=== PATIENT | male | born 1965 | race Caucasian/White ===

== ENCOUNTER 2019-02-01 18:24 | Inpatient (IN) | payer OTHER, SELFPAY ==
[2019-02-01] VITALS (9 sets, daily range): BP systolic 155–206; BP diastolic 79–101; PULSE 78–88; RESP 15–24; TEMP 35.9–36.7; O2SAT 91–95; BMI 50.2; BMI 50.3
--- NOTE | 2019-02-01 18:54 | EKG12_ITS ---
Test Reason : SOB Blood Pressure : / mmHG Vent. Rate : 084 BPM Atrial Rate : 084 BPM P-R Int : 206 ms QRS Dur : 100 ms QT Int : 382 ms P-R-T Axes : 041 123 108 degrees QTc Int : 451 ms Normal sinus rhythm Possible Left atrial enlargement Abnormal ECG Confirmed by MARYELLEN JACQUES, LU ([id number]), editor in chief NATHAN SZYMANSKI ([id number]) on 02/02/2019 9:11:30 AM Referred By: Fox Cleveland Confirmed By:LU BOJORQUEZ MD
--- NOTE | 2019-02-01 18:54 | RAD_ITS ---
STUDY: X-RAY CHEST REASON FOR EXAM: Male, 53 years old. Shortness of breath TECHNIQUE: Frontal view of the chest COMPARISON: None. FINDINGS: There are mild congestive changes noted. The lungs are otherwise clear. There are no pleural effusions. There is no pneumothorax. The heart is enlarged. The visualized osseous structures are within normal limits. RAD/Chest 1 View (Portable) IMPRESSION: Cardiomegaly. Mild pulmonary vascular congestion. Electronically Signed: Sandeep Glsaer, at 19:39 EDT Tel , Service support ,
--- NOTE | 2019-02-01 18:57 | NURSING ---
NO OLD EKGS IN MUSE
[2019-02-01 19:16] LABS: Absolute Lymphocyte Count 2.23 X10^3/uL (0.83-4.51); Absolute Neutrophil Count 6.8 X10^3/uL (2.0-7.7); Basophil# 0.07 X10^3/uL; Basophil% 0.7 % (0-1); Eosinophil# 0.22 X10^3/uL; Eosinophils% 2.1 % (0-5); Hematocrit 49.7 % (40-54); Hemoglobin 15.9 g/dL (13.0-16.5); Lymphocyte # 2.23 X10^3/ul (4.0); Lymphocyte % 21.7 % (19-41); Mean Corpuscular Hgb 29.7 pg (27.0-32.0); Mean Corpuscular Volume 92.9 fL (80-94); Monocyte# 0.88 X10^3/uL; Monocyte% 8.6 % (0-10); NRBC Flagged by Analyzer 0 % (0-5); Neutrophil # 6.83 X10^3/uL (2.7-7.7); Neutrophil % 66.5 % (47-70); Platelet Count 240 K/mm3 (150-450); RBC Distribution Width CV 12.7 % (11.6-14.6); RBC Distribution Width SD 43.6 fl (35.1-43.9); Red Blood Count 5.35 M/mm3 (4.6-6.2); White Blood Count 10.3 K/mm3 (4.4-11.0)
[2019-02-01] MEDS: 0.9% Normal Saline 1,000 ML 15 ML IV (19:18)
[2019-02-01 19:20] LABS: Anion Gap 9 (5-15); BUN 13 mg/dL (7-18); BUN/Creat Ratio 12.5 RATIO (10-20); Calcium,Total 8.4 mg/dL (8.5-10.1); Chloride 104 mmol/L (98-107); Creatinine, Serum 1.04 mg/dL (0.70-1.30); EST Glomerular Filtration Rate 79 mL/min (>60); Est Glom Filt Rate - Afr Amer 95 mL/min (>60); Estimated Creatinine Clearance 77.64 ml/min; Glucose 339 mg/dL (74-106); Potassium 4.3 mmol/L (3.5-5.1); Sodium Level 141 mmol/L (136-145)
[2019-02-01 19:56] LABS: BNP,B-Type NATRIURETIC PEPTIDE 137.3 pg/mL (0-100)
[2019-02-01 21:05] LABS: D-Dimer Quantitative (DVT/PE) 0.39 FEU/ug/m (0.27-0.49)
[2019-02-01] MEDS: Aspirin 81 MG TAB.CHEW 324 MG PO (21:10)
--- NOTE | 2019-02-01 21:20 | PCM.HP.STD ---
Problem List (1) Heart failure Status: Suspected (2) Hypertensive emergency Status: Acute History of Present Illness Date of Admission: 02/01/19 Chief Complaint: shortness of breath The patient is a 53 year old M with a significant history of obstructive sleep apnea; hypertension; diabetes; super morbid obesity who presented to the emergency department with shortness of breath. His shortness of breath started 2 to 3 months ago. He saw her PCP and he was prescribed antibiotics and breathing treatment. He completed a course of antibiotics about a week ago. 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 However today while mowing with his son he became extremely short of breath and he had to stop mowing. He still has short of breath at rest and this increases markedly with mild exertion. Associated with symptoms is productive cough of little clear sputum and wheezing. He reports gaining about 40 pounds within 1 year. He has noticed increased swelling of his feet. Presently, he denies paroxysmal nocturnal dyspnea. However he reported about a year ago he had proximal nocturnal dyspnea. He sleeps with only one pillow but most of the time he ends up sleeping by his side. He reports that he is uncomfortable when he sleep on his back. Patient is noncompliant with his home BiPAP. Past Medical History Medical History: Medical History (Last Reviewed 02/02/19 @ 05:51 by Fox Cleveland MD) Diabetes E11.9 HTN (hypertension) I10 Allergies No Known Allergies Allergy (Verified 02/01/19 18:27) Home Medications: Ambulatory Orders Medication Instructions Recorded Dulaglutide [Trulicity] 1.5 mg SQ QWEEK 02/01/19 Insulin Aspart [Novolog Flexpen 18 units SUBCUT TIDCM 02/01/19 ([facility])] Insulin Detemir [Levemir] 68 unit SQ BID 02/01/19 Metformin HCl [Metformin ER 1,000 mg PO BID 02/01/19 Osmotic] Multivitamin with Minerals 1 ea PO DAILY 02/01/19 [Multiple Vitamin] Rosuvastatin Calcium 20 mg PO QHS 02/01/19 Telmisartan/Hydrochlorothiazid 1 tab PO QHS 02/01/19 [Telmisartan-Hctz 80-12.5 mg Tb] Surgical History: - - TEETH EXTRACTION Lives: Spouse/ Significant Other Smoking Status: Never smoker Alcohol: None - *Family History Maternal History Items: - - Thyroid disease Paternal History Items: Diabetes, Heart Disease - Heart disease in his father started probably when his father was in his late 50s. Also, his father had heart attack. Review of Systems Constitutional: Denies: Chills, Fever, Weight Change HEENT: Denies: Head Aches, Sinus Congestion, Sinus Drainage Cardiovascular: Denies: Chest Pain, Palpitations Respiratory: Reports: Cough, Shortness of breath at rest, Sputum production Gastrointestinal: Denies: Abdominal Pain, Nausea, Vomiting Genitourinary: Denies: Dysuria Musculoskeletal: Reports: Leg Pain. Denies: Joint Pain, Joint Tenderness Skin: Reports: Rash. Denies: Wounds Neurological: Denies: Numbness, Tingling, Focal weakness Psychiatric: Denies: Anxiety, Depression, Homicidal Ideations, Suicidal Ideations Hematologic/ Lymphatic: Denies: Easy Bruising, Easy Bleeding VTE Information - Inpt Only VTE Present on Admission: No VTE Mechan Device Prophylaxis: None VTE Pharm Prophylaxis ordered?: Yes Patient Problems: Active and Suspected Problems (Last Updated 02/01/19 @ 22:50 by Fox Cleveland MD) Heart failure (Suspected) Hypertensive emergency (Acute) - Physical Exam General: Alert, Oriented x3, Cooperative, - - Obese HEENT: Atraumatic, PERRLA, EOMI, Normocephalic Neck: Supple, No JVD, Negative Carotid Bruits Lungs: No rhonchi, No rales, Tachypneic, Wheezes - mild Cardiovascular: Regular rate, No murmurs Abdomen: Bowel Sounds Present, Soft, Non Tender Extremities: Capillary Refill Less than 3 Seconds, Tenderness, - - Patient is obese and no pitting edema can be appreciated. However he reports that his leg is swollen Skin: No breakdown, - - erythema of bilateral lower legs and feet. Purpurish rash on legs. Musculoskeletal: No Tenderness to Palpation of Joints or Extremities Neurological: Cranial nerves II-XII grossly intact Psych/Mental Status: Normal Affect, Appropriate Vital Signs Temp Pulse Resp BP Pulse Ox 96.7 F L 88 24 H 206/101 H 91 02/01/19 18:25 02/01/19 18:25 02/01/19 18:25 02/01/19 18:25 02/01/19 18:25 Oxygen Delivery Method Room Air Weight: 149.8 kg Body Mass Index (BMI) 50.2 Laboratory Tests Past 24 Hrs 02/01/19 02/01/19 02/01/19 18:50 18:50 18:50 WBC 10.3 RBC 5.35 Hgb 15.9 Hct 49.7 MCV 92.9 MCH 29.7 MCHC 32.0 RDW Std Deviation 43.6 RDW Coeff of Shelly 12.7 Plt Count 240 MPV 10.0 Immature Gran % (Auto) 0.400 Neut % (Auto) 66.5 Lymph % (Auto) 21.7 Edgar % (Auto) 8.6 Eos % (Auto) 2.1 Baso % (Auto) 0.7 Absolute Neuts (auto) 6.8 Absolute Lymphs (auto) 2.23 Nucleated RBC % 0 D-Dimer Quant (PE/DVT) Sodium 141 Potassium 4.3 Chloride 104 Carbon Dioxide 28.0 Anion Gap 9 BUN 13 Creatinine 1.04 Estim Creat Clear Calc 77.64 Est GFR (MDRD) Af Amer 95 Est GFR (MDRD) Non-Af 79 BUN/Creatinine Ratio 12.5 Glucose 339 H Calcium 8.4 L Troponin I 0.034 B-Natriuretic Peptide 137.3 H 02/01/19 18:50 WBC RBC Hgb Hct MCV MCH MCHC RDW Std Deviation RDW Coeff of Shelly Plt Count MPV Immature Gran % (Auto) Neut % (Auto) Lymph % (Auto) Edgar % (Auto) Eos % (Auto) Baso % (Auto) Absolute Neuts (auto) Absolute Lymphs (auto) Nucleated RBC % D-Dimer Quant (PE/DVT) 0.39 Sodium Potassium Chloride Carbon Dioxide Anion Gap BUN Creatinine Estim Creat Clear Calc Est GFR (MDRD) Af Amer Est GFR (MDRD) Non-Af BUN/Creatinine Ratio Glucose Calcium Troponin I B-Natriuretic Peptide Assessment/Plan All Active Problems (Last Updated 02/01/19 @ 22:50 by Fox Cleveland MD) Hypertensive emergency (Acute) The patient is a 53 year old M with a significant history of obstructive sleep apnea; hypertension; diabetes; super morbid obesity who presented to the emergency department with dyspnea; wheezing; productive cough; increased swelling of his bilateral lower legs consistent; and found to have severely elevated blood pressure consistent with probable new onset heart failure and hypertensive emergency. Suspect acute heart failure Place on monitored bed on PCU Weight on admission to the floor; and then daily Strict I&O's Impression of chest x-ray: Cardiomegaly. Mild pulmonary vascular congestion. Chest x-ray was independently reviewed. I agree with radiology interpretation. EKG independently reviewed confirms Q waves in lead I; in V1 to V6. Emergency department labs reviewed showed BNP of 137.3. But of note patient is morbidly obese. Will give lasix 40eq x1; then 40 mEq IV twice daily. Potassium chloride 20 mEq daily Echo ordered to evaluate LVEF and wall motion Monitor electrolytes and renal function Trend blood pressure Titrate diuretics and heart failure/blood pressure medications with blood pressure. Fluid restriction of 1,500ml. Chemical nuclear stress test in a.m Received aspirin 324 mg in emergency department. Continue aspirin 81 mg daily. Check lipid panel. TSH ordered at the ED returned unremarkable. Hypertensive emergency On presentation his systolic blood pressure was in the lower 200s Reportedly he has been forgetting to take his meds Continue home ARB. Nitroglycerin ointment ordered Hydralazine prn Diabetes with acute hyperglycemia On presentation his blood glucose was not within goal Home Trulicity held On home prandial insulin. We will keep patient n.p.o. so we will hold prandial insulin will check Accu-Chek every 6 hours and give correction scale insulin. On home Levemir. Will de-escalate in the setting of patient being kept n.p.o. Resume home dose after npo is over. MARIA A Patient is supposed to be on home BiPAP which he does not use. Patient declined BiPAP in the hospital settings. DVT Prophylaxis Lovenox 40mg bid; accounted for weight Code Visit Inpatient E&M: 32013 Init Hosp L3
--- NOTE | 2019-02-01 21:21 | ED.VISSUMM ---
- ER Visit Summary Date of Service: 02/01/19 Chief Complaint: [Shortness of breath] History of Present Illness: The patient is a 53 M [presents to the emergency department complaint of shortness of breath has been ongoing for last 3 to 4 months. Patient initially started with a cough and what was thought to be bronchitis. Patient was treated with antibiotics eventually and felt a little bit better. Today he was mowing the lawn on a riding mower and began feeling increasingly short of breath. Patient also admits to exertional dyspnea. He denies any chest pain. Patient denies recent travel or surgery. Patient has not had any heart history himself. Patient states that his father had an NH in his 70s.] Physical Examination: [HEENT-PERRLA, EOMI. Cranial nerves II through XII grossly intact. TMs clear. Mucous membranes moist. No adenopathy. Cardiovascular-regular rate and rhythm without murmur or ectopy Lungs-clear to auscultation, chest wall stable without crepitus or subcu emphysema Abdomen-normoactive bowel sounds, soft, nontender, no rebound or rigidity, no peritoneal signs. Extremities-intact ?4, normal range of motion, normal pulses, atraumatic. Patient has edema of the lower and upper extremities as well as the abdominal wall.] Test Results: [EKG obtained on arrival showed a sinus rhythm with a ventricular rate of 84 bpm with old anterior septal infarct. CBC with additional count of 10.3, hemoglobin 15.9, hematocrit 49.7, platelets 240. Chemistries unremarkable. Troponin is 0.034. D-dimer was 0.39. Chest x-ray showed cardiomegaly and mild pulmonary congestion.] Emergency Department Course and Treatment: [He was given aspirin. Patient was given a DuoNeb aerosol. Patient will be given Lasix 40 mg IV.] Treatment Plan: [Admit for further work-up and evaluation of his exertional dyspnea which I think may be an anginal equivalent. Concerned about possible cardiomyopathy as well.] Disposition: [Admit] Impression: [Exertional dyspnea Anasarca] This note was generated with DocOnYou dictation software. It may contain incorrect words, spelling, and punctuation that were not noted in review of the chart prior to signing ED Disposition - Plan for ED Patient: Referrals: Jus Shields MD [Primary Care Provider] -
[2019-02-01] MEDS: Ipratropium/Albuterol Sulfate 3 ML AMPUL.NEB INHALATION (21:25)
[2019-02-01 21:43] LABS: Thyroid Stim Hormone (TSH) 2.18 uIU/mL (0.358-3.74)
--- NOTE | 2019-02-01 22:21 | ECHOCS_ITS ---
Reason For Study: dyspnea/SOB Procedure This was a 2D Doppler, Color Flow transthoracic echocardiogram. The study was technically difficult. Contrast injection was performed. Exam performed portable in patient room. Left Ventricle Normal LV size. Left ventricular systolic function is normal. The estimated ejection fraction is 60 %. No regional wall motion abnormalities noted. Right Ventricle Normal RV size. Normal systolic function. Atria The left atrium is moderately enlarged. The right atrium is moderately enlarged. Mitral Valve Normal mitral valve. Tricuspid Valve Normal tricuspid valve. Unable to estimate RV systolic pressure/pulmonary artery pressure due to technically difficult study. Aortic Valve The aortic valve is not well visualized. Great Vessels Normal aortic root. The pulmonary artery is normal size. Normal inferior vena cava. Pericardium/Pleural No pericardial effusion. Medication Diluted definity 3.0ml given slow IV push to enhance endocardial definition. MMode/2D Measurements & Calculations LVIDd: 5.9 cm IVSd: 1.3 cm Ao root diam: 3.5 cm LVIDs: 4.4 cm LVPWd: 1.3 cm RVDd: 3.8 cm FS: 26.1 % LAV(MOD-bp): 88.1 ml LA A4 area: 28.7 cm2 LA dimension(2D): 3.7 cm LAV(MOD-bp) Indexed: 34.9 ml/m2 LAV(MOD-sp2): 78.2 ml LAV(MOD-sp4): 95.7 ml RA A4 area: 25.4 cm2 Time Measurements MV dec time: 0.17 sec Doppler Measurements & Calculations MV E max juan: 95.7 cm/sec Lat Peak E' Juan: 10.6 cm/sec Med Peak E' Juan: 6.0 cm/sec MV A max juan: 66.5 cm/sec E/E' lat: 9.0 E/E' med: 15.9 MV E/A: 1.4 Ao V2 max: 168.3 cm/sec LV V1 max: 103.4 cm/sec PA V2 max: 129.8 cm/sec Ao max P.3 mmHg LV V1 max P.3 mmHg Interpretation Summary Normal LV size. Left ventricular systolic function is normal. The estimated ejection fraction is 60 %. Contrast injection was performed. Ordering Physician: Fox Cleveland Referring Physician: Jus Shields Performed By: Nury Banuelos, BECKI, RVT
[2019-02-01] MEDS: Atorvastatin Calcium 40 MG Tablet PO (23:08)
[2019-02-01] MEDS: Insulin Lispro 100 UNIT/ML INSULN.PEN SC (23:09)
[2019-02-01] MEDS: Enoxaparin 40 MG/0.4 ML Syringe SC (23:09)
[2019-02-01] MEDS: 0.9% NaCl Peripheral Flush Adult/Peds IV (23:10)
[2019-02-01] MEDS: Furosemide 40 MG/4 ML Vial IV (23:10)
[2019-02-01 23:16] LABS: Bedside Glucose 245 mg/dL (70-110)
[2019-02-02] VITALS (13 sets, daily range): BP systolic 137–181; BP diastolic 72–90; PULSE 70–95; RESP 18–22; TEMP 36.7–36.8; O2SAT 89–95
[2019-02-02] MEDS: hydrALAZINE 20 MG/ML Vial 10 MG IV (03:54)
[2019-02-02] MEDS: 0.9% NaCl Peripheral Flush Adult/Peds IV ×4 (03:56→21:52)
--- NOTE | 2019-02-02 05:55 | EKG12_ITS ---
Test Reason : MORNING EKG Blood Pressure : / mmHG Vent. Rate : 075 BPM Atrial Rate : 075 BPM P-R Int : 198 ms QRS Dur : 106 ms QT Int : 430 ms P-R-T Axes : 036 116 094 degrees QTc Int : 480 ms Sinus rhythm with occasional Premature ventricular complexes Possible Left atrial enlargement Inferior infarct , age undetermined , cannot be excluded Anterolateral infarct , age undetermined Abnormal ECG No previous ECGs available Confirmed by REGINALDO JACQUES, BALDO ([id number]), acquisitions editor NATHAN SZYMANSKI ([id number]) on 02/04/2019 10:59:38 AM Referred By: Fox Cleveland Confirmed By:BALDO HAIR MD
[2019-02-02 06:19] LABS: Anion Gap 8 (5-15); BUN 12 mg/dL (7-18); BUN/Creat Ratio 13.2 RATIO (10-20); Calcium,Total 8.6 mg/dL (8.5-10.1); Chloride 105 mmol/L (98-107); Cholesterol 189 mg/dL (200); Creatinine, Serum 0.91 mg/dL (0.70-1.30); EST Glomerular Filtration Rate 92 mL/min (>60); Est Glom Filt Rate - Afr Amer 111 mL/min (>60); Estimated Creatinine Clearance 88.74 ml/min; Glucose 259 mg/dL (74-106); High Density Lipoprotein 37 mg/dL; Potassium 3.9 mmol/L (3.5-5.1); Sodium Level 142 mmol/L (136-145); Triglycerides 293 mg/dL; Very Low Density Lipoprotein 59 mg/dL (5-40)
[2019-02-02] MEDS: Aspirin E.C. 81 MG Tablet PO (06:44)
[2019-02-02 07:26] LABS: Bedside Glucose 233 mg/dL (70-110)
[2019-02-02] MEDS: Furosemide 100 MG/10 ML Vial 60 MG IV ×3 (10:16→21:51)
[2019-02-02] MEDS: Enoxaparin 40 MG/0.4 ML Syringe SC ×2 (10:19→21:51)
[2019-02-02] MEDS: Insulin Lispro 100 UNIT/ML INSULN.PEN SC ×3 (11:14→23:51)
[2019-02-02 11:21] LABS: Bedside Glucose 248 mg/dL (70-110)
--- NOTE | 2019-02-02 12:17 | PN_ITS ---
Patient Problems: Active and Suspected Problems (Last Reviewed 02/02/19 @ 05:51 by Fox Cleveland MD) Heart failure (Suspected) Hypertensive emergency (Acute) Subjective: CC congestive heart failure Patient is a 53-year-old gentleman with multiple comorbidities including obstructive sleep apnea, diabetes mellitus type 2 essential hypertension obesity with BMI of 49 presented with progressive shortness of breath with generalized edema. Patient was also found to have markedly elevated blood pressure on admission. Patient seen remains significantly dyspneic at rest with significant edema involving trunk and extremities. Patient dose of Lasix adjusted. Objective: GENERAL: cooperative HEENT: Atraumatic; moist oral mucosa EYES; Anicteric, Normal Conjunctiva NECK; supple, normal thyroid, JVD. RESPIRATORY: Diminished to auscultation bilaterally, CARDIOVASCULAR: Regular S1 S2, no audible GI: soft, non-tender, normoactive bowel sounds, : No Renal angle tenderness; EXTREMITIES: 2+ edema involving both upper and lower extremities MUSCULOSKELETAL: No Joint Tenderness; no muscle waisting NEURO: Awake; no lateralizing signs. SKIN: No Rash PSYCH; Normal affect Vitals/I&O's: Vital Signs Temp Pulse Resp BP Pulse Ox 98.1 F 76 18 155/79 H 94 02/02/19 07:50 02/02/19 09:00 02/02/19 09:00 02/02/19 07:50 02/02/19 07:50 Oxygen Flow Rate (L/min) 2 Oxygen Delivery Method Nasal Cannula Weight: 147 kg Body Mass Index (BMI) 50.3 Intake and Output for Last 24 Hours 01/31/19 02/01/19 02/02/19 23:59 23:59 23:59 Intake Total 720 / 720 Output Total 1350 / 1350 Balance -630 / -630 Laboratory Results 02/01/19 18:50: WBC 10.3, RBC 5.35, Hgb 15.9, Hct 49.7, MCV 92.9, MCH 29.7, MCHC 32.0, RDW Std Deviation 43.6, RDW Coeff of Shelly 12.7, Plt Count 240, MPV 10.0, Immature Gran % (Auto) 0.400, Neut % (Auto) 66.5, Lymph % (Auto) 21.7, [place] % (Auto) 8.6, Eos % (Auto) 2.1, Baso % (Auto) 0.7, Absolute Neuts (auto) 6.8, Absolute Lymphs (auto) 2.23, Nucleated RBC % 0 02/01/19 18:50: Sodium 141, Potassium 4.3, Chloride 104, Carbon Dioxide 28.0, Anion Gap 9, BUN 13, Creatinine 1.04, Estim Creat Clear Calc 77.64, Est GFR (MDRD) Af Amer 95, Est GFR (MDRD) Non-Af 79, BUN/Creatinine Ratio 12.5, Glucose 339 H, Calcium 8.4 L, Troponin I 0.034 02/01/19 18:50: B-Natriuretic Peptide 137.3 H 02/01/19 18:50: D-Dimer Quant (PE/DVT) 0.39 02/01/19 18:50: TSH 2.18 02/01/19 23:00: Troponin I 0.037 02/01/19 23:08: POC Glucose 245 H 02/02/19 00:58: Troponin I 0.041 02/02/19 05:35: Sodium 142, Potassium 3.9, Chloride 105, Carbon Dioxide 29.0, Anion Gap 8, BUN 12, Creatinine 0.91, Estim Creat Clear Calc 88.74, Est GFR (MDRD) Af Amer 111, Est GFR (MDRD) Non-Af 92, BUN/Creatinine Ratio 13.2, Glucose 259 H, Calcium 8.6, Triglycerides 293 H, Cholesterol 189, LDL Cholesterol 93, VLDL Cholesterol 59 H, HDL Cholesterol 37 L 02/02/19 06:45: POC Glucose 233 H 02/02/19 11:10: POC Glucose 248 H Current Medications Acetaminophen (Tylenol) 650 mg PO Q6H PRN PRN PRN Reason: Mild pain 1-3/Temp > 100.7 F Aspirin (Ecotrin) 81 mg PO DAILY@0800 [facility] Last Admin: 02/02/19 06:44 Dose: 81 mg Documented by: Atorvastatin Calcium (Lipitor) 40 mg PO QHS [facility] Last Admin: 02/01/19 23:08 Dose: 40 mg Documented by: Dextrose (D50w Syringe) 0 gm IV X1 PRN; Protocol PRN Reason: Hypoglycemia Enoxaparin Sodium (Lovenox) 40 mg SC BID [facility] Last Admin: 02/02/19 10:19 Dose: 40 mg Documented by: Furosemide (Lasix) 60 mg IV Q8 [facility] Last Admin: 02/02/19 10:16 Dose: 60 mg Documented by: Glucagon () 1 mg IM .X1 PRN PRN Reason: Hypoglycemia Hydralazine HCl (Apresoline Iv) 10 mg IV Q4H PRN PRN PRN Reason: SBP > 160 Last Admin: 02/02/19 03:54 Dose: 10 mg Documented by: Hydrochlorothiazide () 12.5 mg PO QHS [facility] Sodium Chloride () 250 mls @ 15 mls/hr IV .[id number] PRN PRN Reason: SALINE FLUSH Insulin Glargine (Lantus (Bk)) 68 units SC BID [facility] Insulin Human Lispro (Humalog Kwikpen ([facility])) 0 unit SC Q6 [facility]; Protocol Last Admin: 02/02/19 11:14 Dose: 4 units Documented by: Losartan Potassium (Cozaar) 100 mg PO QHS [facility] Ondansetron HCl (Zofran) 4 mg IV Q8H PRN PRN PRN Reason: NAUSEA/VOMITING Potassium Chloride (K-Dur) 20 meq PO DAILYCM [facility] Last Admin: 02/02/19 10:19 Dose: 20 meq Documented by: Sodium Chloride () 10 - 40 ml IV UD PRN PRN Reason: SALINE FLUSH Last Admin: 02/02/19 10:17 Dose: 10 ml Documented by: Medical Necessity - Tobacco Use Smoking Status: Never smoker Assessment/Plan All Active Problems (Last Reviewed 02/02/19 @ 05:51 by Fox Cleveland MD) Hypertensive emergency (Acute) Patient is a 53-year-old gentleman with multiple comorbidities including obstructive sleep apnea, diabetes mellitus type 2 essential hypertension obesity with BMI of 49 presented with progressive shortness of breath with generalized e simone. Patient was also found to have markedly elevated blood pressure on admission 1. Acute congestive heart failure ~Arrival diastolic heart failure from hypertension. Patient has been admitted t o monitored bed placed on strict input and output, daily weights salt restriction as well as Lasix. Patient was on 40 mg every 12 dose was increased to q. 860 mg. Echo ordered for EF assessment 2. Acute hypertensive emergency with evidence of endorgan damage that is congestive heart failure ~Did continue patient home medications placed on nitroglycerin ointment as well as hydralazine PRN 3. Obstructive sleep apnea ~Patient was previously prescribed BiPAPhe however did not tolerate it; did encourage its use while in the hospital 4. Diabetes mellitus type 2 presented with hyperglycemia ~Held oral medications; continue with patient long-acting insulin in addition to Accu-Cheks before meals and at bedtime with sliding scale coverage 5. Dyslipidemia ~Patient is on atorvastatin did continue 6. Morbid obesity with BMI of 49.3 ~Patient is a candidate for gastric bypass given his associated comorbidities including diabetes mellitus type 2 did discuss with patient to follow-up with PCP for possible referral 7. DVT prophylaxis SC Lovenox dose adjusted for weight Active Medications Acetaminophen (Tylenol) 650 mg PO Q6H PRN PRN PRN Reason: Mild pain 1-3/Temp > 100.7 F Aspirin (Ecotrin) 81 mg PO DAILY@0800 [facility] Last Admin: 02/02/19 06:44 Dose: 81 mg Documented by: Atorvastatin Calcium (Lipitor) 40 mg PO QHS [facility] Last Admin: 02/01/19 23:08 Dose: 40 mg Documented by: Dextrose (D50w Syringe) 0 gm IV X1 PRN; Protocol PRN Reason: Hypoglycemia Enoxaparin Sodium (Lovenox) 40 mg SC BID [facility] Last Admin: 02/02/19 10:19 Dose: 40 mg Documented by: Furosemide (Lasix) 60 mg IV Q8 [facility] Last Admin: 02/02/19 10:16 Dose: 60 mg Documented by: Glucagon () 1 mg IM .X1 PRN PRN Reason: Hypoglycemia Hydralazine HCl (Apresoline Iv) 10 mg IV Q4H PRN PRN PRN Reason: SBP > 160 Last Admin: 02/02/19 03:54 Dose: 10 mg Documented by: Hydrochlorothiazide () 12.5 mg PO QHS [facility] Sodium Chloride () 250 mls @ 15 mls/hr IV .[id number] PRN PRN Reason: SALINE FLUSH Insulin Glargine (Lantus ([facility])) 68 units SC BID [facility] Insulin Human Lispro (Humalog Kwikpen ([facility])) 0 unit SC Q6 [facility]; Protocol Last Admin: 02/02/19 11:14 Dose: 4 units Documented by: Losartan Potassium (Cozaar) 100 mg PO QHS [facility] Ondansetron HCl (Zofran) 4 mg IV Q8H PRN PRN PRN Reason: NAUSEA/VOMITING Potassium Chloride (K-Dur) 20 meq PO DAILYCM [facility] Last Admin: 02/02/19 10:19 Dose: 20 meq Documented by: Sodium Chloride () 10 - 40 ml IV UD PRN PRN Reason: SALINE FLUSH Last Admin: 02/02/19 10:17 Dose: 10 ml Documented by: Clinical Impression(s) from Imaging Studies Chest X-Ray 02/01/19 18:54 IMPRESSION: Cardiomegaly. Mild pulmonary vascular congestion. Electronically Signed: Sandeep Glaser, at 19:39 EDT Tel , Service support , Code Visit Inpatient E&M: 09067 Subs Hosp L3
--- NOTE | 2019-02-02 12:50 | CASEMGMT ---
RN CM Assessment Presentation: New onset CHF Intro role of CM and purpose of RN CM assessment. Pt sitting up in chair, able to participate. Demographics, PCP and Pharmacy verified. Pt lives independently with his at home. States he is independent, works and does not have concerns re: discharge. PCP: Dr. Jus Shields. Pt states he is compliant with f/u. [facility]erred [facility] Insurance: MMO Prescription Benefit: yes LNOK: Living Arrangements: Lives independently in home. No assistance needed per pt. States he is independent in ADL's. Transportation: Drives DME: noncompliant with home Bipap HHC: none Patient DC goals: Home DC PLAN: anticipate home on dc. Pino MEHTA RN ACM
--- NOTE | 2019-02-02 15:36 | PT ---
DISCUSSED AND DEMONSTRATED SEATED THEREX. DISCUSSED AT LENGTH ENERGY CONSERVATION, NOTING THAT Pt WAS MUCH STEADIER AMB W/ O2 BEHIND A WC VS. NO O2 AND NO DEVICE
[2019-02-02 17:21] LABS: Bedside Glucose 217 mg/dL (70-110)
[2019-02-02] MEDS: Atorvastatin Calcium 40 MG Tablet PO (21:51)
[2019-02-02] MEDS: hydroCHLOROthiazide 12.5mg 12.5 MG PO (21:51)
[2019-02-02] MEDS: Losartan Potassium 100 MG Tablet PO (21:51)
[2019-02-02 22:05] LABS: Bedside Glucose 270 mg/dL (70-110)
[2019-02-03] VITALS (11 sets, daily range): BP systolic 104–133; BP diastolic 71–79; PULSE 75–96; RESP 18–22; TEMP 36.4–37; O2SAT 92–97
[2019-02-03] LABS: Bedside Glucose 267 mg/dL (70-110)
[2019-02-03 05:42] LABS: Absolute Neutrophil Count 7.3 X10^3/uL (2.0-7.7); Basophil# 0.08 X10^3/uL; Basophil% 0.7 % (0-1); Eosinophil# 0.22 X10^3/uL; Eosinophils% 1.9 % (0-5); Lymphocyte % 24.1 % (19-41); Mean Corp Hgb Conc 32.4 g/dL (32-36); Mean Corpuscular Hgb 28.8 pg (27.0-32.0); Mean Corpuscular Volume 88.9 fL (80-94); Mean Platelet Vol. 9.8 fl (6.2-12.0); Monocyte% 9.5 % (0-10); NRBC Flagged by Analyzer 0 % (0-5); Neutrophil # 7.34 X10^3/uL (2.7-7.7); Neutrophil % 63.3 % (47-70); Platelet Count 264 K/mm3 (150-450); RBC Distribution Width CV 12.5 % (11.6-14.6); RBC Distribution Width SD 40.7 fl (35.1-43.9); Red Blood Count 6.32 M/mm3 (4.6-6.2); White Blood Count 11.6 K/mm3 (4.4-11.0)
[2019-02-03 05:54] LABS: Differential Indicated SCAN CRITERIA MET; Hematocrit 56.2 % (40-54)
--- NOTE | 2019-02-03 05:55 | EKG12_ITS ---
Test Reason : RHYTHM CHANGE Blood Pressure : / mmHG Vent. Rate : 089 BPM Atrial Rate : 326 BPM P-R Int : 000 ms QRS Dur : 094 ms QT Int : 394 ms P-R-T Axes : 000 126 -32 degrees QTc Int : 479 ms Atrial fibrillation with premature ventricular or aberrantly conducted complexes Possible Inferior infarct , age undetermined Anterolateral infarct , age undetermined Abnormal ECG When compared with ECG of 02-FEB-2019 05:34, MANUAL COMPARISON REQUIRED, DATA IS UNCONFIRMED Confirmed by AMBERLY JACQUES, KING ([id number]), associate entertainment editor NATHAN SZYMANSKI ([id number]) on 02/06/2019 10:34:53 A M Referred By: Fox Cleveland Confirmed By:JAZZMINE GAMING MD
[2019-02-03 05:56] LABS: Hemoglobin 18.2 g/dL (13.0-16.5)
[2019-02-03 05:59] LABS: Prothrombin Time (Protime)PT. 13.2 SECONDS (11.7-14.9)
[2019-02-03] MEDS: Aspirin E.C. 81 MG Tablet PO (06:24)
[2019-02-03 06:27] LABS: Anion Gap 11 (5-15); BUN 18 mg/dL (7-18); Chloride 99 mmol/L (98-107); Creatinine, Serum 0.95 mg/dL (0.70-1.30); EST Glomerular Filtration Rate 88 mL/min (>60); Est Glom Filt Rate - Afr Amer 106 mL/min (>60); Glucose 232 mg/dL (74-106); Potassium 3.8 mmol/L (3.5-5.1); Sodium Level 139 mmol/L (136-145)
[2019-02-03 06:35] LABS: Bedside Glucose 223 mg/dL (70-110)
--- NOTE | 2019-02-03 07:25 | PN_ITS ---
Patient Problems: Active and Suspected Problems (Last Reviewed 02/02/19 @ 05:51 by Fox Cleveland MD) Heart failure (Suspected) Hypertensive emergency (Acute) Subjective: CC follow-up CHF Patient has lost almost 7 kg following his admission. Patient is scheduled to undergo Lexiscan nuclear stress test. Echo obtained the day prior demonstrated EF of 60%. Objective: GENERAL: cooperative HEENT: Atraumatic; moist oral mucosa EYES; Anicteric, Normal Conjunctiva NECK; supple, normal thyroid, JVD. RESPIRATORY: Diminished to auscultation bilaterally, CARDIOVASCULAR: Regular S1 S2, no audible GI: soft, non-tender, normoactive bowel sounds, : No Renal angle tenderness; EXTREMITIES: 2+ edema involving both upper and lower extremities MUSCULOSKELETAL: No Joint Tenderness; no muscle waisting NEURO: Awake; no lateralizing signs. SKIN: No Rash PSYCH; Normal affect Vitals/I&O's: Vital Signs Temp Pulse Resp BP Pulse Ox 97.8 F 90 18 104/75 92 02/03/19 02:45 02/03/19 03:00 02/03/19 02:45 02/03/19 02:45 02/03/19 02:45 Oxygen Flow Rate (L/min) 2 Oxygen Delivery Method Room Air Weight: 143 kg Body Mass Index (BMI) 50.3 Intake and Output for Last 24 Hours 02/01/19 02/02/19 02/03/19 23:59 23:59 23:59 Intake Total 40.5 / 520.5 1140 / 1140 60 / 60 Output Total 5500 / 5500 850 / 850 Balance 40.5 / 520.5 -4360 / -4360 -790 / -790 Laboratory Results 02/02/19 06:45: POC Glucose 233 H 02/02/19 11:10: POC Glucose 248 H 02/02/19 16:35: POC Glucose 217 H 02/02/19 21:48: POC Glucose 270 H 02/02/19 23:50: POC Glucose 267 H 02/03/19 05:20: WBC 11.6 H, RBC 6.32 H, Hgb 18.2 H*, Hct 56.2 H, MCV 88.9, MCH 28.8, MCHC 32.4, RDW Std Deviation 40.7, RDW Coeff of Shelly 12.5, Plt Count 264, MPV 9.8, Immature Gran % (Auto) 0.500, Neut % (Auto) 63.3, Lymph % (Auto) 24.1, Norman % (Auto) 9.5, Eos % (Auto) 1.9, Baso % (Auto) 0.7, Absolute Neuts (auto) 7.3, Absolute Lymphs (auto) 2.80, Nucleated RBC % 0, Diff Path Review September02/03/19 05:20: PT 13.2, INR 1.0, APTT 26.0 02/03/19 05:20: Sodium 139, Potassium 3.8, Chloride 99, Carbon Dioxide 29.0, Anion Gap 11, BUN 18, Creatinine 0.95, Estim Creat Clear Calc 85.00, Est GFR (MDRD) Af Amer 106, Est GFR (MDRD) Non-Af 88, BUN/Creatinine Ratio 19.0, Glucose 232 H, Calcium 9.0 02/03/19 06:24: POC Glucose 223 H Current Medications Acetaminophen (Tylenol) 650 mg PO Q6H PRN PRN PRN Reason: Mild pain 1-3/Temp > 100.7 F Aspirin (Ecotrin) 81 mg PO DAILY@0800 [facility] Last Admin: 02/03/19 06:24 Dose: 81 mg Documented by: Atorvastatin Calcium (Lipitor) 40 mg PO QHS [facility] Last Admin: 02/02/19 21:51 Dose: 40 mg Documented by: Dextrose (D50w Syringe) 0 gm IV X1 PRN; Protocol PRN Reason: Hypoglycemia Enoxaparin Sodium (Lovenox) 40 mg SC BID [facility] Last Admin: 02/02/19 21:51 Dose: 40 mg Documented by: Furosemide (Lasix) 60 mg IV Q8 [facility] Last Admin: 02/03/19 06:29 Dose: Not Given Documented by: Glucagon () 1 mg IM .X1 PRN PRN Reason: Hypoglycemia Hydralazine HCl (Apresoline Iv) 10 mg IV Q4H PRN PRN PRN Reason: SBP > 160 Last Admin: 02/02/19 03:54 Dose: 10 mg Documented by: Hydrochlorothiazide () 12.5 mg PO QHS [facility] Last Admin: 02/02/19 21:51 Dose: 12.5 mg Documented by: Sodium Chloride () 250 mls @ 15 mls/hr IV .[id number] PRN PRN Reason: SALINE FLUSH Insulin Glargine (Lantus (Bk)) 68 units SC BID [facility] Last Admin: 02/02/19 21:48 Dose: 68 units Documented by: Insulin Human Lispro (Humalog Kwikpen (Bk)) 0 unit SC Q6 [facility]; Protocol Last Admin: 02/03/19 06:26 Dose: Not Given Documented by: Losartan Potassium (Cozaar) 100 mg PO QHS [facility] Last Admin: 02/02/19 21:51 Dose: 100 mg Documented by: Ondansetron HCl (Zofran) 4 mg IV Q8H PRN PRN PRN Reason: NAUSEA/VOMITING Potassium Chloride (K-Dur) 20 meq PO DAILYCM [facility] Last Admin: 02/02/19 10:19 Dose: 20 meq Documented by: Sodium Chloride () 10 - 40 ml IV UD PRN PRN Reason: SALINE FLUSH Last Admin: 02/02/19 21:52 Dose: 10 ml Documented by: Medical Necessity - Tobacco Use Smoking Status: Never smoker Assessment/Plan All Active Problems (Last Reviewed 02/02/19 @ 05:51 by Fox Cleveland MD) Hypertensive emergency (Acute) Patient is a 53-year-old gentleman with multiple comorbidities including obstructive sleep apnea, diabetes mellitus type 2 essential hypertension obesity with BMI of 49 presented with progressive shortness of breath with generalized edema. Patient was also found to have markedly elevated blood pressure on admission 1. Acute congestive heart failure with preserved ejection fraction ~Suspected diastolic heart failure from hypertension. Patient has been admitted to monitored bed placed on strict input and output, daily weights salt restriction as well as Lasix. Patient was on 40 mg every 12 dose was increased to q. 860 mg. Echo ordered for EF assessment ~02/03/2019;Patient has lost almost 7 kg following his admission. Patient is scheduled to undergo Lexiscan nuclear stress test. Echo obtained on 02/02/2019 was reported to be technically difficult 8 however demonstrated EF of 60%. The patient underwent a Lexiscan nuclear stress test this a.m. results pending 2. Acute hypertensive emergency with evidence of endorgan damage that is congestive heart failure ~Did continue patient home medications placed on nitroglycerin ointment as well as hydralazine PRN 3. Obstructive sleep apnea ~Patient was previously prescribed BiPAPhe however did not tolerate it; did encourage its use while in the hospital 4. Diabetes mellitus type 2 presented with hyperglycemia ~Held oral medications; continue with patient long-acting insulin in addition to Accu-Cheks before meals and at bedtime with sliding scale coverage 5. Dyslipidemia ~Patient is on atorvastatin did continue 6. Morbid obesity with BMI of 49.3 ~Patient is a candidate for gastric bypass given his associated comorbidities including diabetes mellitus type 2 did discuss with patient to follow-up with PCP for possible referral 7. DVT prophylaxis SC Lovenox dose adjusted for weight 8. Polycythemia suspected to be secondary to chronic hypoxia from patient underlying obesity hypoventilation syndrome. 2D echo result: Procedure This was a 2D Doppler, Color Flow transthoracic echocardiogram. The study was technically difficult. Contrast injection was performed. Exam performed portable in patient room. Left Ventricle Normal LV size. Left ventricular systolic function is normal. The estimated ejection fraction is 60 %. No regional wall motion abnormalities noted. Right Ventricle Normal RV size. Normal systolic function. Atria The left atrium is moderately enlarged. The right atrium is moderately enlarged. Mitral Valve Normal mitral valve. Tricuspid Valve Normal tricuspid valve. Unable to estimate RV systolic pressure/pulmonary artery pressure due to technically difficult study. Aortic Valve The aortic valve is not well visualized. Great Vessels Normal aortic root. The pulmonary artery is normal size. Normal inferior vena cava. Pericardium/Pleural No pericardial effusion. Medication Diluted definity 3.0ml given slow IV push to enhance endocardial definition. MMode/2D Measurements & Calculations LVIDd: 5.9 cm IVSd: 1.3 cm Ao root diam: 3.5 cm LVIDs: 4.4 cm LVPWd: 1.3 cm RVDd: 3.8 cm FS: 26.1 % _ LAV(MOD-bp): 88.1 ml LA A4 area: 28.7 cm2 LA dimension(2D): 3.7 cm LAV(MOD-bp) Indexed: 34.9 ml/m2 LAV(MOD-sp2): 78.2 ml LAV(MOD-sp4): 95.7 ml RA A4 area: 25.4 cm2 Time Measurements MV dec time: 0.17 sec Doppler Measurements & Calculations MV E max brandon: 95.7 cm/sec Lat Peak E' Brandon: 10.6 cm/sec Med Peak E' Brandon: 6.0 cm/sec MV A max brandon: 66.5 cm/sec E/E' lat: 9.0 E/E' med: 15.9 MV E/A: 1.4 _ Ao V2 max: 168.3 cm/sec LV V1 max: 103.4 cm/sec PA V2 max: 129.8 cm/sec Ao max P.3 mmHg LV V1 max P.3 mmHg Interpretation Summary Normal LV size. Left ventricular systolic function is normal. The estimated ejection fraction is 60 %. Contrast injection was performed. Code Visit Inpatient E&M: 67083 Subs Hosp L2
[2019-02-03] MEDS: Insulin Lispro 100 UNIT/ML INSULN.PEN SC ×3 (11:40→23:44)
[2019-02-03 11:50] LABS: Bedside Glucose 299 mg/dL (70-110)
--- NOTE | 2019-02-03 13:58 | STRESSREP_ITS ---
Stress Test Report Date: 02-03-19 Procedure: Pharmacologic stress nuclear imaging study Indications: Chest pain; shortness of breath/dyspnea Consent: Per the patient Procedure: The patient underwent pharmacologic (Regadenoson) evaluation with a peak heart rate of 107 beats per minute (64 %predicted maximal heart rate) and a peak blood pressure of 132/78 mmHg. The baseline ECG demonstrated atrial fibrillation, poor R wave progression, anterolateral MD of indeterminate age cannot be excluded. The peak pharmacologic ECG demonstrated no obvious ECG changes. There were occasional PVCs in recovery. There was no complaint of chest discomfort during pharmacologic infusion or recovery. The examination was discontinued secondary to completion of protocol. Impression: 1. Pharmacologic (Regadenoson) evaluation 2. Peak pharmacologic ECG with 10 unit atrial fibrillation, poor R wave progression, anterolateral MD of indeterminate age cannot be excluded, without obvious ECG changes compared to baseline. 3. There were occasional PVCs in recovery. 4. Nuclear images pending Myocardial perfusion imaging study: Technique: The patient was injected with 13.5 millicuries of technetium 99m Cardiolite and subsequently rest SPECT Cardiolite nuclear imaging was obtained in the horizontal long, vertical long, and short axis views. The patient underwent pharmacologic (Regadenoson) evaluation with a peak heart rate of 107 beats per minute (64 % percent predicted maximal heart rate) and a peak blood pressure of 132/78 mmHg. The patient was injected with 44.6 millicuries of technetium 99m Cardiolite and subsequently stress SPECT Cardiolite nuclear imaging was obtained in the horizontal long, vertical long, and short axis views. A gated Cardiolite study at peak stress was obtained. Interpretation: Rest and stress SPECT Cardiolite nuclear imaging status post realignment, normalization, and attenuation correction demonstrate appearance of diminished to absence of myocardial perfusion/tracer uptake in portions of the inferior apical segments at rest and status post stress. Status post stress there are areas of diminished absence of myocardial perfusion/tracer uptake in portions of the distal inferolateral, inferoapical, and lateral apical segments.. There is diminished end systolic thickening and brightening in the aforementioned areas.. The gated Cardiolite study demonstrates myocardial thickening and inward wall motion. The reported LVEF is 47 %. Impression: 1. Rest and stress SPECT currently nuclear imaging demonstrate myocardial perfusion changes appearing compatible with an area of previous myocardial injury/infarction involving portions of the inferior apical segments, however, an element of physiologic apical thinning cannot necessarily be excluded, as well as post stress myocardial perfusion changes concerning for areas of stress- induced myocardial ischemia in portions of the distal inferolateral, inferior apical, and lateral apical segments. 2. The gated Cardiolite study reports an LVEF of 47 %. This note was generated with [employer] software. It may contain incorrect words, spelling, and punctuation that were not noted in checking the note before signing.
[2019-02-03] MEDS: Furosemide 100 MG/10 ML Vial 60 MG IV ×2 (14:40→21:00)
[2019-02-03] MEDS: Enoxaparin 40 MG/0.4 ML Syringe SC ×2 (14:41→21:01)
[2019-02-03] MEDS: 0.9% NaCl Peripheral Flush Adult/Peds IV ×3 (14:41→23:46)
[2019-02-03 14:42] LABS: Pathologist Review Reviewed
[2019-02-03 19:11] LABS: Bedside Glucose 234 mg/dL (70-110)
--- NOTE | 2019-02-03 20:09 | CON.PCM_ITS ---
Problem List (1) Dyspnea Status: Acute Qualifiers: Dyspnea type: dyspnea on exertion Qualified Code(s): R06.09 - Other forms of dyspnea (2) Abnormal stress test Status: Acute (3) Hypertensive emergency Status: Acute (4) Atrial fibrillation Status: Acute Qualifiers: Atrial fibrillation type: paroxysmal Qualified Code(s): I48.0 - Paroxysmal atrial fibrillation (5) Diabetes mellitus Status: Chronic Reason for Consult Date of Consultation: 02/03/19 History of Present Illness: The patient is a 53 year old male who claims to have no past cardiovascular history who is referred for evaluation of shortness of breath/dyspnea, and abnormal stress nuclear imaging study, superimposed upon hypertensive urgency/emergency. He states that he has been feeling more short of breath and dyspneic especially with any exertional activity. Based upon his ongoing sensations he presented to the hospital for further evaluation. He was found to be markedly hypertensive with systolic pressures in excess of 200 mmHg and diastolic pressures in excess of 100 mmHg. He was admitted to the hospital for further evaluation and care. Based upon additional information obtained there w as concerns that he may have experienced volume overload and a form of congestive heart failure. Thus he was treated medically including diuretic therapy. He underwent further evaluation with cardiac enzymes which were negative. He underwent further evaluation with ECG that demonstrated sinus rhythm. He had a transthoracic echocardiogram performed. The report demonstrated his LV systolic function to be normal with an LVEF of 60%. He was subsequently referred for further evaluation with a pharmacologic stress nuclear imaging study. This was performed and considered to be abnormal. He was then referred for further evaluation with cardiovascular consultation for consideration for diagnostic cardiac catheterization. The patient states that with his shortness of breath and dyspnea he does not recall having any obvious chest discomfort. He has not had any nausea, emesis,. He is unclear as to whether or not he has had any true diaphoretic events. He has had lower extremity edema. He notes that has waxed and waned. He has attributed many of his symptoms to his PCP. Since being in the hospital he has follow-up troponin I levels. They have been negative. His cardiac rhythm has been monitored and he has had episodes of paroxysmal atrial fibrillation. He has undergone echocardiogram and pharmacologic stress nuclear imaging study as noted above. The results are noted below. He states overall since being on medical management with IV diuretics he has felt somewhat better with respect to his breathing. [] Past Medical History Allergies/Adverse Reactions: Allergies No Known Allergies Allergy (Verified 02/01/19 22:27) Home Medications: Ambulatory Orders Medication Instructions Recorded Dulaglutide [Trulicity] 1.5 mg SQ QWEEK 02/01/19 Insulin Aspart [Novolog Flexpen 18 units SUBCUT TIDCM 02/01/19 ([facility])] Insulin Detemir [Levemir] 68 unit SQ BID 02/01/19 Metformin HCl [Metformin ER 1,000 mg PO BID 02/01/19 Osmotic] Multivitamin with Minerals 1 ea PO DAILY 02/01/19 [Multiple Vitamin] Rosuvastatin Calcium 20 mg PO QHS 02/01/19 Telmisartan/Hydrochlorothiazid 1 tab PO QHS 02/01/19 [Telmisartan-Hctz 80-12.5 mg Tb] Past Medical History (Chronic Problems): Chronic Problems (Last Reviewed 02/02/19 @ 05:51 by Fox Cleveland MD) Diabetes mellitus (Chronic) Surgical History: - - TEETH EXTRACTION - *Family History Maternal History Items: - - Thyroid disease Paternal History Items: Diabetes, Heart Disease - Heart disease in his father started probably when his father was in his late 50s. Also, his father had heart attack. Lives: Spouse/ Significant Other Smoking Status: Never smoker Alcohol: None Drugs: None Review of Systems - Review of Systems General: Denies: Fever, Night Sweats, Fatigue Cardiovascular: Reports: Shortness of Breath, Peripheral Edema. Denies: Chest Discomfort, Orthopnea, PND, Palpitations, Lightheadedness, Dizziness, Near Syncope, Syncope Respiratory: Reports: Shortness of Breath. Denies: Cough, Sputum Production, Hemoptysis Gastrointestinal: Denies: Hematemesis, Hematochezia, Melena Genitourinary: Denies: Dysuria, Hematuria Skin: Denies: Rash Subjectve: This is a 53-year-old white male who appears to be resting comfortably at the moment in no acute distress. Objective: Vital Signs Temp Pulse Resp BP Pulse Ox 97.6 F L 87 18 120/71 95 02/03/19 14:51 02/03/19 19:00 02/03/19 14:51 02/03/19 14:51 02/03/19 14:51 Oxygen Flow Rate (L/min) 2 Oxygen Delivery Method Room Air Weight: 315 lb 4.176 oz Body Mass Index (BMI) 50.3 Intake and Output for Last 24 Hours 02/01/19 02/02/19 02/03/19 23:59 23:59 23:59 Intake Total 40.5 / 520.5 1140 / 1140 300 / 300 Output Total 5500 / 5500 1850 / 1850 Balance 40.5 / 520.5 -4360 / -4360 -1550 / -1550 General: Awake, Alert, Oriented x 3, Cooperative, Obese HEENT: Atraumatic, Normocephalic, PERRL, EOMI, Sclera Non Icteric Neck: Supple, Good ROM, No JVD Lungs: Diminished Jassi Bases Cardiovascular: Regular Rhythm, Normal S1, Normal S2 Vascular: No Carotid Bruits Abdomen: Bowel Sounds Present, Soft, Non Tender Extremities: No Cyanosis, No Clubbing, Mild RLE Edema, Mild LLE Edema Neurological: No Focal Motor or Sensory Deficit Psych/Mental Status: Appropriate 02/03/19 05:20: WBC 11.6 H, RBC 6.32 H, Hgb 18.2 H*, Hct 56.2 H, MCV 88.9, MCH 28.8, MCHC 32.4, Plt Count 264, MPV 9.8, Immature Gran % (Auto) 0.500, Neut % (Auto) 63.3, Lymph % (Auto) 24.1, [place] % (Auto) 9.5, Eos % (Auto) 1.9, Baso % (Auto) 0.7, Absolute Neuts (auto) 7.3, Nucleated RBC % 0 02/03/19 05:20: PT 13.2, INR 1.0, APTT 26.0 02/03/19 05:20: Sodium 139, Potassium 3.8, Chloride 99, Carbon Dioxide 29.0, Anion Gap 11, BUN 18, Creatinine 0.95, Est GFR (MDRD) Af Amer 106, Est GFR (MDRD) Non-Af 88, BUN/Creatinine Ratio 19.0, Glucose 232 H, Calcium 9.0 Rhythm: Sinus rhythm; paroxysmal atrial fibrillation EKG: Sinus rhythm; no acute ECG changes ECHO: Contrast injection performed: LV systolic function reported as normal with an LVEF of 60% Stress Test: Date: 02-03-19 Procedure: Pharmacologic stress nuclear imaging study Indications: Chest pain; shortness of breath/dyspnea Consent: Per the patient Procedure: The patient underwent pharmacologic (Regadenoson) evaluation with a peak heart rate of 107 beats per minute (64 %predicted maximal heart rate) and a peak blood pressure of 132/78 mmHg. The baseline ECG demonstrated atrial fibrillation, poor R wave progression, anterolateral TN of indeterminate age cannot be excluded. The peak pharmacologic ECG demonstrated no obvious ECG changes. There were occasional PVCs in recovery. There was no complaint of chest discomfort during pharmacologic infusion or recovery. The examination was discontinued secondary to completion of protocol. Impression: 1. Pharmacologic (Regadenoson) evaluation 2. Peak pharmacologic ECG with 10 unit atrial fibrillation, poor R wave progression, anterolateral TN of indeterminate age cannot be excluded, without obvious ECG changes compared to baseline. 3. There were occasional PVCs in recovery. 4. Nuclear images pending Myocardial perfusion imaging study: Technique: The patient was injected with 13.5 millicuries of technetium 99m Cardiolite and subsequently rest SPECT Cardiolite nuclear imaging was obtained in the horizontal long, vertical long, and short axis views. The patient underwent pharmacologic (Regadenoson) evaluation with a peak heart rate of 107 beats per minute (64 % percent predicted maximal heart rate) and a peak blood pressure of 132/78 mmHg. The patient was injected with 44.6 millicuries of technetium 99m Cardiolite and subsequently stress SPECT Cardiolite nuclear imaging was obtained in the horizontal long, vertical long, and short axis views. A gated Cardiolite study at peak stress was obtained. Interpretation: Rest and stress SPECT Cardiolite nuclear imaging status post realignment, normalization, and attenuation correction demonstrate appearance of diminished t o absence of myocardial perfusion/tracer uptake in portions of the inferior apical segments at rest and status post stress. Status post stress there are areas of diminished absence of myocardial perfusion/tracer uptake in portions of the distal inferolateral, inferoapical, and lateral apical segments.. There is diminished end systolic thickening and brightening in the aforementioned areas.. The gated Cardiolite study demonstrates myocardial thickening and inward wall motion. The reported LVEF is 47 %. Impression: 1. Rest and stress SPECT currently nuclear imaging demonstrate myocardial perfusion changes appearing compatible with an area of previous myocardial injury/infarction involving portions of the inferior apical segments, however, an element of physiologic apical thinning cannot necessarily be excluded, as well as post stress myocardial perfusion changes concerning for areas of stress- induced myocardial ischemia in portions of the distal inferolateral, inferior apical, and lateral apical segments. 2. The gated Cardiolite study reports an LVEF of 47 %. CXR: Preliminary evaluation: Portable chest x-ray: Diminished inspiratory effort: Cannot exclude cardiomegaly: Cannot exclude increased pulmonary vascularity: Please see official report Assessment/Plan 1. Shortness of breath/dyspnea The patient presents with shortness of breath/dyspnea. It is unclear at this time as to whether this represents a relationship to the hypertension and its consequences including the possibility of volume overload and CHF or relat ionship to underlying CAD with myocardial ischemia. Also, the patient has not been previously diagnosed with underlying pulmonary disease. However this may need to be considered depending upon his clinical course. At the present time the patient is being evaluated. Based upon concerns of the possibility of volume overload he has been treated with medical management including IV diuretics. He has had symptomatic improvement. He has had noninvasive evaluation. His overall LV systolic function by echocardiogram appears to be preserved. Thus, if he does have concerns of CHF this may be heart failure with preserved ejection fraction. However, he also has had a pharmacologic stress nuclear imaging study which is raise concerns of underlying CAD and based upon the gated Cardiolite nuclear imaging study concerns of diminished LV systolic function/LVEF. This would raise concerns for potential ischemic mediated cardiomyopathy diminished LV systolic function. At the present time the patient is being monitored. He is continuing medical management. He has been recommended for further evaluation with diagnostic cardiac catheterization to evaluate for underlying CAD that may be contributing to his symptoms and findings. This does not appear to be unreasonable at this time. The procedure and risks were discussed with the patient with his spouse present. He was agreeable to this approach. 2. Abnormal stress test The patient does have an abnormal stress test. It does raise concerns as noted above. The patient is continuing to be followed. He is continuing medical management. He has been recommended for further evaluation with diagnostic cardiac catheterization as described above. 3. Hypertensive urgency/emergency The patient was markedly hypertensive on admission. Again this may be contributing factor to his symptoms and clinical course. His blood pressure is being followed. His medications are being adjusted to bring his blood pressure under better control. 4. Paroxysmal atrial fibrillation The patient has demonstrated findings compatible with paroxysmal atrial fibrillation. This may be related to a combination of etiologies including his hypertension as well as if he has underlying cardiovascular disease, etc. At the present time his rate and rhythm are being followed. He will continue antiplatelet therapy at this time. He will be on rate control therapy as deemed appropriate. As his clinical course progresses he may need to be considered for further anticoagulant therapy as well. 5. Diabetes mellitus The patient does have diabetes mellitus. This does contribute to his cardiovascular risk factor profile. He will continue evaluation care per internal medicine. Comment: The above was discussed and reviewed with the patient and his spouse. This note was generated using a voice recognition system and there may be incorrect words, spelling or punctuation that were not noted when reviewing the office note prior to saving.
[2019-02-03] MEDS: Clopidogrel Bisulfate 300 MG Tablet PO (20:59)
[2019-02-03] MEDS: hydroCHLOROthiazide 12.5mg 12.5 MG PO (21:00)
[2019-02-03] MEDS: Atorvastatin Calcium 40 MG Tablet PO (21:00)
[2019-02-03] MEDS: Losartan Potassium 100 MG Tablet PO (21:00)
[2019-02-03] MEDS: Metoprolol Tartrate 25 MG Tablet PO (21:06)
--- NOTE | 2019-02-03 22:08 | NURSING ---
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
[2019-02-03 22:15] LABS: Bedside Glucose 195 mg/dL (70-110)
[2019-02-03 23:56] LABS: Bedside Glucose 156 mg/dL (70-110)
[2019-02-04] VITALS (21 sets, daily range): BP systolic 100–141; BP diastolic 46–76; PULSE 59–101; RESP 12–20; TEMP 36.5–36.8; O2SAT 92–97
[2019-02-04 04:55] LABS: Absolute Neutrophil Count 5.7 X10^3/uL (2.0-7.7); Basophil# 0.08 X10^3/uL; Basophil% 0.8 % (0-1); Eosinophil# 0.29 X10^3/uL; Eosinophils% 2.9 % (0-5); Hematocrit 53.8 % (40-54); Hemoglobin 17.4 g/dL (13.0-16.5); Lymphocyte % 27.4 % (19-41); Mean Corp Hgb Conc 32.3 g/dL (32-36); Mean Corpuscular Hgb 28.9 pg (27.0-32.0); Mean Corpuscular Volume 89.4 fL (80-94); Mean Platelet Vol. 9.3 fl (6.2-12.0); Monocyte# 1.02 X10^3/uL; Monocyte% 10.4 % (0-10); NRBC Flagged by Analyzer 0 % (0-5); Neutrophil # 5.72 X10^3/uL (2.7-7.7); Neutrophil % 58.2 % (47-70); Platelet Count 261 K/mm3 (150-450); RBC Distribution Width CV 12.6 % (11.6-14.6); RBC Distribution Width SD 41.2 fl (35.1-43.9); Red Blood Count 6.02 M/mm3 (4.6-6.2); White Blood Count 9.8 K/mm3 (4.4-11.0)
[2019-02-04 05:10] LABS: AST(SGOT) 19 U/L (15-37); Alanine Aminotransfer ALT/SGPT 28 U/L (16-61); Albumin, Serum 3.2 g/dL (3.2-5.0); Alkaline Phosphatase 91 U/L (45-117); Anion Gap 9 (5-15); BUN 22 mg/dL (7-18); BUN/Creat Ratio 24.3 RATIO (10-20); Calcium,Total 8.9 mg/dL (8.5-10.1); Chloride 98 mmol/L (98-107); Cholesterol 169 mg/dL (200); EST Glomerular Filtration Rate 92 mL/min (>60); Est Glom Filt Rate - Afr Amer 112 mL/min (>60); Estimated Creatinine Clearance 89.72 ml/min; Globulin 3.6 g/dL (2.2-4.2); Glucose 118 mg/dL (74-106); High Density Lipoprotein 31 mg/dL; Potassium 3.2 mmol/L (3.5-5.1); Protein, Total 6.8 g/dL (6.4-8.2); Sodium Level 140 mmol/L (136-145); Triglycerides 302 mg/dL; Very Low Density Lipoprotein 60 mg/dL (5-40)
--- NOTE | 2019-02-04 05:55 | EKG12_ITS ---
Test Reason : Blood Pressure : / mmHG Vent. Rate : 066 BPM Atrial Rate : 066 BPM P-R Int : 212 ms QRS Dur : 104 ms QT Int : 446 ms P-R-T Axes : 047 083 250 degrees QTc Int : 467 ms Sinus rhythm with 1st degree A-V block Possible Left atrial enlargement Inferior infarct , age undetermined Anterolateral infarct , age undetermined Abnormal ECG When compared with ECG of 03-FEB-2019 03:37, MANUAL COMPARISON REQUIRED, DATA IS UNCONFIRMED Confirmed by AMBERLY JACQUES, KING ([id number]), publishing editor NATHAN SZYMANSKI ([id number]) on 02/06/2019 10:40:02 A M Referred By: Fox Cleveland Confirmed By:JAZZMINE GAMING MD
[2019-02-04] MEDS: Aspirin E.C. 81 MG Tablet PO (06:01)
[2019-02-04] MEDS: Clopidogrel Bisulfate 75 MG Tablet PO (06:01)
[2019-02-04] MEDS: Metoprolol Tartrate 25 MG Tablet PO ×2 (06:01→22:00)
[2019-02-04] MEDS: 0.9% Normal Saline 1,000 ML 15 ML IV (06:01)
[2019-02-04] MEDS: 0.9% NaCl Peripheral Flush Adult/Peds IV (06:10)
[2019-02-04 06:20] LABS: Bedside Glucose 115 mg/dL (70-110)
--- NOTE | 2019-02-04 07:25 | PN_ITS ---
Patient Problems: Active and Suspected Problems (Last Reviewed 02/02/19 @ 05:51 by Fox Cleveland MD) Heart failure (Suspected) Hypertensive emergency (Acute) Dyspnea (Acute) Abnormal stress test (Acute) Atrial fibrillation (Acute) Subjective: CC: Follow-up CHF Patient underwent left heart catheterization this a.m. following his abnormal stress test. His left heart catheterization failed to demonstrate any hemodynamically significant obstructive lesions. It was felt patient congestive heart failure was probably secondary to right sided heart failure from pulmonary hypertension in view of patient untreated obstructive sleep apnea as well as obesity hypoventilation syndrome. Consult subsequently placed to pulmonary me dicine.. Patient has also had runs of A. fib. Case discussed with cardiology plan is for patient to be started on anticoagulation and antiarrhythmics prior to discharge. Objective: GENERAL: cooperative HEENT: Atraumatic; moist oral mucosa EYES; Anicteric, Normal Conjunctiva NECK; supple, normal thyroid, JVD. RESPIRATORY: Diminished to auscultation bilaterally, CARDIOVASCULAR: Regular S1 S2, no audible GI: soft, non-tender, normoactive bowel sounds, : No Renal angle tenderness; EXTREMITIES: 2+ edema involving both upper and lower extremities MUSCULOSKELETAL: No Joint Tenderness; no muscle waisting NEURO: Awake; no lateralizing signs. SKIN: No Rash PSYCH; Normal affect Vitals/I&O's: Vital Signs Temp Pulse Resp BP Pulse Ox 97.9 F 76 18 123/46 H 92 02/04/19 06:00 02/04/19 06:01 02/04/19 06:00 02/04/19 06:01 02/04/19 06:00 Oxygen Flow Rate (L/min) 2 Oxygen Delivery Method Room Air Weight: 140.7 kg Body Mass Index (BMI) 50.3 Intake and Output for Last 24 Hours 02/02/19 02/03/19 02/04/19 23:59 23:59 23:59 Intake Total 1140 / 1140 520 / 520 120 / 120 Output Total 5500 / 5500 2650 / 2650 1200 / 1200 Balance -4360 / -4360 -2130 / -2130 -1080 / -1080 Laboratory Results 02/03/19 05:20: Diff Path Review Reviewed 02/03/19 11:38: POC Glucose 299 H 02/03/19 19:03: POC Glucose 234 H 02/03/19 20:58: POC Glucose 195 H 02/03/19 23:43: POC Glucose 156 H 02/04/19 04:36: WBC 9.8, RBC 6.02, Hgb 17.4 H, Hct 53.8, MCV 89.4, MCH 28.9, MCHC 32.3, RDW Std Deviation 41.2, RDW Coeff of Shelly 12.6, Plt Count 261, MPV 9.3, Immature Gran % (Auto) 0.300, Neut % (Auto) 58.2, Lymph % (Auto) 27.4, [place] % (Auto) 10.4 H, Eos % (Auto) 2.9, Baso % (Auto) 0.8, Absolute Neuts (auto) 5.7, Absolute Lymphs (auto) 2.70, Nucleated RBC % 0 02/04/19 04:36: Sodium 140, Potassium 3.2 L, Chloride 98, Carbon Dioxide 33.0 H, Anion Gap 9, BUN 22 H, Creatinine 0.90, Estim Creat Clear Calc 89.72, Est GFR (MDRD) Af Amer 112, Est GFR (MDRD) Non-Af 92, BUN/Creatinine Ratio 24.3 H, Glucose 118 H, Calcium 8.9, Total Bilirubin 0.90, Direct Bilirubin 0.20, AST 19, ALT 28, Alkaline Phosphatase 91, Total Protein 6.8, Albumin 3.2, Globulin 3.6, Triglycerides 302 H, Cholesterol 169, LDL Cholesterol 78, VLDL Cholesterol 60 H, HDL Cholesterol 31 L 02/04/19 06:00: POC Glucose 115 H Current Medications Acetaminophen (Tylenol) 650 mg PO Q6H PRN PRN PRN Reason: Mild pain 1-3/Temp > 100.7 F Aspirin (Ecotrin) 81 mg PO DAILY@0800 [facility] Last Admin: 02/04/19 06:01 Dose: 81 mg Documented by: Atorvastatin Calcium (Lipitor) 40 mg PO QHS [facility] Last Admin: 02/03/19 21:00 Dose: 40 mg Documented by: Clopidogrel Bisulfate (Plavix) 75 mg PO DAILY [facility] Last Admin: 02/04/19 06:01 Dose: 75 mg Documented by: Dextrose (D50w Syringe) 0 gm IV X1 PRN; Protocol PRN Reason: Hypoglycemia Enoxaparin Sodium (Lovenox) 40 mg SC BID [facility] Last Admin: 02/03/19 21:01 Dose: 40 mg Documented by: Furosemide (Lasix) 60 mg IV Q8 [facility] Last Admin: 02/04/19 06:13 Dose: Not Given Documented by: Glucagon () 1 mg IM .X1 PRN PRN Reason: Hypoglycemia Hydralazine HCl (Apresoline Iv) 10 mg IV Q4H PRN PRN PRN Reason: SBP > 160 Last Admin: 02/02/19 03:54 Dose: 10 mg Documented by: Hydrochlorothiazide () 12.5 mg PO QHS [facility] Last Admin: 02/03/19 21:00 Dose: 12.5 mg Documented by: Sodium Chloride () 250 mls @ 15 mls/hr IV .[id number] PRN PRN Reason: SALINE FLUSH Sodium Chloride () 1,000 mls @ 15 mls/hr IV .Q48H [facility] Last Admin: 02/04/19 06:01 Dose: 15 mls/hr Documented by: Insulin Glargine (Lantus (Bkc)) 68 units SC BID [facility] Last Admin: 02/03/19 21:01 Dose: 68 units Documented by: Insulin Human Lispro (Humalog Kwikpen (Bkc)) 0 unit SC Q6 [facility]; Protocol Last Admin: 02/04/19 06:13 Dose: Not Given Documented by: Losartan Potassium (Cozaar) 100 mg PO QHS [facility] Last Admin: 02/03/19 21:00 Dose: 100 mg Documented by: Metoprolol Tartrate (Lopressor (Beta [place])) 25 mg PO BID [facility] Last Admin: 02/04/19 06:01 Dose: 25 mg Documented by: Ondansetron HCl (Zofran) 4 mg IV Q8H PRN PRN PRN Reason: NAUSEA/VOMITING Potassium Ch[facility] (K[facility]Dur) [facility] Sodium Chloride () 10 - 40 ml IV UD PRN PRN Reason: SALINE FLUSH Last Admin: 02/04/19 06:10 Dose: 10 ml Documented by: Medical Necessity - Tobacco Use Smoking Status: Never smoker Assessment/Plan All Active Problems (Last Reviewed 02/02/19 @ 05:51 by Fox Cleveland MD) Hypertensive emergency (Acute) Dyspnea (Acute) Abnormal stress test (Acute) Atrial fibrillation (Acute) Patient is a 53-year-old gentleman with multiple comorbidities including obstructive sleep apnea, diabetes mellitus type 2 essential hypertension obesity with BMI of 49 presented with progressive shortness of breath with generalized edema. Patient was also found to have markedly elevated blood pressure on admission 1. Acute congestive heart failure with preserved ejection fraction ~Suspected diastolic heart failure from hypertension. Patient has been admitted to monitored bed placed on strict input and output, daily weights salt restriction as well as Lasix. Patient was on 40 mg every 12 dose was increased to q. 860 mg. Echo ordered for EF assessment ~02/03/2019;Patient has lost almost 7 kg following his admission. Patient is scheduled to undergo Lexiscan nuclear stress test. Echo obtained on 02/02/2019 was reported to be technically difficult 8 however demonstrated EF of 60%. The patient underwent a Lexiscan nuclear stress test this a.m. results pending ?02/04/2019 improving clinically regarding his congestive heart failure with significant weight loss following his admission 2. Acute hypertensive emergency with evidence of endorgan damage that is congestive heart failure ~Did continue patient home medications placed on nitroglycerin ointment as well as hydralazine PRN 3. Abnormal stress test on 02/03/2019 ~Came back positive for stress-induced ischemia consult subsequently placed to cardiology patient underwent left heart catheterization on 02/04/2019 which manuel to demonstrate any hemodynamically significant obstructive lesions 4. Paroxysmal atrial fibrillation ~Case discussed with cardiology plan is for patient to be started on antiarrhythmics and systemic anticoagulation prior to discharge 5. Obstructive sleep apnea ~Patient was previously prescribed BiPAPhe however did not tolerate it; did encourage its use while in the hospital 6. Suspected secondary pulmonary hypertension ?From obesity hypoventilation syndrome as well as untreated sleep apnea consult has been placed to pulmonary medicine 7. Diabetes mellitus type 2 presented with hyperglycemia ~Held oral medications; continue with patient long-acting insulin in addition to Accu-Cheks before meals and at bedtime with sliding scale coverage 8. Dyslipidemia ~Patient is on atorvastatin did continue 9. Morbid obesity with BMI of 49.3 ~Patient is a candidate for gastric bypass given his associated comorbidities including diabetes mellitus type 2 did discuss with patient to follow-up with PCP for possible referral 10. DVT prophylaxis SC Lovenox dose adjusted for weight 11. Polycythemia suspected to be secondary to chronic hypoxia from patient underlying obesity hypoventilation syndrome. 2D echo result: Procedure This was a 2D Doppler, Color Flow transthoracic echocardiogram. The study was technically difficult. Contrast injection was performed. Exam performed portable in patient room. Left Ventricle Normal LV size. Left ventricular systolic function is normal. The estimated ejection fraction is 60 %. No regional wall motion abnormalities noted. Right Ventricle Normal RV size. Normal systolic function. Atria The left atrium is moderately enlarged. The right atrium is moderately enlarged. Mitral Valve Normal mitral valve. Tricuspid Valve Normal tricuspid valve. Unable to estimate RV systolic pressure/pulmonary artery pressure due to technically difficult study. Aortic Valve The aortic valve is not well visualized. Great Vessels Normal aortic root. The pulmonary artery is normal size. Normal inferior vena cava. Pericardium/Pleural No pericardial effusion. Medication Diluted definity 3.0ml given slow IV push to enhance endocardial definition. MMode/2D Measurements & Calculations LVIDd: 5.9 cm IVSd: 1.3 cm Ao root diam: 3.5 cm LVIDs: 4.4 cm LVPWd: 1.3 cm RVDd: 3.8 cm FS: 26.1 % _ LAV(MOD-bp): 88.1 ml LA A4 area: 28.7 cm2 LA dimension(2D): 3.7 cm LAV(MOD-bp) Indexed: 34.9 ml/m2 LAV(MOD-sp2): 78.2 ml LAV(MOD-sp4): 95.7 ml _ RA A4 area: 25.4 cm2 Time Measurements MV dec time: 0.17 sec Doppler Measurements & Calculations MV E max juan: 95.7 cm/sec Lat Peak E' Juan: 10.6 cm/sec Med Peak E' Juan: 6.0 cm/sec MV A max juan: 66.5 cm/sec E/E' lat: 9.0 E/E' med: 15.9 MV E/A: 1.4 _ Ao V2 max: 168.3 cm/sec LV V1 max: 103.4 cm/sec PA V2 max: 129.8 cm/sec Ao max P.3 mmHg LV V1 max P.3 mmHg Interpretation Summary Normal LV size. Left ventricular systolic function is normal. The estimated ejection fraction is 60 %. Contrast injection was performed. Code Visit Inpatient E&M: 51126 Subs Hosp L2
--- NOTE | 2019-02-04 08:18 | PCM.PN.CARD ---
Subjectve: The patient is now status post diagnostic cardiac catheterization. He appears to be without acute complaint. Objective: Vital Signs Temp Pulse Resp BP Pulse Ox 97.9 F 68 18 123/46 H 92 02/04/19 06:00 02/04/19 07:03 02/04/19 06:00 02/04/19 06:01 02/04/19 06:00 Oxygen Flow Rate (L/min) 2 Oxygen Delivery Method Room Air Weight: 310 lb 3.046 oz Body Mass Index (BMI) 50.3 Intake and Output for Last 24 Hours 02/02/19 02/03/19 02/04/19 23:59 23:59 23:59 Intake Total 1140 / 1140 520 / 520 120 / 120 Output Total 5500 / 5500 2650 / 2650 1200 / 1200 Balance -4360 / -4360 -2130 / -2130 -1080 / -1080 General: Awake, Alert, Oriented x 3, Cooperative, No Acute Distress, Obese HEENT: Atraumatic, Normocephalic, PERRL, EOMI, Sclera Non Icteric Oral: Moist Mucosa Neck: Supple, Good ROM, No JVD Lungs: Diminished Jassi Bases Cardiovascular: Regular Rhythm, Normal S1, Normal S2 Vascular: Normal Femoral Pulses Abdomen: Bowel Sounds Present, Soft, Non Tender Extremities: Mild RLE Edema, Mild LLE Edema Psych/Mental Status: Appropriate 02/04/19 04:36: WBC 9.8, RBC 6.02, Hgb 17.4 H, Hct 53.8, MCV 89.4, MCH 28.9, MCHC 32.3, Plt Count 261, MPV 9.3, Immature Gran % (Auto) 0.300, Neut % (Auto) 58.2, Lymph % (Auto) 27.4, [place] % (Auto) 10.4 H, Eos % (Auto) 2.9, Baso % (Auto) 0.8, Absolute Neuts (auto) 5.7, Nucleated RBC % 0 02/04/19 04:36: Sodium 140, Potassium 3.2 L, Chloride 98, Carbon Dioxide 33.0 H, Anion Gap 9, BUN 22 H, Creatinine 0.90, Est GFR (MDRD) Af Amer 112, Est GFR (MDRD) Non-Af 92, BUN/Creatinine Ratio 24.3 H, Glucose 118 H, Calcium 8.9, Total Bilirubin 0.90, Direct Bilirubin 0.20, Triglycerides 302 H, Cholesterol 169, LDL Cholesterol 78, VLDL Cholesterol 60 H, HDL Cholesterol 31 L Rhythm: Sinus rhythm Cardiac Cath: Preliminary evaluation: Overall left ventricular systolic function preserved; no angiographically significant appearing CAD; no recommendations for further catheter-based or surgical based revascularization therapy; please see official report Medical Necessity - Tobacco Use Smoking Status: Never smoker Assessment/Plan 1. CAD The patient has now undergone further evaluation with diagnostic cardiac catheterization. His overall LV systolic function appear to be preserved. He does have an element of underlying CAD although thought to be non-angiographically significant and not requiring revascularization therapy. He will need to continue risk factor modification medical management. 2. CHF: Heart failure with preserved ejection fraction The patient appears to have a clinical scenario compatible with heart failure with preserved ejection fraction. This may be secondary to a combination of issues including concerns of decreased diastolic compliance. At the present time he will need continued combined medical management. 3. Hypertensive urgency/emergency The patient was markedly hypertensive on admission. Again this may be contributing factor to his symptoms and clinical course. His blood pressure is being followed. His medications are being adjusted to bring his blood pressure under better control. 4. Paroxysmal atrial fibrillation The patient has demonstrated findings compatible with paroxysmal atrial fibrillation. This may be related to a combination of etiologies including his hypertension as well as his admission of a history of obstructive sleep apnea requiring CPAP therapy which he does not wear. At the present time his rate and rhythm are being followed. He will be considered for not only rate limiting therapy but also consideration for anticoagulant therapy once he recuperates from his invasive procedure. He may also need to be considered for antiarrhythmic therapy to assist in maintaining rhythm control. 5. Diabetes mellitus The patient does have diabetes mellitus. This does contribute to his cardiovascular risk factor profile. He will continue evaluation care per internal medicine. 6. Obstructive sleep apnea The patient states he was diagnosed with obstructive sleep apnea in the past. He states he does have a CPAP device at home. He admits that he does not wear it. It was noted during his cardiac catheterization procedure, but when he became somewhat drowsy and drifted off to sleep, despite wearing 2 L of nasal cannula, he dropped his O2 saturation to approximately 79%. Upon being verbally stimulated he was immediately awake and alert and with request of taking deep inspiration he increased his O2 saturation back to within acceptable ranges. Thus, this may be a contributing factor to his symptoms and his clinical course and objective findings. He should be considered for reestablishment with pulmonology for further evaluation care of this issue. Comment: The above was discussed and reviewed with the patient. This note was generated using a voice recognition system and there may be incorrect words, spelling or punctuation that were not noted when reviewing the office note prior to saving.
[2019-02-04] MEDS: 0.9% Normal Saline 1,000 ML 75 ML IV (09:45)
[2019-02-04 10:50] LABS: Bedside Glucose 127 mg/dL (70-110)
[2019-02-04 11:46] LABS: Allen Test POS; Base Excess 6 mmol/L (-2 to +2); Bicarbonate 31.1 mmol/L (22-26); Blood Gas Specimen Type ART; O2 Delivery Device Nasal Can; PO2 77 mmHG (75-100); SITE L Radial; SO2 95 % (95-99); Time Given 1125; Total Carbon Dioxide 33 mmol/L; pCO2 50.6 mmHg (35-45)
--- NOTE | 2019-02-04 12:08 | PCM.CONS.PUL ---
Reason for Consult Date of Consultation: 02/04/19 Reason for Consultation: Concern for obesity hypoventilation syndrome History of Present Illness: The patient is a 53-year-old male, with a history as outlined below, who initially presented to the emergency department on February 01 with complaints of shortness of breath in the setting of hypertensive urgency. The patient was subsequently admitted to the hospital to be worked up for a cardiac etiology for the patient's dyspnea. A pharmacologic stress test was completed on February 03 and noted to be abnormal. The patient was subsequently taken for cardiac catheterization which did reveal an elevated LVEDP with an ejection fraction of 55% and cheesh-na multivessel coronary disease. The patient does report a known history of obstructive sleep apnea, initially diagnosed 10+ years ago. While he was initially started on nocturnal CPAP therapy, he later became noncompliant with its use and for a prolonged period of time has been without any form of nocturnal support. The patient's readily admits to audible snoring when the patient sleeps and has noted having witnessed apneic events. The patient is currently employed as a fire chief and states that he sleeps on average 6 hours per night. He does report the presence of nonrestorative sleep and significant daytime hypersomnolence. The patient is currently being maintained on 2 L/min of supplemental oxygen and is saturating in the mid 90s. Arterial blood gas obtained on 2 L/min revealed a pH of 7.4 with a corresponding PCO2 of 50 and PO2 of 77. The patient is a lifelong non-smoker. He has never had pulmonary function studies completed previously. He does endorse the presence of exertional dyspnea, but denies the presence of chest tightness or wheezing. Past Medical History Past Medical History (Chronic Problems): Chronic Problems (Last Reviewed 02/02/19 @ 05:51 by Fox Cleveland MD) Diabetes mellitus (Chronic) Medical History: Medical History (Last Reviewed 02/02/19 @ 05:51 by Fox Clveeland MD) Diabetes E11.9 HTN (hypertension) I10 Allergies No Known Allergies Allergy (Verified 02/01/19 22:27) Home Medications: Ambulatory Orders Medication Instructions Recorded Dulaglutide [Trulicity] 1.5 mg SQ QWEEK 02/01/19 Insulin Aspart [Novolog Flexpen 18 units SUBCUT TIDCM 02/01/19 ([facility])] Insulin Detemir [Levemir] 68 unit SQ BID 02/01/19 Metformin HCl [Metformin ER 1,000 mg PO BID 02/01/19 Osmotic] Multivitamin with Minerals 1 ea PO DAILY 02/01/19 [Multiple Vitamin] Rosuvastatin Calcium 20 mg PO QHS 02/01/19 Telmisartan/Hydrochlorothiazid 1 tab PO QHS 02/01/19 [Telmisartan-Hctz 80-12.5 mg Tb] Surgical History: - - TEETH EXTRACTION Lives: Spouse/ Significant Other Smoking Status: Never smoker Alcohol: None Drugs: None - *Family History Maternal History Items: - - Thyroid disease Paternal History Items: Diabetes, Heart Disease - Heart disease in his father started probably when his father was in his late 50s. Also, his father had heart attack. Review of Systems Constitutional: Reports: Weight Change, Fatigue. Denies: Chills, Fever Eyes: Denies: Blurred vision, Double vision HEENT: Denies: Head Aches, Sinus Congestion, Sinus Drainage Cardiovascular: Denies: Chest Pain, Palpitations Respiratory: Reports: Shortness of Breath Gastrointestinal: Denies: Abdominal Pain, Nausea, Vomiting Genitourinary: Denies: Dysuria Musculoskeletal: Denies: Joint Pain, Joint Tenderness Skin: Denies: Rash, Wounds Neurological: Denies: Numbness, Tingling, Focal weakness Psychiatric: Denies: Anxiety, Depression, Homicidal Ideations, Suicidal Ideations Hematologic/ Lymphatic: Denies: Easy Bruising, Easy Bleeding Patient Problems: Active and Suspected Problems (Last Reviewed 02/02/19 @ 05:51 by Fox Cleveland MD) Heart failure (Suspected) Hypertensive emergency (Acute) Dyspnea (Acute) Abnormal stress test (Acute) Atrial fibrillation (Acute) Objective: The patient's most recent lab work, culture data and imaging studies have all been personally reviewed. - Physical Exam General: Alert, Oriented x3, Cooperative, No apparent distress, - - Morbidly obese. is present at the bedside. HEENT: Atraumatic, PERRLA, Normocephalic Oral: No Gingival or Mucosal Lesions/ Ulcerations Neck: Supple, No Nodes, Trachea Midline, - - Large neck circumference with redundant soft tissue. Lungs: No rhonchi, No wheeze, No rales, Diminished Cardiovascular: Regular rate, Regular Rhythm, Normal S1, Normal S2, No murmurs Abdomen: Bowel Sounds Present, Soft, Non Tender, Obese Extremities: No clubbing, No cyanosis, Edema Skin: No breakdown Musculoskeletal: No Tenderness to Palpation of Joints or Extremities, No Muscle Wasting Lymphatic: No Cervical, Supraclavicular, or Inguinal Adenopathy Neurological: Cranial nerves II-XII grossly intact, Neuro grossly intact Psych/Mental Status: Normal Affect, Appropriate Vital Signs Temp Pulse Resp BP Pulse Ox 98 F 65 16 113/53 L 97 02/04/19 10:30 02/04/19 11:13 02/04/19 11:13 02/04/19 11:13 02/04/19 11:13 Oxygen Flow Rate (L/min) 2 Oxygen Delivery Method Nasal Cannula Weight: 310 lb 3.046 oz Body Mass Index (BMI) 50.3 Intake and Output for Last 24 Hours 02/02/19 02/03/19 02/04/19 23:59 23:59 23:59 Intake Total 1140 / 1140 520 / 520 176 / 176 Output Total 5500 / 5500 2650 / 2650 1200 / 1200 Balance -4360 / -4360 -2130 / -2130 -1024 / -1024 Laboratory Tests Past 24 Hrs 02/03/19 02/04/19 02/04/19 05:20 04:36 04:36 WBC 9.8 RBC 6.02 Hgb 17.4 H Hct 53.8 MCV 89.4 MCH 28.9 MCHC 32.3 RDW Std Deviation 41.2 RDW Coeff of Shelly 12.6 Plt Count 261 MPV 9.3 Immature Gran % (Auto) 0.300 Neut % (Auto) 58.2 Lymph % (Auto) 27.4 Tyler % (Auto) 10.4 H Eos % (Auto) 2.9 Baso % (Auto) 0.8 Absolute Neuts (auto) 5.7 Absolute Lymphs (auto) 2.70 Nucleated RBC % 0 Diff Path Review Reviewed Specimen Type Sample Site pH Bicarbonate Actual POC Total CO2 Base Excess O2 Saturation ABG pCO2 ABG pO2 Job Test O2 Delivery Device Liter Flow Blood Gas Notified Whom Blood Gas Notified Time Sodium 140 Potassium 3.2 L Chloride 98 Carbon Dioxide 33.0 H Anion Gap 9 BUN 22 H Creatinine 0.90 Estim Creat Clear Calc 89.72 Est GFR (MDRD) Af Amer 112 Est GFR (MDRD) Non-Af 92 BUN/Creatinine Ratio 24.3 H Glucose 118 H Calcium 8.9 Total Bilirubin 0.90 Direct Bilirubin 0.20 AST 19 ALT 28 Alkaline Phosphatase 91 Total Protein 6.8 Albumin 3.2 Globulin 3.6 Triglycerides 302 H Cholesterol 169 LDL Cholesterol 78 VLDL Cholesterol 60 H HDL Cholesterol 31 L 02/04/19 11:38 WBC RBC Hgb Hct MCV MCH MCHC RDW Std Deviation RDW Coeff of Shelly Plt Count MPV Immature Gran % (Auto) Neut % (Auto) Lymph % (Auto) Tyler % (Auto) Eos % (Auto) Baso % (Auto) Absolute Neuts (auto) Absolute Lymphs (auto) Nucleated RBC % Diff Path Review Specimen Type ART Sample Site L Radial pH 7.40 Bicarbonate Actual 31.1 H POC Total CO2 33 Base Excess 6 H O2 Saturation 95 ABG pCO2 50.6 H ABG pO2 77 Job Test POS O2 Delivery Device Nasal Can Liter Flow 2.0 Blood Gas Notified Whom ICU MD Blood Gas Notified Time 1125 Sodium Potassium Chloride Carbon Dioxide Anion Gap BUN Creatinine Estim Creat Clear Calc Est GFR (MDRD) Af Amer Est GFR (MDRD) Non-Af BUN/Creatinine Ratio Glucose Calcium Total Bilirubin Direct Bilirubin AST ALT Alkaline Phosphatase Total Protein Albumin Globulin Triglycerides Cholesterol LDL Cholesterol VLDL Cholesterol HDL Cholesterol POC Glucose 02/04/19 02/04/19 02/03/19 10:42 06:00 23:43 POC Glucose 127 H 115 H 156 H 02/03/19 02/03/19 20:58 19:03 POC Glucose 195 H 234 H Clinical Impression(s) from Imaging Studies Chest X-Ray 02/01/19 18:54 IMPRESSION: Cardiomegaly. Mild pulmonary vascular congestion. Electronically Signed: Sandeep Glaser, at 19:39 EDT Tel , Service support , Assessment/Plan All Active Problems (Last Reviewed 02/02/19 @ 05:51 by Fox Cleveland MD) Hypertensive emergency (Acute) Dyspnea (Acute) Abnormal stress test (Acute) Atrial fibrillation (Acute) RECOMMENDATIONS: 1. Encourage incentive spirometer use while in bed. 2. Wean supplemental oxygen to maintain saturations at or above 90%. 3. Continue medical management per cardiology recommendations. 4. Start empiric BiPAP therapy with naps and nightly. Orders have been placed. 5. The patient would benefit from outpatient pulmonary follow-up so that a re-titration polysomnogram can be completed and the patient started on BiPAP therapy to provide ventilatory support, given his CO2 retention. 6. The patient is currently scheduled to follow up in the pulmonary medicine clinic on Friday 02/23 at 11:15 am. IMPRESSIONS: 1. Exertional shortness of breath Likely multifactorial in etiology. While the patient does certainly have some contributing cardiac factors, he is morbidly obese, so I strongly suspect that a component of his dyspnea is related to his body habitus and generalized deconditioning. He may also have a component of pulmonary hypertension, given his untreated obstructive sleep apnea. At this time, he is being maintained on 2 L/min. I have recommended that he be provided with an incentive spirometer and encouraged to utilize. Mobilize patient as tolerated. Wean supplemental O2 to maintain saturations at or above 90%. The patient should follow-up in the pulmonary medicine clinic as noted above. PFTs can also be obtained at that time. 2. 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 In light of his recent ABG results, I would recommend that a re-titration polysomnogram be completed on an outpatient basis so that the patient can be started on BiPAP to provide ventilatory support. The patient is in agreement to follow-up. Orders have been placed for empiric BiPAP therapy while he is admitted to the hospital. 3. Diastolic dysfunction/cheesh-na multivessel coronary disease Continue medical management per cardiology recommendations. This note was generated with [employer] dictation software. It may contain incorrect words, spelling, and punctuation that were not noted in checking the note before signing. Code Visit Inpatient E&M: 71091 Init Hosp L3
[2019-02-04] MEDS: Flecainide 100 MG Tablet PO ×2 (12:45→22:00)
--- NOTE | 2019-02-04 12:47 | NURSING ---
pt ambulated to bathroom and back. No signs of bleeding or hematoma noted at right femoral heart cath site.
[2019-02-04] MEDS: Furosemide 100 MG/10 ML Vial 60 MG IV ×2 (15:37→22:04)
[2019-02-04] MEDS: Insulin Lispro 100 UNIT/ML INSULN.PEN SC ×2 (17:38→23:16)
[2019-02-04 17:46] LABS: Bedside Glucose 234 mg/dL (70-110)
[2019-02-04] MEDS: Losartan Potassium 100 MG Tablet PO (21:59)
[2019-02-04] MEDS: hydroCHLOROthiazide 12.5mg 12.5 MG PO (22:00)
[2019-02-04] MEDS: Atorvastatin Calcium 40 MG Tablet PO (22:00)
[2019-02-04] MEDS: Enoxaparin 40 MG/0.4 ML Syringe SC (22:00)
[2019-02-04 23:41] LABS: Bedside Glucose 237 mg/dL (70-110)
[2019-02-05] VITALS (13 sets, daily range): BP systolic 110–139; BP diastolic 49–69; PULSE 60–74; RESP 18–20; TEMP 36.6–37.1; O2SAT 88–97
--- NOTE | 2019-02-05 01:18 | CPS ---
patient refused bipap at time of visit. patient was 95% on room air.
--- NOTE | 2019-02-05 05:55 | EKG12_ITS ---
Test Reason : AM EKG Blood Pressure : / mmHG Vent. Rate : 056 BPM Atrial Rate : 056 BPM P-R Int : 232 ms QRS Dur : 110 ms QT Int : 470 ms P-R-T Axes : 039 127 -39 degrees QTc Int : 453 ms Sinus bradycardia with 1st degree A-V block Possible Left atrial enlargement Inferior infarct , age undetermined Anterolateral infarct , possibly acute Consider ACUTE OK / STEMI Abnormal ECG When compared with ECG of 05-FEB-2019 05:06, MANUAL COMPARISON REQUIRED, DATA IS UNCONFIRMED Confirmed by AMBERLY JACQUES, KING ([id number]), makeup editor TALISHA ROCHE ([id number]) on 02/17/2019 10:40:20 AM Referred By: oFx [place] Confirmed By:JAZZMINE GAMING MD
[2019-02-05 06:14] LABS: Hematocrit 53.1 % (40-54); Hemoglobin 16.8 g/dL (13.0-16.5)
[2019-02-05] MEDS: Furosemide 100 MG/10 ML Vial 60 MG IV ×3 (06:18→22:05)
[2019-02-05 06:27] LABS: Anion Gap 5 (5-15); BUN 19 mg/dL (7-18); Calcium,Total 8.9 mg/dL (8.5-10.1); Chloride 99 mmol/L (98-107); EST Glomerular Filtration Rate 92 mL/min (>60); Est Glom Filt Rate - Afr Amer 112 mL/min (>60); Estimated Creatinine Clearance 89.72 ml/min; Glucose 133 mg/dL (74-106); Sodium Level 138 mmol/L (136-145)
[2019-02-05 06:41] LABS: Bedside Glucose 141 mg/dL (70-110)
--- NOTE | 2019-02-05 07:23 | PN_ITS ---
Patient Problems: Active and Suspected Problems (Last Reviewed 02/02/19 @ 05:51 by Fox [place] MD) Heart failure (Suspected) Hypertensive emergency (Acute) Dyspnea (Acute) Abnormal stress test (Acute) Atrial fibrillation (Acute) Subjective: CC follow-up congestive heart failure Patient seen this a.m. admits to some improvement in his overall clinical condition. Was seen by pulmonary medicine Dr. Lopes the day prior recommended for patient to be placed on BiPAP at at bedtime. Patient was also started on flecainide by Dr. Collins plan is to observe patient in addition a day prior to discharge Objective: GENERAL: cooperative HEENT: Atraumatic; moist oral mucosa EYES; Anicteric, Normal Conjunctiva NECK; supple, normal thyroid, JVD. RESPIRATORY: Diminished to auscultation bilaterally, CARDIOVASCULAR: Regular S1 S2, no audible GI: soft, non-tender, normoactive bowel sounds, : No Renal angle tenderness; EXTREMITIES: 2+ edema involving both upper and lower extremities MUSCULOSKELETAL: No Joint Tenderness; no muscle waisting NEURO: Awake; no lateralizing signs. SKIN: No Rash PSYCH; Normal affect Vitals/I&O's: Vital Signs Temp Pulse Resp BP Pulse Ox 98.1 F 60 18 125/49 H 93 02/05/19 03:20 02/05/19 03:20 02/05/19 03:20 02/05/19 03:20 02/05/19 03:20 Oxygen Flow Rate (L/min) 2 Oxygen Delivery Method Room Air Weight: 140 kg Body Mass Index (BMI) 50.3 Intake and Output for Last 24 Hours 02/03/19 02/04/19 02/05/19 23:59 23:59 23:59 Intake Total 520 / 520 941 / 941 60 / 60 Output Total 2650 / 2650 3450 / 3450 1225 / 1225 Balance -2130 / -2130 -2509 / -2509 -1165 / -1165 Laboratory Results 02/04/19 10:42: POC Glucose 127 H 02/04/19 11:38: Specimen Type ART, Sample Site L Radial, pH 7.40, Bicarbonate Actual 31.1 H, POC Total CO2 33, Base Excess 6 H, O2 Saturation 95, ABG pCO2 50.6 H, ABG pO2 77, Job Test POS, O2 Delivery Device Nasal Can, Liter Flow 2.0, Blood Gas Notified Whom ICU MD, Blood Gas Notified Time 1125 02/04/19 17:36: POC Glucose 234 H 02/04/19 23:11: POC Glucose 237 H 02/05/19 05:45: Hgb 16.8 H, Hct 53.1 02/05/19 05:45: Sodium 138, Potassium 3.0 L, Chloride 99, Carbon Dioxide 34.0 H, Anion Gap 5, BUN 19 H, Creatinine 0.90, Estim Creat Clear Calc 89.72, Est GFR (MDRD) Af Amer 112, Est GFR (MDRD) Non-Af 92, BUN/Creatinine Ratio 21.0 H, Glucose 133 H, Calcium 8.9 02/05/19 06:27: POC Glucose 141 H Current Medications Acetaminophen (Tylenol) 650 mg PO Q6H PRN PRN PRN Reason: Mild pain 1-3/Temp > 100.7 F Aspirin (Ecotrin) 81 mg PO DAILY@0800 [facility] Last Admin: 02/04/19 06:01 Dose: 81 mg Documented by: Atorvastatin Calcium (Lipitor) 40 mg PO QHS [facility] Last Admin: 02/04/19 22:00 Dose: 40 mg Documented by: Dextrose (D50w Syringe) 0 gm IV X1 PRN; Protocol PRN Reason: Hypoglycemia Enoxaparin Sodium (Lovenox) 40 mg SC BID [facility] Last Admin: 02/04/19 22:00 Dose: 40 mg Documented by: Flecainide Acetate (Tambocor) 100 mg PO BID [facility] Last Admin: 02/04/19 22:00 Dose: 100 mg Documented by: Furosemide (Lasix) 60 mg IV Q8 [facility] Last Admin: 02/05/19 06:18 Dose: 60 mg Documented by: Glucagon () 1 mg IM .X1 PRN PRN Reason: Hypoglycemia Heparin Sodium (Beef Lung) (Heparin 500 Unit/5 Ml (100/Ml)) 500 unit IV UD PRN PRN Reason: HEPARIN FLUSH Hydralazine HCl (Apresoline Iv) 10 mg IV Q4H PRN PRN PRN Reason: SBP > 160 Last Admin: 02/02/19 03:54 Dose: 10 mg Documented by: Hydrochlorothiazide () 12.5 mg PO QHS [facility] Last Admin: 02/04/19 22:00 Dose: 12.5 mg Documented by: Sodium Chloride () 250 mls @ 15 mls/hr IV .[id number] PRN PRN Reason: SALINE FLUSH Sodium Chloride () 1,000 mls @ 15 mls/hr IV .Q48H [facility] Last Infusion: 02/04/19 09:45 Dose: Infused Documented by: Insulin Glargine (Lantus ([facility])) 68 units SC BID [facility] Last Admin: 02/04/19 23:14 Dose: 68 units Documented by: Insulin Human Lispro (Humalog Kwikpen ([facility])) 0 unit SC Q6 [facility]; Protocol Last Admin: 02/05/19 06:28 Dose: Not Given Documented by: Labetalol HCl (Trandate) 5 mg IV X1 PRN PRN Reason: SBP > 160 prior to sheath pull Stop: 02/06/19 08:15 Losartan Potassium (Cozaar) 100 mg PO QHS [facility] Last Admin: 02/04/19 21:59 Dose: 100 mg Documented by: Metoprolol Tartrate (Lopressor (Beta Wayne)) 25 mg PO BID [facility] Last Admin: 02/04/19 22:00 Dose: 25 mg Documented by: Ondansetron HCl (Zofran) 4 mg IV Q8H PRN PRN PRN Reason: NAUSEA/VOMITING Potassium Chloride (K-Dur) 20 meq PO BIDCM [facility] Last Admin: 02/04/19 17:38 Dose: 20 meq Documented by: Sodium Chloride () 10 - 40 ml IV UD PRN PRN Reason: SALINE FLUSH Last Admin: 02/04/19 06:10 Dose: 10 ml Documented by: Medical Necessity - Tobacco Use Smoking Status: Never smoker Assessment/Plan All Active Problems (Last Reviewed 02/02/19 @ 05:51 by Fox [place] MD) Hypertensive emergency (Acute) Dyspnea (Acute) Abnormal stress test (Acute) Atrial fibrillation (Acute) Patient is a 53-year-old gentleman with multiple comorbidities including obstructive sleep apnea, diabetes mellitus type 2 essential hypertension obesity with BMI of 49 presented with progressive shortness of breath with generalized edema. Patient was also found to have markedly elevated blood pressure on admission 1. Acute congestive heart failure with preserved ejection fraction ~Suspected diastolic heart failure from hypertension. Patient has been admitted to monitored bed placed on strict input and output, daily weights salt restriction as well as Lasix. Patient was on 40 mg every 12 dose was increased to q. 860 mg. Echo ordered for EF assessment ~02/03/2019;Patient has lost almost 7 kg following his admission. Patient is scheduled to undergo Lexiscan nuclear stress test. Echo obtained on 02/02/2019 was reported to be technically difficult 8 however demonstrated EF of 60%. The patient underwent a Lexiscan nuclear stress test this a.m. results pending ?02/04/2019 improving clinically regarding his congestive heart failure with significant weight loss following his admission -02/05/2019: Patient breathing status continued to improve. Lasix dose subseque ntly adjusted 2. Acute hypertensive emergency with evidence of endorgan damage that is congestive heart failure ~Did continue patient home medications placed on nitroglycerin ointment as well as hydralazine PRN ?02/05/2019 patient blood pressure has since stabilized 3. Abnormal stress test on 02/03/2019 ~Came back positive for stress-induced ischemia consult subsequently placed to cardiology patient underwent left heart catheterization on 02/04/2019 which failed to demonstrate any hemodynamically significant obstructive lesions 4. Paroxysmal atrial fibrillation ~Case discussed with cardiology plan is for patient to be started on antiarrhythmics and systemic anticoagulation prior to discharge ?02/05/2019. Patient was started on flecainide by Dr. Collins with cardiology. Plan is for patient to start anticoagulation as outpatient following a dental procedure 5. Obstructive sleep apnea ~Patient was previously prescribed BiPAPhe however did not tolerate it; did encourage its use while in the hospital 02/05/2019: Consult was placed to pulmonary medicine patient was seen by Dr. Lopes with pulmonary medicine who recommended use of BiPAP to provide ventilator y support. Patient to follow-up with pulmonary medicine following his discharge 6. Suspected secondary pulmonary hypertension ?From obesity hypoventilation syndrome as well as untreated sleep apnea consult has been placed to pulmonary medicine 7. Diabetes mellitus type 2 presented with hyperglycemia ~Held oral medications; continue with patient long-acting insulin in addition to Accu-Cheks before meals and at bedtime with sliding scale coverage 8. Dyslipidemia ~Patient is on atorvastatin did continue 9. Morbid obesity with BMI of 49.3 ~Patient is a candidate for gastric bypass given his associated comorbidities including diabetes mellitus type 2 did discuss with patient to follow-up with PCP for possible referral 10. DVT prophylaxis SC Lovenox dose adjusted for weight 11. Polycythemia suspected to be secondary to chronic hypoxia from patient underlying obesity hypoventilation syndrome. Active Medications Acetaminophen (Tylenol) 650 mg PO Q6H PRN PRN PRN Reason: Mild pain 1-3/Temp > 100.7 F Aspirin (Ecotrin) 81 mg PO DAILY@0800 [facility] Last Admin: 02/05/19 09:24 Dose: 81 mg Documented by: Atorvastatin Calcium (Lipitor) 40 mg PO QHS [facility] Last Admin: 02/04/19 22:00 Dose: 40 mg Documented by: Dextrose (D50w Syringe) 0 gm IV X1 PRN; Protocol PRN Reason: Hypoglycemia Enoxaparin Sodium (Lovenox) 40 mg SC BID [facility] Last Admin: 02/05/19 09:24 Dose: 40 mg Documented by: Flecainide Acetate (Tambocor) 100 mg PO BID [facility] Last Admin: 02/05/19 09:24 Dose: 100 mg Documented by: Furosemide (Lasix) 60 mg IV Q8 [facility] Last Admin: 02/05/19 06:18 Dose: 60 mg Documented by: Glucagon () 1 mg IM .X1 PRN PRN Reason: Hypoglycemia Heparin Sodium (Beef Lung) (Heparin 500 Unit/5 Ml (100/Ml)) 500 unit IV UD PRN PRN Reason: HEPARIN FLUSH Hydralazine HCl (Apresoline Iv) 10 mg IV Q4H PRN PRN PRN Reason: SBP > 160 Last Admin: 02/02/19 03:54 Dose: 10 mg Documented by: Hydrochlorothiazide () 12.5 mg PO QHS [facility] Last Admin: 02/04/19 22:00 Dose: 12.5 mg Documented by: Sodium Chloride () 250 mls @ 15 mls/hr IV .[id number] PRN PRN Reason: SALINE FLUSH Sodium Chloride () 1,000 mls @ 15 mls/hr IV .Q48H [facility] Last Infusion: 02/04/19 09:45 Dose: Infused Documented by: Insulin Glargine (Lantus ([facility])) 68 units SC BID [facility] Last Admin: 02/05/19 09:25 Dose: 68 units Documented by: Insulin Human Lispro (Humalog Kwikpen ([facility])) 0 unit SC Q6 [facility]; Protocol Last Admin: 02/05/19 06:28 Dose: Not Given Documented by: Labetalol HCl (Trandate) 5 mg IV X1 PRN PRN Reason: SBP > 160 prior to sheath pull Stop: 02/06/19 08:15 Losartan Potassium (Cozaar) 100 mg PO QHS [facility] Last Admin: 02/04/19 21:59 Dose: 100 mg Documented by: Metoprolol Tartrate (Lopressor (Beta Wayne)) 25 mg PO BID [facility] Last Admin: 02/05/19 09:23 Dose: 25 mg Documented by: Ondansetron HCl (Zofran) 4 mg IV Q8H PRN PRN PRN Reason: NAUSEA/VOMITING Potassium Chloride (K-Dur) 40 meq PO BIDCM [facility] Last Admin: 02/05/19 09:30 Dose: 40 meq Documented by: Sodium Chloride () 10 - 40 ml IV UD PRN PRN Reason: SALINE FLUSH Last Admin: 02/04/19 06:10 Dose: 10 ml Documented by: Code Visit Inpatient E&M: 69661 Subs Hosp L2
--- NOTE | 2019-02-05 09:15 | PN.CARD_ITS ---
Subjectve: The patient is awake and alert. He states he feels better overall. He denies chest discomfort. His main concern is his shortness of breath and dyspnea. He states this is better but not totally resolved. He notes his lower extremity edema is better. He denies any ongoing palpitations or rapid rates. Objective: Vital Signs Temp Pulse Resp BP Pulse Ox 98.1 F 63 18 125/49 H 93 02/05/19 03:20 02/05/19 07:30 02/05/19 03:20 02/05/19 03:20 02/05/19 03:20 Oxygen Flow Rate (L/min) 2 Oxygen Delivery Method Room Air Weight: 308 lb 10.354 oz Body Mass Index (BMI) 50.3 Intake and Output for Last 24 Hours 02/03/19 02/04/19 02/05/19 23:59 23:59 23:59 Intake Total 520 / 520 941 / 941 60 / 60 Output Total 2650 / 2650 3450 / 3450 1225 / 1225 Balance -2130 / -2130 -2509 / -2509 -1165 / -1165 General: Awake, Alert, Oriented x 3, Cooperative, No Acute Distress, Obese HEENT: Atraumatic, Normocephalic, PERRL, EOMI, Sclera Non Icteric Oral: Moist Mucosa Neck: Supple, Good ROM, No JVD Lungs: Clear to auscultation Cardiovascular: Regular Rhythm, Normal S1, Normal S2 Vascular: Normal Femoral Pulses Abdomen: Bowel Sounds Present, Soft, Non Tender Extremities: - - Mild to moderate bilateral lower extremity edema Psych/Mental Status: Appropriate 02/04/19 11:38: pH 7.40, Bicarbonate Actual 31.1 H, POC Total CO2 33, Base Excess 6 H, O2 Saturation 95, ABG pCO2 50.6 H, ABG pO2 77, Job Test POS 02/05/19 05:45: Hgb 16.8 H, Hct 53.1 02/05/19 05:45: Sodium 138, Potassium 3.0 L, Chloride 99, Carbon Dioxide 34.0 H, Anion Gap 5, BUN 19 H, Creatinine 0.90, Est GFR (MDRD) Af Amer 112, Est GFR (MDR D) Non-Af 92, BUN/Creatinine Ratio 21.0 H, Glucose 133 H, Calcium 8.9 Rhythm: Sinus rhythm EKG: Sinus rhythm; no acute ECG changes Medical Necessity - Tobacco Use Smoking Status: Never smoker Assessment/Plan 1. CAD The patient has now undergone further evaluation with diagnostic cardiac catheterization. His overall LV systolic function appear to be preserved. He does have an element of underlying CAD although thought to be non- angiographically significant and not requiring revascularization therapy. He will need to continue risk factor modification medical management. 2. CHF: Heart failure with preserved ejection fraction The patient appears to have a clinical scenario compatible with heart failure with preserved ejection fraction. This may be secondary to a combination of issues including concerns of decreased diastolic compliance as well as concern of potential obstructive sleep apnea with elevated pulmonary pressures and cor pulmonale and right heart involvement.. At the present time he will need continued combined medical management. 3. Hypertensive urgency/emergency The patient was markedly hypertensive on admission. Again this may be contributing factor to his symptoms and clinical course. His blood pressure is being followed. His medications are being adjusted to bring his blood pressure under better control. 4. Paroxysmal atrial fibrillation The patient has demonstrated findings compatible with paroxysmal atrial fibrillation. This may be related to a combination of etiologies including his hypertension as well as his admission of a history of obstructive sleep apnea requiring CPAP therapy which he does not wear. At the present time his rate and rhythm are being followed. He will be considered for not only rate limiting therapy but also consideration for anticoagulant therapy once he recuperates from his invasive procedure. He has been placed on antiarrhythmic therapy with flecainide/Tambocor secondary to the lack of any angiographically significant CAD and no obvious evidence of previous myocardial injury/infarction based upon his noninvasive studies with respect to his transthoracic echocardiogram and his left ventricular gram. Thus far he has done well with no obvious adverse events noted on his cardiac telemetry or his ECG. Anticoagulation is on temporary hold at this time pending recuperation from his invasive procedure and an upcoming invasive dental procedure next week. Following that he can be considered for anticoagulant therapy based upon his findings of paroxysmal atrial fibrillation superimposed upon his other multiple medical issues. 5. Diabetes mellitus The patient does have diabetes mellitus. This does contribute to his cardiovascular risk factor profile. He will continue evaluation care per internal medicine. 6. Obstructive sleep apnea The patient states he was diagnosed with obstructive sleep apnea in the past. He states he does have a CPAP device at home. He admits that he does not wear it. He has been evaluated by pulmonology. Based upon a discussion with Dr. Lopes there is concern of diagnosed and untreated obstructive sleep apnea and concerns of potential pulmonary hypertension with possible cor pulmonale and right heart failure as a contributing factor to his findings. At the present time he is continuing medical therapy and pulmonary support. Comment: The above was discussed and reviewed with the patient as well as with Dr. Orosco and Dr. Lopes. This note was generated using a voice recognition system and there may be incorrect words, spelling or punctuation that were not noted when reviewing the office note prior to saving.
[2019-02-05] MEDS: Metoprolol Tartrate 25 MG Tablet PO ×2 (09:23→22:02)
[2019-02-05] MEDS: Flecainide 100 MG Tablet PO ×2 (09:24→22:02)
[2019-02-05] MEDS: Aspirin E.C. 81 MG Tablet PO (09:24)
[2019-02-05] MEDS: Enoxaparin 40 MG/0.4 ML Syringe SC ×2 (09:24→22:10)
--- NOTE | 2019-02-05 09:34 | PCM.PN.PUL ---
Patient Problems: Active and Suspected Problems (Last Reviewed 02/02/19 @ 05:51 by Fox Cleveland MD) Heart failure (Suspected) Hypertensive emergency (Acute) Dyspnea (Acute) Abnormal stress test (Acute) Atrial fibrillation (Acute) Subjective: The patient was seen and examined at the bedside this morning. Events from the last 24 hours have been reviewed. The patient is currently afebrile, hemodynamically stable and maintaining appropriate oxygen saturations on 2 L/min via nasal cannula. The patient refused to utilize BiPAP overnight. Objective: The patient's most recent lab work, culture data and imaging studies have all been personally reviewed. - Physical Exam General: Alert, Cooperative, No apparent distress HEENT: Atraumatic, PERRLA, Normocephalic Oral: No Gingival or Mucosal Lesions/ Ulcerations Neck: Supple, No Nodes, Trachea Midline Lungs: No rhonchi, No wheeze, No rales, Diminished Cardiovascular: Regular rate, Regular Rhythm, Normal S1, Normal S2, No murmurs Abdomen: Bowel Sounds Present, Soft, Non Tender, Obese Extremities: No clubbing, No cyanosis, Edema Skin: No breakdown Musculoskeletal: No Tenderness to Palpation of Joints or Extremities, No Muscle Wasting Lymphatic: No Cervical, Supraclavicular, or Inguinal Adenopathy Neurological: Cranial nerves II-XII grossly intact, Neuro grossly intact Psych/Mental Status: Normal Affect, Appropriate Vital Signs Temp Pulse Resp BP Pulse Ox 97.8 F 68 20 H 124/67 H 96 02/05/19 09:17 02/05/19 09:23 02/05/19 09:17 02/05/19 09:23 02/05/19 09:17 Oxygen Flow Rate (L/min) 2 Oxygen Delivery Method Nasal Cannula Weight: 308 lb 10.354 oz Body Mass Index (BMI) 50.3 Intake and Output for Last 24 Hours 02/03/19 02/04/19 02/05/19 23:59 23:59 23:59 Intake Total 520 / 520 941 / 941 60 / 60 Output Total 2650 / 2650 3450 / 3450 1225 / 1225 Balance -2130 / -2130 -2509 / -2509 -1165 / -1165 Laboratory Tests Past 24 Hrs 02/04/19 02/05/19 02/05/19 11:38 05:45 05:45 Hgb 16.8 H Hct 53.1 Specimen Type ART Sample Site L Radial pH 7.40 Bicarbonate Actual 31.1 H POC Total CO2 33 Base Excess 6 H O2 Saturation 95 ABG pCO2 50.6 H ABG pO2 77 Job Test POS O2 Delivery Device Nasal Can Liter Flow 2.0 Blood Gas Notified Whom ICU Blood Gas Notified Time 1125 Sodium 138 Potassium 3.0 L Chloride 99 Carbon Dioxide 34.0 H Anion Gap 5 BUN 19 H Creatinine 0.90 Estim Creat Clear Calc 89.72 Est GFR (MDRD) Af Amer 112 Est GFR (MDRD) Non-Af 92 BUN/Creatinine Ratio 21.0 H Glucose 133 H Calcium 8.9 POC Glucose 02/05/19 02/04/19 02/04/19 06:27 23:11 17:36 POC Glucose 141 H 237 H 234 H 02/04/19 10:42 POC Glucose 127 H Clinical Impression(s) from Imaging Studies Chest X-Ray 02/01/19 18:54 IMPRESSION: Cardiomegaly. Mild pulmonary vascular congestion. Electronically Signed: Sandeep Alfredito, at 19:39 EDT Tel , Service support , Medical Necessity - Tobacco Use Smoking Status: Never smoker Assessment/Plan All Active Problems (Last Reviewed 02/02/19 @ 05:51 by Fox Cleveland MD) Hypertensive emergency (Acute) Dyspnea (Acute) Abnormal stress test (Acute) Atrial fibrillation (Acute) RECOMMENDATIONS: 1. Encourage incentive spirometer use while in bed. 2. Wean supplemental oxygen to maintain saturations at or above 90%. 3. Continue medical management per cardiology recommendations. 4. Continue empiric BiPAP therapy with naps and nightly. 5. The patient would benefit from outpatient pulmonary follow-up so that a re-titration polysomnogram can be completed and the patient started on BiPAP therapy to provide ventilatory support, given his CO2 retention. 6. The patient is currently scheduled to follow up in the pulmonary medicine clinic on Friday 02/23 at 11:15 am. IMPRESSIONS: 1. Exertional shortness of breath Likely multifactorial in etiology. While the patient does certainly have some contributing cardiac factors, he is morbidly obese, so I strongly suspect that a component of his dyspnea is related to his body habitus and generalized deconditioning. He may also have a component of pulmonary hypertension, given his untreated obstructive sleep apnea. Recommend encouraging incentive spirometer use and mobilize patient as tolerated. The patient should follow-up in the pulmonary medicine clinic as noted above. PFTs can also be obtained at that time. 2. 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 In light of his recent ABG results, I would recommend that a re-titration polysomnogram be completed on an outpatient basis so that the patient can be started on BiPAP to provide ventilatory support. The patient is in agreement to follow-up. Orders have been placed for empiric BiPAP therapy while he is admitted to the hospital. 3. Diastolic dysfunction/[place] multivessel coronary disease Continue medical management per cardiology recommendations. This note was generated with [employer] dictation software. It may contain incorrect words, spelling, and punctuation that were not noted in checking the note before signing. DISPOSITION: Will sign off at this time. The patient can follow-up in the pulmonary medicine clinic after discharge as noted above. Please call with any additional questions. Code Visit Inpatient E&M: 57252 Subs Hosp L2
--- NOTE | 2019-02-05 09:59 | CL.D_ITS ---
Patient Name: JAVON ROTH Study Date: 02/04/2019 Performing: Dominik Collins MD Ht: 68 inches 173 cm : 1965 Wt: 311.3 lbs 141 kg Age: 53 Gender: male BSA: 2.47 PROCEDURE(S) PERFORMED [id number] CLINICAL PROFILE AND INDICATIONS Indications: Other (abnormal stress nuclear study) Heart Failure: NYHA Class: 2, Newly Diagnosed: Yes, Heart Failure Type: Diastolic Stress/Imaging Date: 02/03/2019Stress Test with SPECT MPI: Positive Angina Classification Anginal Classification w/in 2 Weeks: CCS III CAD Presentations: Other: Shortness of Breath CONCLUSIONS Elevated Left Ventricular End Diastolic Pressure Normal LV size, wall motion,and systolic function LVEF: by LV gram 55 % [place] Multivessel CAD RECOMMENDATIONS Risk factor modification Medical therapy DESCRIPTION OF PROCEDURE The patient arrived to the procedure lab. The risks and benefits of the procedure as well as a full d escription of our services here and current unavailability of surgical backup were fully explained to the patient and/or their significant other prior to the catheterization. The Timeout was completed, verifying the correct patient and procedure. The patient's procedural site was prepped and draped in the usual fashion. Local anesthetic was given subcutaneously to right groin region with Lidocaine 2%. Using a modified Seldinger technique, arterial access was obtained via the right femoral artery, a 4 Fr sheath was inserted Left Coronary Artery selective angiography was performed in multiple views us ing a 4 Fr. JL5 catheter. Right Coronary Artery selective angiography was then performed in multiple views using a 4 Fr. 3DRC catheter. Left Ventriculography was performed in TIMMONS projection using a 4 Fr . Pigtail catheter. LV to AO pullback pressures were then recorded.The arterial sheath was pulled and manual compression applied until hemostasis is achieved. CORONARY ANGIOGRAPHY DOMINANCE: Right Dominant LEFT HEART ASSESSMENT Left Ventricular Ejection Fraction: by LV Gram 55 % Normal LV wall motion Elevated Left Ventricular End Diastolic Pressure LVEDP: 31 mmHg LEFT MAIN: Angiographically normal LEFT ANTERIOR DESCENDING ARTERY: Mild luminal irregularities DISTAL LAD: 25 % Stenosis CIRCUMFLEX ARTERY: Mild luminal irregularities DISTAL CIRC: 25 % Stenosis RIGHT CORONARY ARTERY: Mild luminal irregularities VALVE FINDINGS: Normal Aortic Valve function Normal Mitral Valve function COMPLICATIONS No Complications PROCEDURE MEDICATIONS Versed 1 mg IV Versed 1 mg IV Oxygen: 2 L/min via nasal cannula Oxygen: 4 L/min via nasal cannula SUMMARY OF HEMODYNAMIC DATA Time AIR REST ECG 07:33:34 AO 132/95 (114) SA 07:49:05 LV 142/3, 29 07:56:49 LV 144/4, 31 07:56:55 LV 140/9, 35 07:57:51 LVp 141/4, 34 07:57:56 AOp 138/77 (100) 07:58:01 Signed By Dominik Collins MD On 02/04/2019 8:49:14 AM Dominik Collins MD
[2019-02-05 12:40] LABS: Anion Gap 7 (5-15); BUN 22 mg/dL (7-18); BUN/Creat Ratio 21.2 RATIO (10-20); Calcium,Total 8.9 mg/dL (8.5-10.1); Chloride 99 mmol/L (98-107); Creatinine, Serum 1.04 mg/dL (0.70-1.30); EST Glomerular Filtration Rate 79 mL/min (>60); Est Glom Filt Rate - Afr Amer 95 mL/min (>60); Estimated Creatinine Clearance 77.64 ml/min; Glucose 196 mg/dL (74-106); Potassium 3.5 mmol/L (3.5-5.1); Sodium Level 136 mmol/L (136-145)
[2019-02-05 13:06] LABS: Bedside Glucose 199 mg/dL (70-110)
[2019-02-05] MEDS: Insulin Lispro 100 UNIT/ML INSULN.PEN SC ×2 (17:01→23:31)
[2019-02-05 17:11] LABS: Bedside Glucose 200 mg/dL (70-110)
[2019-02-05] MEDS: Losartan Potassium 100 MG Tablet PO (22:02)
[2019-02-05] MEDS: Atorvastatin Calcium 40 MG Tablet PO (22:02)
[2019-02-05] MEDS: hydroCHLOROthiazide 12.5mg 12.5 MG PO (22:02)
[2019-02-05] MEDS: 0.9% NaCl Peripheral Flush Adult/Peds IV (22:06)
[2019-02-05 23:41] LABS: Bedside Glucose 183 mg/dL (70-110)
[2019-02-06] VITALS (8 sets, daily range): BP systolic 136–137; BP diastolic 76–95; PULSE 58–67; RESP 17–18; TEMP 36.3–36.7; O2SAT 90–97
[2019-02-06 05:35] LABS: Anion Gap 9 (5-15); BUN 24 mg/dL (7-18); Calcium,Total 9.1 mg/dL (8.5-10.1); Chloride 101 mmol/L (98-107); Creatinine, Serum 0.96 mg/dL (0.70-1.30); EST Glomerular Filtration Rate 86 mL/min (>60); Est Glom Filt Rate - Afr Amer 104 mL/min (>60); Estimated Creatinine Clearance 84.11 ml/min; Glucose 170 mg/dL (74-106); Potassium 3.7 mmol/L (3.5-5.1); Sodium Level 142 mmol/L (136-145)
--- NOTE | 2019-02-06 05:55 | EKG12_ITS ---
Test Reason : AM EKG Blood Pressure : / mmHG Vent. Rate : 060 BPM Atrial Rate : 060 BPM P-R Int : 214 ms QRS Dur : 114 ms QT Int : 490 ms P-R-T Axes : 038 132 -33 degrees QTc Int : 490 ms Sinus rhythm with 1st degree A-V block Possible Left atrial enlargement Inferior infarct , age undetermined Anterolateral infarct , age undetermined Abnormal ECG When compared with ECG of 04-FEB-2019 05:36, MANUAL COMPARISON REQUIRED, DATA IS UNCONFIRMED Confirmed by RADHA BORGES ([id number]), editorial cartoonist SHARON COTO ([id number]) on 02/17/2019 1:12:25 PM Referred By: Fox Cleveland Confirmed By:RADHA BORGES
[2019-02-06] MEDS: Furosemide 100 MG/10 ML Vial 60 MG IV (06:12)
[2019-02-06] MEDS: 0.9% NaCl Peripheral Flush Adult/Peds IV (06:17)
[2019-02-06] MEDS: Insulin Lispro 100 UNIT/ML INSULN.PEN SC (06:41)
[2019-02-06 06:50] LABS: Bedside Glucose 213 mg/dL (70-110)
[2019-02-06] MEDS: Aspirin E.C. 81 MG Tablet PO (08:47)
[2019-02-06] MEDS: Metoprolol Tartrate 25 MG Tablet PO (08:47)
[2019-02-06] MEDS: Enoxaparin 40 MG/0.4 ML Syringe SC (08:48)
[2019-02-06] MEDS: Flecainide 100 MG Tablet PO (08:48)
--- NOTE | 2019-02-06 10:03 | DCINST_ITS ---
- Discharge Diagnoses Current Active Problems: Current Active and Chronic Problems (Last Reviewed 02/02/19 @ 05:51 by Fox Cleveland MD) Hypertensive emergency (Acute) Dyspnea (Acute) Abnormal stress test (Acute) Atrial fibrillation (Acute) Diabetes mellitus (Chronic) You will use the following diet at home:: Cardiac, Fluid restricted (specify 2000 mls, 1500 mls) - 2000 Your food should be the consistency of: Regular Discharge Activity: Return to Normal Activity Allergies/Adverse Reactions: Allergies No Known Allergies Allergy (Verified 02/01/19 22:27) Medications to take at Discharge Dulaglutide [Trulicity] 1.5 mg SQ QWEEK 02/01/19 Insulin Aspart [Novolog Flexpen] 18 units SUBCUT TIDCM 02/01/19 Insulin Detemir [Levemir] 68 unit SQ BID 02/01/19 Metformin HCl [Metformin ER Osmotic] 1,000 mg PO BID 02/01/19 Multivitamin with Minerals [Multiple Vitamin] 1 ea PO DAILY 02/01/19 Rosuvastatin Calcium 20 mg PO QHS 02/01/19 Telmisartan/Hydrochlorothiazid [Telmisartan-Hctz 80-12.5 mg Tb] 1 tab PO QHS 02/01/19 Aspirin E.C. [Ecotrin] 81 mg PO DAILY@0800 #60 tab 02/06/19 Flecainide [Tambocor] 100 mg PO BID #120 tab 02/06/19 Furosemide [Lasix] 40 mg PO BIDLX #120 tab 02/06/19 Metoprolol Tartrate [Lopressor (beta shelby)] 25 mg PO BID #60 tab 02/06/19 Potassium Chloride [K-Dur] 20 meq PO BIDCM #60 tab 02/06/19 The following prescriptions were given: Aspirin E.C. [Ecotrin] 81 mg PO DAILY@0800 #60 tab Transmission Status: Pending to [facility] Potassium Chloride [K-Dur] 20 meq PO BIDCM #60 tab Transmission Status: Pending to [facility] Furosemide [Lasix] 40 mg PO BIDLX #120 tab Transmission Status: Pending to [facility] Metoprolol Tartrate [Lopressor (beta shelby)] 25 mg PO BID #60 tab Transmission Status: Pending to [facility] Flecainide [Tambocor] 100 mg PO BID #120 tab Transmission Status: Pending to [facility] Primary Care Physician: Jus Shields MD [Primary Care Provider] - Please follow up with your Primary Care Physician in: in3-5 days Test Results: Test results from this visit will be discussed in further detail at your follow- up appointment, if applicable. When: Saturday Please Follow Up With: Lenard Lopes DO When: in 1-2weeks Please Follow Up With: Dominik Collins MD When: in 1-2 weeks Proposed Discharge Date: 02/06/19
--- NOTE | 2019-02-06 10:08 | PCM.WORK.EX ---
Work/School Excuse Work/School Excuse for:: Patient Please excuse this person from:: Work From: 02/01/19 through: 02/09/19 Restrictions: Light Duty
--- NOTE | 2019-02-06 10:09 | PCM.DC.SUM ---
Discharge Date and Diagnosis - Problem List Patient Problems: Active and Suspected Problems (Last Reviewed 02/02/19 @ 05:51 by Fox Cleveland MD) Heart failure (Suspected) Hypertensive emergency (Acute) Dyspnea (Acute) Abnormal stress test (Acute) Atrial fibrillation (Acute) Date of Admission: 02/01/19 Date of Discharge: 02/06/19 - Primary Discharge Diagnosis Active and Suspected Problems (Last Reviewed 02/02/19 @ 05:51 by Fox Cleveland MD) Heart failure (Suspected) Hypertensive emergency (Acute) Dyspnea (Acute) Abnormal stress test (Acute) Atrial fibrillation (Acute) - Secondary Discharge Diagnosis Chronic Problems (Last Reviewed 02/02/19 @ 05:51 by Fox Cleveland MD) Diabetes mellitus (Chronic) Hospital Course and Treatment Imaging Results: Clinical Impression(s) from Imaging Studies Chest X-Ray 02/01/19 18:54 IMPRESSION: Cardiomegaly. Mild pulmonary vascular congestion. Electronically Signed: Sandeep Glaser, at 19:39 EDT Tel , Service support , 2D echo result: Procedure This was a 2D Doppler, Color Flow transthoracic echocardiogram. The study was technically difficult. Contrast injection was performed. Exam performed portable in patient room. Left Ventricle Normal LV size. Left ventricular systolic function is normal. The estimated ejection fraction is 60 %. No regional wall motion abnormalities noted. Right Ventricle Normal RV size. Normal systolic function. Atria The left atrium is moderately enlarged. The right atrium is moderately enlarged. Mitral Valve Normal mitral valve. Tricuspid Valve Normal tricuspid valve. Unable to estimate RV systolic pressure/pulmonary artery pressure due to technically difficult study. Aortic Valve The aortic valve is not well visualized. Great Vessels Normal aortic root. The pulmonary artery is normal size. Normal inferior vena cava. Pericardium/Pleural No pericardial effusion. Medication Diluted definity 3.0ml given slow IV push to enhance endocardial definition. MMode/2D Measurements & Calculations LVIDd: 5.9 cm IVSd: 1.3 cm Ao root diam: 3.5 cm LVIDs: 4.4 cm LVPWd: 1.3 cm RVDd: 3.8 cm FS: 26.1 % LAV(MOD-bp): 88.1 ml LA A4 area: 28.7 cm2 LA dimension(2D): 3.7 cm LAV(MOD-bp) Indexed: 34.9 ml/m2 LAV(MOD-sp2): 78.2 ml LAV(MOD-sp4): 95.7 ml RA A4 area: 25.4 cm2 Time Measurements MV dec time: 0.17 sec Doppler Measurements & Calculations MV E max juan: 95.7 cm/sec Lat Peak E' Juan: 10.6 cm/sec Med Peak E' Juan: 6.0 cm/sec MV A max juan: 66.5 cm/sec E/E' lat: 9.0 E/E' med: 15.9 MV E/A: 1.4 Ao V2 max: 168.3 cm/sec LV V1 max: 103.4 cm/sec PA V2 max: 129.8 cm/sec Ao max P.3 mmHg LV V1 max P.3 mmHg Interpretation Summary Normal LV size. Left ventricular systolic function is normal. The estimated ejection fraction is 60 %. Contrast injection was performed. Summary of Care Provided: Patient is a 53-year-old gentleman with multiple comorbidities including obstructive sleep apnea, diabetes mellitus type 2 essential hypertension obesity with BMI of 49 presented with progressive shortness of breath with generalized edema. Patient was also found to have markedly elevated blood pressure on admission 1. Acute congestive heart failure with preserved ejection fraction: ~Suspected diastolic heart failure from hypertension. Patient has been admitted to monitored bed placed on strict input and output, daily weights salt restriction as well as Lasix. Echo obtained on 02/02/2019 was reported to be technically difficult ; however demonstrated EF of 60%. 2. Acute hypertensive emergency with evidence of endorgan damage that is congestive heart failure ~Did continue patient home medications placed on nitroglycerin ointment as well as hydralazine PRN ?02/05/2019 patient blood pressure has since stabilized 3. Abnormal stress test on 02/03/2019 ~Came back positive for stress-induced ischemia consult subsequently placed to cardiology patient underwent left heart catheterization on 02/04/2019 which failed to demonstrate any hemodynamically significant obstructive lesions 4. Paroxysmal atrial fibrillation ~Case discussed with cardiology plan is for patient to be started on antiarrhythmics and systemic anticoagulation prior to discharge ?02/05/2019. Patient was started on flecainide by Dr. Collins with cardiology. Plan is for patient to start anticoagulation as outpatient following a dental procedure 5. Obstructive sleep apnea ~Patient was previously prescribed BiPAPhe however did not tolerate it; did encourage its use while in the hospital 02/05/2019: Consult was placed to pulmonary medicine patient was seen by Dr. Lopes with pulmonary medicine who recommended use of BiPAP to provide ventilatory support. Patient to follow-up with pulmonary medicine following his discharge 6. Suspected secondary pulmonary hypertension ?From obesity hypoventilation syndrome as well as untreated sleep apnea consult has been placed to pulmonary medicine 7. Diabetes mellitus type 2 presented with hyperglycemia ~Held oral medications; continue with patient long-acting insulin in addition to Accu-Cheks before meals and at bedtime with sliding scale coverage 8. Dyslipidemia ~Patient is on atorvastatin did continue 9. Morbid obesity with BMI of 49.3 ~Patient is a candidate for gastric bypass given his associated comorbidities including diabetes mellitus type 2 did discuss with patient to follow-up with PCP for possible referral 10. DVT prophylaxis SC Lovenox dose adjusted for weight 11. Polycythemia suspected to be secondary to chronic hypoxia from patient underlying obesity hypoventilation syndrome. Patient Problems: Active and Suspected Problems (Last Reviewed 02/02/19 @ 05:51 by Fox Cleveland MD) Heart failure (Suspected) Hypertensive emergency (Acute) Dyspnea (Acute) Abnormal stress test (Acute) Atrial fibrillation (Acute) Objective: GENERAL: cooperative HEENT: Atraumatic; EYES; Anicteric, Normal Conjunctiva NECK; supple, normal thyroid, RESPIRATORY: Diminished to auscultation bilaterally, CARDIOVASCULAR: Regular S1 S2, no audible GI: soft, non-tender, normoactive bowel sounds, : No Renal angle tenderness; EXTREMITIES: Trace edema involving both upper and lower extremities MUSCULOSKELETAL: No Joint Tenderness; NEURO: Awake; no lateralizing signs. SKIN: No Rash PSYCH; Normal affect - Physical Exam Vital Signs Temp Pulse Resp BP Pulse Ox 97.4 F L 63 17 137/95 H 95 02/06/19 08:30 02/06/19 08:47 02/06/19 08:30 02/06/19 08:30 02/06/19 08:30 Oxygen Flow Rate (L/min) 2 Oxygen Delivery Method Nasal Cannula Weight: 138.2 kg Body Mass Index (BMI) 50.3 Intake and Output for Last 24 Hours 02/04/19 02/05/19 02/06/19 23:59 23:59 23:59 Intake Total 941 / 941 870 / 870 120 / 120 Output Total 3450 / 3450 4775 / 4775 1025 / 1025 Balance -2509 / -2509 -3905 / -3905 -905 / -905 Laboratory Tests Past 24 Hrs 02/05/19 02/06/19 11:55 04:42 Sodium 136 142 Potassium 3.5 3.7 Chloride 99 101 Carbon Dioxide 30.0 32.0 Anion Gap 7 9 BUN 22 H 24 H Creatinine 1.04 0.96 Estim Creat Clear Calc 77.64 84.11 Est GFR (MDRD) Af Amer 95 104 Est GFR (MDRD) Non-Af 79 86 BUN/Creatinine Ratio 21.2 H 25.0 H Glucose 196 H 170 H Calcium 8.9 9.1 POC Glucose 02/06/19 02/05/19 02/05/19 06:39 23:29 16:59 POC Glucose 213 H 183 H 200 H 02/05/19 13:02 POC Glucose 199 H Discharge Diet: Low fat/ Low Cholesterol, 8 Cup Fluid Restriciton Discharge Activity: Return to Normal Activity Home Medications: Medications to take at Discharge Dulaglutide [Trulicity] 1.5 mg SQ QWEEK 02/01/19 Insulin Aspart [Novolog Flexpen] 18 units SUBCUT TIDCM 02/01/19 Insulin Detemir [Levemir] 68 unit SQ BID 02/01/19 Metformin HCl [Metformin ER Osmotic] 1,000 mg PO BID 02/01/19 Multivitamin with Minerals [Multiple Vitamin] 1 ea PO DAILY 02/01/19 Rosuvastatin Calcium 20 mg PO QHS 02/01/19 Telmisartan/Hydrochlorothiazid [Telmisartan-Hctz 80-12.5 mg Tb] 1 tab PO QHS 02/01/19 Aspirin E.C. [Ecotrin] 81 mg PO DAILY@0800 #60 tab 02/06/19 Flecainide [Tambocor] 100 mg PO BID #120 tab 02/06/19 Furosemide [Lasix] 40 mg PO BIDLX #120 tab 02/06/19 Metoprolol Tartrate [Lopressor (beta shelby)] 25 mg PO BID #60 tab 02/06/19 Potassium Chloride [K-Dur] 20 meq PO BIDCM #60 tab 02/06/19 Following Prescrptions Were Given to Patient: Aspirin E.C. [Ecotrin] 81 mg PO DAILY@0800 #60 tab Transmission Status: Received by [id number] Potassium Chloride [K-Dur] 20 meq PO BIDCM #60 tab Transmission Status: Received by [id number] Furosemide [Lasix] 40 mg PO BIDLX #120 tab Transmission Status: Received by [facility] Metoprolol Tartrate [Lopressor (beta shelby)] 25 mg PO BID #60 tab Transmission Status: Received by [facility] Flecainide [Tambocor] 100 mg PO BID #120 tab Transmission Status: Received by [id number] Primary Care Physician: Jus Shields MD [Primary Care Provider] - Please follow up with your Primary Care Physician in: in3-5 days When: Saturday Please Follow Up With: Lenard Lopes DO When: in 1-2weeks Please Follow Up With: Dominik Collins MD When: in 1-2 weeks Disposition: Home Minutes spent on discharge:: 45 Patient Condition:: Stable Medical Necessity - Tobacco Use Smoking Status: Never smoker Meaningful Use Info Meaningful Use Diagnoses (Choose all that apply): CHF - CHF SHAE/ARB ordered at discharge?: Yes Documented LVEF (%): 60 Code Visit Inpatient E&M: 53958 Disch Hosp
--- NOTE | 2019-02-06 10:51 | PN.CARD_ITS ---
Subjectve: The patient is awake and alert. He states he feels better overall especially with respect to his breathing and his edema. Objective: Vital Signs Temp Pulse Resp BP Pulse Ox 97.4 F L 63 17 137/95 H 95 02/06/19 08:30 02/06/19 08:47 02/06/19 08:30 02/06/19 08:30 02/06/19 08:30 Oxygen Flow Rate (L/min) 2 Oxygen Delivery Method Nasal Cannula Weight: 304 lb 10.861 oz Body Mass Index (BMI) 50.3 Intake and Output for Last 24 Hours 02/04/19 02/05/19 02/06/19 23:59 23:59 23:59 Intake Total 941 / 941 870 / 870 120 / 120 Output Total 3450 / 3450 4775 / 4775 1025 / 1025 Balance -2509 / -2509 -3905 / -3905 -905 / -905 General: Awake, Alert, Oriented x 3, Cooperative, No Acute Distress, Obese HEENT: Atraumatic, Normocephalic, PERRL, EOMI, Sclera Non Icteric Oral: Moist Mucosa Neck: Supple, Good ROM, No JVD Lungs: Clear to auscultation Cardiovascular: Regular Rhythm, Normal S1, Normal S2 Abdomen: Bowel Sounds Present, Soft, Non Tender, Obese Extremities: No Cyanosis, No Clubbing, Mild RLE Edema, Mild LLE Edema Neurological: No Focal Motor or Sensory Deficit Psych/Mental Status: Appropriate 02/05/19 11:55: Sodium 136, Potassium 3.5, Chloride 99, Carbon Dioxide 30.0, Anion Gap 7, BUN 22 H, Creatinine 1.04, Est GFR (MDRD) Af Amer 95, Est GFR (MDRD) Non-Af 79, BUN/Creatinine Ratio 21.2 H, Glucose 196 H, Calcium 8.9 02/06/19 04:42: Sodium 142, Potassium 3.7, Chloride 101, Carbon Dioxide 32.0, Anion Gap 9, BUN 24 H, Creatinine 0.96, Est GFR (MDRD) Af Amer 104, Est GFR (MDRD) Non-Af 86, BUN/Creatinine Ratio 25.0 H, Glucose 170 H, Calcium 9.1 Rhythm: Sinus rhythm EKG: This rhythm/sinus bradycardia; first-degree AV block; possible left atrial enlargement; ECG changes potentially compatible anterolateral MD and inferior MD of indeterminate age; no acute changes Medical Necessity - Tobacco Use Smoking Status: Never smoker Assessment/Plan 1. CAD The patient has now undergone further evaluation with diagnostic cardiac catheterization. His overall LV systolic function appear to be preserved. He does have an element of underlying CAD although thought to be non- angiographically significant and not requiring revascularization therapy. He will need to continue risk factor modification medical management. 2. CHF: Heart failure with preserved ejection fraction The patient appears to have a clinical scenario compatible with heart failure with preserved ejection fraction. This may be secondary to a combination of issues including concerns of decreased diastolic compliance as well as concern of potential obstructive sleep apnea with elevated pulmonary pressures and cor pulmonale and right heart involvement.. At the present time he will need continued combined medical management. This will include continuation of diuretic therapy. 3. Hypertensive urgency/emergency The patient was markedly hypertensive on admission. Again this may be contributing factor to his symptoms and clinical course. His blood pressure is being followed. His medications are being adjusted to bring his blood pressure under better control. 4. Paroxysmal atrial fibrillation The patient has demonstrated findings compatible with paroxysmal atrial fibrillation. This may be related to a combination of etiologies including his hypertension as well as his admission of a history of obstructive sleep apnea requiring CPAP therapy which he does not wear. At the present time his rate and rhythm are being followed. He will be considered for not only rate limiting therapy but also consideration for anticoagulant therapy once he recuperates from his invasive procedure. He has been placed on antiarrhythmic therapy with flecainide/Tambocor secondary to the lack of any angiographically significant CAD and no obvious evidence of previous myocardial injury/infarction based upon his noninvasive studies with respect to his transthoracic echocardiogram and his left ventricular gram. Thus far he has done well with no obvious adverse events noted on his cardiac telemetry or his ECG. Anticoagulation is on temporary hold at this time pending recuperation from his invasive procedure and an upcoming invasive dental procedure next week. Following that he can be considered for anticoagulant therapy based upon his findings of paroxysmal atrial fibrillation superimposed upon his other multiple medical issues. 5. Diabetes mellitus The patient does have diabetes mellitus. This does contribute to his cardiovascular risk factor profile. He will continue evaluation care per internal medicine. 6. Obstructive sleep apnea The patient states he was diagnosed with obstructive sleep apnea in the past. He states he does have a CPAP device at home. He admits that he does not wear i t. He has been evaluated by pulmonology. Based upon a discussion with Dr. Lopes there is concern of diagnosed and untreated obstructive sleep apnea and concerns of potential pulmonary hypertension with possible cor pulmonale and right heart failure as a contributing factor to his findings. At the present time he is continuing medical therapy and pulmonary support. Overall the patient appears to be symptomatically improved and hemodynamically stable. The tentative plan is for the patient to be released home on oral medical therapy with continued outpatient cardiovascular follow-up, pulmonology follow-up, and primary care physician follow-up. Comment: The above was discussed and reviewed with the patient, his spouse, as well as with Dr. Orosco and Dr. Lopes. This note was generated using a voice recognition system and there may be incorrect words, spelling or punctuation that were not noted when reviewing the office note prior to saving.
--- NOTE | 2019-02-06 10:55 | NURSING ---
Discharge teaching complete. Patient and spouse voices understanding of same.
--- NOTE | 2019-02-06 12:02 | PHA.DC.MC ---
Pharmacy Service has performed discharge medication reconciliation and counseling for this patient. 1. ASPIRIN 81MG PO DAILY 2. FLECAINIDE 100MG PO BID 3. METOPROLOL TARTRATE 25MG PO BID 4. FUROSEMIDE 40MG PO BID 5. POTASSIUM CHLORIDE 20MEQ PO BIDCM The patient's discharge medication list was reviewed for discrepancies and discrepancies were resolved. Home Medications Dulaglutide [Trulicity] 1.5 mg SQ QWEEK 02/01/19 Insulin Aspart [Novolog Flexpen] 18 units SUBCUT TIDCM 02/01/19 Insulin Detemir [Levemir] 68 unit SQ BID 02/01/19 Metformin HCl [Metformin ER Osmotic] 1,000 mg PO BID 02/01/19 Multivitamin with Minerals [Multiple Vitamin] 1 ea PO DAILY 02/01/19 Rosuvastatin Calcium 20 mg PO QHS 02/01/19 Telmisartan/Hydrochlorothiazid [Telmisartan-Hctz 80-12.5 mg Tb] 1 tab PO QHS 02/01/19 Aspirin E.C. [Ecotrin] 81 mg PO DAILY@0800 #60 tab 02/06/19 Flecainide [Tambocor] 100 mg PO BID #120 tab 02/06/19 Furosemide [Lasix] 40 mg PO BIDLX #120 tab 02/06/19 Metoprolol Tartrate [Lopressor (beta shelby)] 25 mg PO BID #60 tab 02/06/19 Potassium Chloride [K-Dur] 20 meq PO BIDCM #60 tab 02/06/19 The patient was counseled on the following discharge medications and changes in medications for homegoing were reviewed. The Reason for Use, instructions for use, and potential side effects were reviewed for all new medications. The patient's questions regarding all of their medications were answered. The patient was able to verbally demonstrate an understanding of their discharge medications.
== END 2019-02-06 12:14 | disposition home or self-care (01) | DRG 286 ==
LOC: ED 19:24 → PCU 22:03
PROVIDERS: Family Medicine; Internal Medicine Cardiovascular Disease; Admitting Provider Hospitalist; Emergency Provider Emergency Medicine; Family Provider Family Medicine; PCP Family Medicine; Referring Provider Hospitalist; Visit Provider Internal Medicine
DX: I11.0 Hypertensive heart disease with heart failure (principal); I50.31 Acute diastolic (congestive) heart failure; I16.1 Hypertensive emergency; E66.2 Morbid (severe) obesity with alveolar hypoventilation; Z68.42 Body mass index [BMI] 45.0-49.9, adult; E11.65 Type 2 diabetes mellitus with hyperglycemia; E78.5 Hyperlipidemia, unspecified; I25.10 Atherosclerotic heart disease of native coronary artery without angina pectoris; I48.0 Paroxysmal atrial fibrillation; I27.20 Pulmonary hypertension, unspecified; D75.1 Secondary polycythemia; R94.39 Abnormal result of other cardiovascular function study; Z79.4 Long term (current) use of insulin
CPT/HCPCS: 36415; 36600; 71045; 78452; 80048; 80061; 80076; 82803; 82962; 83880; 84443; 84484; 85014; 85018; 85025; 85379; 85610; 85730; 93005; 93017; 93306; 93458; 94002; 94003; 94640; 97162; 97166; 97530; 97802; 99152; 99153; 99285; A9500; J7030; Q9957; Q9967; A4216; C1769; C1894; C8929; J1940; J2785

== ENCOUNTER → 2019-02-23 15:02 | Outpatient (CLI) | payer OTHER, SELFPAY ==
[2019-02-23 14:18] VITALS: BMI 48.0
[2019-02-23 16:27] LABS: Anion Gap 11 (5-15); BUN 26 mg/dL (7-18); BUN/Creat Ratio 19.7 RATIO (10-20); Chloride 99 mmol/L (98-107); Creatinine, Serum 1.32 mg/dL (0.70-1.30); EST Glomerular Filtration Rate 60 mL/min (>60); Est Glom Filt Rate - Afr Amer 72 mL/min (>60); Glucose 385 mg/dL (74-106); Potassium 4.4 mmol/L (3.5-5.1); Sodium Level 137 mmol/L (136-145)
== END ==
PROVIDERS: Family Provider Family Medicine; PCP Family Medicine; Referring Provider Internal Medicine Cardiovascular Disease; Visit Provider Internal Medicine Cardiovascular Disease
DX: I48.0 Paroxysmal atrial fibrillation (principal); I25.10 Atherosclerotic heart disease of native coronary artery without angina pectoris; I16.1 Hypertensive emergency; E78.2 Mixed hyperlipidemia; I27.20 Pulmonary hypertension, unspecified
CPT/HCPCS: 36415; 80048

== ENCOUNTER → 2019-04-08 20:34 | Outpatient (CLI) | payer OTHER, SELFPAY ==
[2019-02-23 14:18] VITALS: BMI 48.0
== END ==
PROVIDERS: Family Provider Family Medicine; PCP Family Medicine; Referring Provider Nurse Practitioner Acute Care; Visit Provider Nurse Practitioner Acute Care
DX: G47.33 Obstructive sleep apnea (adult) (pediatric) (principal); E66.2 Morbid (severe) obesity with alveolar hypoventilation
CPT/HCPCS: 95811

== ENCOUNTER → 2019-04-23 12:36 | Outpatient (CLI) | payer OTHER, SELFPAY ==
[2019-02-23 11:23] VITALS: BMI 50.3
[2019-02-23 14:18] VITALS: BMI 48.0
--- NOTE | 2019-04-23 14:50 | PFTCOMP_ITS ---
COMPLETE PULMONARY FUNCTION TEST INTERPRETATION Brief HPI: Patient is a 53 year old female, currently under the care of Dr. Lopes, who presents to [facility] [place] for complete pulmonary function tests secondary to diagnosis of dyspnea. Respiratory therapist reports good effort and reproducible results. Interpretation: Forced expiration spirometry shows no large airways obstructive ventilatory defect with an FEV1 of 58% predicted. There is no significant bronchodilator response by strict ATS criteria. Spirograms are of good quality and plateau normally. The respiratory flow volume loop shows a normal pattern. Lung volumes by body plethysmography show a decreased total lung capacity at 4.41 L, 70% predicted. All other lung volumes are reduced symmetrically. Diffusion capacity by carbon monoxide is decreased at 59% predicted. The airway resistance is slightly elevated. No previous pulmonary function tests were available for review. Impression: Mild restrictive ventilatory defect with reduction in diffusing capacity in a pattern consistent with interstitial lung disease
== END ==
PROVIDERS: Family Provider Family Medicine; PCP Family Medicine; Referring Provider Nurse Practitioner Acute Care; Visit Provider Nurse Practitioner Acute Care
DX: R06.00 Dyspnea, unspecified (principal)
CPT/HCPCS: 94060; 94726; 94729

== ENCOUNTER → 2019-06-13 10:54 | Outpatient (CLI) | payer OTHER, SELFPAY ==
[2019-06-02 11:11] VITALS: BMI 49.6
[2019-06-13 12:06] LABS: Anion Gap 8 (5-15); BUN 31 mg/dL (7-18); BUN/Creat Ratio 21.8 RATIO (10-20); Calcium,Total 9.4 mg/dL (8.5-10.1); Chloride 96 mmol/L (98-107); Creatinine, Serum 1.42 mg/dL (0.70-1.30); EST Glomerular Filtration Rate 55 mL/min (>60); Est Glom Filt Rate - Afr Amer 66 mL/min (>60); Glucose 533 mg/dL (74-106); Potassium 4.5 mmol/L (3.5-5.1); Sodium Level 132 mmol/L (136-145)
== END ==
PROVIDERS: PCP Family Medicine; Referring Provider Nurse Practitioner Family; Visit Provider Nurse Practitioner Family
DX: I25.10 Atherosclerotic heart disease of native coronary artery without angina pectoris (principal); I48.0 Paroxysmal atrial fibrillation; I10 Essential (primary) hypertension; E78.2 Mixed hyperlipidemia
CPT/HCPCS: 36415; 80048

== ENCOUNTER 2019-06-13 17:06 | Emergency (ER) | payer OTHER, SELFPAY ==
[2019-06-02 11:11] VITALS: BMI 49.6
[2019-06-13 17:08] VITALS: BP 147/69; PULSE 65; RESP 16; TEMP 35.6; O2SAT 95; BMI 49.7
[2019-06-13 17:46] LABS: Bedside Glucose 309 mg/dL (70-110)
--- NOTE | 2019-06-13 18:50 | ED.RN ---
PER PT, no lab work. Verified with Pending discharge paperwork.
--- NOTE | 2019-06-13 18:56 | ED.DCSUM_ITS ---
History of Present Illness Chief Complaint: Hyperglycemia Informant: Patient Onset: Days Maximum Severity: Mild Narrative: Patient presents complaining of high blood sugar in the 500 range today he has history of insulin diabetes mellitus. When he noted that blood sugar he took 80 units of insulin presents for evaluation. Indicates he leaves his blood sugars been high for the last 2 days as he is been on steroids and antibiotics for head and chest cold his head and chest cold symptoms are markedly improved he has been on the steroid for 3 days. He has had no nausea vomiting no fever his other health conditions are fine he is eating and drinking well he admits to not adhering to a diabetic diet He is under the care of endocrinology and he knows how to adjust his insulin dose based on blood sugar not recall ever having DKA Past Medical History - Allergies and Home Meds Allergies/Adverse Reactions: Allergies No Known Allergies Allergy (Verified 06/02/19 11:06) Primary Care Physician: Jus Shields MD [Primary Care Provider] - Past Medical History: - Surgical History: - - TEETH EXTRACTION Smoking Status: Never smoker - Family History Paternal Family History: Family History (Last Reviewed 06/02/19 @ 10:49 by Lenard Lopes DO) Father CAD (coronary artery disease) Myocardial infarction Hypertension Diabetes CVA (cerebral vascular accident) Mother Diabetes Hypertension Family History: Reports: Diabetes, Heart Disease - Heart disease in his father started probably when his father was in his late 50s. Also, his father had heart attack. Maternal Family History: Family History (Last Reviewed 06/02/19 @ 10:49 by Lenard Lopes DO) Father CAD (coronary artery disease) Myocardial infarction Hypertension Diabetes CVA (cerebral vascular accident) Mother Diabetes Hypertension Family History: Reports: - - Thyroid disease Review of Systems ROS: - Diabetes and as above General: Denies: Chills, Fever, Sweats Eyes: Denies: Visual changes - bilaterally, Diplopia ENT: Denies: Rhinorrhea, Sore throat Cardiovascular: Denies: Chest pain, Palpitations Respiratory: Denies: Dyspnea, Cough, Dyspnea on exertion Gastrointestinal: Denies: Abdominal pain, Nausea, Vomiting, Diarrhea, Melena, Hematochezia Genitourinary: Denies: Dysuria, Hematuria, Frequency Musculoskeletal: Denies: Back pain, Extremity Pain Skin: Denies: Rash, Wounds Neurological: Denies: Headache, Weakness, Numbness Physical Exam Vital Signs/Narrative: Vital Signs Temp Pulse Resp BP Pulse Ox 06/13/19 17:08 96.0 F L 65 16 147/69 H 95 General: Well nourished, Well developed, No Acute Distress Head: Normocephalic, Atraumatic Eyes: Perrl, EOMI ENT: Moist mucous membranes, No rhinorrhea Neck: Supple, Nontender Cardiovascular: Regular rate, Regular rhythm, No murmurs Respiratory: No distress, CTA bilaterally, Chest nontender Abdomen: Soft, Nontender, Nondistended, Normal bowel sounds Back: Nontender, Normal Inspection Extremities: Nontender, No edema Skin: Normal color, No rash Neurological: Alert, Oriented x3, Cranial nerves II-XII grossly intact, Normal Strength, Normal Sensation Psychological: Normal affect, Normal Mood Diagnostic/Tx/Re-eval - Medical Decision Making Patient is resting comfortably in the ED his vital signs are unremarkable, he took his blood sugar it came down from 500-300 he took his blood sugar just about half an hour ago using his own equipment was 250 I discussed ED evaluation with repeat labs IV fluids etc. he declined all that he informed he had labs earlier today we reviewed those labs he did have a high blood sugar but there is no signs of any DKA or other acute gross abnormalities on the chemistry panel He was comfortable discharge home he will stop the steroids continue the antibiotics I have cautioned him to adhere to a diabetic diet monitor his blood sugars adjust his insulin dose based on the blood sugar the follow-up with his marketing content manager in a few days and return for change in symptoms he is very comfortable with that plan again does not wish to have an ED work-up would prefer outpatient management Home stable Impression final hyperglycemia, insulin-dependent diabetes mellitus ED Disposition - Plan for ED Patient: Diagnosis: Hyperglycemia Instructions: ED Diabetic Hyperglycemia Referrals: Jus Shields MD [Primary Care Provider] -
[2019-06-13 19:03] VITALS: BP 145/67; PULSE 79; RESP 18; O2SAT 97
== END 2019-06-13 19:03 | disposition home or self-care (01) ==
PROVIDERS: Emergency Provider Emergency Medicine; PCP Family Medicine
DX: E11.65 Type 2 diabetes mellitus with hyperglycemia (principal); Z79.82 Long term (current) use of aspirin; Z79.4 Long term (current) use of insulin; Z79.899 Other long term (current) drug therapy
CPT/HCPCS: 82962; 99282

== ENCOUNTER 2019-07-05 23:36 | Inpatient (IN) | payer OTHER, SELFPAY ==
[2019-07-05 23:37] VITALS: BP 168/86; PULSE 60; RESP 36; TEMP 36.8; O2SAT 98; BMI 38.9
[2019-07-06] VITALS (21 sets, daily range): BP systolic 112–152; BP diastolic 57–76; PULSE 52–96; RESP 12–27; TEMP 36.5–36.7; O2SAT 91–99; BMI 50.1; BMI 49.1
--- NOTE | 2019-07-06 00:07 | EKG12_ITS ---
Test Reason : SOB Blood Pressure : / mmHG Vent. Rate : 059 BPM Atrial Rate : 059 BPM P-R Int : 262 ms QRS Dur : 104 ms QT Int : 422 ms P-R-T Axes : 051 124 -38 degrees QTc Int : 417 ms Sinus bradycardia with 1st degree A-V block Inferior infarct (cited on or before 02-FEB-2019) Anterolateral infarct (cited on or before 02-FEB-2019) Abnormal ECG Confirmed by RADHA BORGES ([id number]), editor farm journal TALISHA ROCHE ([id number]) on 07/07/2019 1:58:33 PM Referred By: FEI Confirmed By:RADHA BORGES
--- NOTE | 2019-07-06 00:07 | RAD_ITS ---
STUDY: X-RAY CHEST REASON FOR EXAM: Male, 53 years old. INCREASED SOB. RECENT 25 LBS WEIGHT GAIN. HX OF CHF. TECHNIQUE: Single frontal view of the chest. COMPARISON: 02/01/2019 FINDINGS: Chronic interstitial lung changes without superimposed acute alveolar disease. Right basilar alveolar disease. There is no demonstrated pleural abnormality. Stable cardiomediastinal silhouette. Normal mediastinum and loli. Normal visualized pulmonary arteries. Normal visualized aortic arch and descending thoracic aorta. Normal visualized thoracic spine. Normal visualized ribs, clavicles, and shoulders. There is no demonstrated abnormality of the visualized soft tissue structures of the upper abdomen. RAD/Chest 1 View (Portable) IMPRESSION: Chronic interstitial lung changes without superimposed acute alveolar disease. Right basilar alveolar disease. Electronically Signed: Rod Tom MD at 0:36 EST Tel , Service support ,
--- NOTE | 2019-07-06 00:20 | ED.VIS.GEN ---
History of Present Illness Chief Complaint: Shortness of Breath Informant: Patient Onset: Days Context: Gradual Onset Current Severity: Moderate Maximum Severity: Moderate Narrative: Patient presents with increasing dyspnea. Over the past couple days he has had dyspnea on exertion. Today he noted significant dyspnea when trying to lie down. He has noted increased swelling. He is currently on Lasix 40 mg twice daily for history of congestive heart failure. He is had a mild dry cough, no fever or chills. He denies chest pain. 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 (2) MARIA A (obstructive sleep apnea) Status: Chronic (3) Essential hypertension Status: Chronic (4) Mixed hyperlipidemia Status: Chronic (5) Paroxysmal atrial fibrillation Status: Chronic (6) Type 2 diabetes mellitus Status: Chronic (7) Pulmonary hypertension Status: Suspected Past Medical History - Allergies and Home Meds Allergies/Adverse Reactions: Allergies No Known Allergies Allergy (Verified 07/05/19 23:42) Primary Care Physician: Jus Shields MD [Primary Care Provider] - Prior records reviewed: Yes Surgical History: - - TEETH EXTRACTION Lives: Spouse/ Significant Other Smoking Status: Never smoker - Family History Paternal Family History: Family History (Last Reviewed 06/02/19 @ 10:[address] Lenard Lopes DO) Father CAD (coronary artery disease) Myocardial infarction Hypertension Diabetes CVA (cerebral vascular accident) Mother Diabetes Hypertension Family History: Reports: Diabetes, Heart Disease - Heart disease in his father started probably when his father was in his late 50s. Also, his father had heart attack. Maternal Family History: Family History (Last Reviewed 06/02/19 @ 10:[address] Lenard Lopes DO) Father CAD (coronary artery disease) Myocardial infarction Hypertension Diabetes CVA (cerebral vascular accident) Mother Diabetes Hypertension Family History: Reports: - - Thyroid disease Review of Systems General: Denies: Chills, Fever Eyes: Denies: Visual changes - bilaterally ENT: Denies: Bilateral ear pain Cardiovascular: Denies: Chest pain, Palpitations Respiratory: Reports: Dyspnea, Cough Gastrointestinal: Denies: Abdominal pain, Nausea, Vomiting, Diarrhea Musculoskeletal: Reports: Swelling. Denies: Extremity Pain Skin: Denies: Rash Neurological: Denies: Headache Allergy: Denies: Uticaria Physical Exam Vital Signs/Narrative: Vital Signs Temp Pulse Resp BP Pulse Ox 07/05/19 23:37 98.3 F 60 36 H 168/86 H 98 Inital Vital Signs reviewed: Yes General: Well nourished, Well developed Head: Normocephalic ENT: Moist mucous membranes Neck: Supple Cardiovascular: Regular rate, Regular rhythm Respiratory: - - Diminished at bases Abdomen: Soft, Nontender Extremities: - - Pitting edema noted in the lower extremities up to the level of the knees. Edema noted in the patient's hands. Skin: Normal color Neurological: Alert, Oriented x3 Psychological: Normal affect Diagnostic/Tx/Re-eval Impressions Chest X-Ray 07/06/19 00:07 IMPRESSION: Chronic interstitial lung changes without superimposed acute alveolar disease. Right basilar alveolar disease. Electronically Signed: Rod Tom MD at 0:36 EST Tel , Service support , 07/06/19 00:07 Chest 1 View (Portable) [RAD] Stat Laboratory Results 07/06/19 00:55 WBC 13.9 H RBC 4.96 Hgb 14.2 Hct 43.9 MCV 88.5 MCH 28.6 MCHC 32.3 RDW Std Deviation 40.8 RDW Coeff of Shelly 12.6 Plt Count 221 MPV 11.0 Immature Gran % (Auto) 0.300 Neut % (Auto) 70.0 Lymph % (Auto) 17.8 L [place] % (Auto) 8.6 Eos % (Auto) 2.7 Baso % (Auto) 0.6 Absolute Neuts (auto) 9.7 H Absolute Lymphs (auto) 2.48 Nucleated RBC % 0 - EKG Initial EKG Interpretation: Sinus Bradycardia - Sinus bradycardia at 59 bpm with no acute ischemia. - Medical Decision Making Patient has exam findings and chest x-ray consistent with CHF. His EF was 60% in February of last year. Patient is already on Lasix 40 mg twice daily without improvement in his symptoms at home. He will likely require admission for IV diuretics. This will be signed out to oncoming physician for final disposition and review of labs. ED Disposition - Plan for ED Patient: Referrals: Jus Shields MD [Primary Care Provider] -
[2019-07-06 01:06] LABS: Absolute Lymphocyte Count 2.48 X10^3/uL (0.83-4.51); Absolute Neutrophil Count 9.7 X10^3/uL (2.0-7.7); Basophil# 0.09 X10^3/uL; Basophil% 0.6 % (0-1); Eosinophil# 0.38 X10^3/uL; Eosinophils% 2.7 % (0-5); Hematocrit 43.9 % (40-54); Hemoglobin 14.2 g/dL (13.0-16.5); Lymphocyte # 2.48 X10^3/ul (4.0); Lymphocyte % 17.8 % (19-41); Mean Corp Hgb Conc 32.3 g/dL (32-36); Mean Corpuscular Hgb 28.6 pg (27.0-32.0); Mean Corpuscular Volume 88.5 fL (80-94); Monocyte% 8.6 % (0-10); NRBC Flagged by Analyzer 0 % (0-5); Neutrophil # 9.72 X10^3/uL (2.7-7.7); POSITIVE COUNT YES; Platelet Count 221 K/mm3 (150-450); RBC Distribution Width CV 12.6 % (11.6-14.6); RBC Distribution Width SD 40.8 fl (35.1-43.9); Red Blood Count 4.96 M/mm3 (4.6-6.2); White Blood Count 13.9 K/mm3 (4.4-11.0)
[2019-07-06 01:11] LABS: Differential Indicated SCAN CRITERIA MET
[2019-07-06 01:17] LABS: Anion Gap 6 (5-15); BUN 18 mg/dL (7-18); Calcium,Total 9.2 mg/dL (8.5-10.1); Chloride 105 mmol/L (98-107); EST Glomerular Filtration Rate 82 mL/min (>60); Est Glom Filt Rate - Afr Amer 99 mL/min (>60); Estimated Creatinine Clearance 80.75 ml/min; Glucose 277 mg/dL (74-106); Potassium 4.1 mmol/L (3.5-5.1); Sodium Level 138 mmol/L (136-145)
[2019-07-06 01:32] LABS: Differential Comment SCANNED
[2019-07-06 01:42] LABS: BNP,B-Type NATRIURETIC PEPTIDE 249.5 pg/mL (0-100)
[2019-07-06] MEDS: Furosemide 40 MG/4 ML Vial IV ×4 (03:39→22:58)
--- NOTE | 2019-07-06 03:40 | HP.PCM_ITS ---
Problem List (1) History of knee surgery Status: Resolved Comment: Bilateral (2) History of tonsillectomy Status: Chronic (3) Acute combined systolic (congestive) and diastolic (congestive) heart failure Status: Inactive (4) Pulmonary hypertension Status: Suspected (5) Obesity hypoventilation syndrome Status: Chronic (6) MARIA A (obstructive sleep apnea) Status: Chronic (7) Mixed hyperlipidemia Status: Chronic (8) Essential hypertension Status: Chronic (9) Type 2 diabetes mellitus Status: Chronic (10) Paroxysmal atrial fibrillation Status: Chronic (11) Atherosclerotic heart disease of [place] coronary artery without angina pectoris Status: Chronic Qualifiers: [place] vs. transplanted heart: [place] heart Qualified Code(s): I25.10 - Atherosclerotic heart disease of [place] coronary artery without angina pectoris Comment: Mild:DISTAL LAD: 25 % Stenosis;DISTAL CIRC: 25 % Stenosis per cath 02/04/19 (12) Hypertensive emergency Status: Inactive (13) Dyspnea Status: Acute Qualifiers: Dyspnea type: dyspnea on exertion Qualified Code(s): R06.09 - Other forms of dyspnea (14) Abnormal stress test Status: Inactive History of Present Illness Date of Admission: 07/06/19 Chief Complaint: SOB The patient is a 53 year old M with a significant history of morbid obesity; hypertension; hyperlipidemia; type 2 diabetes; paroxysmal A. fib who presents emergency department with one week history of progressively worsening shortness of breath. His shortness of breath is present at rest and it increases markedly with minimal exertion. Associated with symptoms is orthopnea. Further he reports swelling in his bilateral hands and in his bilateral legs and feet. He denies paroxysmal nocturnal dyspnea. He uses BiPAP for sleep apnea. At the emergency department with minimal ambulation his oxygen saturation was about 92% and he was very dyspneic so the decision was made to admit the patient. Past Medical History Past Medical History (Chronic Problems): Chronic Problems (Last Reviewed 07/06/19 @ 04:[address] Fox Cleveland MD) History of tonsillectomy (Chronic) Obesity hypoventilation syndrome (Chronic) MARIA A (obstructive sleep apnea) (Chronic) Mixed hyperlipidemia (Chronic) Essential hypertension (Chronic) Type 2 diabetes mellitus (Chronic) Paroxysmal atrial fibrillation (Chronic) Atherosclerotic heart disease of [place] coronary artery without angina pectoris (Chronic) Mild:DISTAL LAD: 25 % Stenosis;DISTAL CIRC: 25 % Stenosis per cath 02/04/19 Medical History: Medical History (Last Reviewed 07/06/19 @ 07:[address] Fox Cleveland MD) Acute combined systolic (congestive) and diastolic (congestive) heart failure (Chronic) I50.41 Mixed hyperlipidemia (Chronic) E78.2 Essential hypertension (Chronic) I10 Type 2 diabetes mellitus (Chronic) E11.9 Paroxysmal atrial fibrillation (Chronic) I48.0 Atherosclerotic heart disease of [place] coronary artery without angina pectoris (Chronic) I25.10 Mild:DISTAL LAD: 25 % Stenosis;DISTAL CIRC: 25 % Stenosis per cath 02/04/19 Hypertensive emergency (Acute) I16.1 Dyspnea (Acute) R06.00 Abnormal stress test (Acute) R94.39 Allergies No Known Allergies Allergy (Verified 07/05/19 23:42) Home Medications: Ambulatory Orders Medication Instructions Recorded Dulaglutide [Trulicity] 1.5 mg SQ QWEEK 02/01/19 Metformin HCl [Metformin ER 1,000 mg PO BID 02/01/19 Osmotic] Multivitamin with Minerals 1 ea PO DAILY 02/01/19 [Multiple Vitamin] Aspirin E.C. [Ecotrin] 81 mg PO DAILY@0800 #60 tab 02/06/19 ipratropium 0.5 mg-albuterol 3 mg 3 ml INHALATION Q6H ml 02/11/19 (2.5 mg base)/3 mL nebulization soln flecainide 100 mg tablet 100 mg PO BID #180 tab 02/23/19 metoprolol tartrate 25 mg tablet 25 mg PO BID #180 tab 02/23/19 potassium chloride 20 mEq 20 meq PO BID #180 tab 02/25/19 tablet,extended release(part/cryst) furosemide 40 mg tablet 40 mg PO BID #180 tab 02/27/19 rosuvastatin 20 mg tablet 20 mg PO QHS #90 tab 02/27/19 telmisartan 80 1 tab PO BID tab 06/02/19 mg-hydrochlorothiazide 12.5 mg tablet Insulin Regular, Human [Humulin R 80 unit SQ DINNER 07/05/19 U-500 Kwikpen] Insulin Regular, Human [Humulin R 120 unit SQ BREAKFAST 07/05/19 U-500 Kwikpen] Surgical History: Surgical History (Last Reviewed 07/06/19 @ 07:[address] Fox Cleveland MD) History of knee surgery (Resolved) Z98.890 Bilateral History of tonsillectomy (Resolved) Z90.89 Surgical History: - - TEETH EXTRACTION Lives: Spouse/ Significant Other Smoking Status: Never smoker - *Family History Maternal Family History: Family History (Last Reviewed 07/06/19 @ 07:[address] Fox Cleveland MD) Father CAD (coronary artery disease) Myocardial infarction Hypertension Diabetes CVA (cerebral vascular accident) Mother Diabetes Hypertension History Items: - - Thyroid disease Paternal Family History: Family History (Last Reviewed 07/06/19 @ 07:[address] Fox Cleveland MD) Father CAD (coronary artery disease) Myocardial infarction Hypertension Diabetes CVA (cerebral vascular accident) Mother Diabetes Hypertension History Items: Diabetes, Heart Disease - Heart disease in his father started probably when his father was in his late 50s. Also, his father had heart attack. Review of Systems Constitutional: Reports: Fatigue. Denies: Chills, Fever HEENT: Denies: Head Aches, Sinus Congestion, Sinus Drainage Cardiovascular: Reports: Edema, Orthopnea. Denies: Chest Pain, Palpitations Respiratory: Reports: Shortness of breath at rest. Denies: Cough, Sputum production Gastrointestinal: Denies: Abdominal Pain, Nausea, Vomiting Genitourinary: Denies: Dysuria Musculoskeletal: Denies: Joint Pain, Joint Tenderness Skin: Denies: Rash, Wounds Neurological: Denies: Numbness, Tingling, Focal weakness Psychiatric: Denies: Anxiety, Depression, Homicidal Ideations, Suicidal Ideations Hematologic/ Lymphatic: Denies: Easy Bruising, Easy Bleeding VTE Information - Inpt Only VTE Present on Admission: No VTE Mechan Device Prophylaxis: None VTE Pharm Prophylaxis ordered?: Yes - Physical Exam Vitals/I&O's: Vital Signs Temp Pulse Resp BP Pulse Ox 98.3 F 62 26 H 146/63 H 93 07/05/19 23:37 07/06/19 03:39 07/06/19 03:39 07/06/19 03:39 07/06/19 03:39 Oxygen Delivery Method Room Air Weight: 149.5 kg Body Mass Index (BMI) 50.1 Finger Stick Blood Glucose 309 General: Alert, Oriented x3, Cooperative HEENT: Atraumatic, PERRLA, EOMI, Normocephalic Neck: Supple, Trachea Midline Lungs: Rhonchi, Tachypneic, Using Accessory Muscles, Wheezes Cardiovascular: Regular rate, No murmurs Abdomen: Bowel Sounds Present, Soft, Non Tender Extremities: Capillary Refill Less than 3 Seconds, Edema - Bilateral lower extremities, Tenderness - Bilateral lower extremity Skin: No rashes, No breakdown Musculoskeletal: No Tenderness to Palpation of Joints or Extremities Neurological: Cranial nerves II-XII grossly intact Psych/Mental Status: Normal Affect, Appropriate Laboratory Results 07/06/19 00:55: WBC 13.9 H, RBC 4.96, Hgb 14.2, Hct 43.9, MCV 88.5, MCH 28.6, MCHC 32.3, RDW Std Deviation 40.8, RDW Coeff of Shelly 12.6, Plt Count 221, MPV 11.0, Immature Gran % (Auto) 0.300, Neut % (Auto) 70.0, Lymph % (Auto) 17.8 L, [place] % (Auto) 8.6, Eos % (Auto) 2.7, Baso % (Auto) 0.6, Absolute Neuts (auto) 9.7 H, Absolute Lymphs (auto) 2.48, Nucleated RBC % 0, Differential Comment SCANNED 07/06/19 00:55: Sodium 138, Potassium 4.1, Chloride 105, Carbon Dioxide 27.0, Anion Gap 6, BUN 18, Creatinine 1.00, Estim Creat Clear Calc 80.75, Est GFR (MDRD) Af Amer 99, Est GFR (MDRD) Non-Af 82, BUN/Creatinine Ratio 18.0, Glucose 277 H, Calcium 9.2, Troponin I 0.022 07/06/19 00:55: B-Natriuretic Peptide 249.5 H Assessment/Plan All Active Problems (Last Reviewed 07/06/19 @ 04:[address] Fox Cleveland MD) History of knee surgery (Resolved) Dyspnea (Acute) The patient is a 53 year old M with a significant history of morbid obesity; hypertension; hyperlipidemia; type 2 diabetes; paroxysmal A. fib who presents emergency department with 1 week history of progressively worsening shortness of breath; and found to be severely dyspneic with ambulation while at the emergency department consistent with acute on chronic heart failure with preserved ejection fraction. Acute on chronic heart failure with preserved ejection fraction. Echocardiogram on 02/02/2019 showed estimated ejection fraction of 60%. Right ventricular systolic pressure could not be determined because the study was a difficult. The left atrium was moderately enlarged. Cardiac catheterization on 02/05/2019 showed left ventricular ejection fraction of 55%; and elevated left ventricular end-diastolic pressure; and [place] multivessel CAD. Patient saw cardiology on 06/02/2019 Reportedly he is compliant with his Lasix 40 mg p.o. twice daily at home. In the emergency department he received Lasix 40 mg IV push x1. We will continue patient on Lasix 40 mg IV twice daily and will continue home potassium supplem entation. We will trend BMP. Also patient is on hydrochlorothiazide; continued. Fluid restriction 2 g sodium diet with calorie restriction of 1018 kg/day. Daily weights. Strict intake and output. Placed on PCU on telemetry. Diabetes mellitus with hyperglycemia On presentation blood glucose was not within goal. Continue home basal insulin. Hold metformin in the setting of illness. Accu-Chek QA CHS with correction scale insulin added. On Trulicity every week. Paroxysmal A. fib On presentation patient was in sinus rhythm with first-degree AV block. Continue home flecainide. Aspirin continued. Of note patient is not on anticoagulation. Discussed with patient who stated that anticoagulation was held because of dental procedure. Per patient there is another dental procedure to be done. Discussed with patient to follow-up with a dentist and notify his consumer credit counselor when it is okay to start anticoagulation. Metoprolol continued Hypertension Presentation blood pressure was not within goal Lasix as above. Metoprolol continued On ARB?HCTZ; continued. Obstructive sleep apnea BiPAP continued. DVT Prophylaxis Subcutaneous Lovenox. Code Visit Inpatient E&M: 08311 Init Hosp L3
[2019-07-06] MEDS: Insulin Lispro 100 UNIT/ML INSULN.PEN SC ×2 (08:19→17:05)
[2019-07-06] MEDS: Aspirin E.C. 81 MG Tablet PO (08:27)
[2019-07-06] MEDS: Multivitamins,Ther W-Minerals Tablet 1 TABLET PO (08:27)
[2019-07-06] MEDS: Metoprolol Tartrate 25 MG Tablet PO (08:31)
[2019-07-06] MEDS: Losartan Potassium 50 MG Tablet PO ×2 (08:32→22:58)
[2019-07-06] MEDS: Flecainide 100 MG Tablet PO ×2 (08:32→22:58)
[2019-07-06] MEDS: hydroCHLOROthiazide 12.5mg 12.5 MG PO (08:32)
[2019-07-06] MEDS: Enoxaparin 40 MG/0.4 ML Syringe SC (08:39)
[2019-07-06] MEDS: 0.9% Saline Lock 10 ML Syringe IV ×3 (08:40→22:58)
[2019-07-06 08:56] LABS: Bedside Glucose 250 mg/dL (70-110)
[2019-07-06 10:11] LABS: Bedside Glucose 260 mg/dL (70-110)
[2019-07-06 11:26] LABS: Bedside Glucose 247 mg/dL (70-110)
[2019-07-06] MEDS: Acetaminophen 325 MG Tablet 650 MG PO ×2 (15:21→23:00)
--- NOTE | 2019-07-06 15:28 | CASEMGMT ---
RN CM Assessment Introduced role of RN CM to patient and patient Junie at bedside.? Patient is alert, oriented and able?to participate in RN CM Assessment. Information obtained from both patient and .?Care providers, pharmacy, and demographics verified. Presentation: 1 week h/o progressive worsening SOB Admit Dx: Acute Exac HF Re-Admit: No Barriers/Issues: None PCP: Tate Shields Specialists: Cardio- Dr Collins, Endo- Dr Jose Walker [facility]erred [facility]acy: [facility] Insurance: MMO Rx Benefit: Yes? ?LNOK: Junie Coronel LW/HPOA: None, given information with SW rack card, aware if wanting completion to notify staff, aware can return as an Outpatient to complete at a later time. Living Arrangements:? Lives with and 2 sons in a H, 2 steps to enter home ADL?s: Independent with ambulation and ADLs Transportation: Both patient and spouse drive DME: Bipap- [facility], Nebulizer, Glucometer HHC: None SNF: None Goal: Home and does not think will have any needs. In Network DME list provided in case Home O2 is needed. Prefers to stay with [facility] if they supply O2. Aware CM remains available for any emerging needs. DC PLAN: Home with possible home O2. DANIEL Haley
[2019-07-06] MEDS: Albuterol 2.5 MG/3 ML VIAL.NEB. INHALATION ×2 (16:51→23:25)
[2019-07-06 17:01] LABS: Bedside Glucose 265 mg/dL (70-110)
[2019-07-06] MEDS: BENZOCAINE/MENTHOL 1 LOZENGE MUCOUS MEM (17:01)
[2019-07-06] MEDS: Atorvastatin Calcium 40 MG Tablet PO (22:58)
[2019-07-06] MEDS: MELATONIN 3 MG TABLET PO (23:00)
[2019-07-07] VITALS (16 sets, daily range): BP systolic 115–131; BP diastolic 47–67; PULSE 45–73; RESP 13–20; TEMP 36.2–36.9; O2SAT 93–97
[2019-07-07 00:05] LABS: Bedside Glucose 91 mg/dL (70-110)
--- NOTE | 2019-07-07 02:35 | CPS ---
pt brought in own bipap from home. is set up and ready to wear
[2019-07-07] MEDS: 0.9% Saline Lock 10 ML Syringe IV ×2 (05:29→19:26)
[2019-07-07] MEDS: Furosemide 40 MG/4 ML Vial IV ×3 (05:29→19:25)
[2019-07-07] MEDS: Enoxaparin 40 MG/0.4 ML Syringe SC (05:49)
--- NOTE | 2019-07-07 05:55 | ECHOCS_ITS ---
Reason For Study: CHF Procedure This was a 2D Doppler, Color Flow transthoracic echocardiogram. The study was technically difficult. Contrast injection was performed. Exam performed portable in patient room. Left Ventricle Normal LV size. Moderate concentric left ventricular hypertrophy. Left ventricular systolic function is normal. The estimated ejection fraction is 70 %. Diastolic function is indeterminate. No regional wall motion abnormalities noted. Right Ventricle Normal RV size. Normal systolic function. Atria Mild to moderate left atrial enlargement. Mild to moderate right atrial enlargement. No doppler evidence for ASD. Mitral Valve There is no mitral annular calcification. Normal mitral valve. Tricuspid Valve The tricuspid valve is not well visualized. Unable to estimate RV systolic pressure/pulmonary artery pressure due to technically difficult study. Aortic Valve Trisinus/trileaflet aortic valve. Normal aortic valve. Pulmonic Valve The pulmonic valve is not well visualized. Trivial pulmonic valve insufficiency. Great Vessels The aortic root is not well visualized. Pericardium/Pleural No pericardial effusion. Medication Diluted definity 4ml given slow IV push to enhance endocardial definition. MMode/2D Measurements & Calculations LVIDd: 6.0 cm IVSd: 1.5 cm LA dimension: 5.0 cm LVIDs: 3.0 cm LVPWd: 1.4 cm FS: 49.8 % LAV(MOD-sp4): 115.4 ml LA A4 area: 31.2 cm2 RA A4 area: 28.5 cm2 Time Measurements MV dec time: 0.20 sec Doppler Measurements & Calculations MV E max juan: 105.7 cm/sec Lat Peak E' Juan: 10.7 cm/sec Med Peak E' Juan: 13.2 cm/sec MV A max juan: 67.6 cm/sec E/E' lat: 9.9 E/E' med: 8.0 MV E/A: 1.6 MV V2 max: 126.2 cm/sec MV P1/2t max juan: 124.2 cm/sec Ao V2 max: 122.3 cm/sec MV max P.4 mmHg MV P1/2t: 75.8 msec Ao max P.0 mmHg MV V2 mean: 61.0 cm/sec MV dec slope: 479.7 cm/sec2 MV mean P.8 mmHg MV V2 VTI: 36.6 cm MVA(P1/2t): 2.9 cm2 LV V1 max: 109.7 cm/sec PA V2 max: 123.3 cm/sec LV V1 max P.8 mmHg Interpretation Summary The study was technically difficult. Contrast injection was performed. Left ventricular systolic function is normal. The estimated ejection fraction is 70 %. Moderate concentric left ventricular hypertrophy. Mild to moderate left atrial enlargement. Mild to moderate right atrial enlargement. Trivial pulmonic valve insufficiency. Unable to estimate RV systolic pressure/pulmonary artery pressure due to technically difficult study. Diastolic function is indeterminate. Ordering Physician: Paul Cisneros Referring Physician: Jus Shields Performed By: Dewayne Hudson RCS
[2019-07-07] MEDS: Acetaminophen 325 MG Tablet 650 MG PO ×2 (06:56→12:09)
[2019-07-07 07:40] LABS: Bedside Glucose 173 mg/dL (70-110)
[2019-07-07 07:53] LABS: Absolute Lymphocyte Count 2.97 X10^3/uL (0.83-4.51); Absolute Neutrophil Count 6.2 X10^3/uL (2.0-7.7); Basophil# 0.08 X10^3/uL; Basophil% 0.8 % (0-1); Eosinophil# 0.34 X10^3/uL; Eosinophils% 3.2 % (0-5); Hematocrit 44.2 % (40-54); Hemoglobin 14.2 g/dL (13.0-16.5); Lymphocyte # 2.97 X10^3/ul (4.0); Mean Corp Hgb Conc 32.1 g/dL (32-36); Mean Corpuscular Hgb 28.5 pg (27.0-32.0); Mean Corpuscular Volume 88.6 fL (80-94); Mean Platelet Vol. 9.6 fl (6.2-12.0); Monocyte# 1.03 X10^3/uL; Monocyte% 9.7 % (0-10); NRBC Flagged by Analyzer 0 % (0-5); Neutrophil # 6.15 X10^3/uL (2.7-7.7); Platelet Count 261 K/mm3 (150-450); RBC Distribution Width CV 12.8 % (11.6-14.6); RBC Distribution Width SD 41.3 fl (35.1-43.9); Red Blood Count 4.99 M/mm3 (4.6-6.2); White Blood Count 10.6 K/mm3 (4.4-11.0)
[2019-07-07] MEDS: Albuterol 2.5 MG/3 ML VIAL.NEB. INHALATION ×3 (08:04→22:04)
[2019-07-07] MEDS: Insulin Lispro 100 UNIT/ML INSULN.PEN SC ×4 (08:08→20:32)
[2019-07-07 08:11] LABS: Anion Gap 7 (5-15); BUN 24 mg/dL (7-18); BUN/Creat Ratio 23.8 RATIO (10-20); Calcium,Total 8.8 mg/dL (8.5-10.1); Chloride 101 mmol/L (98-107); Creatinine, Serum 1.01 mg/dL (0.70-1.30); EST Glomerular Filtration Rate 81 mL/min (>60); Est Glom Filt Rate - Afr Amer 98 mL/min (>60); Estimated Creatinine Clearance 79.95 ml/min; Glucose 156 mg/dL (74-106); Potassium 3.7 mmol/L (3.5-5.1); Sodium Level 138 mmol/L (136-145)
[2019-07-07] MEDS: Aspirin E.C. 81 MG Tablet PO (10:02)
[2019-07-07] MEDS: Metoprolol Tartrate 25 MG Tablet PO ×2 (10:02→20:22)
[2019-07-07] MEDS: Losartan Potassium 50 MG Tablet PO ×2 (10:02→20:23)
[2019-07-07] MEDS: Multivitamins,Ther W-Minerals Tablet 1 TABLET PO (10:02)
[2019-07-07] MEDS: Flecainide 100 MG Tablet PO ×2 (10:03→20:22)
[2019-07-07 11:46] LABS: Bedside Glucose 179 mg/dL (70-110)
--- NOTE | 2019-07-07 12:15 | CASEMGMT ---
Social Work Pt presenting with diagnosis of acute exacerbation of heart failure. Palliative medicine screen completed with a score of 3. Referral to palliative medicine is not indicated at this time however, if pt condition deteriorates will reconsider. AYDEE Taylor
--- NOTE | 2019-07-07 12:28 | NURSING ---
charting reviewed by this RN for student CM
[2019-07-07 17:01] LABS: Bedside Glucose 204 mg/dL (70-110)
--- NOTE | 2019-07-07 19:32 | PN_ITS ---
Subjective: Patient was seen and examined today, he has no expiratory wheezes today on examination, he still has appreciable edema in his trunk and legs, echocar diogram was performed today which showed a normal EF, pulmonary artery pressure could not be estimated. Patient continues to diurese on IV Lasix at this time, he is not on oxygen at rest. - Physical Exam Vitals/I&O's: Vital Signs Temp Pulse Resp BP Pulse Ox 97.1 F L 64 18 130/63 H 93 07/07/19 15:10 07/07/19 15:37 07/07/19 15:37 07/07/19 15:10 07/07/19 15:10 Oxygen Delivery Method Room Air Weight: 147 kg Body Mass Index (BMI) 49.1 Finger Stick Blood Glucose 309 Intake and Output for Last 24 Hours 07/05/19 07/06/19 07/07/19 23:59 23:59 23:59 Intake Total 1170 / 1170 1160 / 1160 Output Total 2530 / 2530 2575 / 2575 Balance -1360 / -1360 -1415 / -1415 General: Alert, Oriented x3, Cooperative, No apparent distress, Well developed, Well nourished HEENT: Atraumatic, PERRLA, EOMI, Normocephalic Oral: Moist Mucosa Neck: Supple, No JVD, Trachea Midline, Thyroid Normal Size and Texture Lungs: Clear to auscultation, No rhonchi, No wheeze, No rales, Diminished Cardiovascular: Regular rate, No murmurs Abdomen: Bowel Sounds Present, Soft, Non Tender, Non-Distended, - - Edema of the patient's abdominal wall and trunk is noted on examination Extremities: Capillary Refill Less than 3 Seconds, Edema - Generalized edema of the legs and the trunk of the patient was noted, there is also noted to be edema of the abdominal wall noted. Skin: No rashes, No breakdown Musculoskeletal: No Tenderness to Palpation of Joints or Extremities Neurological: Cranial nerves II-XII grossly intact, Neuro grossly intact, Sensory exam intact to light touch and pain Psych/Mental Status: Normal Affect, Appropriate, Alert and oriented to time, place, person, mood and affect Laboratory Results 07/06/19 23:11: POC Glucose 91 07/07/19 07:25: WBC 10.6, RBC 4.99, Hgb 14.2, Hct 44.2, MCV 88.6, MCH 28.5, MCHC 32.1, RDW Std Deviation 41.3, RDW Coeff of Shelly 12.8, Plt Count 261, MPV 9.6, Immature Gran % (Auto) 0.300, Neut % (Auto) 58.0, Lymph % (Auto) 28.0, [place] % (Auto) 9.7, Eos % (Auto) 3.2, Baso % (Auto) 0.8, Absolute Neuts (auto) 6.2, Absolute Lymphs (auto) 2.97, Nucleated RBC % 0 07/07/19 07:25: Sodium 138, Potassium 3.7, Chloride 101, Carbon Dioxide 30.0, Anion Gap 7, BUN 24 H, Creatinine 1.01, Estim Creat Clear Calc 79.95, Est GFR (MDRD) Af Amer 98, Est GFR (MDRD) Non-Af 81, BUN/Creatinine Ratio 23.8 H, Glucose 156 H, Calcium 8.8 07/07/19 07:35: POC Glucose 173 H 07/07/19 11:39: POC Glucose 179 H 07/07/19 16:54: POC Glucose 204 H Current Medications Acetaminophen (Tylenol) 650 mg PO Q6H PRN PRN PRN Reason: Pain Score 1-10/Temp > 100.7 F Last Admin: 07/07/19 12:09 Dose: 650 mg Documented by: Albuterol Sulfate (Ventolin Aerosols) 2.5 mg INHALATION Q2H PRN PRN PRN Reason: DYSPNEA Last Admin: 07/07/19 15:37 Dose: 2.5 mg Documented by: Aspirin (Ecotrin) 81 mg PO DAILY@0800 ON LICENSE OF [facility] Last Admin: 07/07/19 10:02 Dose: 81 mg Documented by: Atorvastatin Calcium (Lipitor) 40 mg PO QHS ON LICENSE OF [facility] Last Admin: 07/06/19 22:58 Dose: 40 mg Documented by: Enoxaparin Sodium (Lovenox) 40 mg SC DAILY@0600 ON LICENSE OF [facility] Last Admin: 07/07/19 05:49 Dose: 40 mg Documented by: Flecainide Acetate (Tambocor) 100 mg PO BID ON LICENSE OF [facility] Last Admin: 07/07/19 10:03 Dose: 100 mg Documented by: Furosemide (Lasix) 40 mg IV Q8 ON LICENSE OF [facility] Last Admin: 07/07/19 19:25 Dose: 40 mg Documented by: Glucagon () 1 mg IM .X1 PRN PRN Reason: Hypoglycemia Dextrose (Dextrose 10%-Water) 250 mls @ 999 mls/hr IV .Q16M PRN; Protocol PRN Reason: HYPOGLYCEMIA Insulin Human Lispro (Humalog Kwikpen ([facility])) 0 unit SC ACHS ON LICENSE OF [facility]; Protocol Last Admin: 07/07/19 16:56 Dose: 4 u Documented by: Insulin Human Regular (Humulin R U-500 ([facility])) 80 units SC DINNER ON LICENSE OF [facility] Last Admin: 07/07/19 16:57 Dose: 80 units Documented by: Insulin Human Regular (Humulin R U-500 ([facility])) 120 units SC BREAKFAST ON LICENSE OF [facility] Last Admin: 07/07/19 08:08 Dose: 120 u Documented by: Losartan Potassium (Cozaar) 50 mg PO BID ON LICENSE OF [facility] Last Admin: 07/07/19 10:02 Dose: 50 mg Documented by: Melatonin (Melatonin) 3 mg PO QHS PRN PRN PRN Reason: INSOMNIA Last Admin: 07/06/19 23:00 Dose: 3 mg Documented by: Metoprolol Tartrate (Lopressor (Beta [place])) 25 mg PO BID ON LICENSE OF [facility] Last Admin: 07/07/19 10:02 Dose: 25 mg Documented by: Multivitamins/Minerals (Multivitamin With Minerals ([facility] Last Admin: 07/07/19 10:02 Dose: 1 tablet Documented by: Potassium Chloride (K-Dur) 20 meq PO BIDCM ON LICENSE OF [facility] Last Admin: 07/07/19 16:57 Dose: 20 meq Documented by: Sodium Chloride () 10 - 40 ml IV UD PRN PRN Reason: SALINE FLUSH Last Admin: 07/07/19 19:26 Dose: 10 ml Documented by: Throat Lozenges (Cepacol Sore Throat Lozenge) 1 lozenge MUCOUS MEM Q2H PRN PRN PRN Reason: SORE THROAT Last Admin: 07/06/19 17:01 Dose: 1 lozenge Documented by: Medical Necessity - Tobacco Use Smoking Status: Never smoker Assessment/Plan All Active Problems (Last Reviewed 07/06/19 @ 07:[address] 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
[2019-07-07] MEDS: metOLazone 5 MG Tablet PO (20:22)
[2019-07-07] MEDS: Atorvastatin Calcium 40 MG Tablet PO (20:23)
[2019-07-07 22:16] LABS: Bedside Glucose 283 mg/dL (70-110)
[2019-07-08] VITALS (8 sets, daily range): BP systolic 101–137; BP diastolic 45–63; PULSE 51–64; RESP 18–19; TEMP 35.8–37; O2SAT 95–98
[2019-07-08] MEDS: Acetaminophen 325 MG Tablet 650 MG PO ×2 (01:50→11:24)
[2019-07-08] MEDS: Enoxaparin 40 MG/0.4 ML Syringe SC (05:12)
[2019-07-08] MEDS: Furosemide 40 MG/4 ML Vial IV ×2 (05:13→14:36)
[2019-07-08] MEDS: 0.9% Saline Lock 10 ML Syringe IV (05:13)
[2019-07-08 05:34] LABS: Anion Gap 4 (5-15); BUN 28 mg/dL (7-18); BUN/Creat Ratio 26.9 RATIO (10-20); Calcium,Total 8.9 mg/dL (8.5-10.1); Chloride 101 mmol/L (98-107); Creatinine, Serum 1.04 mg/dL (0.70-1.30); EST Glomerular Filtration Rate 79 mL/min (>60); Est Glom Filt Rate - Afr Amer 95 mL/min (>60); Estimated Creatinine Clearance 77.64 ml/min; Glucose 124 mg/dL (74-106); Potassium 4.1 mmol/L (3.5-5.1); Sodium Level 139 mmol/L (136-145)
[2019-07-08 07:50] LABS: Bedside Glucose 122 mg/dL (70-110)
[2019-07-08] MEDS: Aspirin E.C. 81 MG Tablet PO (08:10)
[2019-07-08] MEDS: Multivitamins,Ther W-Minerals Tablet 1 TABLET PO (08:15)
[2019-07-08] MEDS: Metoprolol Tartrate 25 MG Tablet PO (09:37)
[2019-07-08] MEDS: Flecainide 100 MG Tablet PO (09:38)
[2019-07-08] MEDS: Losartan Potassium 50 MG Tablet PO (09:38)
[2019-07-08] MEDS: Insulin Lispro 100 UNIT/ML INSULN.PEN SC (11:29)
[2019-07-08 11:46] LABS: Bedside Glucose 198 mg/dL (70-110)
--- NOTE | 2019-07-08 12:12 | CASEMGMT ---
Per Eden RN, pt does not qualify for home oxygen at this time. Pt voices no further questions/concerns/needs at this time. Lazaro BERMUDEZ CM
--- NOTE | 2019-07-08 12:15 | PCM.DC ---
You will use the following diet at home:: Calorie/Carbohydrate Controlled (specify 1200, 1400, etc) - 1800 callie Your food should be the consistency of: Regular Your liquids should be the consistency of: Regular/Thin Discharge Activity: Return to Normal Activity Weight Bearing Status: Full weight bearing Allergies/Adverse Reactions: Allergies No Known Allergies Allergy (Verified 07/05/19 23:42) Medications to take at Discharge Dulaglutide [Trulicity] 1.5 mg SQ QWEEK 02/01/19 Metformin HCl [Metformin ER Osmotic] 1,000 mg PO BID 02/01/19 Multivitamin with Minerals [Multiple Vitamin] 1 ea PO DAILY 02/01/19 Aspirin E.C. [Ecotrin] 81 mg PO DAILY@0800 #60 tab 02/06/19 ipratropium 0.5 mg-albuterol 3 mg (2.5 mg base)/3 mL nebulization soln 3 ml INHALATION Q6H ml 02/11/19 flecainide 100 mg tablet 100 mg PO BID #180 tab 02/23/19 metoprolol tartrate 25 mg tablet 25 mg PO BID #180 tab 02/23/19 potassium chloride 20 mEq tablet,extended release(part/cryst) 20 meq PO BID #180 tab 02/25/19 rosuvastatin 20 mg tablet 20 mg PO QHS #90 tab 02/27/19 Insulin Regular, Human [Humulin R U-500 Kwikpen] 80 unit SQ DINNER 07/05/19 Insulin Regular, Human [Humulin R U-500 Kwikpen] 120 unit SQ BREAKFAST 07/05/19 Furosemide 40 mg PO TID #90 tab 07/08/19 Losartan Potassium [Cozaar] 50 mg PO BID #60 tab 07/08/19 The following prescriptions were given: Losartan Potassium [Cozaar] 50 mg PO BID #60 tab Transmission Status: Pending to [facility] [place], Furosemide 40 mg PO TID #90 tab Transmission Status: Pending to [facility] Primary Care Physician: Jus Shields MD [Primary Care Provider] - Test Results: Test results from this visit will be discussed in further detail at your follow-up appointment, if applicable. Please Follow Up With: Jus Shields MD Please Follow Up With: Stephani Baez PA
--- NOTE | 2019-07-08 12:51 | PHA.DC.MC ---
Pharmacy Service has performed discharge medication reconciliation and counseling for this patient. 1. LOSARTAN 50MG PO BID The patient's discharge medication list was reviewed for discrepancies and discrepancies were resolved. Home Medications Dulaglutide [Trulicity] 1.5 mg SQ QWEEK 02/01/19 Metformin HCl [Metformin ER Osmotic] 1,000 mg PO BID 02/01/19 Multivitamin with Minerals [Multiple Vitamin] 1 ea PO DAILY 02/01/19 Aspirin E.C. [Ecotrin] 81 mg PO DAILY@0800 #60 tab 02/06/19 ipratropium 0.5 mg-albuterol 3 mg (2.5 mg base)/3 mL nebulization soln 3 ml INHALATION Q6H ml 02/11/19 flecainide 100 mg tablet 100 mg PO BID #180 tab 02/23/19 metoprolol tartrate 25 mg tablet 25 mg PO BID #180 tab 02/23/19 potassium chloride 20 mEq tablet,extended release(part/cryst) 20 meq PO BID #180 tab 02/25/19 rosuvastatin 20 mg tablet 20 mg PO QHS #90 tab 02/27/19 Insulin Regular, Human [Humulin R U-500 Kwikpen] 80 unit SQ DINNER 07/05/19 Insulin Regular, Human [Humulin R U-500 Kwikpen] 120 unit SQ BREAKFAST 07/05/19 Furosemide 40 mg PO TID #90 tab 07/08/19 Losartan Potassium [Cozaar] 50 mg PO BID #60 tab 07/08/19 The patient was counseled on the following discharge medications and changes in medications for homegoing were reviewed. The Reason for Use, instructions for use, and potential side effects were reviewed for all new medications. The patient's questions regarding all of their medications were answered. The patient was able to verbally demonstrate an understanding of their discharge medications.
--- NOTE | 2019-07-09 14:14 | CASEMGMT ---
AIDAN RUSSO Discharge Follow-Up Phone Call. Lace: 12 Strata: 3 Discharge Date: 05/07/20 Adm Dx: Acute Exacerbation of HF w/preserved EF Call to pt to inquire about how he has been doing since being discharged from the hospital. He states he is doing okay. He states he is breathing a lot better. Reviewed medications with pt and he stated he is not sure why he is on Losartan. Education given re: Losartan and denies having other questions about the other medications. He states he was able to get Losartan and had Lasix from previously he is using until he gets the Lasix through Mail-order delivery. Pt states he is aware of the follow-up appts made with Dr Shields and SALES ATTENDANT Stephani Baez. He denies having other questions/concerns. AIDAN RUSSO thanked pt for choosing [facility]. Sri MEHTA RN, CM
--- NOTE | 2019-07-10 18:21 | DS.PCM_ITS ---
Discharge Date and Diagnosis Date of Admission: 07/06/19 Date of Discharge: 07/08/19 - Primary Discharge Diagnosis #1 acute diastolic congestive heart failure- #2 obstructive sleep apnea #3 essential hypertension #4 nonocclusive atherosclerotic heart disease #5 type 2 diabetes-continue to monitor blood sugars #6 suspected pulmonary hypertension - Secondary Discharge Diagnosis Chronic Problems (Last Reviewed 07/06/19 @ 07:[address] Fox [place] MD) History of tonsillectomy (Chronic) Obesity hypoventilation syndrome (Chronic) MARIA A (obstructive sleep apnea) (Chronic) Mixed hyperlipidemia (Chronic) Essential hypertension (Chronic) Type 2 diabetes mellitus (Chronic) Paroxysmal atrial fibrillation (Chronic) Atherosclerotic heart disease of [place] coronary artery without angina pectoris (Chronic) Mild:DISTAL LAD: 25 % Stenosis;DISTAL CIRC: 25 % Stenosis per cath 02/04/19 Hospital Course and Treatment Operations: None Procedures: 2-D Echocardiogram Summary of Care Provided: The patient is a 53 year old M who was seen in the emergency room at [facility] with complaints of increasing dyspnea over the last several days. Patient had a history of congestive heart failure in the past and was on Lasix 40 mg twice daily. Work-up in the emergency room included a chest x-ray which showed chronic interstitial lung changes, patient's labs showed an elevated white blood cell count at 13.9, patient's beta natruretic peptide was elevated at 249.5. Patient's glucose was elevated at 277. Patient was felt to be in congestive heart failure clinically, he was admitted to PCU and placed on IV Lasix. Patient had wheezing on admission felt to be secondary to congestive heart failure, this wheezing cleared with diuresis. Patient underwent an echocardiogram to assess for pulmonary hypertension, unfortunately his pulmonary artery pressure could not be ascertained with echocardiogram. Patient's EF was normal. On 07/08/2019, patient was seen and examined: On examination he appeared in good health and spirits. Vital signs as documented. Skin warm and dry and without overt rashes. Neck without JVD. Lungs clear. Heart exam notable for regular rhythm, normal sounds and absence of murmurs, rubs or gallops. Abdomen unremarkable and without evidence of organomegaly, masses, or abdominal aortic enlargement. Extremities-generalized nonpitting edema was noted to both lower legs.. Neuro: Cranial nerves II through XII are grossly intact, no focal motor deficits were noted, sensation to light touch and pinprick intact. Psych: Patient is alert and oriented x3, he does not appear anxious or depressed. On 07/08/2019, patient was seen and examined and felt to be in stable condition for discharge home - Physical Exam Vitals/I&O's: Vital Signs Temp Pulse Resp BP Pulse Ox 98.6 F 59 L 18 135/55 H 95 07/08/19 16:57 07/08/19 16:57 07/08/19 16:57 07/08/19 16:57 07/08/19 16:57 Oxygen Delivery Method Room Air Weight: 145.3 kg Body Mass Index (BMI) 49.1 Finger Stick Blood Glucose 309 Intake and Output for Last 24 Hours 07/08/19 07/09/19 07/10/19 23:59 23:59 23:59 Intake Total 1080 / 1080 Output Total 4550 / 4550 Balance -3470 / -3470 Discharge Activity: Return to Normal Activity Weight Bearing Status: Full weight bearing Home Medications: Medications to take at Discharge Dulaglutide [Trulicity] 1.5 mg SQ QWEEK 02/01/19 Metformin HCl [Metformin ER Osmotic] 1,000 mg PO BID 02/01/19 Multivitamin with Minerals [Multiple Vitamin] 1 ea PO DAILY 02/01/19 Aspirin E.C. [Ecotrin] 81 mg PO DAILY@0800 #60 tab 02/06/19 ipratropium 0.5 mg-albuterol 3 mg (2.5 mg base)/3 mL nebulization soln 3 ml INHALATION Q6H ml 02/11/19 flecainide 100 mg tablet 100 mg PO BID #180 tab 02/23/19 metoprolol tartrate 25 mg tablet 25 mg PO BID #180 tab 02/23/19 potassium chloride 20 mEq tablet,extended release(part/cryst) 20 meq PO BID #180 tab 02/25/19 rosuvastatin 20 mg tablet 20 mg PO QHS #90 tab 02/27/19 Insulin Regular, Human [Humulin R U-500 Kwikpen] 80 unit SQ DINNER 07/05/19 Insulin Regular, Human [Humulin R U-500 Kwikpen] 120 unit SQ BREAKFAST 07/05/19 Furosemide 40 mg PO TID #90 tab 07/08/19 Losartan Potassium [Cozaar] 50 mg PO BID #60 tab 07/08/19 Following Prescrptions Were Given to Patient: Losartan Potassium [Cozaar] 50 mg PO BID #60 tab Transmission Status: Received by [facility] [place], Furosemide 40 mg PO TID #90 tab Transmission Status: Received by [facility] Primary Care Physician: Jus Shields MD [Primary Care Provider] - Please Follow Up With: Jus Shields MD Please Follow Up With: Stephani Baez PA Disposition: Home Minutes spent on discharge:: 32 Patient Condition:: Stable Medical Necessity - Tobacco Use Smoking Status: Never smoker Meaningful Use Info Meaningful Use Diagnoses (Choose all that apply): CHF - CHF SHAE/ARB ordered at discharge?: Yes Documented LVEF (%): 70 Code Visit Inpatient E&M: 96079 Disch Hosp
== END 2019-07-08 17:23 | disposition home or self-care (01) | DRG 292 ==
LOC: ED 07-06 03:38 → PCU 07-06 04:35
PROVIDERS: Emergency Medicine; Admitting Provider Hospitalist; Emergency Provider Emergency Medicine; PCP Family Medicine; Visit Provider Internal Medicine
DX: I11.0 Hypertensive heart disease with heart failure (principal); Z68.42 Body mass index [BMI] 45.0-49.9, adult; I50.33 Acute on chronic diastolic (congestive) heart failure; E66.01 Morbid (severe) obesity due to excess calories; G47.33 Obstructive sleep apnea (adult) (pediatric); I25.10 Atherosclerotic heart disease of native coronary artery without angina pectoris; I48.0 Paroxysmal atrial fibrillation; I44.0 Atrioventricular block, first degree; E11.65 Type 2 diabetes mellitus with hyperglycemia; I27.20 Pulmonary hypertension, unspecified; E78.2 Mixed hyperlipidemia; Z79.4 Long term (current) use of insulin
CPT/HCPCS: 36415; 71045; 80048; 82962; 83880; 84484; 85025; 93005; 93306; 94002; 94640; 99284; Q9957; A4216; C8929; J1940

== ENCOUNTER → 2019-07-17 20:04 | Outpatient (CLI) | payer OTHER, SELFPAY ==
[2019-02-23 14:18] VITALS: BMI 48.0
[2019-07-06 04:57] VITALS: BMI 49.1
== END ==
PROVIDERS: Family Provider Family Medicine; PCP Family Medicine; Referring Provider Nurse Practitioner Acute Care; Visit Provider Nurse Practitioner Acute Care
DX: G47.33 Obstructive sleep apnea (adult) (pediatric) (principal)
CPT/HCPCS: 95811

== ENCOUNTER → 2020-05-09 07:36 | Outpatient (CLI) | payer OTHER, SELFPAY ==
[2020-03-07 10:54] VITALS: BMI 53.8
[2020-05-09 08:39] LABS: Anion Gap 9 (5-15); BUN 25 mg/dL (7-18); BUN/Creat Ratio 20.3 RATIO (10-20); Calcium,Total 8.9 mg/dL (8.5-10.1); Chloride 100 mmol/L (98-107); Creatinine, Serum 1.23 mg/dL (0.70-1.30); EST Glomerular Filtration Rate 65 mL/min (>60); Est Glom Filt Rate - Afr Amer 78 mL/min (>60); Glucose 344 mg/dL (74-106); Potassium 4.7 mmol/L (3.5-5.1); Sodium Level 132 mmol/L (136-145)
== END ==
PROVIDERS: PCP Family Medicine; Referring Provider Internal Medicine Cardiovascular Disease; Visit Provider Internal Medicine Cardiovascular Disease
DX: I10 Essential (primary) hypertension (principal)
CPT/HCPCS: 36415; 80048

== ENCOUNTER 2020-06-17 13:49 | Inpatient (IN) | payer OTHER, SELFPAY ==
[2020-06-13 08:25] VITALS: BMI 54.6
[2020-06-17] VITALS (7 sets, daily range): BP systolic 139–151; BP diastolic 54–96; PULSE 60–68; RESP 18–24; TEMP 35.9–36.9; O2SAT 93–96; BMI 53.0; BMI 53.1; BMI 52.2
--- NOTE | 2020-06-17 14:17 | VDLE_ITS ---
Reason For Study: Swelling RIGHT GSV is normal. CFV is compressible, spontaneous, phasic, competent and demonstrates normal augmentation. FV is compressible, spontaneous, phasic, competent and demonstrates normal augmentation. POP V is compressible, spontaneous, phasic, competent and demonstrates normal augmentation. T/P Trunk is compressible. PTV is compressible. RT PerV is compressible. Procedure This is a venous duplex using B-mode, color flow and spectral Doppler. Exam performed portable in ED. A preliminary report was called and/or faxed to [facility]. Interpretation Summary There is no evidence of right lower extremity deep vein thrombosis. Right great saphenous vein appears patent and compressible segmentally. Ordering Physician: Geeta De La Garza Referring Physician: Jus Shields Performed By: Ivon Vidal RVT
[2020-06-17 14:51] LABS: Basophil# 0.07 X10^3/uL; Basophil% 0.6 % (0-1); Eosinophil# 0.16 X10^3/uL; Eosinophils% 1.4 % (0-5); Hematocrit 44.4 % (40-54); Hemoglobin 14.8 g/dL (13.0-16.5); Lymphocyte % 16.6 % (19-41); Mean Corp Hgb Conc 33.3 g/dL (32-36); Mean Corpuscular Hgb 29.3 pg (27.0-32.0); Mean Corpuscular Volume 87.9 fL (80-94); Mean Platelet Vol. 9.7 fl (6.2-12.0); Monocyte# 1.25 X10^3/uL; Monocyte% 10.9 % (0-10); NRBC Flagged by Analyzer 0 % (0-5); Neutrophil # 8.03 X10^3/uL (2.7-7.7); Neutrophil % 70.2 % (47-70); Platelet Count 283 K/mm3 (150-450); RBC Distribution Width CV 13.6 % (11.6-14.6); RBC Distribution Width SD 43.4 fl (35.1-43.9); Red Blood Count 5.05 M/mm3 (4.6-6.2); White Blood Count 11.5 K/mm3 (4.4-11.0)
[2020-06-17 15:06] LABS: Anion Gap 7 (5-15); BUN 25 mg/dL (7-18); BUN/Creat Ratio 18.9 RATIO (10-20); Calcium,Total 9.2 mg/dL (8.5-10.1); Chloride 99 mmol/L (98-107); Creatinine, Serum 1.32 mg/dL (0.70-1.30); EST Glomerular Filtration Rate 59 mL/min (>60); Est Glom Filt Rate - Afr Amer 72 mL/min (>60); Estimated Creatinine Clearance 60.45 ml/min; Glucose 352 mg/dL (74-106); Potassium 4.3 mmol/L (3.5-5.1); Sodium Level 133 mmol/L (136-145)
[2020-06-17 15:19] LABS: Lactic Acid 2.9 mmol/L (0.4-1.9)
--- NOTE | 2020-06-17 15:24 | ED.VIS.GEN ---
History of Present Illness Chief Complaint: Lower Extremity Injury Informant: Patient Onset: Days Context: Gradual Onset Current Severity: Moderate Maximum Severity: Moderate Narrative: Patient presents with mild redness and swelling to his right lower leg. Patient states the symptoms are consistent with when he had cellulitis in the past and required admission for IV antibiotics. He denies fever or chills. No history of DVT. - Past Medical History (1) Atherosclerotic heart disease of [place] coronary artery without angina pectoris Status: Chronic Comment: Mild:DISTAL LAD: 25 % Stenosis;DISTAL CIRC: 25 % Stenosis per cath 02/04/19 (2) Essential hypertension Status: Chronic (3) Mixed hyperlipidemia Status: Chronic (4) MARAI A (obstructive sleep apnea) Status: Chronic (5) Type 2 diabetes mellitus Status: Chronic (6) Pulmonary hypertension Status: Suspected Past Medical History - Allergies and Home Meds Allergies/Adverse Reactions: Allergies No Known Allergies Allergy (Verified 06/17/20 13:52) Primary Care Physician: Jus Shields MD [Primary Care Provider] - Prior records reviewed: Yes Surgical History: - - TEETH EXTRACTION Smoking Status: Never smoker - Family History Paternal Family History: Family History (Last Reviewed 06/13/20 @ 08:53 by Stephani BLANCHARD, PA) Father CAD (coronary artery disease) Myocardial infarction Hypertension Diabetes CVA (cerebral vascular accident) Mother Diabetes Hypertension Family History: Reports: Diabetes, Heart Disease - Heart disease in his father started probably when his father was in his late 50s. Also, his father had heart attack. Maternal Family History: Family History (Last Reviewed 06/13/20 @ 08:53 by Stephani BLANCHARD, PA) Father CAD (coronary artery disease) Myocardial infarction Hypertension Diabetes CVA (cerebral vascular accident) Mother Diabetes Hypertension Family History: Reports: - - Thyroid disease Review of Systems General: Denies: Chills, Fever Eyes: Denies: Visual changes - bilaterally ENT: Denies: Bilateral ear pain Cardiovascular: Denies: Chest pain Respiratory: Denies: Dyspnea, Cough Gastrointestinal: Denies: Abdominal pain, Vomiting, Diarrhea Musculoskeletal: Reports: Swelling, Extremity Pain Skin: Reports: Rash Neurological: Denies: Headache Hematologic: Denies: Easy bruising, Easy bleeding Allergy: Denies: Uticaria Physical Exam Vital Signs/Narrative: Vital Signs Temp Pulse Resp BP Pulse Ox 06/17/20 13:57 97.8 F 61 18 148/71 H 96 06/17/20 13:50 97.8 F 61 18 148/71 H 96 Inital Vital Signs reviewed: Yes General: Well nourished, Well developed Head: Normocephalic ENT: Moist mucous membranes Neck: Supple Cardiovascular: Regular rate, Regular rhythm Respiratory: No distress, CTA bilaterally Abdomen: Soft, Nontender Extremities: - - Erythema and edema to the right lower extremity distal to the knee. No open wounds appreciated. Neurological: Alert, Oriented x3 Psychological: Normal affect Diagnostic/Tx/Re-eval Laboratory Results 06/17/20 06/17/20 06/17/20 14:39 14:39 14:39 WBC 11.5 H RBC 5.05 Hgb 14.8 Hct 44.4 MCV 87.9 MCH 29.3 MCHC 33.3 RDW Std Deviation 43.4 RDW Coeff of Shelly 13.6 Plt Count 283 MPV 9.7 Immature Gran % (Auto) 0.300 Neut % (Auto) 70.2 H Lymph % (Auto) 16.6 L [place] % (Auto) 10.9 H Eos % (Auto) 1.4 Baso % (Auto) 0.6 Absolute Neuts (auto) 8.0 H Absolute Lymphs (auto) 1.90 Nucleated RBC % 0 Sodium 133 L Potassium 4.3 Chloride 99 Carbon Dioxide 27.0 Anion Gap 7 BUN 25 H Creatinine 1.32 H Estim Creat Clear Calc 60.45 Est GFR (MDRD) Af Amer 72 Est GFR (MDRD) Non-Af 59 L BUN/Creatinine Ratio 18.9 Glucose 352 H Lactic Acid 2.9 H* Calcium 9.2 - Medical Decision Making Patient was ordered a dose of clindamycin IV. Venous ultrasound was obtained and negative for DVT. Lactic acid does return elevated at 2.9. Patient's creatinine is bumped from baseline. At this time he meets criteria for severe sepsis and will be admitted for IV antibiotics. He is given a 1 L IV fluid bolus. Due to adequate blood pressure at this time and history of CHF we will not give him a 30mL/kg. ED Disposition - Plan for ED Patient: Disposition: Acute Care Hospital [facility] Diagnosis: Cellulitis, Severe sepsis Referrals: Jus Shields MD [Primary Care Provider] -
[2020-06-17] MEDS: 0.9% Normal Saline 1,000 ML 999 ML IV (16:02)
[2020-06-17 17:10] LABS: Bedside Glucose 270 mg/dL (70-110)
[2020-06-17] MEDS: 0.9% Saline Lock 10 ML Syringe IV (17:10)
[2020-06-17] MEDS: Insulin Lispro 100 UNIT/ML INSULN.PEN SC (17:16)
--- NOTE | 2020-06-17 17:34 | PCM.CONS.GEN ---
Problem List (1) Cellulitis of right lower extremity Status: Acute (2) Ingrowing nail, right great toe Status: Acute (3) Venous insufficiency Status: Suspected (4) Lower extremity edema Status: Chronic Reason for Consult Date of Consultation: 06/17/20 Reason for Consultation: Ingrown toenail and cellulitis of leg History of Present Illness: The patient is a 54 year old M with significant past medical history of diabetic neuropathy, sleep apnea, atrial fibrillation, hypertension, obesity was seen bedside for right lower extremity cellulitis and ingrown toenail of the great toe. This patient relates his ingrown toenail and cellulitis onset was within the past 4 to 5 days. He denies trauma. He noticed the ingrown toenail was causing some drainage. He denies odor. He relates he was scanned for blood clot in the emergency room which was negative for venous thrombosis. He admits he has had chronic swelling and has tried some compression pumps at home that he got from [employer] [employer] [facility]. He denies wearing compression garments. He relates claudication type symptoms after walking a half of a block. He admits has not walked any notable distance recently. He relates in the recent setting he was treated for MRSA wound infection between his left foot first and second toes. He treated this with Betadine and gauze. This has since healed and he still places a gauze to keep it dry. He was treated in [place] with Dr. Reeves. He denies other history of wounds. He relates he is diabetic condition is chronic and he has neuropathy. He has lack of sensation to his entire foot. He relates his last A1c level was over 10 and he is working with his primary care physician in regards to medication changes. He denies making any current activity or dietary changes to also help with this. Past Medical History Past Medical History (Chronic Problems): Chronic Problems (Last Reviewed 06/13/20 @ 08:53 by Stephani BLANCHARD, PA) Lower extremity edema (Chronic) Obesity hypoventilation syndrome (Chronic) MARIA A (obstructive sleep apnea) (Chronic) Mixed hyperlipidemia (Chronic) Essential hypertension (Chronic) Type 2 diabetes mellitus (Chronic) Paroxysmal atrial fibrillation (Chronic) Atherosclerotic heart disease of [place] coronary artery without angina pectoris (Chronic) Mild:DISTAL LAD: 25 % Stenosis;DISTAL CIRC: 25 % Stenosis per cath 02/04/19 Medical History: Medical History (Last Reviewed 06/13/20 @ 08:53 by Stephani Baez PA, PA) 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) I50.41 Mixed hyperlipidemia (Chronic) E78.2 Essential hypertension (Chronic) I10 Type 2 diabetes mellitus (Chronic) E11.9 Paroxysmal atrial fibrillation (Chronic) I48.0 Atherosclerotic heart disease of [place] coronary artery without angina pectoris (Chronic) I25.10 Mild:DISTAL LAD: 25 % Stenosis;DISTAL CIRC: 25 % Stenosis per cath 02/04/19 Hypertensive emergency (Inactive) I16.1 Dyspnea (Acute) R06.00 Abnormal stress test (Inactive) R94.39 Allergies No Known Allergies Allergy (Verified 06/17/20 13:52) Home Medications: Ambulatory Orders Medication Instructions Recorded Metformin HCl [Metformin ER 1,000 mg PO BID 02/01/19 Osmotic] Multivitamin with Minerals 1 tab PO DAILY 02/01/19 [Multiple Vitamin] Aspirin E.C. [Ecotrin] 81 mg PO DAILY@0800 #60 tab 02/06/19 rosuvastatin 20 mg tablet 20 mg PO QHS #90 tab 02/27/19 flecainide 100 mg tablet 100 mg PO BID #180 tab 04/16/20 metoprolol tartrate 25 mg tablet 25 mg PO BID #180 tab 04/16/20 potassium chloride 20 mEq 20 meq PO BID #180 tab 04/16/20 tablet,extended release(part/cryst) dulaglutide 3 mg/0.5 mL 3 mg SC JOHNSON 05/10/20 subcutaneous pen injector insulin regular hum U-500 conc 125 unit SC DINNER ml 05/10/20 insulin regular hum U-500 conc 190 unit SC BREAKFAST ml 06/13/20 ipratropium 0.5 mg-albuterol 3 mg 3 ml INHALATION Q6H PRN ml 06/13/20 (2.5 mg base)/3 mL nebulization soln Furosemide 80 mg PO DAILY 06/17/20 Furosemide [Lasix] 40 mg PO DAILY 06/17/20 Telmisartan/Hydrochlorothiazid 1 tab PO DAILY 06/17/20 [Telmisartan-Hctz 80-12.5 mg Tb] Surgical History: Surgical History (Last Reviewed 06/13/20 @ 08:53 by Stephani BLANCHARD, PA) History of tonsillectomy Z90.89 History of knee surgery Z98.890 Bilateral Surgical History: - - TEETH EXTRACTION Smoking Status: Never smoker - *Family History Maternal Family History: Family History (Last Reviewed 06/13/20 @ 08:53 by Stephani BLANCHARD, PA) Father CAD (coronary artery disease) Myocardial infarction Hypertension Diabetes CVA (cerebral vascular accident) Mother Diabetes Hypertension History Items: - - Thyroid disease Paternal Family History: Family History (Last Reviewed 06/13/20 @ 08:53 by Stephani BLANCHARD, PA) Father CAD (coronary artery disease) Myocardial infarction Hypertension Diabetes CVA (cerebral vascular accident) Mother Diabetes Hypertension History Items: Diabetes, Heart Disease - Heart disease in his father started probably when his father was in his late 50s. Also, his father had heart attack. Review of Systems Constitutional: Denies: Chills, Fever Cardiovascular: Reports: Claudication, Orthopnea. Denies: Chest Pain Respiratory: Reports: Shortness of breath upon exertion. Denies: Cough Gastrointestinal: Denies: Nausea, Vomiting Musculoskeletal: Reports: Leg Pain. Denies: Foot Pain Skin: Reports: Skin Changes, Wounds Neurological: Reports: Numbness Psychiatric: Denies: Depression Hematologic/ Lymphatic: Denies: Easy Bruising, Easy Bleeding Patient Problems: Active and Suspected Problems (Last Reviewed 06/13/20 @ 08:53 by Stephani BLANCHARD, PA) Cellulitis (Acute) Severe sepsis (Acute) Cellulitis of right lower extremity (Acute) Ingrowing nail, right great toe (Acute) Venous insufficiency (Suspected) Pulmonary hypertension (Suspected) - Physical Exam Vitals/I&O's: Vital Signs Temp Pulse Resp BP Pulse Ox 97.8 F 64 18 151/96 H 95 06/17/20 16:29 06/17/20 16:29 06/17/20 16:29 06/17/20 16:29 06/17/20 16:29 Oxygen Delivery Method Room Air Weight: 156.036 kg Body Mass Index (BMI) 52.2 Finger Stick Blood Glucose 309 Intake and Output for Last 24 Hours 06/15/20 06/16/20 06/17/20 23:59 23:59 23:59 Intake Total 54 / 54 Balance 54 / 54 General: Alert, Oriented x3, Cooperative HEENT: Atraumatic Extremities: No cyanosis, Capillary Refill Less than 3 Seconds - All digits x10, No Calf Tenderness - Tenderness with calf compression right leg. Negative Kohli sign left leg. Negative Homans' sign bilateral, Diminished Peripheral Pulses - Nonpalpable PT and DP pulses bilateral, Edema - Bilateral lower extremities Skin: No rashes - Bilateral lower extremity leg skin is shiny. There is erythema extending from the lower right leg to the proximal right leg. There are no ulcers or areas of bogginess or fluctuance to the right lower extremity. Compartments remain soft to the right lower extremity, - - No skin discontinuity (ulcer), erythema, purulence, necrosis or odor bilateral foot. There is an incurvated lateral hallux nail border of right foot with hematogenous drainage. Upon wedge resection procedure, there was no deep tissue exposed or necrosis. Bilateral lower extremity skin is hairless Musculoskeletal: Muscle Wasting, Tenderness, - - Active range of motion digits x10 and ankle in all directions bilateral Neurological: - - Lack of epicritic sensation to light touch is consistent with neuropathic status Psych/Mental Status: Normal Affect, Appropriate Laboratory Results 06/17/20 14:39: WBC 11.5 H, RBC 5.05, Hgb 14.8, Hct 44.4, MCV 87.9, MCH 29.3, MCHC 33.3, RDW Std Deviation 43.4, RDW Coeff of Shelly 13.6, Plt Count 283, MPV 9.7, Immature Gran % (Auto) 0.300, Neut % (Auto) 70.2 H, Lymph % (Auto) 16.6 L, [place] % (Auto) 10.9 H, Eos % (Auto) 1.4, Baso % (Auto) 0.6, Absolute Neuts (auto) 8.0 H, Absolute Lymphs (auto) 1.90, Nucleated RBC % 0 06/17/20 14:39: Sodium 133 L, Potassium 4.3, Chloride 99, Carbon Dioxide 27.0, Anion Gap 7, BUN 25 H, Creatinine 1.32 H, Estim Creat Clear Calc 60.45, Est GFR (MDRD) Af Amer 72, Est GFR (MDRD) Non-Af 59 L, BUN/Creatinine Ratio 18.9, Glucose 352 H, Calcium 9.2 06/17/20 14:39: Lactic Acid 2.9 H* 06/17/20 17:00: POC Glucose 270 H Current Medications Acetaminophen (Acetaminophen 325 Mg Tablet) 650 mg PO Q6H PRN PRN PRN Reason: Pain Score 1-10/Temp > 100.7 F Al Hydroxide/Mg Hydroxide (Mag Hydrox/Al Hydrox/Simeth 30 Ml Udc) 30 ml PO Q6H PRN PRN PRN Reason: Gastric Burning Albuterol Sulfate (Albuterol 2.5 Mg/3 Ml Vial.Neb.) 2.5 mg INHALATION Q2H PRN PRN PRN Reason: Shortness of Breath/Wheezing Albuterol/Ipratropium (Ipratropium/Albuterol Sulfate 3 Ml Ampul.Neb) 3 ml INHALATION Q6H PRN PRN Reason: breathing Aspirin (Aspirin E.C. 81 Mg Tablet) 81 mg PO DAILY@0800 [facility] Atorvastatin Calcium (Atorvastatin Calcium 40 Mg Tablet) 40 mg PO QHS [facility] Enoxaparin Sodium (Enoxaparin 40 Mg/0.4 Ml Syringe) 40 mg SC BID [facility] Flecainide Acetate (Flecainide 100 Mg Tablet) 100 mg PO BID [facility] Guaifenesin (Guaifenesin 10 Ml Udc (200mg/10ml)) 20 ml PO Q4H PRN PRN PRN Reason: COUGH Sodium Chloride () 1,000 mls @ 100 mls/hr IV .Q10H [facility] Stop: 06/18/20 02:45 Piperacillin Sod/Tazobactam (Sod 3.375 gm/ Sodium Chloride) 50 mls @ 12.5 mls/hr IV Q8 [facility] Vancomycin IV Pharmacy to Dose (1 ea/ Sodium Chloride) 500 mls @ 250 mls/hr IV X1 PRN; Protocol PRN Reason: Rx to Dose Vancomycin HCl 2,000 mg/ (Sodium Chloride) 540 mls @ 250 mls/hr IV X1 ONE Stop: 06/17/20 20:09 Insulin Human Lispro (Insulin Lispro 100 Unit/Ml Insuln.Pen) 0 unit SC ACHS [facility]; Protocol Last Admin: 06/17/20 17:16 Dose: 3 units Documented by: Insulin Human Regular (Insulin U-500 Pen) 125 units SC DINNER [facility] Insulin Human Regular (Insulin U-500 Pen) 190 units SC BREAKFAST [facility] Losartan Potassium (Losartan Potassium 50 Mg Tablet) 50 mg PO DAILY [facility] Melatonin (Melatonin 3 Mg Tablet) 3 mg PO QHS PRN PRN PRN Reason: INSOMNIA Metoprolol Tartrate (Metoprolol Tartrate 25 Mg Tablet) 25 mg PO BID [facility] Non-Formulary Medication (Dulaglutide [Trulicity]) 3 mg SC JOHNSON [facility] Ondansetron HCl (Ondansetron 4 Mg/2 Ml Vial) 4 mg IV Q8H PRN PRN PRN Reason: NAUSEA/VOMITING Oxycodone HCl (Oxycodone 5 Mg Tablet) 5 mg PO Q4H PRN PRN PRN Reason: Pain Score 4-10 Senna/Docusate Sodium (Senna/Docusate Sodium 1 Tablet) 2 tablet PO BID PRN PRN PRN Reason: Constipation Sodium Chloride (0.9% Saline Lock 10 Ml Syringe) 10 - 40 ml IV UD PRN PRN Reason: SALINE FLUSH Last Admin: 06/17/20 17:10 Dose: 10 ml Documented by: Assessment/Plan All Active Problems (Last Reviewed 06/13/20 @ 08:53 by Stephani BLANCHARD, PA) Cellulitis (Acute) Severe sepsis (Acute) Cellulitis of right lower extremity (Acute) Ingrowing nail, right great toe (Acute) Dyspnea (Acute) Incurvated right hallux nail lateral border without local purulence Cellulitis right lower extremity with ingrown toenail nidus of infection concern Lower extremity edema suspected secondary to cardiac etiology, lymphedema, venous insufficiency Claudication noted with suspected underlying arterial deficiency Uncontrolled diabetes with neuropathy Other comorbidities I reviewed and discussed his case. He is afebrile and his vital signs remained stable. He does have leukocytosis of 11.2. Lactic acid is 2.9. He is admitted for IV antibiotics (clindamycin was started in the emergency room), IV fluids, and further work-up. His venous Doppler exam was negative for deep venous thrombosis and the right greater saphenous vein was compressible. A wedge resection was performed with a medical grade nipper in which skin discontinuity was noted with just hematogenous drainage. There is no purulence. A deep wound culture was obtained and sent for aerobic, anaerobic, and MRSA PCR. A dry gauze was applied. I recommend continuation of antibiotics with broad-spectrum coverage until culture results return and pending his clinical response. It is noted he was recently treated for a MRSA infection and wound on the left foot. He was reassured no signs of infection or open wounds are noted today. We discussed how his lower extremity swelling may also be contributing to his condition. We reviewed the various etiologies. I do recommend compression garments. Flash wraps will be applied while he is in the hospital and I recommend elevation. Recommend he wears compression stockings and continue with his pumps at home after discharge. Recommend outpatient work-up for venous insufficiency with venous Doppler exam with reflux evaluation specifically. He also reports some symptoms that seem consistent with claudication I recommend noninvasive vascular study. This can be performed on Saturday if he is still in the hospital or may be done as an outpatient basis as well. Medical management DVT prophylaxis per primary team. Thank you for the consultation. Please do not hesitate to call if you have any questions. I will continue to follow him closely while in house this weekend. Chel Mcnamara DPM, FACF[facility] [phone]
[2020-06-17] MEDS: 0.9% Normal Saline 1,000 ML 100 ML IV (18:18)
[2020-06-17] MEDS: Acetaminophen 325 MG Tablet 650 MG PO (18:21)
[2020-06-17 18:44] LABS: Reflex Lactate? Y
--- NOTE | 2020-06-17 19:44 | PCM.RX.CS ---
Consult Pharmacy has been consulted to manage selected antiobiotic: Vancomycin Type of Consult: New start Labs: Sodium 133 mmol/L (136-145) L 06/17/20 14:39 Potassium 4.3 mmol/L (3.5-5.1) 06/17/20 14:39 Chloride 99 mmol/L (98-107) 06/17/20 14:39 Carbon Dioxide 27.0 mmol/L (21.0-32.0) 06/17/20 14:39 Anion Gap 7 (5-15) 06/17/20 14:39 BUN 25 mg/dL (7-18) H 06/17/20 14:39 Creatinine 1.32 mg/dL (0.70-1.30) H 06/17/20 14:39 Est GFR (MDRD) Af Amer 72 mL/min (>60) 06/17/20 14:39 Est GFR (MDRD) Non-Af 59 mL/min (>60) L 06/17/20 14:39 BUN/Creatinine Ratio 18.9 RATIO (10-20) 06/17/20 14:39 Glucose 352 mg/dL (74-106) H 06/17/20 14:39 Weight used for dosin kg Estimated Creatinine Clearance: 91ML/MIN Goal Trough: 15-20 mcg/mL Pharmacy Plan for Drug Dosing: Give initial dose of 2000mg IV x1, then continue with 2000mg IV q12h. Will check a trough before the 4th total dose. The patient's CrCl of 91ml/min was calculated using an adjusted body weight of 103.4kg. Pharmacy Service will continue to monitor and adjust dosing as required. Follow-Up Labs: Trough Vancomycin Labs to be done on [date and time ordered]: 06/19/20 05:30
--- NOTE | 2020-06-17 19:51 | HP.PCM_ITS ---
Problem List (1) Cellulitis Status: Acute (2) Severe sepsis Status: Acute (3) Cellulitis of right lower extremity Status: Acute (4) Ingrowing nail, right great toe Status: Acute (5) Venous insufficiency Status: Suspected (6) Lower extremity edema Status: Chronic (7) Acute combined systolic (congestive) and diastolic (congestive) heart failure Status: Inactive (8) Pulmonary hypertension Status: Suspected (9) Obesity hypoventilation syndrome Status: Chronic (10) MARIA A (obstructive sleep apnea) Status: Chronic (11) Mixed hyperlipidemia Status: Chronic (12) Essential hypertension Status: Chronic (13) Type 2 diabetes mellitus Status: Chronic (14) Paroxysmal atrial fibrillation Status: Chronic (15) Atherosclerotic heart disease of [place] coronary artery without angina pectoris Status: Chronic Qualifiers: [place] vs. transplanted heart: [place] heart Qualified Code(s): I25.10 - Atherosclerotic heart disease of [place] coronary artery without angina pectoris Comment: Mild:DISTAL LAD: 25 % Stenosis;DISTAL CIRC: 25 % Stenosis per cath 02/04/19 (16) Hypertensive emergency Status: Inactive (17) Dyspnea Status: Acute Qualifiers: Dyspnea type: dyspnea on exertion Qualified Code(s): R06.09 - Other forms of dyspnea (18) Abnormal stress test Status: Inactive History of Present Illness Date of Admission: 06/17/20 Mr. Grant is a 54 year old [place] WM with PMH of CAD, HTN, HPL, severe MARIA A, DM-2, PAH, and morbid obesity who presented to the emergency department on 06/17/2020 with right lower extremity pain, erythema and swelling. The patient states that this started approximately 24 to 48 hours ago and has progressively gotten more erythematous. He does have a significant history of repeated cellulitis in both of his lower extremities. He states he recently was treated for MRSA in his left lower extremity. He reports that he saw his sequins spooler in [place] earlier this week and they worked on his left foot although he believes that he has a ingrown toenail developing on his right foot. He denies any fevers or chills. He denies any significant drainage from his leg. He did report that the right hallux toenail did express some purulent looking material earlier and that is quite tender. His vital signs are stable other than some mildly elevated blood pressures in the emergency department. A CBC showed a mildly elevated white blood cell count at 11.5 with a left shift. His BMP showed mild hyponatremia with a sodium of 133 mild acute kidney injury with a serum creatinine of 1.32 (it appears his baseline creatinine is 1-1.15), and he had a mildly elevated lactic acid at 2.9. His blood sugar was 352 in the emergency department. He also had right lower extremity Dopplers in the ED given his severe edema and the study was negative for DVT. He was given a dose of clindamycin and recommended for admission. I will admit him to [facility] with consultation to podiatry. Past Medical History Past Medical History (Chronic Problems): Chronic Problems (Last Reviewed 06/13/20 @ 08:53 by Stephani Baez PA, PA) Lower extremity edema (Chronic) Obesity hypoventilation syndrome (Chronic) MARIA A (obstructive sleep apnea) (Chronic) Mixed hyperlipidemia (Chronic) Essential hypertension (Chronic) Type 2 diabetes mellitus (Chronic) Paroxysmal atrial fibrillation (Chronic) Atherosclerotic heart disease of [place] coronary artery without angina pectoris (Chronic) Mild:DISTAL LAD: 25 % Stenosis;DISTAL CIRC: 25 % Stenosis per cath 02/04/19 Medical History: Medical History (Last Reviewed 06/17/20 @ 20:[address] Liberty Lara, DO) 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) I50.41 Mixed hyperlipidemia (Chronic) E78.2 Essential hypertension (Chronic) I10 Type 2 diabetes mellitus (Chronic) E11.9 Paroxysmal atrial fibrillation (Chronic) I48.0 Atherosclerotic heart disease of [place] coronary artery without angina pectoris (Chronic) I25.10 Mild:DISTAL LAD: 25 % Stenosis;DISTAL CIRC: 25 % Stenosis per cath 02/04/19 Hypertensive emergency (Inactive) I16.1 Dyspnea (Acute) R06.00 Abnormal stress test (Inactive) R94.39 Allergies No Known Allergies Allergy (Verified 06/17/20 13:52) Home Medications: Ambulatory Orders Medication Instructions Recorded Metformin HCl [Metformin ER 1,000 mg PO BID 02/01/19 Osmotic] Multivitamin with Minerals 1 tab PO DAILY 02/01/19 [Multiple Vitamin] Aspirin E.C. [Ecotrin] 81 mg PO DAILY@0800 #60 tab 02/06/19 rosuvastatin 20 mg tablet 20 mg PO QHS #90 tab 10/18/19 flecainide 100 mg tablet 100 mg PO BID #180 tab 04/16/20 metoprolol tartrate 25 mg tablet 25 mg PO BID #180 tab 04/16/20 potassium chloride 20 mEq 20 meq PO BID #180 tab 04/16/20 tablet,extended release(part/cryst) dulaglutide 3 mg/0.5 mL 3 mg SC JOHNSON 05/10/20 subcutaneous pen injector insulin regular hum U-500 conc 125 unit SC DINNER ml 05/10/20 insulin regular hum U-500 conc 190 unit SC BREAKFAST ml 06/13/20 ipratropium 0.5 mg-albuterol 3 mg 3 ml INHALATION Q6H PRN ml 06/13/20 (2.5 mg base)/3 mL nebulization soln Furosemide 80 mg PO DAILY 06/17/20 Furosemide [Lasix] 40 mg PO DAILY 06/17/20 Telmisartan/Hydrochlorothiazid 1 tab PO DAILY 06/17/20 [Telmisartan-Hctz 80-12.5 mg Tb] Surgical History: Surgical History (Last Reviewed 06/17/20 @ 20:[address] Liberty Lara DO) History of tonsillectomy Z90.89 History of knee surgery Z98.890 Bilateral Surgical History: - - TEETH EXTRACTION Lives: Alone Smoking Status: Never smoker Tobacco Use: Non-smoker Alcohol: Rare Drugs: None - *Family History Maternal Family History: Family History (Last Reviewed 06/17/20 @ 20:[address] Liberty Lara DO) Father CAD (coronary artery disease) Myocardial infarction Hypertension Diabetes CVA (cerebral vascular accident) Mother Diabetes Hypertension History Items: - - Thyroid disease Paternal Family History: Family History (Last Reviewed 06/17/20 @ 20:[address] Liberty Lara DO) Father CAD (coronary artery disease) Myocardial infarction Hypertension Diabetes CVA (cerebral vascular accident) Mother Diabetes Hypertension History Items: Diabetes, Heart Disease - Heart disease in his father started probably when his father was in his late 50s. Also, his father had heart attack. Review of Systems Constitutional: Denies: Anorexia, Chills, Fever, Night Sweats, Malaise, Weakness, Weight Change, Fatigue Eyes: Denies: Blurred vision, Cataracts, Conjunctivae Inflammation, Double vision, Drainage, Eyelid Inflammation, Pain, Redness, Vision Change HEENT: Denies: Difficulty Hearing, Ear Pain, Eye Pain, Hard of Hearing, Head Aches, Nasal bleeding, Nasal Congestion, Post Nasal Drip, Sinus Congestion, Sinus Drainage, Sore Throat, Visual Changes Cardiovascular: Reports: Edema. Denies: Chest Pain, Claudication, Chest Pressure, Heaviness, Light Headedness, Orthopnea, Palpitations, Paroxysmal Noc. Dyspnea, Syncope Respiratory: Denies: Cough, Hemoptysis, Pleuritic Pain, Shortness of Breath, Shortness of breath at rest, Shortness of breath upon exertion, Sputum production, Wheezing Gastrointestinal: Denies: Abdominal Pain, Constipation, Diarrhea, Dyspepsia, Hematemesis, Hematochezia, Nausea, Melena, Vomiting Genitourinary: Reports: Frequency. Denies: Dysuria, Hematuria, Hesitancy, Incontinence, Nocturia, Retention, Urgency Musculoskeletal: Reports: Foot Pain - Right, Leg Pain. Denies: Back Pain, Hand Pain, Joint Pain, Joint stiffness, Joint swelling, Joint Tenderness, Muscle pain, Neck Pain Skin: Reports: Skin Changes. Denies: Dryness, Jaundice, Lesions, Pruritis, Rash, Wounds Neurological: Denies: Balance problems, Blurred vision, Double vision, Change in Speech, Slurred speech, Confusion, Difficulty swallowing, Focal weakness, Headaches, Incoordination, Numbness, Tingling, Tremor, Seizures Psychiatric: Denies: Anxiety, Depression Endocrine: Denies: Change in Body Habitus, Heat/ Cold Intolerance, Polydipsia, Polyuria Hematologic/ Lymphatic: Denies: Adenopathy, Anemia, Easy Bruising, Easy Bleeding, Petechiae, Purpura VTE Information - Inpt Only VTE Present on Admission: No VTE Mechan Device Prophylaxis: None VTE Pharm Prophylaxis ordered?: Yes Patient Problems: Active and Suspected Problems (Last Reviewed 06/13/20 @ 08:53 by Stephani BLANCHARD, PA) Cellulitis (Acute) Severe sepsis (Acute) Cellulitis of right lower extremity (Acute) Ingrowing nail, right great toe (Acute) Venous insufficiency (Suspected) Pulmonary hypertension (Suspected) - Physical Exam Vitals/I&O's: Vital Signs Temp Pulse Resp BP Pulse Ox 97.8 F 64 18 151/96 H 95 06/17/20 16:29 06/17/20 16:29 06/17/20 16:29 06/17/20 16:29 06/17/20 16:29 Oxygen Delivery Method Room Air Weight: 156.036 kg Body Mass Index (BMI) 52.2 Finger Stick Blood Glucose 309 Intake and Output for Last 24 Hours 06/15/20 06/16/20 06/17/20 23:59 23:59 23:59 Intake Total 1060.67 / 1060.67 Balance 1060.67 / 1060.67 General: Alert, Oriented x3, Cooperative, No apparent distress, Well developed, Well nourished, - - Really obese white male sitting on the edge of the bed, appears comfortable HEENT: Atraumatic, PERRLA, EOMI, EAC Clear, - - Mallampati 4, good dentition Oral: Moist Mucosa, No Gingival or Mucosal Lesions/ Ulcerations Neck: Supple, No JVD, Negative Hepatojugular Reflux, No Nodes, No Nuchal Rigidity, Trachea Midline, Thyroid Normal Size and Texture, - - Short thick neck Lungs: Clear to auscultation, Normal air movement, No rhonchi, No wheeze, No rales, - - Distant secondary to body habitus Cardiovascular: Regular rate, Regular Rhythm, Normal S1, Normal S2, No murmurs, No Ectopic Activity, No rub noted, No Gallop, - - Distant secondary to body habitus Abdomen: Bowel Sounds Present, Soft, Non Tender, Non-Distended, Obese Extremities: No clubbing, No cyanosis, Capillary Refill Less than 3 Seconds, Edema - Bilateral lower extremity edema right slightly greater than left, skin is very taut and is firm Skin: No rashes, No breakdown, Ulcer/ Wound - Right great toe Musculoskeletal: No Tenderness to Palpation of Joints or Extremities, No Muscle Wasting Lymphatic: No Cervical, Supraclavicular, or Inguinal Adenopathy Neurological: Cranial nerves II-XII grossly intact, Deep Tendon Reflexes 2+/4 an d Symmetrical, Neuro grossly intact, Motor Exam 5/5 strength throughout, Muscle tone normal, Coordination normal Psych/Mental Status: Normal Affect, Appropriate Laboratory Results 06/17/20 14:39: WBC 11.5 H, RBC 5.05, Hgb 14.8, Hct 44.4, MCV 87.9, MCH 29.3, MCHC 33.3, RDW Std Deviation 43.4, RDW Coeff of [place] 13.6, Plt Count 283, MPV 9.7, Immature Gran % (Auto) 0.300, Neut % (Auto) 70.2 H, Lymph % (Auto) 16.6 L, [place]ke[place] % (Auto) 10.9 H, Eos % (Auto) 1.4, Baso % (Auto) 0.6, Absolute Neuts (auto) 8.0 H, Absolute Lymphs (auto) 1.90, Nucleated RBC % 0 06/17/20 14:39: Sodium 133 L, Potassium 4.3, Chloride 99, Carbon Dioxide 27.0, Anion Gap 7, BUN 25 H, Creatinine 1.32 H, Estim Creat Clear Calc 60.45, Est GFR (MDRD) Af Amer 72, Est GFR (MDRD) Non-Af 59 L, BUN/Creatinine Ratio 18.9, Glucose 352 H, Calcium 9.2 06/17/20 14:39: Lactic Acid 2.9 H* 06/17/20 17:00: S.aureus Protein A PCR Pending, MRSA (PCR) Pending 06/17/20 17:00: POC Glucose 270 H Current Medications Acetaminophen (Acetaminophen 325 Mg Tablet) 650 mg PO Q6H PRN PRN PRN Reason: Pain Score 1-10/Temp > 100.7 F Last Admin: 06/17/20 18:21 Dose: 650 mg Documented by: Al Hydroxide/Mg Hydroxide (Mag Hydrox/Al Hydrox/Simeth 30 Ml Udc) 30 ml PO Q6H PRN PRN PRN Reason: Gastric Burning Albuterol Sulfate (Albuterol 2.5 Mg/3 Ml Vial.Neb.) 2.5 mg INHALATION Q2H PRN PRN PRN Reason: Shortness of Breath/Wheezing Aspirin (Aspirin E.C. 81 Mg Tablet) 81 mg PO DAILY@0800 [facility] Atorvastatin Calcium (Atorvastatin Calcium 40 Mg Tablet) 40 mg PO QHS [facility] Enoxaparin Sodium (Enoxaparin 40 Mg/0.4 Ml Syringe) 40 mg SC BID [facility] Flecainide Acetate (Flecainide 100 Mg Tablet) 100 mg PO BID [facility] Guaifenesin (Guaifenesin 10 Ml Udc (200mg/10ml)) 20 ml PO Q4H PRN PRN PRN Reason: COUGH Sodium Chloride () 1,000 mls @ 100 mls/hr IV .Q10H [facility] Stop: 06/18/20 02:45 Last Infusion: 06/17/20 18:22 Dose: 0 mls/hr Documented by: Piperacillin Sod/Tazobactam (Sod 3.375 gm/ Sodium Chloride) 50 mls @ 12.5 mls/hr IV Q8 [facility] Vancomycin IV Pharmacy to Dose (1 ea/ Sodium Chloride) 500 mls @ 250 mls/hr IV X1 PRN; Protocol PRN Reason: Rx to Dose Vancomycin HCl 2,000 mg/ (Sodium Chloride) 540 mls @ 250 mls/hr IV X1 ONE Stop: 06/17/20 20:09 Last Admin: 06/17/20 18:22 Dose: 250 mls/hr Documented by: Vancomycin HCl 2,000 mg/ (Sodium Chloride) 540 mls @ 250 mls/hr IV Q12H [facility] Insulin Human Lispro (Insulin Lispro 100 Unit/Ml Insuln.Pen) 0 unit SC ACHS [facility]; Protocol Last Admin: 06/17/20 17:16 Dose: 3 units Documented by: Insulin Human Regular (Insulin U-500 Pen) 125 units SC DINNER [facility] Last Admin: 06/17/20 18:12 Dose: 125 units Documented by: Insulin Human Regular (Insulin U-500 Pen) 190 units SC BREAKFAST [facility] Losartan Potassium (Losartan Potassium 50 Mg Tablet) 50 mg PO DAILY [facility] Melatonin (Melatonin 3 Mg Tablet) 3 mg PO QHS PRN PRN PRN Reason: INSOMNIA Metoprolol Tartrate (Metoprolol Tartrate 25 Mg Tablet) 25 mg PO BID [facility] Ondansetron HCl (Ondansetron 4 Mg/2 Ml Vial) 4 mg IV Q8H PRN PRN PRN Reason: NAUSEA/VOMITING Oxycodone HCl (Oxycodone 5 Mg Tablet) 5 mg PO Q4H PRN PRN PRN Reason: Pain Score 4-10 Senna/Docusate Sodium (Senna/Docusate Sodium 1 Tablet) 2 tablet PO BID PRN PRN PRN Reason: Constipation Sodium Chloride (0.9% Saline Lock 10 Ml Syringe) 10 - 40 ml IV UD PRN PRN Reason: SALINE FLUSH Last Admin: 06/17/20 17:10 Dose: 10 ml Documented by: Assessment/Plan All Active Problems (Last Reviewed 06/13/20 @ 08:53 by Stephani BLANCHARD, PA) Cellulitis (Acute) Severe sepsis (Acute) Cellulitis of right lower extremity (Acute) Ingrowing nail, right great toe (Acute) Dyspnea (Acute) Severe sepsis secondary to acute right lower extremity cellulitis -Suspect nidus for infection may be right hallux ingrown toenail -Start vancomycin and Zosyn -MRSA PCR -Blood cultures obtained and are pending -Doppler negative for DVT -Consult podiatry Lactic acidosis -May be related to CRESECNCIO and Metformin use at home as this is a nonanion gap acidosis -Was hydrated in the emergency department -We will run IV fluids through the night -Repeat lactate in the a.m. -Hold diuretics for tonight consider reinitiating tomorrow CRESCENCIO -IV fluids -Repeat in a.m. -Hold diuretics Hyponatremia-mild -Repeat CBC in a.m. -Patient is on Lasix and HCTZ at home -Would consider discontinuing HCTZ portion of med combination MARIA A/OHS -Patient is compliant with BiPAP at home -23/18 centimeters of water -Patient to bring in home unit DM-2 -Patient takes weekly injections will hold for now -Continue home regular insulin--> U5 100 -Hold Metformin -SSI -BGT ACHS Hyperlipidemia -Continue Crestor Hypertension -Hold diuretics -Continue metoprolol 25 mg twice daily -Continue ARB with Cozaar 50 mg daily in substitution -Hold hydrochlorothiazide DVT prophylaxis -Lovenox 40 mg twice daily CODE STATUS -Full Inpatient E&M: 23743 In Hosp L3
[2020-06-17 20:35] LABS: M R Staph aureus DNA By PCR Negative (Negative); Probe Check PASS; Specimen Processing Control PASS; Staph aureus DNA By PCR POSITIVE (Negative)
[2020-06-17 21:45] LABS: Lactic Acid 2.6 mmol/L (0.4-1.9)
[2020-06-17] MEDS: Atorvastatin Calcium 40 MG Tablet PO (22:14)
[2020-06-17] MEDS: Enoxaparin 40 MG/0.4 ML Syringe SC (22:14)
[2020-06-17] MEDS: Metoprolol Tartrate 25 MG Tablet PO (22:14)
[2020-06-17] MEDS: Flecainide 100 MG Tablet PO (22:14)
[2020-06-17 22:45] LABS: Bedside Glucose 139 mg/dL (70-110)
[2020-06-18] VITALS (8 sets, daily range): BP systolic 117–146; BP diastolic 56–70; PULSE 60–66; RESP 18–20; TEMP 36.3–37.1; O2SAT 94–98
[2020-06-18 05:37] LABS: Absolute Lymphocyte Count 2.51 X10^3/uL (0.83-4.51); Absolute Neutrophil Count 8.1 X10^3/uL (2.0-7.7); Basophil# 0.09 X10^3/uL; Basophil% 0.7 % (0-1); Eosinophil# 0.31 X10^3/uL; Eosinophils% 2.5 % (0-5); Hematocrit 41.7 % (40-54); Lymphocyte # 2.51 X10^3/ul (4.0); Lymphocyte % 19.9 % (19-41); Mean Corp Hgb Conc 33.6 g/dL (32-36); Mean Corpuscular Volume 86.5 fL (80-94); Mean Platelet Vol. 10.7 fl (6.2-12.0); Monocyte# 1.55 X10^3/uL; Monocyte% 12.3 % (0-10); NRBC Flagged by Analyzer 0 % (0-5); Neutrophil # 8.06 X10^3/uL (2.7-7.7); POSITIVE COUNT YES; POSITIVE DIFFERENTIAL YES; Platelet Count 174 K/mm3 (150-450); RBC Distribution Width CV 13.2 % (11.6-14.6); RBC Distribution Width SD 41.3 fl (35.1-43.9); Red Blood Count 4.82 M/mm3 (4.6-6.2); White Blood Count 12.6 K/mm3 (4.4-11.0)
[2020-06-18 05:38] LABS: Differential Indicated SCAN CRITERIA MET
[2020-06-18 06:15] LABS: Differential Comment SCANNED
[2020-06-18 06:17] LABS: Platelet Estimate ADEQUATE (ADEQ); Platelet Morphology CLUMPED
--- NOTE | 2020-06-18 07:58 | PN_ITS ---
Patient Problems: Active and Suspected Problems (Last Reviewed 06/17/20 @ 20:[address] Liberty Lara, DO) Cellulitis (Acute) Severe sepsis (Acute) Cellulitis of right lower extremity (Acute) Ingrowing nail, right great toe (Acute) Venous insufficiency (Suspected) Pulmonary hypertension (Suspected) Dyspnea (Acute) Reason for Visit: Follow-up on Right lower extremity cellulitis, ingrowing toe nail Subjective: Patient was seen and examined. He denied any fever or chills. Both lower extremities are wrapped up in SHAE-wraps. He denied any recent weight gain. He is usually on Lasix and hydrochlorothiazide which has been held now Objective: Physical exam: General: Alert, oriented x3, cooperative, no apparent distress, well developed, well nourished, super morbidly obese, generalized edema HEENT: Atraumatic, PERRLA, EOMI, EAC Clear, - - Mallampati 4 Oral: Moist Mucosa Neck: Supple, No JVD, Negative Hepatojugular Reflux, No Nodes, No Nuchal Rigidity, Trachea Midline, Thyroid Normal Size and Texture, - - Short thick neck Lungs: Diminished air entry Cardiovascular: Regular rate, Regular Rhythm, Normal S1, Normal S2, No murmurs, No Ectopic Activity, No rub noted, No Gallop, - - Distant secondary to body habitus Abdomen: Bowel Sounds Present, Soft, Non Tender, Non-Distended, Obese Extremities: Edema - Bilateral lower extremity edema right slightly greater than left, skin is very taut and is firm Skin: Wound dressing on the right foot. Generalized edema with skin very taut Musculoskeletal: No Tenderness to Palpation of Joints or Extremities, No Muscle Wasting Lymphatic: No Cervical, Supraclavicular, or Inguinal Adenopathy Neurological: Cranial nerves II-XII grossly intact, Deep Tendon Reflexes 2+/4 and Symmetrical, Neuro grossly intact, Motor Exam 5/5 strength throughout, Muscle tone normal, Coordination normal Psych/Mental Status: Normal Affect, Appropriate Vitals/I&O's: Vital Signs Temp Pulse Resp BP Pulse Ox 98.0 F 61 18 122/56 H 97 06/18/20 02:38 06/18/20 02:38 06/18/20 02:38 06/18/20 02:38 06/18/20 02:38 Oxygen Delivery Method Room Air Weight: 158.1 kg Body Mass Index (BMI) 52.2 Finger Stick Blood Glucose 309 Intake and Output for Last 24 Hours 06/16/20 06/17/20 06/18/20 23:59 23:59 23:59 Intake Total 1758. / 175. Balance 175. / 175 Laboratory Results 06/17/20 14:39: WBC 11.5 H, RBC 5.05, Hgb 14.8, Hct 44.4, MCV 87.9, MCH 29.3, MCHC 33.3, RDW Std Deviation 43.4, RDW Coeff of Shelly 13.6, Plt Count 283, MPV 9.7, Immature Gran % (Auto) 0.300, Neut % (Auto) 70.2 H, Lymph % (Auto) 16.6 L, [place] % (Auto) 10.9 H, Eos % (Auto) 1.4, Baso % (Auto) 0.6, Absolute Neuts (auto) 8.0 H, Absolute Lymphs (auto) 1.90, Nucleated RBC % 0 06/17/20 14:39: Sodium 133 L, Potassium 4.3, Chloride 99, Carbon Dioxide 27.0, Anion Gap 7, BUN 25 H, Creatinine 1.32 H, Estim Creat Clear Calc 60.45, Est GFR (MDRD) Af Amer 72, Est GFR (MDRD) Non-Af 59 L, BUN/Creatinine Ratio 18.9, Glucose 352 H, Calcium 9.2 06/17/20 14:39: Lactic Acid 2.9 H* 06/17/20 17:00: S.aureus Protein A PCR POSITIVE H, MRSA (PCR) Negative 06/17/20 17:00: POC Glucose 270 H 06/17/20 21:05: Lactic Acid 2.6 H* 06/17/20 22:11: POC Glucose 139 H 06/18/20 02:40: Sodium Pending, Potassium Pending, Chloride Pending, Carbon Dioxide Pending, Anion Gap Pending, BUN Pending, Creatinine Pending, Est GFR (MDRD) Af Amer Pending, Est GFR (MDRD) Non-Af Pending, BUN/Creatinine Ratio Pending, Glucose Pending, Calcium Pending, Phosphorus Pending, Magnesium Pending, Total Bilirubin Pending, AST Pending, ALT Pending, Alkaline Phosphatase Pending, Total Protein Pending, Albumin Pending 06/18/20 05:00: WBC 12.6 H, RBC 4.82, Hgb 14.0, Hct 41.7, MCV 86.5, MCH 29.0, MCHC 33.6, RDW Std Deviation 41.3, RDW Coeff of Shelly 13.2, Plt Count 174, MPV 10.7, Immature Gran % (Auto) 0.600, Neut % (Auto) 64.0, Lymph % (Auto) 19.9, [place] % (Auto) 12.3 H, Eos % (Auto) 2.5, Baso % (Auto) 0.7, Absolute Neuts (auto) 8.1 H, Absolute Lymphs (auto) 2.51, Nucleated RBC % 0, Differential Comment SCANNED, Diff Path Review September foll, Platelet Estimate ADEQUATE, Plt Morphology Comment CLUMPED 06/18/20 05:00: Sodium Cancelled, Potassium Cancelled, Chloride Cancelled, Carbon Dioxide Cancelled, Anion Gap Cancelled, BUN Cancelled, Creatinine Cancelled, Estim Creat Clear Calc Cancelled, Est GFR (MDRD) Af Amer Cancelled, Est GFR (MDRD) Non-Af Cancelled, BUN/Creatinine Ratio Cancelled, Glucose Cancelled, Calcium Cancelled, Phosphorus Cancelled, Magnesium Cancelled, Total Bilirubin Cancelled, AST Cancelled, ALT Cancelled, Alkaline Phosphatase Cancelled, Total Protein Cancelled, Albumin Cancelled, Globulin Cancelled, Albumin/Globulin Ratio Cancelled 06/18/20 05:00: Hemoglobin A1c Pending Current Medications Acetaminophen (Acetaminophen 325 Mg Tablet) 650 mg PO Q6H PRN PRN PRN Reason: Pain Score 1-10/Temp > 100.7 F Last Admin: 06/17/20 18:21 Dose: 650 mg Documented by: Al Hydroxide/Mg Hydroxide (Mag Hydrox/Al Hydrox/Simeth 30 Ml Udc) 30 ml PO Q6H PRN PRN PRN Reason: Gastric Burning Albuterol Sulfate (Albuterol 2.5 Mg/3 Ml Vial.Neb.) 2.5 mg INHALATION Q2H PRN PRN PRN Reason: Shortness of Breath/Wheezing Aspirin (Aspirin E.C. 81 Mg Tablet) 81 mg PO DAILY@0800 [facility] Atorvastatin Calcium (Atorvastatin Calcium 40 Mg Tablet) 40 mg PO QHS [facility] Last Admin: 06/17/20 22:14 Dose: 40 mg Documented by: Enoxaparin Sodium (Enoxaparin 40 Mg/0.4 Ml Syringe) 40 mg SC BID [facility] Last Admin: 06/17/20 22:14 Dose: 40 mg Documented by: Flecainide Acetate (Flecainide 100 Mg Tablet) 100 mg PO BID [facility] Last Admin: 06/17/20 22:14 Dose: 100 mg Documented by: Guaifenesin (Guaifenesin 10 Ml Udc (200mg/10ml)) 20 ml PO Q4H PRN PRN PRN Reason: COUGH Piperacillin Sod/Tazobactam (Sod 3.375 gm/ Sodium Chloride) 50 mls @ 12.5 mls/hr IV Q8 [facility] Last Admin: 06/18/20 07:40 Dose: 12.5 mls/hr Documented by: Vancomycin IV Pharmacy to Dose (1 ea/ Sodium Chloride) 500 mls @ 250 mls/hr IV X1 PRN; Protocol PRN Reason: Rx to Dose Vancomycin HCl 2,000 mg/ (Sodium Chloride) 540 mls @ 250 mls/hr IV Q12H [facility] Last Infusion: 06/18/20 07:45 Dose: Infused Documented by: Insulin Human Lispro (Insulin Lispro 100 Unit/Ml Insuln.Pen) [facility]; Protocol Last Admin: 06/17/20 22:11 Dose: Not Given Documented by: Insulin Human Regular (Insulin U-500 Pen) 125 units SC DINNER [facility] Last Admin: 06/17/20 18:12 Dose: 125 units Documented by: Insulin Human Regular (Insulin U-500 Pen) 190 units SC BREAKFAST [facility] Losartan Potassium (Losartan Potassium 50 Mg Tablet) 50 mg PO DAILY [facility] Melatonin (Melatonin 3 Mg Tablet) 3 mg PO QHS PRN PRN PRN Reason: INSOMNIA Metoprolol Tartrate (Metoprolol Tartrate 25 Mg Tablet) 25 mg PO BID [facility] Last Admin: 06/17/20 22:14 Dose: 25 mg Documented by: Ondansetron HCl (Ondansetron 4 Mg/2 Ml Vial) 4 mg IV Q8H PRN PRN PRN Reason: NAUSEA/VOMITING Oxycodone HCl (Oxycodone 5 Mg Tablet) 5 mg PO Q4H PRN PRN PRN Reason: Pain Score 4-10 Senna/Docusate Sodium (Senna/Docusate Sodium 1 Tablet) 2 tablet PO BID PRN PRN PRN Reason: Constipation Sodium Chloride (0.9% Saline Lock 10 Ml Syringe) 10 - 40 ml IV UD PRN PRN Reason: SALINE FLUSH Last Admin: 06/17/20 17:10 Dose: 10 ml Documented by: Medical Necessity - Tobacco Use Smoking Status: Never smoker Tobacco Use: Non-smoker Assessment/Plan All Active Problems (Last Reviewed 06/17/20 @ 20:[address] Liberty Lara, DO) Cellulitis (Acute) Severe sepsis (Acute) Cellulitis of right lower extremity (Acute) Ingrowing nail, right great toe (Acute) Dyspnea (Acute) 1. Severe sepsis secondary to right lower extremity cellulitis, improved No fevers seen here, slight increase in white cell count to 12.6 Continue on IV vancomycin and Zosyn 2. Right indwelling toenail with right lower leg cellulitis Status post bedside wedge resection Continue on broad spectrum antibiotics Podiatry following 3. CRESCENCIO, prerenal secondary to #1, resolved Baseline creatinine is about 1 Admitted with a creatinine of 1.32, back to baseline now Repeat blood work in a.m. 4. Generalized edema/anasarca, probable acute on chronic combined CHF in a patient with multiple risk factors Patient is usually on Lasix/hydrochlorothiazide at home Will start patient on Lasix 40 mg IV twice daily CHF protocol 5. MARIA A/obesity hypoventilation syndrome, continue on BiPAP 6. Type II DM, blood sugars are fairly controlled, Metformin on hold Continue blood glucose check with insulin sliding scale 7. Hypertension/hyperlipidemia/paroxysmal atrial fibrillation, all remain stable Continue on metoprolol, losartan, flecainide, aspirin Not on oral anticoagulants, not sure why; will leave recommendation for that to cardiology; patient has an outpatient appointment in 1 week Continue to hold hydrochlorothiazide 8. DVT prophylaxis with Lovenox subcu twice daily Inpatient E&M: [id number] [place] [id number]
[2020-06-18 08:26] LABS: AST(SGOT) 35 U/L (15-37); Alanine Aminotransfer ALT/SGPT 30 U/L (16-61); Albumin, Serum 3.1 g/dL (3.2-5.0); Alkaline Phosphatase 86 U/L (45-117); Anion Gap 10 (5-15); BUN 23 mg/dL (7-18); BUN/Creat Ratio 22.8 RATIO (10-20); Calcium,Total 8.3 mg/dL (8.5-10.1); Chloride 105 mmol/L (98-107); Creatinine, Serum 1.01 mg/dL (0.70-1.30); EST Glomerular Filtration Rate 81 mL/min (>60); Est Glom Filt Rate - Afr Amer 98 mL/min (>60); Estimated Creatinine Clearance 79.01 ml/min; Globulin 3.2 g/dL (2.2-4.2); Glucose 149 mg/dL (74-106); Magnesium 2.4 mg/dL (1.6-2.6); Phosphorus 3.5 mg/dL (2.5-4.9); Potassium 5.9 mmol/L (3.5-5.1); Protein, Total 6.3 g/dL (6.4-8.2); Sodium Level 137 mmol/L (136-145)
[2020-06-18] MEDS: Aspirin E.C. 81 MG Tablet PO (08:55)
[2020-06-18] MEDS: Flecainide 100 MG Tablet PO ×2 (08:56→21:08)
[2020-06-18] MEDS: Losartan Potassium 50 MG Tablet PO (08:56)
[2020-06-18] MEDS: Metoprolol Tartrate 25 MG Tablet PO ×2 (08:56→21:08)
[2020-06-18] MEDS: Enoxaparin 40 MG/0.4 ML Syringe SC ×2 (08:56→21:07)
--- NOTE | 2020-06-18 09:41 | PCM.PROGNOTE ---
Patient Problems: Active and Suspected Problems (Last Reviewed 06/17/20 @ 20:[address] Liberty Lara, DO) Cellulitis (Acute) Severe sepsis (Acute) Cellulitis of right lower extremity (Acute) Ingrowing nail, right great toe (Acute) Venous insufficiency (Suspected) Pulmonary hypertension (Suspected) Dyspnea (Acute) Subjective: This 54 year old male was seen bedside for right lower extremity cellulitis. He denies foot pain. His legs are still sensitive to touch. He denies fever, chills, nausea, vomiting. - Physical Exam Vitals/I&O's: Vital Signs Temp Pulse Resp BP Pulse Ox 98.1 F 66 20 H 146/70 H 98 06/18/20 08:10 06/18/20 08:56 06/18/20 08:10 06/18/20 08:10 06/18/20 08:56 Oxygen Delivery Method Room Air Weight: 158.1 kg Body Mass Index (BMI) 52.2 Finger Stick Blood Glucose 309 Intake and Output for Last 24 Hours 06/16/20 06/17/20 06/18/20 23:59 23:59 23:59 Intake Total 1759.00 / 1759.00 Balance 1759.00 / 1759.00 General: Alert, Oriented x3, Cooperative HEENT: Atraumatic Extremities: No cyanosis, Capillary Refill Less than 3 Seconds, No Calf Tenderness, Diminished Peripheral Pulses, Edema Skin: - - wedge resection site lateral right hallux w/ serosangenous drainage only. No purulence or erythema noted on the toe. No bogginess or fluctuance on palpation. The leg cellulitis remains in the same premarked boundaries however is slightly less intense without skin discontinuity. Musculoskeletal: Muscle Wasting, - - Weakness bilateral lower extremities. Active range of motion digits right. Compartments remain soft to palpate right lower extremity Neurological: - - Lack of normal epicritic sensation to foot is consistent with his neuropathic status Psych/Mental Status: Normal Affect, Appropriate Laboratory Results 06/17/20 14:39: WBC 11.5 H, RBC 5.05, Hgb 14.8, Hct 44.4, MCV 87.9, MCH 29.3, MCHC 33.3, RDW Std Deviation 43.4, RDW Coeff of Shelly 13.6, Plt Count 283, MPV 9.7, Immature Gran % (Auto) 0.300, Neut % (Auto) 70.2 H, Lymph % (Auto) 16.6 L, [place] % (Auto) 10.9 H, Eos % (Auto) 1.4, Baso % (Auto) 0.6, Absolute Neuts (auto) 8.0 H, Absolute Lymphs (auto) 1.90, Nucleated RBC % 0 06/17/20 14:39: Sodium 133 L, Potassium 4.3, Chloride 99, Carbon Dioxide 27.0, Anion Gap 7, BUN 25 H, Creatinine 1.32 H, Estim Creat Clear Calc 60.45, Est GFR (MDRD) Af Amer 72, Est GFR (MDRD) Non-Af 59 L, BUN/Creatinine Ratio 18.9, Glucose 352 H, Calcium 9.2 06/17/20 14:39: Lactic Acid 2.9 H* 06/17/20 17:00: S.aureus Protein A PCR POSITIVE H, MRSA (PCR) Negative 06/17/20 17:00: POC Glucose 270 H 06/17/20 21:05: Lactic Acid 2.6 H* 06/17/20 22:11: POC Glucose 139 H 06/18/20 02:40: Sodium 137, Potassium 5.9 H, Chloride 105, Carbon Dioxide 22.0, Anion Gap 10, BUN 23 H, Creatinine 1.01, Estim Creat Clear Calc 79.01, Est GFR (MDRD) Af Amer 98, Est GFR (MDRD) Non-Af 81, BUN/Creatinine Ratio 22.8 H, Glucose 149 H, Calcium 8.3 L, Phosphorus 3.5, Magnesium 2.4, Total Bilirubin 0.80, AST 35, ALT 30, Alkaline Phosphatase 86, Total Protein 6.3 L, Albumin 3.1 L, Globulin 3.2, Albumin/Globulin Ratio 1.0 06/18/20 05:00: WBC 12.6 H, RBC 4.82, Hgb 14.0, Hct 41.7, MCV 86.5, MCH 29.0, MCHC 33.6, RDW Std Deviation 41.3, RDW Coeff of Shelly 13.2, Plt Count 174, MPV 10.7, Immature Gran % (Auto) 0.600, Neut % (Auto) 64.0, Lymph % (Auto) 19.9, [place] % (Auto) 12.3 H, Eos % (Auto) 2.5, Baso % (Auto) 0.7, Absolute Neuts (auto) 8.1 H, Absolute Lymphs (auto) 2.51, Nucleated RBC % 0, Differential Comment SCANNED, Diff Path Review May foll, Platelet Estimate ADEQUATE, Plt Morphology Comment CLUMPED 06/18/20 05:00: Sodium Cancelled, Potassium Cancelled, Chloride Cancelled, Carbon Dioxide Cancelled, Anion Gap Cancelled, BUN Cancelled, Creatinine Cancelled, Estim Creat Clear Calc Cancelled, Est GFR (MDRD) Af Amer Cancelled, Est GFR (MDRD) Non-Af Cancelled, BUN/Creatinine Ratio Cancelled, Glucose Cancelled, Calcium Cancelled, Phosphorus Cancelled, Magnesium Cancelled, Total Bilirubin Cancelled, AST Cancelled, ALT Cancelled, Alkaline Phosphatase Cancelled, Total Protein Cancelled, Albumin Cancelled, Globulin Cancelled, Albumin/Globulin Ratio Cancelled 06/18/20 05:00: Hemoglobin A1c Pending Current Medications Acetaminophen (Acetaminophen 325 Mg Tablet) 650 mg PO Q6H PRN PRN PRN Reason: Pain Score 1-10/Temp > 100.7 F Last Admin: 06/17/20 18:21 Dose: 650 mg Documented by: Al Hydroxide/Mg Hydroxide (Mag Hydrox/Al Hydrox/Simeth 30 Ml Udc) 30 ml PO Q6H PRN PRN PRN Reason: Gastric Burning Albuterol Sulfate (Albuterol 2.5 Mg/3 Ml Vial.Neb.) 2.5 mg INHALATION Q2H PRN PRN PRN Reason: Shortness of Breath/Wheezing Aspirin (Aspirin E.C. 81 Mg Tablet) 81 mg PO DAILY@0800 [facility] Last Admin: 06/18/20 08:55 Dose: 81 mg Documented by: Atorvastatin Calcium (Atorvastatin Calcium 40 Mg Tablet) 40 mg PO QHS [facility] Last Admin: 06/17/20 22:14 Dose: 40 mg Documented by: Enoxaparin Sodium (Enoxaparin 40 Mg/0.4 Ml Syringe) 40 mg SC BID [facility] Last Admin: 06/18/20 08:56 Dose: 40 mg Documented by: Flecainide Acetate (Flecainide 100 Mg Tablet) 100 mg PO BID [facility] Last Admin: 06/18/20 08:56 Dose: 100 mg Documented by: Furosemide (Furosemide 40 Mg/4 Ml Vial) 40 mg IV BID [facility] Guaifenesin (Guaifenesin 10 Ml Udc (200mg/10ml)) 20 ml PO Q4H PRN PRN PRN Reason: COUGH Piperacillin Sod/Tazobactam (Sod 3.375 gm/ Sodium Chloride) 50 mls @ 12.5 mls/hr IV Q8 [facility] Last Admin: 06/18/20 07:40 Dose: 12.5 mls/hr Documented by: Vancomycin IV Pharmacy to Dose (1 ea/ Sodium Chloride) 500 mls @ 250 mls/hr IV X1 PRN; Protocol PRN Reason: Rx to Dose Vancomycin HCl 2,000 mg/ (Sodium Chloride) 540 mls @ 250 mls/hr IV Q12H [facility] Last Infusion: 06/18/20 07:45 Dose: Infused Documented by: Insulin Human Lispro (Insulin Lispro 100 Unit/Ml Insuln.Pen) 0 unit SC ACHS [facility]; Protocol Last Admin: 06/18/20 08:55 Dose: Not Given Documented by: Insulin Human Regular (Insulin U-500 Pen) 125 units SC DINNER [facility] Last Admin: 06/17/20 18:12 Dose: 125 units Documented by: Insulin Human Regular (Insulin U-500 Pen) 190 units SC BREAKFAST [facility] Last Admin: 06/18/20 08:00 Dose: 190 u Documented by: Losartan Potassium (Losartan Potassium 50 Mg Tablet) 50 mg PO DAILY [facility] Last Admin: 06/18/20 08:56 Dose: 50 mg Documented by: Melatonin (Melatonin 3 Mg Tablet) 3 mg PO QHS PRN PRN PRN Reason: INSOMNIA Metoprolol Tartrate (Metoprolol Tartrate 25 Mg Tablet) 25 mg PO BID [facility] Last Admin: 06/18/20 08:56 Dose: 25 mg Documented by: Ondansetron HCl (Ondansetron 4 Mg/2 Ml Vial) 4 mg IV Q8H PRN PRN PRN Reason: NAUSEA/VOMITING Oxycodone HCl (Oxycodone 5 Mg Tablet) 5 mg PO Q4H PRN PRN PRN Reason: Pain Score 4-10 Senna/Docusate Sodium (Senna/Docusate Sodium 1 Tablet) 2 tablet PO BID PRN PRN PRN Reason: Constipation Sodium Chloride (0.9% Saline Lock 10 Ml Syringe) 10 - 40 ml IV UD PRN PRN Reason: SALINE FLUSH Last Admin: 06/17/20 17:10 Dose: 10 ml Documented by: Medical Necessity - Tobacco Use Smoking Status: Never smoker Tobacco Use: Non-smoker Assessment/Plan All Active Problems (Last Reviewed 06/17/20 @ 20:[address] Liberty Lara, DO) Cellulitis (Acute) Severe sepsis (Acute) Cellulitis of right lower extremity (Acute) Ingrowing nail, right great toe (Acute) Dyspnea (Acute) Incurvated right hallux nail lateral border without local purulence Cellulitis right lower extremity with ingrown toenail nidus of infection concern - improving Lower extremity edema suspected secondary to cardiac etiology, lymphedema, venous insufficiency Claudication noted with suspected underlying arterial deficiency Uncontrolled diabetes with neuropathy Other comorbidities I reviewed and discussed his case. He is afebrile and his vital signs remained stable. He does have leukocytosis of 12.6. He is on vancomycin and zosyn. There is no purulence with toe evaluation today and the leg cellulitis is mildly less intense. A deep wound culture was obtained and results are pending. MRSA PCR is negative. A betadine gauze was applied. Continue SHAE wraps. I will continue to follow him while in house this weekend. Please call if questions. Chel Mcnamara DPM, [facility] [phone]
--- NOTE | 2020-06-18 09:44 | EKG12_ITS ---
Test Reason : A FIB Blood Pressure : / mmHG Vent. Rate : 070 BPM Atrial Rate : 070 BPM P-R Int : 280 ms QRS Dur : 170 ms QT Int : 470 ms P-R-T Axes : 058 234 040 degrees QTc Int : 507 ms Sinus rhythm with 1st degree A-V block Right bundle branch block Inferior infarct (cited on or before 02-FEB-2019) Anterolateral infarct (cited on or before 02-FEB-2019) Abnormal ECG Confirmed by MARYELLEN JACQUES, LU ([id number]), editorial cartoonist NATHAN SZYMANSKI ([id number]) on 06/21/2020 8:31:12 AM Referred By: WOOD Confirmed By:LU BOJORQUEZ MD
[2020-06-18 10:18] LABS: Hemoglobin A1c 10.4 % (3.8-5.6)
[2020-06-18] MEDS: Furosemide 40 MG/4 ML Vial IV ×2 (11:01→21:09)
[2020-06-18] MEDS: Insulin Lispro 100 UNIT/ML INSULN.PEN SC ×3 (11:08→21:31)
[2020-06-18 11:16] LABS: Bedside Glucose 201 mg/dL (70-110)
[2020-06-18 16:55] LABS: Bedside Glucose 183 mg/dL (70-110)
[2020-06-18] MEDS: Acetaminophen 325 MG Tablet 650 MG PO (21:08)
[2020-06-18] MEDS: Atorvastatin Calcium 40 MG Tablet PO (21:09)
[2020-06-18 21:51] LABS: Bedside Glucose 184 mg/dL (70-110)
[2020-06-19 02:20] VITALS: BP 119/51; PULSE 52; RESP 16; TEMP 36.6; O2SAT 97
[2020-06-19 04:51] LABS: Bedside Glucose 108 mg/dL (70-110)
[2020-06-19 05:36] LABS: Absolute Lymphocyte Count 2.94 X10^3/uL (0.83-4.51); Absolute Neutrophil Count 7.4 X10^3/uL (2.0-7.7); Basophil# 0.09 X10^3/uL; Basophil% 0.7 % (0-1); Eosinophil# 0.36 X10^3/uL; Eosinophils% 2.9 % (0-5); Hematocrit 42.9 % (40-54); Lymphocyte # 2.94 X10^3/ul (4.0); Lymphocyte % 23.6 % (19-41); Mean Corp Hgb Conc 32.6 g/dL (32-36); Mean Corpuscular Hgb 28.3 pg (27.0-32.0); Mean Corpuscular Volume 86.8 fL (80-94); Mean Platelet Vol. 10.3 fl (6.2-12.0); Monocyte# 1.48 X10^3/uL; Monocyte% 11.9 % (0-10); NRBC Flagged by Analyzer 0 % (0-5); Neutrophil # 7.44 X10^3/uL (2.7-7.7); Neutrophil % 59.9 % (47-70); POSITIVE COUNT YES; Platelet Count 253 K/mm3 (150-450); RBC Distribution Width CV 13.4 % (11.6-14.6); RBC Distribution Width SD 42.3 fl (35.1-43.9); Red Blood Count 4.94 M/mm3 (4.6-6.2); White Blood Count 12.4 K/mm3 (4.4-11.0)
[2020-06-19 05:50] LABS: Vancomycin, Trough Level 14.9 ug/mL (5.0-15.0)
--- NOTE | 2020-06-19 05:55 | PCM.RX.CS ---
Consult Pharmacy has been consulted to manage selected antiobiotic: Vancomycin Type of Consult: Follow-up Suspected Infection: Skin/Soft tissue Prior Doses of Antibiotics Received/Current Regimen: Medications Vancomycin HCl 2,000 mg/ (Sodium Chloride) 540 mls @ 250 mls/hr IV Q12H [facility] Last Admin: 06/18/20 19:42 Dose: Infused Labs: Sodium Cancelled 06/19/20 05:00 Potassium Cancelled 06/19/20 05:00 Chloride Cancelled 06/19/20 05:00 Carbon Dioxide Cancelled 06/19/20 05:00 Anion Gap Cancelled 06/19/20 05:00 BUN Cancelled 06/19/20 05:00 Creatinine Cancelled 06/19/20 05:00 Est GFR (MDRD) Af Amer Cancelled 06/19/20 05:00 Est GFR (MDRD) Non-Af Cancelled 06/19/20 05:00 BUN/Creatinine Ratio Cancelled 06/19/20 05:00 Glucose Cancelled 06/19/20 05:00 Vancomycin Trough 14.9 ug/mL (5.0-15.0) 06/19/20 05:00 Microbiology: Microbiology 06/17/20 17:00 Wound - Toe Gram Stain - Final 06/17/20 17:00 Wound - Toe Wound Culture - Preliminary Staphylococcus aureus Weight used for dosin.1 kg Estimated Creatinine Clearance: 104.2 Goal Trough: 15-20 mcg/mL Pharmacy Plan for Drug Dosing: Vanco trough was 14.9, just under the target range 15-20. Will continue 2000mg q12h and re-draw a trough in 4 doses. Pharmacy Service will continue to monitor and adjust dosing as required. Follow-Up Labs: Trough Vancomycin Labs to be done on [date and time ordered]: 06/20/20 @[id number]
[2020-06-19 06:30] LABS: Differential Comment SCANNED; Differential Indicated SCAN CRITERIA MET
[2020-06-19] MEDS: Acetaminophen 325 MG Tablet 650 MG PO (06:37)
[2020-06-19 07:55] VITALS: BP 149/72; PULSE 60; RESP 16; TEMP 36.4; O2SAT 96
[2020-06-19] MEDS: Insulin Lispro 100 UNIT/ML INSULN.PEN SC ×2 (08:01→12:05)
[2020-06-19 08:02] VITALS: PULSE 60
[2020-06-19] MEDS: Enoxaparin 40 MG/0.4 ML Syringe SC (08:02)
[2020-06-19] MEDS: Metoprolol Tartrate 25 MG Tablet PO (08:02)
[2020-06-19] MEDS: Aspirin E.C. 81 MG Tablet PO (08:02)
[2020-06-19] MEDS: Furosemide 40 MG/4 ML Vial IV (08:03)
[2020-06-19] MEDS: Flecainide 100 MG Tablet PO (08:03)
[2020-06-19] MEDS: Losartan Potassium 50 MG Tablet PO (08:05)
[2020-06-19 08:15] LABS: Bedside Glucose 163 mg/dL (70-110)
[2020-06-19 08:26] LABS: ALB/GLOB Ratio 0.9 RATIO (0.9-2.4); AST(SGOT) 41 U/L (15-37); Alanine Aminotransfer ALT/SGPT 29 U/L (16-61); Alkaline Phosphatase 88 U/L (45-117); Anion Gap 11 (5-15); BUN 20 mg/dL (7-18); BUN/Creat Ratio 20.6 RATIO (10-20); Chloride 107 mmol/L (98-107); Creatinine, Serum 0.97 mg/dL (0.70-1.30); EST Glomerular Filtration Rate 85 mL/min (>60); Est Glom Filt Rate - Afr Amer 102 mL/min (>60); Estimated Creatinine Clearance 82.27 ml/min; Globulin 3.4 g/dL (2.2-4.2); Glucose 157 mg/dL (74-106); Potassium 4.7 mmol/L (3.5-5.1); Protein, Total 6.4 g/dL (6.4-8.2); Sodium Level 140 mmol/L (136-145)
--- NOTE | 2020-06-19 08:49 | PCM.PROGNOTE ---
Patient Problems: Active and Suspected Problems (Last Reviewed 06/17/20 @ 20:[address] Liberty Lara, DO) Cellulitis (Acute) Severe sepsis (Acute) Cellulitis of right lower extremity (Acute) Ingrowing nail, right great toe (Acute) Venous insufficiency (Suspected) Pulmonary hypertension (Suspected) Dyspnea (Acute) Subjective: This 54 year old male was seen bedside for right lower extremity cellulitis and ingrown toenail which she had a previous wedge resection. He denies foot pain. He denies fever, nausea, vomiting. He relates he had chills mildly this morning. He relates his leg is less tender to touch. - Physical Exam Vitals/I&O's: Vital Signs Temp Pulse Resp BP Pulse Ox 97.5 F L 60 16 149/72 H 96 06/19/20 07:55 06/19/20 08:02 06/19/20 07:55 06/19/20 07:55 06/19/20 07:55 Oxygen Delivery Method Room Air Weight: 158.5 kg Body Mass Index (BMI) 52.2 Finger Stick Blood Glucose 309 Intake and Output for Last 24 Hours 06/17/20 06/18/20 06/19/20 23:59 23:59 23:59 Intake Total 1759.00 / 1759.00 3208.33 / 3208.33 320.75 / 320.75 Output Total 400 / 400 200 / 200 Balance 1759.00 / 1759.00 2808.33 / 2808.33 120.75 / 120.75 General: Alert, Oriented x3, Cooperative Skin: - - Right hallux lateral border wedge resection site with decreased serosanguineous drainage. There is still no redness or odor or purulence coming from the toe. The erythema on his leg remains in the same the marked region with reduced intensity and tenderness on palpation Musculoskeletal: Muscle Wasting, Tenderness - Decreased tenderness with leg palpation right Neurological: - - Lack of epicritic sensation to light touch left foot consistent with neuropathic status Psych/Mental Status: Normal Affect, Appropriate Microbiology Past 72 Hours 06/17/20 17:00 Wound - Toe Gram Stain - Final 06/17/20 17:00 Wound - Toe Wound Culture - Preliminary Staphylococcus aureus Laboratory Results 06/18/20 05:00: Hemoglobin A1c 10.4 H 06/18/20 11:05: POC Glucose 201 H 06/18/20 16:42: POC Glucose 183 H 06/18/20 21:30: POC Glucose 184 H 06/19/20 04:43: POC Glucose 108 06/19/20 05:00: Vancomycin Trough 14.9 06/19/20 05:00: WBC 12.4 H, RBC 4.94, Hgb 14.0, Hct 42.9, MCV 86.8, MCH 28.3, MCHC 32.6, RDW Std Deviation 42.3, RDW Coeff of Shelly 13.4, Plt Count 253, MPV 10.3, Immature Gran % (Auto) 1.000 H, Neut % (Auto) 59.9, Lymph % (Auto) 23.6, [place] % (Auto) 11.9 H, Eos % (Auto) 2.9, Baso % (Auto) 0.7, Absolute Neuts (auto) 7.4, Absolute Lymphs (auto) 2.94, Nucleated RBC % 0, Differential Comment SCANNED 06/19/20 05:00: Sodium Cancelled, Potassium Cancelled, Chloride Cancelled, Carbon Dioxide Cancelled, Anion Gap Cancelled, BUN Cancelled, Creatinine Cancelled, Estim Creat Clear Calc Cancelled, Est GFR (MDRD) Af Amer Cancelled, Est GFR (MDRD) Non-Af Cancelled, BUN/Creatinine Ratio Cancelled, Glucose Cancelled, Calcium Cancelled, Total Bilirubin Cancelled, AST Cancelled, ALT Cancelled, Alkaline Phosphatase Cancelled, Total Protein Cancelled, Albumin Cancelled, Globulin Cancelled, Albumin/Globulin Ratio Cancelled 06/19/20 07:51: Sodium 140, Potassium 4.7, Chloride 107, Carbon Dioxide 22.0, Anion Gap 11, BUN 20 H, Creatinine 0.97, Estim Creat Clear Calc 82.27, Est GFR (MDRD) Af Amer 102, Est GFR (MDRD) Non-Af 85, BUN/Creatinine Ratio 20.6 H, Glucose 157 H, Calcium 8.0 L, Total Bilirubin 0.80, AST 41 H, ALT 29, Alkaline Phosphatase 88, Total Protein 6.4, Albumin 3.0 L, Globulin 3.4, Albumin/Globulin Ratio 0.9 06/19/20 07:51: POC Glucose 163 H Current Medications Acetaminophen (Acetaminophen 325 Mg Tablet) 650 mg PO Q6H PRN PRN PRN Reason: Pain Score 1-10/Temp > 100.7 F Last Admin: 06/19/20 06:37 Dose: 650 mg Documented by: Al Hydroxide/Mg Hydroxide (Mag Hydrox/Al Hydrox/Simeth 30 Ml Udc) 30 ml PO Q6H PRN PRN PRN Reason: Gastric Burning Albuterol Sulfate (Albuterol 2.5 Mg/3 Ml Vial.Neb.) 2.5 mg INHALATION Q2H PRN PRN PRN Reason: Shortness of Breath/Wheezing Aspirin (Aspirin E.C. 81 Mg Tablet) 81 mg PO DAILY@0800 [facility] Last Admin: 06/19/20 08:02 Dose: 81 mg Documented by: Atorvastatin Calcium (Atorvastatin Calcium 40 Mg Tablet) 40 mg PO QHS [facility] Last Admin: 06/18/20 21:09 Dose: 40 mg Documented by: Enoxaparin Sodium (Enoxaparin 40 Mg/0.4 Ml Syringe) 40 mg SC BID [facility] Last Admin: 06/19/20 08:02 Dose: 40 mg Documented by: Flecainide Acetate (Flecainide 100 Mg Tablet) 100 mg PO BID [facility] Last Admin: 06/19/20 08:03 Dose: 100 mg Documented by: Furosemide (Furosemide 40 Mg/4 Ml Vial) 40 mg IV BID [facility] Last Admin: 06/19/20 08:03 Dose: 40 mg Documented by: Guaifenesin (Guaifenesin 10 Ml Udc (200mg/10ml)) 20 ml PO Q4H PRN PRN PRN Reason: COUGH Piperacillin Sod/Tazobactam (Sod 3.375 gm/ Sodium Chloride) 50 mls @ 12.5 mls/hr IV Q8 [facility] Last Infusion: 06/19/20 01:14 Dose: Infused Documented by: Vancomycin IV Pharmacy to Dose (1 ea/ Sodium Chloride) 500 mls @ 250 mls/hr IV X1 PRN; Protocol PRN Reason: Rx to Dose Vancomycin HCl 2,000 mg/ (Sodium Chloride) 540 mls @ 250 mls/hr IV Q12H [facility] Last Admin: 06/19/20 05:54 Dose: 250 mls/hr Documented by: Insulin Human Lispro (Insulin Lispro 100 Unit/Ml Insuln.Pen) 0 unit SC ACHS [facility]; Protocol Last Admin: 06/19/20 08:01 Dose: 1 units Documented by: Insulin Human Regular (Insulin U-500 Pen) 125 units SC DINNER [facility] Last Admin: 06/18/20 17:00 Dose: 125 units Documented by: Insulin Human Regular (Insulin U-500 Pen) 190 units SC BREAKFAST [facility] Last Admin: 06/19/20 08:01 Dose: 190 u Documented by: Losartan Potassium (Losartan Potassium 50 Mg Tablet) 50 mg PO DAILY [facility] Last Admin: 06/19/20 08:05 Dose: 50 mg Documented by: Melatonin (Melatonin 3 Mg Tablet) 3 mg PO QHS PRN PRN PRN Reason: INSOMNIA Metoprolol Tartrate (Metoprolol Tartrate 25 Mg Tablet) 25 mg PO BID [facility] Last Admin: 06/19/20 08:02 Dose: 25 mg Documented by: Ondansetron HCl (Ondansetron 4 Mg/2 Ml Vial) 4 mg IV Q8H PRN PRN PRN Reason: NAUSEA/VOMITING Oxycodone HCl (Oxycodone 5 Mg Tablet) 5 mg PO Q4H PRN PRN PRN Reason: Pain Score 4-10 Senna/Docusate Sodium (Senna/Docusate Sodium 1 Tablet) 2 tablet PO BID PRN PRN PRN Reason: Constipation Sodium Chloride (0.9% Saline Lock 10 Ml Syringe) 10 - 40 ml IV UD PRN PRN Reason: SALINE FLUSH Last Admin: 06/17/20 17:10 Dose: 10 ml Documented by: Medical Necessity - Tobacco Use Smoking Status: Never smoker Tobacco Use: Non-smoker Assessment/Plan All Active Problems (Last Reviewed 06/17/20 @ 20:[address] Liberty Lara, DO) Cellulitis (Acute) Severe sepsis (Acute) Cellulitis of right lower extremity (Acute) Ingrowing nail, right great toe (Acute) Dyspnea (Acute) Incurvated right hallux nail lateral border without local purulence Cellulitis right lower extremity with ingrown toenail nidus of infection concern - improving Lower extremity edema suspected secondary to cardiac etiology, lymphedema, venous insufficiency Claudication noted with suspected underlying arterial deficiency Uncontrolled diabetes with neuropathy Other comorbidities I reviewed and discussed his case. He is afebrile and his vital signs remained stable. He does have leukocytosis of 12.4. He is on vancomycin and zosyn. There is no purulence with toe evaluation today and the leg cellulitis has continued decreased intensity. With prior wedge resection of the nail a culture was obtained; MRSA PCR is negative. Venous Doppler of the leg was negative for deep venous thrombosis. I recommend A betadine gauze toenail site. Additional loose nail was trimmed with a nail nipper today. I recommend further work-up for venous reflux and arterial perfusion in the outpatient versus inpatient setting. This may be contributing to his pain and chronic swelling as well. He was advised to continue SHAE wraps. It is also noted he is on Lasix. After discharge, I recommend he follows up with his fiscal services manager in the outpatient setting within the next week to week and half. If he is not able to follow-up with Dr. Reeves during that timeframe I recommend he follows up [facility] the [facility]. Chel Mcnamara DPM, FACF[facility] [phone]
--- NOTE | 2020-06-19 09:32 | DCINST_ITS ---
Discharge Activity: May Shower Weight Bearing Status: Weight bearing as tolerated Keep extremity elevated above heart level: Right Leg Call your doctor if your incision/area has: Continuous Slow Oozing, Increased Pain/ Swelling, Increased Redness, Foul Smelling Discharge Call your doctor if you observe: Fever of 101 or Higher, Calf discomfort, Uncontrolled pain Cleanse incision/area with: Soap & Water, - - Change right great toe dressing daily with Betadine moistened gauze Allergies/Adverse Reactions: Allergies No Known Allergies Allergy (Verified 06/17/20 13:52) Medications to take at Discharge Metformin HCl [Metformin ER Osmotic] 1,000 mg PO BID 02/01/19 Multivitamin with Minerals [Multiple Vitamin] 1 tab PO DAILY 02/01/19 Aspirin E.C. [Ecotrin] 81 mg PO DAILY@0800 #60 tab 02/06/19 rosuvastatin 20 mg tablet 20 mg PO QHS #90 tab 02/27/19 flecainide 100 mg tablet 100 mg PO BID #180 tab 04/16/20 metoprolol tartrate 25 mg tablet 25 mg PO BID #180 tab 04/16/20 potassium chloride 20 mEq tablet,extended release(part/cryst) 20 meq PO BID #180 tab 04/16/20 dulaglutide 3 mg/0.5 mL subcutaneous pen injector 3 mg SC JOHNSON 05/10/20 insulin regular hum U-500 conc 125 unit SC DINNER ml 05/10/20 insulin regular hum U-500 conc 190 unit SC BREAKFAST ml 06/13/20 ipratropium 0.5 mg-albuterol 3 mg (2.5 mg base)/3 mL nebulization soln 3 ml INHALATION Q6H PRN ml 06/13/20 Furosemide 80 mg PO DAILY 06/17/20 Furosemide [Lasix] 40 mg PO DAILY 06/17/20 Telmisartan/Hydrochlorothiazid [Telmisartan-Hctz 80-12.5 mg Tb] 1 tab PO DAILY 06/17/20 Primary Care Physician: Jus Shields MD [Primary Care Provider] - Test Results: Test results from this visit will be discussed in further detail at your follow- up appointment, if applicable. Please Follow Up With: Zak Reeves DPM When: 1 - 1.5 weeks. call [phone] Please Follow Up With: Fascione,Chel, DPM When: 1 - 1.5 weeks if you can't get in to see Dr. Reeves. Call [phone]
--- NOTE | 2020-06-19 10:30 | PCM.DC ---
- Discharge Diagnoses Current Active Problems: Current Active and Chronic Problems (Last Reviewed 06/17/20 @ 20:[address] Liberty Lara, DO) Cellulitis (Acute) Severe sepsis (Acute) Cellulitis of right lower extremity (Acute) Ingrowing nail, right great toe (Acute) Lower extremity edema (Chronic) Obesity hypoventilation syndrome (Chronic) MARIA A (obstructive sleep apnea) (Chronic) Mixed hyperlipidemia (Chronic) Essential hypertension (Chronic) Type 2 diabetes mellitus (Chronic) Paroxysmal atrial fibrillation (Chronic) Atherosclerotic heart disease of [place] coronary artery without angina pectoris (Chronic) Mild:DISTAL LAD: 25 % Stenosis;DISTAL CIRC: 25 % Stenosis per cath 02/04/19 Dyspnea (Acute) Reason(s) for Visit for Discharge Instructions: Right leg cellulitis, indwelling toe nail You will use the following diet at home:: Calorie/Carbohydrate Controlled (specify 1200, 1400, etc), Cardiac Your food should be the consistency of: Regular Your liquids should be the consistency of: Regular/Thin Discharge Activity: Return to Normal Activity, May Shower Weight Bearing Status: Weight bearing as tolerated Keep extremity elevated above heart level: Right Leg Call your doctor if your incision/area has: Continuous Slow Oozing, Increased Pain/ Swelling, Increased Redness, Foul Smelling Discharge Call your doctor if you observe: Fever of 101 or Higher, Calf discomfort, Uncontrolled pain Cleanse incision/area with: Soap & Water, - - Change right great toe dressing daily with Betadine moistened gauze Additional Instructions: Continue to take all your medications as prescribed. Take note of changes to your medication. Complete your antibiotics. Follow-up with podiatry recommendations on wound care and follow-up. Continue on a low-fat low-salt diet. Restrict your total fluid intake to less than 1500 mls a day. Weigh yourself every day. Let your doctor know when you gain more than 2 pounds of weight. Follow-up with your primary care doctor in 1 to 2 weeks. Follow-up with the assurance senior in 2 weeks. You would need repeat blood work to check on your kidney function within a week of discharge. Allergies/Adverse Reactions: Allergies No Known Allergies Allergy (Verified 06/17/20 13:52) Medications to take at Discharge Metformin HCl [Metformin ER Osmotic] 1,000 mg PO BID 02/01/19 Multivitamin with Minerals [Multiple Vitamin] 1 tab PO DAILY 02/01/19 Aspirin E.C. [Ecotrin] 81 mg PO DAILY@0800 #60 tab 02/06/19 rosuvastatin 20 mg tablet 20 mg PO QHS #90 tab 02/27/19 flecainide 100 mg tablet 100 mg PO BID #180 tab 04/16/20 metoprolol tartrate 25 mg tablet 25 mg PO BID #180 tab 04/16/20 potassium chloride 20 mEq tablet,extended release(part/cryst) 20 meq PO BID #180 tab 04/16/20 dulaglutide 3 mg/0.5 mL subcutaneous pen injector 3 mg SC JOHNSON 05/10/20 insulin regular hum U-500 conc 125 unit SC DINNER ml 05/10/20 insulin regular hum U-500 conc 190 unit SC BREAKFAST ml 06/13/20 ipratropium 0.5 mg-albuterol 3 mg (2.5 mg base)/3 mL nebulization soln 3 ml INHALATION Q6H PRN ml 06/13/20 Furosemide 80 mg PO DAILY 06/17/20 Furosemide [Lasix] 40 mg PO DAILY 06/17/20 Telmisartan/Hydrochlorothiazid [Telmisartan-Hctz 80-12.5 mg Tb] 1 tab PO DAILY 06/17/20 Cephalexin [Keflex] 500 mg PO Q6 5 Days #20 cap 06/19/20 Doxycycline 100 mg PO BID 5 Days #10 cap 06/19/20 The following prescriptions were given: Doxycycline 100 mg PO BID 5 Days #10 cap Transmission Status: Sent to [facility] Cephalexin [Keflex] 500 mg PO Q6 5 Days #20 cap Transmission Status: Sent to [facility] Primary Care Physician: Jus Shields MD [Primary Care Provider] - Please follow up with your Primary Care Physician in: within 1-2 weeks Test Results: Test results from this visit will be discussed in further detail at your follow-up appointment, if applicable. Please Follow Up With: Zak Reeves DPM When: 1 - 1.5 weeks. call [phone] Please Follow Up With: Chel Mcnamara DPM When: 1 - 1.5 weeks if you can't get in to see Dr. Reeves. Call [phone] Proposed Discharge Date: 06/19/20
--- NOTE | 2020-06-19 10:38 | PCM.DC.SUM ---
Discharge Date and Diagnosis - Problem List Patient Problems: Active and Suspected Problems (Last Reviewed 06/17/20 @ 20:[address] Liberty Lara DO) Cellulitis (Acute) Severe sepsis (Acute) Cellulitis of right lower extremity (Acute) Ingrowing nail, right great toe (Acute) Venous insufficiency (Suspected) Pulmonary hypertension (Suspected) Dyspnea (Acute) Date of Admission: 06/17/20 Date of Discharge: 06/19/20 - Primary Discharge Diagnosis Acute Problems: Active Problems (Last Reviewed 06/17/20 @ 20:[address] 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 Liberty Lara DO) Venous insufficiency (Suspected) Pulmonary hypertension (Suspected) - Secondary Discharge Diagnosis Chronic Problems: Chronic Problems (Last Reviewed 06/17/20 @ 20:[address] Liberty Lara DO) Lower extremity edema (Chronic) Obesity hypoventilation syndrome (Chronic) MARIA A (obstructive sleep apnea) (Chronic) Mixed hyperlipidemia (Chronic) Essential hypertension (Chronic) Type 2 diabetes mellitus (Chronic) Paroxysmal atrial fibrillation (Chronic) Atherosclerotic heart disease of tetlin coronary artery without angina pectoris (Chronic) Mild:DISTAL LAD: 25 % Stenosis;DISTAL CIRC: 25 % Stenosis per cath 02/04/19 Hospital Course and Treatment Podiatry Operations: None Procedures: - - s/p bedside wedge resection 06/17/20 Summary of Care Provided: The patient is a 54 year old M with multiple comorbidities including CAD, severe MARIA A, hypertension, hyperlipidemia, type II DM who presented with right lower extremity pain, swelling and cellulitis. This started about 2 days prior to admission and has been progressively worse. Patient has a history of MRSA. He recently saw a medicinal plant picker in the weeks of admission and he was told he had an ingrowing toenail. He had reported that her right hallux toenails had some purulent material expressed. On admission, his white cell count was elevated at 11.5, he had evidence of acute kidney injury. His lactic acid was 2.9. He had significant cellulitis of the lower extremities as well as an ingrowing toenail. He was admitted to the [facility] floor as severe sepsis. He received gentle IV fluids. Podiatry was consulted and a bedside wedge resection of the right fifth toenail was done. Patient was continued on IV vancomycin and Zosyn. His wound cultures grew MSSA. He was discharged on doxycycline and clindamycin. During the hospital stay. Patient was felt to be fluid overloaded, his oral Lasix was transitioned to IV Lasix. Patient was educated on strict CHF protocol with fluid restriction and daily weights. Patient Problems: Active and Suspected Problems (Last Reviewed 06/17/20 @ 20:[address] Liberty Lara, DO) Cellulitis (Acute) Severe sepsis (Acute) Cellulitis of right lower extremity (Acute) Ingrowing nail, right great toe (Acute) Venous insufficiency (Suspected) Pulmonary hypertension (Suspected) Dyspnea (Acute) Subjective: On the day of discharge, patient was seen and examined. Denied any new complaints. Denied any fever or chills Objective: Physical exam: General: Alert, oriented x3, cooperative, no apparent distress, well developed, well nourished, super morbidly obese, generalized edema HEENT: Atraumatic, PERRLA, EOMI, EAC Clear, - - Mallampati 4 Oral: Moist Mucosa Neck: Supple, No JVD, Negative Hepatojugular Reflux, No Nodes, No Nuchal Rigidity, Trachea Midline, Thyroid Normal Size and Texture, - - Short thick neck Lungs: Diminished air entry Cardiovascular: Regular rate, Regular Rhythm, Normal S1, Normal S2, No murmurs, No Ectopic Activity, No rub noted, No Gallop, - - Distant secondary to body habitus Abdomen: Bowel Sounds Present, Soft, Non Tender, Non-Distended, Obese Extremities: Edema - Bilateral lower extremity edema right slightly greater than left, skin is very taut and is firm Skin: Wound dressing on the right foot. Generalized edema with skin very taut Musculoskeletal: No Tenderness to Palpation of Joints or Extremities, No Muscle Wasting Lymphatic: No Cervical, Supraclavicular, or Inguinal Adenopathy Neurological: Cranial nerves II-XII grossly intact, Deep Tendon Reflexes 2+/4 and Symmetrical, Neuro grossly intact, Motor Exam 5/5 strength throughout, Muscle tone normal, Coordination normal Psych/Mental Status: Normal Affect, Appropriate - Physical Exam Vitals/I&O's: Vital Signs Temp Pulse Resp BP Pulse Ox 97.5 F L 60 16 149/72 H 96 06/19/20 07:55 06/19/20 08:02 06/19/20 07:55 06/19/20 07:55 06/19/20 07:55 Oxygen Delivery Method Room Air Weight: 158.5 kg Body Mass Index (BMI) 52.2 Finger Stick Blood Glucose 309 Intake and Output for Last 24 Hours 06/17/20 06/18/20 06/19/20 23:59 23:59 23:59 Intake Total 1759.00 / 1759.00 3208.33 / 3208.33 320.75 / 320.75 Output Total 400 / 400 200 / 200 Balance 1759.00 / 1759.00 2808.33 / 2808.33 120.75 / 120.75 Microbiology Past 72 Hours 06/17/20 17:00 Wound - Toe Gram Stain - Final 06/17/20 17:00 Wound - Toe Wound Culture - Preliminary Staphylococcus aureus Laboratory Results 06/18/20 11:05: POC Glucose 201 H 06/18/20 16:42: POC Glucose 183 H 06/18/20 21:30: POC Glucose 184 H 06/19/20 04:43: POC Glucose 108 06/19/20 05:00: Vancomycin Trough 14.9 06/19/20 05:00: WBC 12.4 H, RBC 4.94, Hgb 14.0, Hct 42.9, MCV 86.8, MCH 28.3, MCHC 32.6, RDW Std Deviation 42.3, RDW Coeff of Shelly 13.4, Plt Count 253, MPV 10.3, Immature Gran % (Auto) 1.000 H, Neut % (Auto) 59.9, Lymph % (Auto) 23.6, Ector % (Auto) 11.9 H, Eos % (Auto) 2.9, Baso % (Auto) 0.7, Absolute Neuts (auto) 7.4, Absolute Lymphs (auto) 2.94, Nucleated RBC % 0, Differential Comment SCANNED 06/19/20 05:00: Sodium Cancelled, Potassium Cancelled, Chloride Cancelled, Carbon Dioxide Cancelled, Anion Gap Cancelled, BUN Cancelled, Creatinine Cancelled, Estim Creat Clear Calc Cancelled, Est GFR (MDRD) Af Amer Cancelled, Est GFR (MDRD) Non-Af Cancelled, BUN/Creatinine Ratio Cancelled, Glucose Cancelled, Calcium Cancelled, Total Bilirubin Cancelled, AST Cancelled, ALT Cancelled, Alkaline Phosphatase Cancelled, Total Protein Cancelled, Albumin Cancelled, Globulin Cancelled, Albumin/Globulin Ratio Cancelled 06/19/20 07:51: Sodium 140, Potassium 4.7, Chloride 107, Carbon Dioxide 22.0, Anion Gap 11, BUN 20 H, Creatinine 0.97, Estim Creat Clear Calc 82.27, Est GFR (MDRD) Af Amer 102, Est GFR (MDRD) Non-Af 85, BUN/Creatinine Ratio 20.6 H, Glucose 157 H, Calcium 8.0 L, Total Bilirubin 0.80, AST 41 H, ALT 29, Alkaline Phosphatase 88, Total Protein 6.4, Albumin 3.0 L, Globulin 3.4, Albumin/Globulin Ratio 0.9 06/19/20 07:51: POC Glucose 163 H Current Medications Acetaminophen (Acetaminophen 325 Mg Tablet) 650 mg PO Q6H PRN PRN PRN Reason: Pain Score 1-10/Temp > 100.7 F Last Admin: 06/19/20 06:37 Dose: 650 mg Documented by: Al Hydroxide/Mg Hydroxide (Mag Hydrox/Al Hydrox/Simeth 30 Ml Udc) 30 ml PO Q6H PRN PRN PRN Reason: Gastric Burning Albuterol Sulfate (Albuterol 2.5 Mg/3 Ml Vial.Neb.) 2.5 mg INHALATION Q2H PRN PRN PRN Reason: Shortness of Breath/Wheezing Aspirin (Aspirin E.C. 81 Mg Tablet) 81 mg PO DAILY@0800 [facility] Last Admin: 06/19/20 08:02 Dose: 81 mg Documented by: Atorvastatin Calcium (Atorvastatin Calcium 40 Mg Tablet) 40 mg PO QHS [facility] Last Admin: 06/18/20 21:09 Dose: 40 mg Documented by: Enoxaparin Sodium (Enoxaparin 40 Mg/0.4 Ml Syringe) 40 mg SC BID [facility] Last Admin: 06/19/20 08:02 Dose: 40 mg Documented by: Flecainide Acetate (Flecainide 100 Mg Tablet) 100 mg PO BID [facility] Last Admin: 06/19/20 08:03 Dose: 100 mg Documented by: Furosemide (Furosemide 40 Mg/4 Ml Vial) 40 mg IV BID [facility] Last Admin: 06/19/20 08:03 Dose: 40 mg Documented by: Guaifenesin (Guaifenesin 10 Ml Udc (200mg/10ml)) 20 ml PO Q4H PRN PRN PRN Reason: COUGH Piperacillin Sod/Tazobactam (Sod 3.375 gm/ Sodium Chloride) 50 mls @ 12.5 mls/hr IV Q8 [facility] Last Admin: 06/19/20 08:51 Dose: 12.5 mls/hr Documented by: Vancomycin IV Pharmacy to Dose (1 ea/ Sodium Chloride) 500 mls @ 250 mls/hr IV X1 PRN; Protocol PRN Reason: Rx to Dose Vancomycin HCl 2,000 mg/ (Sodium Chloride) 540 mls @ 250 mls/hr IV Q12H [facility] Last Admin: 06/19/20 05:54 Dose: 250 mls/hr Documented by: Insulin Human Lispro (Insulin Lispro 100 Unit/Ml Insuln.Pen) 0 unit SC ACHS [facility]; Protocol Last Admin: 06/19/20 08:01 Dose: 1 units Documented by: Insulin Human Regular (Insulin U-500 Pen) 125 units SC DINNER [facility] Last Admin: 06/18/20 17:00 Dose: 125 units Documented by: Insulin Human Regular (Insulin U-500 Pen) 190 units SC BREAKFAST [facility] Last Admin: 06/19/20 08:01 Dose: 190 u Documented by: Losartan Potassium (Losartan Potassium 50 Mg Tablet) 50 mg PO DAILY [facility] Last Admin: 06/19/20 08:05 Dose: 50 mg Documented by: Melatonin (Melatonin 3 Mg Tablet) 3 mg PO QHS PRN PRN PRN Reason: INSOMNIA Metoprolol Tartrate (Metoprolol Tartrate 25 Mg Tablet) 25 mg PO BID [facility] Last Admin: 06/19/20 08:02 Dose: 25 mg Documented by: Ondansetron HCl (Ondansetron 4 Mg/2 Ml Vial) 4 mg IV Q8H PRN PRN PRN Reason: NAUSEA/VOMITING Oxycodone HCl (Oxycodone 5 Mg Tablet) 5 mg PO Q4H PRN PRN PRN Reason: Pain Score 4-10 Senna/Docusate Sodium (Senna/Docusate Sodium 1 Tablet) 2 tablet PO BID PRN PRN PRN Reason: Constipation Sodium Chloride (0.9% Saline Lock 10 Ml Syringe) 10 - 40 ml IV UD PRN PRN Reason: SALINE FLUSH Last Admin: 06/17/20 17:10 Dose: 10 ml Documented by: Discharge Diet: Low fat/ Low Cholesterol, 6 Cup Fluid Restriction, 2000 mg Sodium Diet Discharge Activity: Return to Normal Activity, May Shower Weight Bearing Status: Weight bearing as tolerated Keep extremity elevated above heart level: Right Leg Call your doctor if your incision/area has: Continuous Slow Oozing, Increased Pain/ Swelling, Increased Redness, Foul Smelling Discharge Call your doctor if you observe: Fever of 101 or Higher, Calf discomfort, Uncontrolled pain Cleanse incision/area with: Soap & Water, - - Change right great toe dressing daily with Betadine moistened gauze Home Medications: Medications to take at Discharge Metformin HCl [Metformin ER Osmotic] 1,000 mg PO BID 02/01/19 Multivitamin with Minerals [Multiple Vitamin] 1 tab PO DAILY 02/01/19 Aspirin E.C. [Ecotrin] 81 mg PO DAILY@0800 #60 tab 02/06/19 rosuvastatin 20 mg tablet 20 mg PO QHS #90 tab 02/27/19 flecainide 100 mg tablet 100 mg PO BID #180 tab 04/16/20 metoprolol tartrate 25 mg tablet 25 mg PO BID #180 tab 04/16/20 potassium chloride 20 mEq tablet,extended release(part/cryst) 20 meq PO BID #180 tab 04/16/20 dulaglutide 3 mg/0.5 mL subcutaneous pen injector 3 mg SC JOHNSON 05/10/20 insulin regular hum U-500 conc 125 unit SC DINNER ml 05/10/20 insulin regular hum U-500 conc 190 unit SC BREAKFAST ml 06/13/20 ipratropium 0.5 mg-albuterol 3 mg (2.5 mg base)/3 mL nebulization soln 3 ml INHALATION Q6H PRN ml 06/13/20 Furosemide 80 mg PO DAILY 06/17/20 Furosemide [Lasix] 40 mg PO DAILY 06/17/20 Telmisartan/Hydrochlorothiazid [Telmisartan-Hctz 80-12.5 mg Tb] 1 tab PO DAILY 06/17/20 Cephalexin [Keflex] 500 mg PO Q6 5 Days #20 cap 06/19/20 Doxycycline 100 mg PO BID 5 Days #10 cap 06/19/20 Following Prescriptions Were Given to Patient: Doxycycline 100 mg PO BID 5 Days #10 cap Transmission Status: Received by [facility] #[id number] Cephalexin [Keflex] 500 mg PO Q6 5 Days #20 cap Transmission Status: Received by [facility] #[id number] Primary Care Physician: Jus Shields MD [Primary Care Provider] - Please follow up with your Primary Care Physician in: within 1-2 weeks Please Follow Up With: Zak Reeves DPM When: 1 - 1.5 weeks. call [phone] Please Follow Up With: Chel Mcnamara DPM When: 1 - 1.5 weeks if you can't get in to see Dr. Reeves. Call [phone] Disposition: Home Minutes spent on discharge:: 40 Patient Condition:: Stable Medical Necessity - Tobacco Use Smoking Status: Never smoker Tobacco Use: Non-smoker Meaningful Use Info Meaningful Use Diagnoses (Choose all that apply): CHF - CHF SHAE/ARB ordered at discharge?: Yes Documented LVEF (%): 70 Inpatient E&M: 53318 Disch Hosp
[2020-06-19 12:00] VITALS: BP 146/61; PULSE 64; RESP 18; TEMP 36.7; O2SAT 96
[2020-06-19 12:30] LABS: Bedside Glucose 182 mg/dL (70-110)
[2020-06-20 13:37] LABS: Pathologist Review Reviewed
== END 2020-06-19 12:31 | disposition home or self-care (01) | DRG 871 ==
LOC: ED 15:27 → MS3 15:59
PROVIDERS: Admitting Provider Internal Medicine; Emergency Provider Emergency Medicine; PCP Family Medicine; Visit Provider Internal Medicine
DX: A41.9 Sepsis, unspecified organism (principal); I50.43 Acute on chronic combined systolic (congestive) and diastolic (congestive) heart failure; E87.2 Acidosis; L03.115 Cellulitis of right lower limb; E66.2 Morbid (severe) obesity with alveolar hypoventilation; I48.20 Chronic atrial fibrillation, unspecified; E87.1 Hypo-osmolality and hyponatremia; Z68.43 Body mass index [BMI] 50.0-59.9, adult; N17.9 Acute kidney failure, unspecified; R65.20 Severe sepsis without septic shock; I11.0 Hypertensive heart disease with heart failure; I48.0 Paroxysmal atrial fibrillation; L60.0 Ingrowing nail; B95.61 Methicillin susceptible Staphylococcus aureus infection as the cause of diseases classified elsewhere; I25.10 Atherosclerotic heart disease of native coronary artery without angina pectoris; E11.40 Type 2 diabetes mellitus with diabetic neuropathy, unspecified; E11.65 Type 2 diabetes mellitus with hyperglycemia; E78.2 Mixed hyperlipidemia; I27.20 Pulmonary hypertension, unspecified; Z79.82 Long term (current) use of aspirin; Z79.4 Long term (current) use of insulin; Z79.899 Other long term (current) drug therapy; Z86.14 Personal history of Methicillin resistant Staphylococcus aureus infection
CPT/HCPCS: 36415; 80048; 80053; 80202; 82962; 83036; 83605; 83735; 84100; 85025; 87040; 87070; 87075; 87077; 87186; 87205; 87640; 93005; 93971; 97802; 99251; 99284; J7030; J7040; J7050; A4216; G0463; J1940

== ENCOUNTER 2020-06-28 07:39 | Day surgery (SDC) | payer OTHER, SELFPAY ==
[2020-06-13 08:25] VITALS: BMI 54.6
--- NOTE | 2020-06-16 12:17 | RAD_ITS ---
STUDY: X-RAY CHEST REASON FOR EXAM: Male, 54 years old. SOB,? PULMONARY HYPERTENSION -- HAVING HEART CATH NEXT WEEK TECHNIQUE: Frontal and lateral views COMPARISON: 07/06/2019 FINDINGS: The lungs are expanded. Bibasilar atelectasis. Normal size heart. Normal mediastinum and loli. Normal visualized pulmonary arteries. Normal visualized aortic arch and descending thoracic aorta. Normal visualized thoracic spine. Normal visualized ribs, clavicles, and shoulders. There is no demonstrated abnormality of the visualized soft tissue structures of the upper abdomen. RAD/Chest PA and Lateral IMPRESSION: Bilateral basilar atelectasis. Electronically Signed: Ted Benton DO at 19:53 EST Tel [phone], Service support ,
[2020-06-16 13:27] LABS: Absolute Lymphocyte Count 1.61 X10^3/uL (0.83-4.51); Absolute Neutrophil Count 10.9 X10^3/uL (2.0-7.7); Basophil# 0.08 X10^3/uL; Basophil% 0.6 % (0-1); Eosinophil# 0.08 X10^3/uL; Eosinophils% 0.6 % (0-5); Hematocrit 46.3 % (40-54); Hemoglobin 15.3 g/dL (13.0-16.5); Lymphocyte # 1.61 X10^3/ul (4.0); Lymphocyte % 11.6 % (19-41); Mean Corpuscular Volume 87.7 fL (80-94); Mean Platelet Vol. 10.1 fl (6.2-12.0); Monocyte# 1.13 X10^3/uL; Monocyte% 8.2 % (0-10); NRBC Flagged by Analyzer 0 % (0-5); Neutrophil # 10.87 X10^3/uL (2.7-7.7); Neutrophil % 78.6 % (47-70); Platelet Count 273 K/mm3 (150-450); RBC Distribution Width CV 13.2 % (11.6-14.6); RBC Distribution Width SD 42.7 fl (35.1-43.9); Red Blood Count 5.28 M/mm3 (4.6-6.2); White Blood Count 13.8 K/mm3 (4.4-11.0)
[2020-06-16 13:38] LABS: Prothrombin Time (Protime)PT. 13.1 SECONDS (11.7-14.9)
[2020-06-16 13:39] LABS: Partial Thromboplast Time 25.4 Seconds (24.1-36.2)
[2020-06-16 13:51] LABS: Anion Gap 9 (5-15); BUN 25 mg/dL (7-18); BUN/Creat Ratio 23.8 RATIO (10-20); Calcium,Total 9.1 mg/dL (8.5-10.1); Chloride 101 mmol/L (98-107); Creatinine, Serum 1.05 mg/dL (0.70-1.30); EST Glomerular Filtration Rate 77 mL/min (>60); Est Glom Filt Rate - Afr Amer 94 mL/min (>60); Glucose 122 mg/dL (74-106); Potassium 3.7 mmol/L (3.5-5.1); Sodium Level 136 mmol/L (136-145)
[2020-06-17 16:28] VITALS: BMI 52.2
[2020-06-25 08:17] LABS: Hematocrit 45.8 % (40-54); Hemoglobin 14.6 g/dL (13.0-16.5); Mean Corp Hgb Conc 31.9 g/dL (32-36); Mean Corpuscular Hgb 28.1 pg (27.0-32.0); Mean Corpuscular Volume 88.2 fL (80-94); Mean Platelet Vol. 9.4 fl (6.2-12.0); Platelet Count 375 K/mm3 (150-450); RBC Distribution Width CV 12.9 % (11.6-14.6); RBC Distribution Width SD 41.9 fl (35.1-43.9); Red Blood Count 5.19 M/mm3 (4.6-6.2); White Blood Count 10.9 K/mm3 (4.4-11.0)
[2020-06-25 08:39] LABS: Anion Gap 9 (5-15); BUN 23 mg/dL (7-18); BUN/Creat Ratio 21.1 RATIO (10-20); Calcium,Total 9.6 mg/dL (8.5-10.1); Chloride 102 mmol/L (98-107); Creatinine, Serum 1.09 mg/dL (0.70-1.30); EST Glomerular Filtration Rate 74 mL/min (>60); Est Glom Filt Rate - Afr Amer 90 mL/min (>60); Glucose 192 mg/dL (74-106); Potassium 3.8 mmol/L (3.5-5.1); Sodium Level 137 mmol/L (136-145)
[2020-06-27 09:28] VITALS: BMI 54.6
--- NOTE | 2020-06-28 07:16 | HP_ITS ---
HPI HPI History of Present Illness Surgical H&P: Yes Details: This is a 54-year-old gentleman that presents here today for a cardiovascular follow-up. He has a history of minimal coronary artery disease, hypertension, paroxysmal atrial fibrillation, obstructive sleep apnea on Bipap, diastolic heart failure and pulmonary hypertension. Patient is following with pulmonary, it has been difficult to properly assess patient's right heart pressures due to his body habitus with echoes and they are requesting that he undergo a right heart catheterization. This will be done by Dr. Collins Pt does have fatigue. He feels that this is similar to what it was previous. He does use his Bipap. He was recently started on home O2. He does not have it today. He does not have any chest pain. He does have SOB, he is able to get dressed but any amount of walking makes him SOB. He did need to stop once walking up to our office. He does not have any palpitations that he is aware of. He does not have any lightheadedness/dizziness. He does sometimes have swelling. Intake Vital Signs 06/13/20 Height 5 ft 7 in 06/13/20 Weight: 349 lb 06/13/20 BMI 54.6 06/13/20 BP 140/60 H 06/13/20 Blood Pressure Location Lt brachial 06/13/20 Position Sitting 06/13/20 Respiration 18 06/13/20 Pulse 64 06/13/20 Pulse Source Auscultation Intake Visit Reasons: Updated H & P Senior Clinical Data Coordinator Required: No Accompanied by: None Is patient in pain?: No Allergies No Known Allergies Allergy (Verified 06/13/20 08:29) Medications Metformin HCl [Metformin ER Osmotic] 1,000 mg PO BID 02/01/19 [History Confirmed 06/13/20] Multivitamin with Minerals [Multiple Vitamin] 1 ea PO DAILY 02/01/19 [History Confirmed 06/13/20] Aspirin E.C. [Ecotrin] 81 mg PO DAILY@0800 #60 tab 02/06/19 [Rx Confirmed 06/13/20] rosuvastatin 20 mg tablet 20 mg PO QHS #90 tab 02/27/19 [Rx Confirmed 06/13/20] telmisartan 80 mg-hydrochlorothiazide 12.5 mg tablet 1 tab PO DAILY #1 tab 03/07/20 [Rx Confirmed 06/13/20] flecainide 100 mg tablet 100 mg PO BID #180 tab 04/16/20 [Rx Confirmed 06/13/20] metoprolol tartrate 25 mg tablet 25 mg PO BID #180 tab 04/16/20 [Rx Confirmed 06/13/20] potassium chloride 20 mEq tablet,extended release(part/cryst) 20 meq PO BID #180 tab 04/16/20 [Rx Confirmed 06/13/20] furosemide 40 mg tablet 40 mg PO .COMPLEX #270 tab 04/19/20 [Rx Confirmed 06/13/20] dulaglutide 3 mg/0.5 mL subcutaneous pen injector 3 mg SC QWEEK 05/10/20 [History Confirmed 06/13/20] insulin regular hum U-500 conc 125 unit SC DINNER ml 05/10/20 [History Confirmed 06/13/20] insulin regular hum U-500 conc 190 unit SC BREAKFAST ml 06/13/20 [History Confirmed 06/13/20] ipratropium 0.5 mg-albuterol 3 mg (2.5 mg base)/3 mL nebulization soln 3 ml INHALATION Q6H PRN ml 06/13/20 [History Confirmed 06/13/20] Ejection fraction %: 65 to 70 PFSH Medical History 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) Mixed hyperlipidemia (Chronic) Essential hypertension (Chronic) Type 2 diabetes mellitus (Chronic) Paroxysmal atrial fibrillation (Chronic) Atherosclerotic heart disease of [place] coronary artery without angina pectoris (Chronic) Hypertensive emergency (Inactive) Dyspnea (Acute) Abnormal stress test (Inactive) Surgical History History of tonsillectomy (Chronic) History of knee surgery (Resolved) Family History Father CAD (coronary artery disease) Myocardial infarction Hypertension Diabetes CVA (cerebral vascular accident) Mother Diabetes Hypertension Social History (Updated 06/13/20 @ 11:38 by Stephani BLANCHARD, PA) Smoking Status: Never smoker alcohol intake: never substance use type: does not use caffeine: Yes Type: carbonated beverages Number of servings: 4 ROS Const Const: Positive for fatigue; negative for weakness, headache(s), frequent falls, difficulty sleeping or excessive sweating Eyes Eyes: Negative for loss of peripheral vision, transient loss of vision, blurry vision, double vision or tunnel vision ENT ENT: Negative for headache(s), dizziness, Nosebleed/epistaxis or balance problems Cardio Chest Pain: No Palpitations: No Edema: Bilateral Muscle aches with walking: None Resp Respiratory: Positive for SOB with activity; negative for SOB at rest, SOB orthopnea\SOB lying down, Cough or paroxysmal nocturnal dyspnea GI GI: Negative nausea, vomiting, heartburn or black,tarry stools : Negative for hematuria Musc Musc: Positive for muscle weakness; negative for muscle aches/ myalgia, joint pain or balance problems Skin Skin: Negative non-healing lesions, rash or unusual bruising Neuro Neuro: Negative for dizziness, lightheadedness, near syncope, syncope, frequent falls, headache(s), weakness, blurry vision, double vision or lack of coordination Kyle Hematologic/Lymphatic: Negative for easy bleeding or easy bruising Endo Endo: Positive for fatigue; negative for excessive sweating or increased thirst/drinking Psych Psych: Negative for anxiety or depression Allergy Allergy/Immunology: Negative for hives, Negative for rash Cardiology Exam Const Appearance: cooperative, healthy appearing, comfortable, no acute distress, well developed and well groomed Nutritional Appearance: well nourished and obese Orientation: alert, awake and oriented x3 Head Head: normal to inspection, normocephalic and atraumatic Ears: hearing grossly normal bilaterally Nose: external nose normal Face and Sinus: face symmetric Eyes Eyelids: eyelids normal Conjunctivae: conjunctivae normal Pupils: PERRL EOM: EOM intact bilaterally Neck Neck: normal visual inspection, full ROM and no JVD Carotids: normal carotid upstroke Chest Chest inspection: normal inspection of the chest, symmetric chest movement and normal respiratory effort; negative cough Auscultation: Bilateral: Clear to Auscultation Cardio Palpation: normal PMI Rate: regular rate Rhythm: regular rhythm Heart sounds: S1 normal, S2 normal and murmur; negative rub or gallop Murmur: Grade 2/6, soft, mid systolic and LLSB GI GI: normal to inspection, soft, bowel sounds present and obese Neuro General: alert, awake, oriented x3 and moves all extremities Skin Skin: no rashes or lesions noted Extremities Pulses: Normal: Right Posterior Tibial Pulse, Left Posterior Tibial Pulse, Right Radial Pulse, Left Radial Pulse Lower Extremity Edema: +1: Bilateral Psych Psychological: normal affect Assessment & Plan 1. Pulmonary hypertension I27.20 Plan With patient's shortness of breath, we are unable to adequately get an estimated pulmonary pressure per echo. Would like to pursue a right heart catheterization to further evaluate for pulmonary. This will be done in the near future. Patient Instructions Your heart cath is 06/28 with an arrival time of 0800 and procedure time is 0930 You will need a medical delivery driver that day Nothing to eat or drink after midnight The morning of the procedure, with a small sip of water take: Flecainide, Metoprolol, Talmisartan Hold all diabetic medications morning of. Orders Orders: 12 Lead EKG performed by BMS Today Basic Metabolic Profile (BMP) Today Partial Thromboplast Time Today Prothrombin Time w/INR Today CBC W/Diff, Automated Today Chest PA and Lateral Today 2. Atherosclerosis of [place] coronary artery of [place] heart without angina pectoris I25.10 Mild:DISTAL LAD: 25 % Stenosis;DISTAL CIRC: 25 % Stenosis per cath 02/04/19 Plan Stable, from a cardiac standpoint patient does not have any symptoms of angina. We recommend that they continue with current aggressive medical management and risk factor modification. Orders Orders: 12 Lead EKG performed by BMS Today Basic Metabolic Profile (BMP) Today Partial Thromboplast Time Today Prothrombin Time w/INR Today CBC W/Diff, Automated Today Chest PA and Lateral Today 3. Essential hypertension I10 Plan Blood pressure is well controlled on current medications, we do not recommend any changes at this time. Orders Orders: Basic Metabolic Profile (BMP) Today Partial Thromboplast Time Today Prothrombin Time w/INR Today CBC W/Diff, Automated Today Chest PA and Lateral Today 4. Mixed hyperlipidemia E78.2 Plan Patient will continue with moderate intensity statin. Orders Orders: Basic Metabolic Profile (BMP) Today Partial Thromboplast Time Today Prothrombin Time w/INR Today CBC W/Diff, Automated Today Chest PA and Lateral Today 5. Paroxysmal atrial fibrillation I48.0 Plan Patient has not had any symptomatic recurrence. For now he will continue with his aspirin, flecainide and metoprolol. If he has any further recurrence we will need to reconsider anticoagulation. Orders Orders: 12 Lead EKG performed by BMS Today Basic Metabolic Profile (BMP) Today Partial Thromboplast Time Today Prothrombin Time w/INR Today CBC W/Diff, Automated Today Chest PA and Lateral Today 6. Dyspnea on exertion R06.09 Orders Orders: Basic Metabolic Profile (BMP) Today Partial Thromboplast Time Today Prothrombin Time w/INR Today CBC W/Diff, Automated Today Chest PA and Lateral Today Plan Detail Follow Up 06/13/20 (keep as is) Coding Level of Care Code Off vis,est,level 4 Diagnoses Pulmonary hypertension I27.20 Atherosclerosis of [place] coronary artery of [place] heart without angina pectoris I25.10 ??[place] vs. transplanted heart: [place] heart Essential hypertension I10 Mixed hyperlipidemia E78.2 Paroxysmal atrial fibrillation I48.0 Dyspnea on exertion R06.09 ??Dyspnea type: dyspnea on exertion Coding Level of Care Code Off vis,est,level 4 Diagnoses Pulmonary hypertension I27.20 Atherosclerosis of [place] coronary artery of [place] heart without angina pectoris I25.10 ??[place] vs. transplanted heart: [place] heart Essential hypertension I10 Mixed hyperlipidemia E78.2 Paroxysmal atrial fibrillation I48.0 Dyspnea on exertion R06.09 ??Dyspnea type: dyspnea on exertion Supplemental Info Supplemental Information Transthoracic echocardiogram: 02-01-19 Interpretation Summary Normal LV size. Left ventricular systolic function is normal. The estimated ejection fraction is 60 %. Contrast injection was performed. Echocardiogram: 07/07/2019 Interpretation Summary The study was technically difficult. Contrast injection was performed. Left ventricular systolic function is normal. The estimated ejection fraction is 70 %. Moderate concentric left ventricular hypertrophy. Mild to moderate left atrial enlargement. Mild to moderate right atrial enlargement. Trivial pulmonic valve insufficiency. Unable to estimate RV systolic pressure/pulmonary artery pressure due to technically difficult study. Diastolic function is indeterminate. Stress Test Report Date: 02-03-19 Procedure: Pharmacologic stress nuclear imaging study Indications: Chest pain; shortness of breath/dyspnea Consent: Per the patient Procedure: The patient underwent pharmacologic (Regadenoson) evaluation with a peak heart rate of 107 beats per minute (64 %predicted maximal heart rate) and a peak blood pressure of 132/78 mmHg. The baseline ECG demonstrated atrial fibrillation, poor R wave progression, anterolateral WA of indeterminate age cannot be excluded. The peak pharmacologic ECG demonstrated no obvious ECG changes. There were occasional PVCs in recovery. There was no complaint of chest discomfort during pharmacologic infusion or recovery. The examination was discontinued secondary to completion of protocol. Impression: 1. Pharmacologic (Regadenoson) evaluation 2. Peak pharmacologic ECG with 10 unit atrial fibrillation, poor R wave progression, anterolateral WA of indeterminate age cannot be excluded, without obvious ECG changes compared to baseline. 3. There were occasional PVCs in recovery. 4. Nuclear images pending Myocardial perfusion imaging study: Technique: The patient was injected with 13.5 millicuries of technetium 99m Cardiolite and subsequently rest SPECT Cardiolite nuclear imaging was obtained in the horizontal long, vertical long, and short axis views. The patient underwent pharmacologic (Regadenoson) evaluation with a peak heart rate of 107 beats per minute (64 % percent predicted maximal heart rate) and a peak blood pressure of 132/78 mmHg. The patient was injected with 44.6 millicuries of technetium 99m Cardiolite and subsequently stress SPECT Cardiolite nuclear imaging was obtained in the horizontal long, vertical long, and short axis views. A gated Cardiolite study at peak stress was obtained. Interpretation: Rest and stress SPECT Cardiolite nuclear imaging status post realignment, normalization, and attenuation correction demonstrate appearance of diminished to absence of myocardial perfusion/tracer uptake in portions of the inferior apical segments at rest and status post stress. Status post stress there are areas of diminished absence of myocardial perfusion/tracer uptake in portions of the distal inferolateral, inferoapical, and lateral apical segments.. There is diminished end systolic thickening and brightening in the aforementioned areas.. The gated Cardiolite study demonstrates myocardial thickening and inward wall motion. The reported LVEF is 47 %. Impression: 1. Rest and stress SPECT currently nuclear imaging demonstrate myocardial perfusion changes appearing compatible with an area of previous myocardial injury/infarction involving portions of the inferior apical segments, however, an element of physiologic apical thinning cannot necessarily be excluded, as well as post stress myocardial perfusion changes concerning for areas of stress- induced myocardial ischemia in portions of the distal inferolateral, inferior apical, and lateral apical segments. 2. The gated Cardiolite study reports an LVEF of 47 %. Cardiac catheterization: 02-05-19 CONCLUSIONS Elevated Left Ventricular End Diastolic Pressure Normal LV size, wall motion,and systolic function LVEF: by LV gram 55 % [place] Multivessel CAD RECOMMENDATIONS Risk factor modification Medical therapy CORONARY ANGIOGRAPHY DOMINANCE: Right Dominant LEFT HEART ASSESSMENT Left Ventricular Ejection Fraction: by LV Gram 55 % Normal LV wall motion Elevated Left Ventricular End Diastolic Pressure LVEDP: 31 mmHg LEFT MAIN: Angiographically normal LEFT ANTERIOR DESCENDING ARTERY: Mild luminal irregularities DISTAL LAD: 25 % Stenosis CIRCUMFLEX ARTERY: Mild luminal irregularities DISTAL CIRC: 25 % Stenosis RIGHT CORONARY ARTERY: Mild luminal irregularities VALVE FINDINGS: Normal Aortic Valve function Normal Mitral Valve function Diagnostics Electrocardiogram 06/13/20 Echocardiogram 07/07/19 Chest X-Ray 07/06/19 COVID (Procedure Consent) Procedure Criteria Procedure Criteria: Yes Elective The surgeon/proceduralist and patient have discussed in detail the risk of exposure to and/or potential harm posed by the COVID-19 virus with having a surgery/procedure at this time versus the risk of? delaying the surgery/procedure. It is not possible to know either the risk of delaying the surgery or procedure or chance of getting an infection with perfect accuracy, but a joint decision was made between the patient and the surgeon/proceduralist ?to proceed at this time with the scheduled surgery/procedure as indicated on the consent form. I have re-examined the patient. There are no clinical changes since date of exam.
[2020-06-28 10:55] LABS: Blood Gas Specimen Type VEN; VBG BASE EXCESS 4 mmol/L (-1.0-3.5); VBG Bicarbonate 29 mmol/L (22-26); VBG PO2 40 mmHg (25-40); VBG SO2 72 % (50-70); VBG TCO2 30 mmol/L (23-33); VBG pCO2 48.7 mmHg (41-51); VBG pH 7.38 (7.32-7.42)
[2020-06-28 10:56] LABS: Blood Gas Specimen Type VEN; VBG BASE EXCESS 3 mmol/L (-1.0-3.5); VBG Bicarbonate 28 mmol/L (22-26); VBG PO2 39 mmHg (25-40); VBG SO2 72 % (50-70); VBG TCO2 30 mmol/L (23-33); VBG pCO2 47.9 mmHg (41-51); VBG pH 7.38 (7.32-7.42)
[2020-06-28 11:01] LABS: Blood Gas Specimen Type VEN; VBG BASE EXCESS 3 mmol/L (-1.0-3.5); VBG Bicarbonate 29 mmol/L (22-26); VBG PO2 35 mmHg (25-40); VBG SO2 64 % (50-70); VBG TCO2 30 mmol/L (23-33); VBG pCO2 49.2 mmHg (41-51); VBG pH 7.37 (7.32-7.42)
[2020-06-28 11:06] LABS: Blood Gas Specimen Type VEN; VBG BASE EXCESS 3 mmol/L (-1.0-3.5); VBG Bicarbonate 28 mmol/L (22-26); VBG PO2 37 mmHg (25-40); VBG SO2 69 % (50-70); VBG TCO2 30 mmol/L (23-33); VBG pCO2 48.6 mmHg (41-51); VBG pH 7.38 (7.32-7.42)
--- NOTE | 2020-06-28 14:50 | CL.D_ITS ---
Patient Name: JAVON ROTH Study Date: 06/28/2020 Performing: Dominik Collins MD Ht: 67 inches 170 cm : 1965 Wt: 348.8 lbs 158 kg Age: 54 Gender: male BSA: 2.56 PROCEDURE(S) PERFORMED [id number] ONLY CLINICAL PROFILE AND INDICATIONS Indications: Other: Pulmonary Hypertension evaluation Heart Failure: NYHA Class: 3, Newly Diagnosed: No, Heart Failure Type: Diastolic Stress/Imaging Date: 02/03/2019Stress Test with SPECT MPI: Positive Intermediate Risk Angina Classification Anginal Classification w/in 2 Weeks: No symptoms CAD Presentations: Other: dyspnea on exertion CONCLUSIONS Right heart pressures - severely elevated The patient has pulmonary hypertension which is severe. Intracardiac shunting: None RECOMMENDATIONS Risk factor modification Medical therapy DESCRIPTION OF PROCEDURE The patient arrived to the procedure lab. The risks and benefits of the procedure as well as a full d escription of our services here and current unavailability of surgical backup were fully explained to the patient and/or their significant other prior to the catheterization. The Timeout was completed, verifying the correct patient and procedure. The patient's procedural site was prepped and draped in the usual fashion. Local anesthetic was given subcutaneously to right brachial region with Lidocaine 2%. Local anesthetic was given subcutaneously to left brachial region with Lidocaine 2%. Local anesth etic was given subcutaneously to right groin region with Lidocaine 2%. Using a modified Seldinger gino hnique, Venous access was obtained via the right brachiocephalic vein, a 6Fr sheath was inserted.. V enous access was obtained via the left brachiocephalic vein, a 6Fr sheath was inserted.. Venous acces s was obtained via the right femoral vein, a 7Fr sheath was inserted. A 5Fr thermal dilution catheter was inserted and right heart pressures were recorded.. A 7Fr thermal dilution lucia ter was inserted and right heart pressures were recorded, it was then advanced to PA position for car diac outputs. O2 saturations were then obtained. The Thermal dilution catheter was then removed.The r ight brachial venous sheath was then pulled and manual compression applied until hemostasis achieved. The left brachial venous sheath was then pulled and manual compression applied until hemostasis achi eved. The right femoral venous sheath was then pulled and manual compression applied until hemostasis achieved CORONARY ANGIOGRAPHY LEFT HEART ASSESSMENT Left Ventricular Ejection Fraction: Not assessed RIGHT HEART ASSESSMENT Thermal CO: 10.39 Thermal CI: 4.06 Perla CO: 8.57 Perla CI: 3.35 PW: 12 PA: 64 36 RV: 66/-2 7 RA: 05/18 0 PVR: 185 Right Heart pressures - elevated Pulmonary Hypertension Severe Intracardiac shunting: None COMPLICATIONS No Complications PROCEDURE MEDICATIONS Oxygen: 4 L/min via nasal cannula Oxygen: 0 L/min via nasal cannula SUMMARY OF HEMODYNAMIC DATA Time AIR REST ECG 08:06:24 RA 05/18 (0) 10:50:44 RV 66/-2, 7 10:51:06 PW (12) PV 10:51:38 PA / (36) PA 10:52:30 Type SV CO (l/m) CI (l/m/ HR Time AIR REST Thermal 170.30 10.39 4.06 61 08:06:24 Perla 140.50 8.57 3.35 61 08:06:24 Label % O2 Pres/Loc Time AIR REST AO 92 PV 11:04:55 SVC 69 11:05:01 PA 64 PA 11:05:11 IVC 72 SV 11:05:21 Signed By Dominik Collins MD On 06/28/2020 14:49:07 Dominik Collins MD
== END 2020-06-28 13:40 | disposition home or self-care (01) ==
LOC: CLSP 07:40
PROVIDERS: Physician Assistant Medical; PCP Family Medicine; Referring Provider Internal Medicine Cardiovascular Disease; Visit Provider Internal Medicine Cardiovascular Disease
DX: I27.20 Pulmonary hypertension, unspecified (principal); I49.3 Ventricular premature depolarization; R06.09 Other forms of dyspnea; I11.0 Hypertensive heart disease with heart failure; I50.42 Chronic combined systolic (congestive) and diastolic (congestive) heart failure; I48.0 Paroxysmal atrial fibrillation; E11.9 Type 2 diabetes mellitus without complications; I25.10 Atherosclerotic heart disease of native coronary artery without angina pectoris; E78.2 Mixed hyperlipidemia; G47.33 Obstructive sleep apnea (adult) (pediatric); Z99.81 Dependence on supplemental oxygen; Z79.82 Long term (current) use of aspirin; Z79.4 Long term (current) use of insulin; Z79.899 Other long term (current) drug therapy
CPT/HCPCS: 36415; 71046; 80048; 82803; 85025; 85027; 85610; 85730; 93451; C1751; J7040; C1769; C1894

== ENCOUNTER → 2020-08-29 09:07 | Outpatient (CLI) | payer OTHER, SELFPAY ==
[2020-08-25 10:29] VITALS: BMI 54.6
[2020-08-31 12:39] LABS: ANTINUCLEAR ANTIBODIES DIRECT Negative (Negative)
[2020-09-01 03:06] LABS: Cytoplasmic Ab (C-ANCA) <1:20 titer (Neg:<1:20)
[2020-09-01 16:34] LABS: CCP IgG Antibodies 8 units (0-19); Perinuclear Ab (P-ANCA) <1:20 titer (Neg:<1:20)
== END ==
LOC: LAB 09:09
PROVIDERS: PCP Family Medicine; Referring Provider Nurse Practitioner Acute Care; Visit Provider Nurse Practitioner Acute Care
DX: I27.20 Pulmonary hypertension, unspecified (principal)
CPT/HCPCS: 36415; 86038; 86200; 86225; 86235; 86256; 86431

== ENCOUNTER → 2021-02-01 06:01 | Outpatient (CLI) | payer OTHER, SELFPAY ==
[2021-02-01 08:25] LABS: AST(SGOT) 24 U/L (15-37); Alanine Aminotransfer ALT/SGPT 36 U/L (16-61); Albumin, Serum 3.4 g/dL (3.2-5.0); Alkaline Phosphatase 112 U/L (45-117); Bilirubin, Direct 0.09 mg/dL (0.00-0.30); Cholesterol 127 mg/dL (200); Globulin 3.8 g/dL (2.2-4.2); High Density Lipoprotein 32 mg/dL; Protein, Total 7.2 g/dL (6.4-8.2); Triglycerides 554 mg/dL
== END ==
LOC: LAB 06:02
PROVIDERS: PCP Family Medicine; Referring Provider Nurse Practitioner Gerontology; Visit Provider Nurse Practitioner Gerontology
DX: E78.2 Mixed hyperlipidemia (principal)
CPT/HCPCS: 36415; 80061; 80076

== ENCOUNTER 2021-07-04 22:27 | Inpatient (IN) | payer OTHER, SELFPAY ==
[2021-07-04 22:28] VITALS: PULSE 65; RESP 28; O2SAT 79
[2021-07-04 22:29] VITALS: BP 185/78; PULSE 67; RESP 28; TEMP 35.8; O2SAT 95; BMI 57.3
--- NOTE | 2021-07-04 22:34 | RAD_ITS ---
EXAM: XR CHEST, 1 VIEW CLINICAL INDICATION: sob TECHNIQUE: Frontal view of the chest. This report was created using [employer] report generation technology. COMPARISON: 06/16/2020 FINDINGS: LUNGS AND PLEURAL SPACES: Low lung volumes limits assessment. Linear opacities at base probably represents scarring or discoid atelectasis. No other significant airspace disease. No pleural effusion or pneumothorax. HEART: Fullness of the cardiac silhouette on a portable upright examination with lordotic positioning. Significance not entirely clear. MEDIASTINUM: Central airways and mediastinal contour are unremarkable. BONES/JOINTS: Unremarkable. SOFT TISSUES: Unremarkable. RAD/Chest 1 View (Portable) IMPRESSION: No convincing evidence for pneumonia or other acute disease. Electronically Signed: Reddy Dolan MD at 23:49 EST ,
--- NOTE | 2021-07-04 22:34 | EKG12_ITS ---
Test Reason : DYSRHYTHMIA Blood Pressure : / mmHG Vent. Rate : 054 BPM Atrial Rate : 054 BPM P-R Int : 298 ms QRS Dur : 170 ms QT Int : 512 ms P-R-T Axes : 077 268 049 degrees QTc Int : 485 ms Sinus bradycardia with 1st degree A-V block Right bundle branch block Inferior infarct , age undetermined Anterolateral infarct , age undetermined Abnormal ECG Confirmed by REGINALDO JACQUES, BALDO ([id number]), publication editor NATHAN SZYMANSKI ([id number]) on 07/06/2021 8:22:06 AM Referred By: FEI Confirmed By:BALDO HAIR MD
[2021-07-04 22:35] VITALS: PULSE 58; RESP 12; RESP 20; O2SAT 96
--- NOTE | 2021-07-04 22:46 | EDS_ITS ---
HPI History of Present Illness Chief Complaint: Shortness of Breath Informant: patient Onset/Context/Timing Onset: - (Acute on chronic, worsened today.) Current Severity: Moderate Maximum Severity: Moderate Narrative Narrative: Patient present secondary to increasing shortness of breath. He has a history of chronic pulmonary hypertension as well as CHF. He wears BiPAP at home at night. Patient reports increasing shortness of breath recently but seem to be more severe tonight. No fever or chills. No cough. No chest pain. He is currently on diuretics and feels like he has been urinating about the same as he has been. Patient was reportedly 79% on room air on arrival. At the time of my examination he is on 5 L nasal cannula and satting in the mid 90s. He speaking 5-6 word sentences. He is placed on BiPAP shortly after my examination to help with his comfort of breathing. [facility] Medical History (Updated 07/05/21 @ 00:[address] 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 Cellulitis Dyspnea Dyspnea on exertion Essential hypertension Hypertensive emergency Lower extremity edema Mixed hyperlipidemia Obesity hypoventilation syndrome MARIA A (obstructive sleep apnea) Paroxysmal atrial fibrillation Pulmonary hypertension Type 2 diabetes mellitus Venous insufficiency Home Medications metformin 1,000 mg PO BID 02/01/19 [History Last Taken 06/27/20] multivitamin with minerals 1 tablet PO DAILY 02/01/19 [History Last Taken 06/16/20] aspirin 81 mg PO DAILY@0800 #60 tab 02/06/19 [Rx Last Taken 06/16/20] dulaglutide 3 mg/0.5 mL subcutaneous pen injector 3 mg SC JOHNSON 05/10/20 [History Last Taken 06/12/20] ipratropium 0.5 mg-albuterol 3 mg (2.5 mg base)/3 mL nebulization soln 3 ml INHALATION Q6H PRN ml 06/13/20 [History Last Taken Unknown] telmisartan-hydrochlorothiazid 1 tab PO DAILY 06/17/20 [History Last Taken 06/28/20] flecainide 100 mg tablet 100 mg PO BID #180 tab 08/25/20 [Rx Last Taken Unknown] furosemide 40 mg tablet 120 mg PO .COMPLEX 90 Days #270 tablet 08/25/20 [Rx Last Taken Unknown] metoprolol tartrate 25 mg tablet 25 mg PO BID #180 tab 08/25/20 [Rx Last Taken Unknown] amlodipine 5 mg tablet 5 mg PO DAILY #30 tab 09/08/20 [Rx Last Taken Unknown] rosuvastatin 40 mg tablet 40 mg PO QHS #90 tab 02/01/21 [Rx Last Taken Unknown] potassium chloride 20 mEq tablet,extended release(part/cryst) 20 meq PO BID #180 tab 03/15/21 [Rx Last Taken Unknown] Disability Placard #1 ea 05/30/21 [Rx Last Taken Unknown] insulin regular hum U-500 conc 135 unit SC DINNER ml 05/30/21 [History Last Taken Unknown] insulin regular hum U-500 conc 200 unit SC BREAKFAST ml 05/30/21 [History Last Taken Unknown] Allergy/AdvReac Type Severity Reaction Status Date / Time No Known Allergies Allergy Verified 05/30/21 07:28 Family History Father CAD (coronary artery disease) Myocardial infarction Hypertension Diabetes CVA (cerebral vascular accident) Mother Diabetes Hypertension Surgical History History of knee surgery History of right heart catheterization (RHC) (~06/28/20) History of tonsillectomy Social History Smoking Status: Never smoker alcohol intake: never substance use type: does not use caffeine: Yes Type: carbonated beverages Number of servings: 4 ROS ROS ED Constitutional Constitutional ED: Denies chills or fever(s) Eyes Eyes: Denies blurry vision ENT ENT ED: Denies rhinorrhea or sore throat Cardiovascular Cardiovascular: Denies chest pain or palpitations Respiratory/Chest Respiratory/Chest: Reports dyspnea; Denies cough Gastrointestinal Gastrointestinal: Denies abdominal pain, diarrhea or vomiting Genitourinary Genitourinary ED: Denies dysuria Musculoskeletal Musculoskeletal: Denies back pain or neck pain Integumentary Denies rash Neurologic Neurologic: Denies headache(s) Allergic/Immunologic Allergic/Immunologic ED: Denies urticaria EXAM Physical Exam Const Vital Signs: 07/04/21 22:28 07/04/21 22:29 07/04/21 22:33 Temperature 96.4 F L Temperature Source Temporal Pulse Rate 65 67 Respiratory Rate 28 H 28 H Respiratory Effort Short of Breath Labored Respiratory Depth Shallow Respiratory Pattern Blood Pressure 185/78 H Blood Pressure Mean 113 Pulse Ox 79 95 Oxygen Delivery Method Room Air Nasal Cannula Fraction of Inspired Oxygen (FIO2) 07/04/21 22:35 07/04/21 23:45 07/04/21 23:50 Temperature Temperature Source Pulse Rate 58 L 56 L 55 L Respiratory Rate 20 H 18 19 H Respiratory Effort Respiratory Depth Respiratory Pattern Normal Normal Blood Pressure 102/57 L Blood Pressure Mean 72 Pulse Ox 96 95 95 Oxygen Delivery Method Room Air Fraction of Inspired Oxygen (FIO2) 30 30 Positive obese Nutritional Appearance: obese HEENT Reports moist mucous membranes Eyes PERRL and EOMs intact bilaterally Neck no lymphadenopathy and supple Chest Wall inspection of chest normal and palpation of chest normal Resp Auscultation: diminished lung sounds Cardio regular rhythm Rate: bradycardia GI non-tender Palpation: soft Extremity General Extremety ED: Yes edema General Extremity: edema Neuro oriented x3 Sensorium / Orientation: alert Skin no rashes or lesions noted MDM MDM MDM Narrative Medical decision making narrative: Patient placed on BiPAP shortly after arrival. He is only requiring 30% FiO2 with sats in the mid 90s. Lab work, Covid test, chest x-ray obtained. Lab Data Attestation: I reviewed the patient's lab results. Labs: Laboratory Results - last 24 hr 07/04/21 07/04/21 07/04/21 22:52 22:52 22:52 WBC 9.9 RBC 5.15 Hgb 15.2 Hct 45.3 MCV 88.0 MCH 29.5 MCHC 33.6 RDW Std Deviation 42.2 RDW Coeff of Shelly 13.2 Plt Count 158 MPV 11.1 Immature Gran % (Auto) 0.300 Neut % (Auto) 58.6 Lymph % (Auto) 29.8 [place] % (Auto) 8.8 Eos % (Auto) 1.9 Baso % (Auto) 0.6 Absolute Neuts (auto) 5.8 Absolute Lymphs (auto) 2.96 Nucleated RBC % 0 Plt Morphology Comment CLUMPED Sodium 136 Potassium 4.5 Chloride 103 Carbon Dioxide 24.0 Anion Gap 9 BUN 24 H Creatinine 1.28 Estim Creat Clear Calc 59.53 Est GFR (MDRD) Af Amer 74 Est GFR (MDRD) Non-Af 61 BUN/Creatinine Ratio 18.8 Glucose 329 H Calcium 9.2 Troponin I High Sens 45 B-Natriuretic Peptide 187.9 H Radiography Chest X-Ray - ED: 1 View, Read by ED Physician and - (Mild cephalization noted.) Diagnostic Testing: Clinical Impression(s) from Imaging Studies Chest X-Ray 07/04/21 22:34 IMPRESSION: No convincing evidence for pneumonia or other acute disease. Electronically Signed: Reddy Dolan MD at 23:49 EST , EKG Initial EKG: Attestation: I personally reviewed and interpreted this EKG as follows: Interpretation: Sinus Bradycardia (Sinus bradycardia 54 bpm. Right bundle branch block. No acute ischemia.) Treatment and Re-Evaluation Comments:: On repeat evaluation patient is sitting upright in the bed. He does have improved air movement on auscultation. Blood work is reviewed and reveals normal white count. Chemistry studies largely unremarkable. Troponin normal at 45 and BNP is 188. When I review his most recent pulmonary visit it appears that he has put on 15 pounds in the last month. He is edematous. He will be given 40 mg of Lasix. Discussed with hospitalist for admission. Discharge Plan Triage Chief Complaint: Shortness of Breath ED Provider: Geeta De La Garza Dx/Rx/DC Orders Clinical Impression: CHF (congestive heart failure), Hypoxia Prescriptions: No Action ipratropium-albuterol 0.5 mg-3 mg(2.5 mg base)/3 mL solution for nebulization 3 ml INHALATION Q6H PRN (Reason: breathing) RF: 0 flecainide 100 mg tablet 100 mg PO BID Qty: 180 RF: 3 metoprolol tartrate 25 mg tablet 25 mg PO BID Qty: 180 RF: 3 furosemide 40 mg tablet 120 mg PO .COMPLEX 90 Days Qty: 270 RF: 3 amlodipine 5 mg tablet 5 mg PO DAILY Qty: 30 RF: 11 (DME) Disability Placard See Rx Instructions .Route .MEDSUPPLY Qty: 1 RF: 0 multivitamin with minerals 1 EACH tablet 1 tablet PO DAILY RF: 0 metformin 1,000 MG tablet extended release 24hr 1,000 mg PO BID RF: 0 aspirin 81 MG tablet 81 mg PO DAILY@0800 Qty: 60 RF: 0 telmisartan-hydrochlorothiazid 1 EACH tablet 1 tab PO DAILY RF: 0 dulaglutide 3 mg/0.5 mL pen injector 3 mg SC JOHNSON RF: 0 rosuvastatin 40 mg tablet 40 mg PO QHS Qty: 90 RF: 3 potassium chloride 20 mEq tablet,ER particles/crystals 20 meq PO BID Qty: 180 RF: 3 insulin regular hum U-500 conc 500 unit/mL (3 mL) insulin pen 200 unit SC BREAKFAST RF: 0 insulin regular hum U-500 conc 500 unit/mL (3 mL) insulin pen 135 unit SC DINNER RF: 0 Primary Care Provider: Jus Shields Referrals: Jus Shields MD [Primary Care Provider] - Disposition Disposition: Acute Care [facility]
[2021-07-04 23:05] LABS: Absolute Lymphocyte Count 2.96 X10^3/uL (0.83-4.51); Absolute Neutrophil Count 5.8 X10^3/uL (2.0-7.7); Basophil# 0.06 X10^3/uL; Basophil% 0.6 % (0-1); Eosinophil# 0.19 X10^3/uL; Eosinophils% 1.9 % (0-5); Hematocrit 45.3 % (40-54); Hemoglobin 15.2 g/dL (13.0-16.5); Lymphocyte # 2.96 X10^3/ul (0.83-4.51); Lymphocyte % 29.8 % (19-41); Mean Corp Hgb Conc 33.6 g/dL (32-36); Mean Corpuscular Hgb 29.5 pg (27.0-32.0); Mean Platelet Vol. 11.1 fl (6.2-12.0); Monocyte# 0.87 X10^3/uL; Monocyte% 8.8 % (0-10); NRBC Flagged by Analyzer 0 % (0-5); Neutrophil # 5.81 X10^3/uL (2.7-7.7); Neutrophil % 58.6 % (47-70); POSITIVE COUNT YES; Platelet Count 158 K/mm3 (150-450); RBC Distribution Width CV 13.2 % (11.6-14.6); RBC Distribution Width SD 42.2 fl (35.1-43.9); Red Blood Count 5.15 M/mm3 (4.6-6.2); White Blood Count 9.9 K/mm3 (4.4-11.0)
[2021-07-04 23:17] LABS: BNP,B-Type NATRIURETIC PEPTIDE 187.9 pg/mL (0-100)
[2021-07-04 23:25] LABS: Anion Gap 9 (5-15); BUN 24 mg/dL (7-18); BUN/Creat Ratio 18.8 RATIO (10-20); Calcium,Total 9.2 mg/dL (8.5-10.1); Chloride 103 mmol/L (98-107); Creatinine, Serum 1.28 mg/dL (0.70-1.30); EST Glomerular Filtration Rate 61 mL/min (>60); Est Glom Filt Rate - Afr Amer 74 mL/min (>60); Estimated Creatinine Clearance 59.53 ml/min; Glucose 329 mg/dL (74-106); Potassium 4.5 mmol/L (3.5-5.1); Sodium Level 136 mmol/L (136-145); Troponin-I HS 45 pg/mL (3.0-78.0)
[2021-07-04 23:39] LABS: Differential Indicated SCAN CRITERIA MET
[2021-07-04 23:45] VITALS: BP 102/57; PULSE 56; RESP 18; O2SAT 95
[2021-07-04 23:47] LABS: Platelet Morphology CLUMPED
[2021-07-04 23:50] VITALS: PULSE 55; RESP 12; RESP 19; O2SAT 95
[2021-07-05] VITALS (17 sets, daily range): BP systolic 112–175; BP diastolic 51–97; PULSE 55–65; RESP 12–22; TEMP 36.1–36.8; O2SAT 95–98; BMI 56.2
--- NOTE | 2021-07-05 00:47 | CPS ---
Pt. requested a break from BiPAP at this time. Pt.'s breathing is better, and pt. states he feels much better. Pt. placed on 2L NC, with appropriate oxygen saturations.
--- NOTE | 2021-07-05 01:22 | HP.PCM.HOS_ITS ---
HPI - General General Date of Admission: 07/05/21 HPI Narrative JAVON ROTH, is a 55 M with a significant history of morbid obesity; atrial fibrillation on flecainide and metoprolol; diabetes mellitus; obesity hypoventilation syndrome; pulmonary hypertension and heart failure who presents to emergency department with progressively worsening shortness of breath that started about 2 days. His shortness of breath is with exertion. He report that when he is in his bed with his BiPAP on and watching TV he does not have any shortness of breath. Associated with his symptoms is swelling of his entire body. Reportedly he has gained about 15 pounds in the past month. Emergent department doctor reported that on presentation patient was speaking in 5-6 sentences. His oxygen saturation was in the 70s and he was transitioned from 5 L nasal cannula oxygen to BiPAP. BiPAP was eventually weaned off. Of note patient is no longer using home oxygen. Previously he was on home oxygen but he stopped using it because he could not afford it. Recently he had ambulatory pulse ox scheduled. However he could not make the appointment because of transportation/family issues. [facility] Medical History (Updated 07/05/21 @ 00:[address] 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 Cellulitis Dyspnea Dyspnea on exertion Essential hypertension Hypertensive emergency Lower extremity edema Mixed hyperlipidemia Obesity hypoventilation syndrome MARIA A (obstructive sleep apnea) Paroxysmal atrial fibrillation Pulmonary hypertension Type 2 diabetes mellitus Venous insufficiency Home Medications metformin 1,000 mg PO BID 02/01/19 [History Last Taken 06/27/20] multivitamin with minerals 1 tablet PO DAILY 02/01/19 [History Last Taken 08/31] aspirin 81 mg PO DAILY@0800 #60 tab 02/06/19 [Rx Last Taken 06/16/20] dulaglutide 3 mg/0.5 mL subcutaneous pen injector 3 mg SC JOHNSON 05/10/20 [History Last Taken 06/12/20] ipratropium 0.5 mg-albuterol 3 mg (2.5 mg base)/3 mL nebulization soln 3 ml INHALATION Q6H PRN ml 06/13/20 [History Last Taken Unknown] telmisartan-hydrochlorothiazid 1 tab PO DAILY 06/17/20 [History Last Taken 06/28/20] flecainide 100 mg tablet 100 mg PO BID #180 tab 08/25/20 [Rx Last Taken Unknown] furosemide 40 mg tablet 120 mg PO .COMPLEX 90 Days #270 tablet 08/25/20 [Rx Last Taken Unknown] metoprolol tartrate 25 mg tablet 25 mg PO BID #180 tab 08/25/20 [Rx Last Taken Unknown] amlodipine 5 mg tablet 5 mg PO DAILY #30 tab 09/08/20 [Rx Last Taken Unknown] rosuvastatin 40 mg tablet 40 mg PO QHS #90 tab 02/01/21 [Rx Last Taken Unknown] potassium chloride 20 mEq tablet,extended release(part/cryst) 20 meq PO BID #180 tab 03/15/21 [Rx Last Taken Unknown] Disability Placard #1 ea 05/30/21 [Rx Last Taken Unknown] insulin regular hum U-500 conc 135 unit SC DINNER ml 05/30/21 [History Last Taken Unknown] insulin regular hum U-500 conc 200 unit SC BREAKFAST ml 05/30/21 [History Last Taken Unknown] Allergy/AdvReac Type Severity Reaction Status Date / Time No Known Allergies Allergy Verified 05/30/21 07:28 Family History Father CAD (coronary artery disease) Myocardial infarction Hypertension Diabetes CVA (cerebral vascular accident) Mother Diabetes Hypertension Surgical History History of knee surgery History of right heart catheterization (RHC) (~06/28/20) History of tonsillectomy Social History Smoking Status: Never smoker alcohol intake: never substance use type: does not use caffeine: Yes Type: carbonated beverages Number of servings: 4 ROS ROS Narrative constitutional: Reports fatigue. Denies fever, chills, fatigue, anorexia and change in weight Eyes: Denies blurry vision, change in eye color, change in vision, discharge from eye(s), double vision, erythema, eye pain, loss of vision or other HEENT: Denies abnormal hearing, dysphagia, ear pain, epistaxis, headache(s), hearing loss, nasal congestion, nasal discharge, post nasal drip, sinus pressure, sore throat or other Cardiovascular: Denies chest pain or palpitations. Report dyspnea on exertion. He denies orthopnea and paroxysmal nocturnal dyspnea. Respiratory/Chest: Denies cough, or excessive phlegm production. Gastrointestinal: Denies abdominal pain, coffee ground emesis, constipation, diarrhea, dyspepsia, hematemesis, hematochezia, loose stools, melena, nausea, vomiting or other Genitourinary: Denies burning urination, difficulty urinating, dysuria, hematuria, nocturia, urinary frequency, urinary hesitancy, urinary incontinence, urinary urgency or other Musculoskeletal: Denies arthralgias, back pain, joint pain, joint stiffness, joint swelling, myalgias, neck pain or other Neurologic: Denies abnormal gait, abnormal speech, confusion, disequilibrium, dizziness, focal weakness, headache(s), numbness, paresthesias, seizure-like activity, seizures, syncope, tingling, tremor(s) or other Psychiatric: Denies anxiety, depression, homicidal ideation, suicidal ideation or other Endocrinology: Denies change in body appearance, cold intolerance, excessive sweating, heat intolerance, polydipsia, polyuria or other Hematologic/Lymphatic: Denies anemia, easy bleeding, easy bruising, lymphaden opathy or other Integumentary: Denies rashes Allergic/Immunologic: Denies rhinitis, hives, eczema, asthma or other Vital Signs Vital Signs Vital Signs: 07/04/21 22:28 07/04/21 22:29 07/04/21 22:33 Temperature 96.4 F L Temperature Source Temporal Pulse Rate 65 67 Respiratory Rate 28 H 28 H Respiratory Effort Short of Breath Labored Respiratory Depth Shallow Respiratory Pattern Blood Pressure 185/78 H Blood Pressure Mean 113 Pulse Ox 79 95 Oxygen Delivery Method Room Air Nasal Cannula Fraction of Inspired Oxygen (FIO2) 07/04/21 22:35 07/04/21 23:45 07/04/21 23:50 Temperature Temperature Source Pulse Rate 58 L 56 L 55 L Respiratory Rate 20 H 18 19 H Respiratory Effort Respiratory Depth Respiratory Pattern Normal Normal Blood Pressure 102/57 L Blood Pressure Mean 72 Pulse Ox 96 95 95 Oxygen Delivery Method Room Air Fraction of Inspired Oxygen (FIO2) 30 30 Weight Weight: 166.1 kg Body Mass Index (BMI) 57.3 Physical Exam Narrative Physical exam: General: Well-nourished, well-developed. Head: Normocephalic, atraumatic, no tenderness Eyes: PERRLA, EOMI ENT, no trauma, moist mucous membranes, no rhinorrhea Neck: Nontender, full range of motion, no spinal tenderness, deformities, step- off CVS: Diminished heart sounds. Regular rate and rhythm. S1-S2 present. No murmur, gallop or rub. Respiratory : Diminished lung sounds. Clear to auscultation bilaterally, chest wall nontender, no wheezing Abdomen: Obese abdomen. Diminished bowel sounds soft, nontender, normal bowel sounds, no masses : Deferred Back: Nontender, no CVA tenderness, no midline spinal tenderness, deformities, step-offs Extremities: Nontender full range of motion, no trauma Skin: Generalized hardening of skin Neuro: Alert, oriented, cranial nerves II through XII grossly intact. Psychiatry: Normal mood. Normal affect. Not depressed. Not anxious. Results Lab / Micro Data Result Diagrams: 07/04/21 22:52 07/04/21 22:52 Labs: Laboratory Results - last 24 hr 07/04/21 22:52: WBC 9.9, RBC 5.15, Hgb 15.2, Hct 45.3, MCV 88.0, MCH 29.5, MCHC 33.6, RDW Std Deviation 42.2, RDW Coeff of Shelly 13.2, Plt Count 158, MPV 11.1, Immature Gran % (Auto) 0.300, Neut % (Auto) 58.6, Lymph % (Auto) 29.8, [place] % (Auto) 8.8, Eos % (Auto) 1.9, Baso % (Auto) 0.6, Absolute Neuts (auto) 5.8, Absolute Lymphs (auto) 2.96, Nucleated RBC % 0, Plt Morphology Comment CLUMPED 07/04/21 22:52: Sodium 136, Potassium 4.5, Chloride 103, Carbon Dioxide 24.0, Anion Gap 9, BUN 24 H, Creatinine 1.28, Estim Creat Clear Calc 59.53, Est GFR (MDRD) Af Amer 74, Est GFR (MDRD) Non-Af 61, BUN/Creatinine Ratio 18.8, Glucose 329 H, Calcium 9.2, Troponin I High Sens 45 07/04/21 22:52: B-Natriuretic Peptide 187.9 H Micro: Microbiology 07/04/21 23:15 Nasal Secretion SARS-CoV-2 Antigen (Rapid) - Final Radiology Impression Chest X-Ray 07/04/21 22:34 IMPRESSION: No convincing evidence for pneumonia or other acute disease. Electronically Signed: Reddy Dolan MD at 23:49 EST , Assessment & Plan Assessment/Plan (1) CHF (congestive heart failure): (2) Type 2 diabetes mellitus: PLAN: Acute on chronic heart failure with preserved ejection fraction/restrictive lung disease/pulmonary hypertension Place on monitored bed on pcu Chest x-ray was visualized and independently interpreted. Chest x-ray showed enlarged cardiac silhouette and cephalization. Weight on admission to the floor; and then daily Strict I&O's BNP on presentation was 187.9. Echocardiogram on 07/07/2019 showed estimated ejection fraction of 70%. Diastolic function was indeterminate. There was mild to moderate right atrial enlargement. Mild to moderate left atrial enlargement. Right ventricular systolic pressure/pulmonary artery pressure was unable to be estimated. Right heart cath on 06/28/2020 showed severely elevated right heart pressures. Echocardiogram ordered. On Home Lasix 80 mg in a.m. and 40 mg in p.m. Change Lasix from p.o. to IV and continue the same dose. Home potassium supplementa tion continued. Monitor electrolytes and renal function Trend blood pressure Titrate diuretics and heart failure/blood pressure medications with blood pressure. Fluid restriction of 1500 mls daily Cardiac calorie controlled diet ordered. BiPAP nightly and as needed ordered. Oxygen per protocol to keep oxygen saturation more equal to 90%. Diabetes mellitus Patient with hyperglycemia on presentation. On once weekly dulaglutide. Home prandial insulin adjusted. Hold Metformin. Basal insulin ordered. Accu-Chek QA [facility] with correction scale insulin ordered. Cardiac calorie controlled diet ordered Hypertension Blood pressure is not within goal Amlodipine continued. Metoprolol continued ARB and HCTZ continued. Lasix as above. Trend blood pressure and adjust blood pressure medications. Morbid obesity: BMI: 57.4 kilogram per meter square. Complicates care. Lifestyle modification recommended. DVT prophylaxis: Subcutaneous Lovenox ordered Charges/Coding Visit Charges Inpatient E&M: 22480 Init Hosp L3
[2021-07-05] MEDS: Furosemide 40 MG/4 ML Vial IV ×2 (01:26→17:12)
[2021-07-05] MEDS: 0.9% Saline Lock 10 ML Syringe IV (02:24)
--- NOTE | 2021-07-05 02:37 | ECHOCS_ITS ---
Reason For Study: SOB Procedure This was a 2D Doppler, Color Flow transthoracic echocardiogram. The study was technically difficult. The study was technically limited. Patient scanned in chair. Exam performed portable in patient room. Left Ventricle Moderate eccentric left ventricular hypertrophy. The estimated ejection fraction is 65-70 %. Right Ventricle Normal right ventricle. Normal systolic function. Atria The left atrium is mildly enlarged. The right atrium is mildly enlarged. Mitral Valve The mitral valve is structurally normal. No prolapse or stenosis seen. Trivial mitral valve insufficiency. Tricuspid Valve Normal tricuspid valve. Aortic Valve Normal aortic valve. Pulmonic Valve The pulmonic valve is not well visualized. Great Vessels Normal aortic root. Pericardium/Pleural Trivial pericardial effusion. Medication Diluted definity 2ml given slow IV push to enhance endocardial definition. MMode/2D Measurements & Calculations LVIDd: 6.0 cm IVSd: 1.4 cm LVOT diam: 2.4 cm LVIDs: 3.2 cm LVPWd: 1.4 cm FS: 47.7 % LVOT area: 4.7 cm2 Ao root diam: 3.5 cm LVAd ap4: 28.8 cm2 SV(MOD-sp4): 57.6 ml LVLd ap4: 8.7 cm EDV(MOD-sp4): 80.6 ml EDV(sp4-el): 81.4 ml LVAs ap4: 13.9 cm2 LVLs ap4: 7.5 cm ESV(MOD-sp4): 23.0 ml ESV(sp4-el): 21.9 ml EF(MOD-sp4): 71.5 % EF(sp4-el): 73.1 % SV(sp4-el): 59.5 ml LA dimension(2D): 5.3 cm Doppler Measurements & Calculations MV E max juan: 100.1 cm/sec Lat Peak E' Juan: 8.7 cm/sec Med Peak E' Juan: 5.7 cm/sec MV A max juan: 58.5 cm/sec E/E' lat: 11.5 E/E' med: 17.6 MV E/A: 1.7 Ao V2 max: 222.5 cm/sec LV V1 max: 126.1 cm/sec SV(LVOT): 119.8 ml Ao max P.8 mmHg LV V1 max P.4 mmHg Ao V2 mean: 137.4 cm/sec LV V1 mean P.5 mmHg Ao mean P.7 mmHg LV V1 mean: 89.1 cm/sec Ao V2 VTI: 38.6 cm LV V1 VTI: 25.7 cm CONI(I,D): 3.1 cm2 CONI(V,D): 2.6 cm2 PA V2 max: 152.9 cm/sec ECHO/Echo Complete W/ Contrast Interpretation Summary The estimated ejection fraction is 65-70 %. No significant difference from prior Echo Ordering Physician: Fox Cleveland Referring Physician: Jus Shields Performed By: Vee Little RDCS
[2021-07-05 02:56] LABS: Bedside Glucose 260 mg/dL (70-110)
[2021-07-05 06:09] LABS: Absolute Lymphocyte Count 3.33 X10^3/uL (0.83-4.51); Absolute Neutrophil Count 6.7 X10^3/uL (2.0-7.7); Basophil# 0.08 X10^3/uL; Basophil% 0.7 % (0-1); Eosinophil# 0.21 X10^3/uL; Eosinophils% 1.8 % (0-5); Hematocrit 42.9 % (40-54); Hemoglobin 14.2 g/dL (13.0-16.5); Lymphocyte # 3.33 X10^3/ul (0.83-4.51); Lymphocyte % 29.1 % (19-41); Mean Corp Hgb Conc 33.1 g/dL (32-36); Mean Corpuscular Hgb 28.9 pg (27.0-32.0); Mean Corpuscular Volume 87.4 fL (80-94); Mean Platelet Vol. 10.6 fl (6.2-12.0); Monocyte% 9.6 % (0-10); NRBC Flagged by Analyzer 0 % (0-5); Neutrophil # 6.68 X10^3/uL (2.7-7.7); Neutrophil % 58.5 % (47-70); Platelet Count 252 K/mm3 (150-450); RBC Distribution Width CV 13.2 % (11.6-14.6); RBC Distribution Width SD 42.2 fl (35.1-43.9); Red Blood Count 4.91 M/mm3 (4.6-6.2); White Blood Count 11.4 K/mm3 (4.4-11.0)
[2021-07-05 06:33] LABS: Anion Gap 8 (5-15); BUN 23 mg/dL (7-18); BUN/Creat Ratio 20.5 RATIO (10-20); Calcium,Total 8.7 mg/dL (8.5-10.1); Chloride 103 mmol/L (98-107); Creatinine, Serum 1.12 mg/dL (0.70-1.30); EST Glomerular Filtration Rate 72 mL/min (>60); Est Glom Filt Rate - Afr Amer 87 mL/min (>60); Estimated Creatinine Clearance 68.03 ml/min; Glucose 209 mg/dL (74-106); Potassium 4.1 mmol/L (3.5-5.1); Sodium Level 137 mmol/L (136-145)
[2021-07-05] MEDS: Insulin Lispro 100 UNIT/ML INSULN.PEN SC ×4 (06:33→21:23)
[2021-07-05 06:36] LABS: Bedside Glucose 232 mg/dL (70-110)
[2021-07-05] MEDS: Insulin U-500 UNITS/ML PEN 200 UNITS SC (08:35)
[2021-07-05] MEDS: Metoprolol Tartrate 25 MG Tablet PO (08:37)
[2021-07-05] MEDS: Aspirin E.C. 81 MG Tablet PO (08:37)
[2021-07-05] MEDS: Potassium Chloride Oral Tablet 20 MEQ PO ×2 (08:37→17:12)
[2021-07-05] MEDS: Multivitamins,Ther W-Minerals Tablet 1 TABLET PO (08:37)
[2021-07-05] MEDS: Furosemide 100 MG/10 ML Vial 80 MG IV (08:43)
[2021-07-05] MEDS: amLODIPine 5 MG Tablet PO (08:44)
[2021-07-05] MEDS: Flecainide 100 MG Tablet PO ×2 (08:44→21:23)
--- NOTE | 2021-07-05 08:45 | NURSING ---
Patient instructed to use urinal to keep accurate I/O. Patient refused stating he can not use one but will let staff know how many times he urinates.
[2021-07-05] MEDS: Enoxaparin 40 MG/0.4 ML Syringe SC (11:09)
--- NOTE | 2021-07-05 11:40 | CASEMGMT ---
RN KARAN Face to Face with patient for initial transition planning/care coordination assessment. RN CM introduced self and role at [facility]. Patient sitting in chair, alert and oriented. Patient willing to participate in assessment and is able to answer all questions appropriately. Care providers, pharmacy, and demographics verified. Patient wishes to discharge home, denies need for home health at this time. Patient states he has no further needs or concerns at this time. CM to follow for discharge planning needs that may arise. PCP: Cornelius Specialists: Karina, delicatessen clerk; Moses, color stripper; Aaron, fatback trimmer; Lala, wool spotter Lindsey Preferred Pharmacy: [facility] Insurance: [employer] Prescription Benefit: yes Living Will/HPOA: none LNOK: Living Arrangements: Patient lives with in a single story home with 2 steps to enter. Patient states he is independent at home. Transportation: self, DME/HHC: patient states he has raised toilet, crutches, bipap, cpap, nebulizer, and pulse ox. Patient states he prefers [employer] for DME as his Cpap and bipap are through them. No previous HHC or SNF. Disposition Plan: Patient to discharge home with family support and follow-up plans in place. Ivon MEHTA, RN, CM
[2021-07-05 11:46] LABS: Bedside Glucose 216 mg/dL (70-110)
[2021-07-05 13:01] LABS: Bedside Glucose 316 mg/dL (70-110)
--- NOTE | 2021-07-05 14:24 | PCM.HOSP.N ---
Documented by User: Mark BLANCHARD 07/05/21 14:29 Hospitalist Note Patient is a 55-year-old male with a significant past medical history of obesity, atrial fibrillation, diabetes mellitus, obesity hypoventilation syndrome and pulmonary hypertension who was admitted to [facility] on 07/05/2021 for progressively worsening shortness of breath. Chest x-ray on admission demonstrated cardiomegaly but was without without acute cardiopulmonary disease, BNP was mildly elevated at 189. Patient's echocardiogram from June 2019 demonstrated normal LV size and systolic function, an EF of 70%, moderate concentric LVH and indeterminate diastolic dysfunction. Patient was placed on IV Lasix and repeat echocardiogram was ordered, continue with fluid restriction, monitor I's and O's and daily weights. Patient seen by Mark Bingham PA-C, under the supervision of Dr. Landa. Documented by User: Dr. Ben Landa MD 07/05/21 15:26 Hospitalist Note This patient was seen in conjunction with SANTO Diez. I have independently interviewed and examined the patient and reviewed pertinent history, examination findings, laboratory and plan of management. I have reviewed the note and agree with the documented findings with the few additional points. In brief, patient is admitted for 55-year-old male, morbid obesity paroxysmal A. fib on flecainide and metoprolol was admitted rn surgery icu today with progressive worsening of shortness of breath for 2 days, exertional dyspnea, with increasing leg swelling. Patient is on BiPAP at home. He gained 15 pounds in the past 1 month. Patient does not feel short of breath at rest on BiPAP. Twelve-lead EKG independently reviewed, sinus bradycardia 54 bpm. Right bundle branch block. No acute ischemia. Physical exam: General: Morbid obesity BMI 56.2 kg/m? Lungs: Air entry severely diminished bilaterally. On BiPAP. Mild expiratory rhonchi present Heart: S1-S2 regular, bradycardia. No murmur gallop or rub. Extremities: Bilateral 3+ pitting edema up to mid thigh level. Right heart cath on 06/28 shows severely elevated right heart pressures. Echo on 07/07/2019 shows EF 70%, mild to moderate right and left atrial enlargement. Patient has severe chronic pulmonary hypertension Patient is on diuretic heart failure core measures including intake and output, fluid restriction less than 1500 mL, daily weight monitoring, kidney and electrolytes monitoring. 2D echo is ordered I have discussed my assessment with SANTO Diez and orders have been reviewed.
[2021-07-05] MEDS: Insulin U-500 UNITS/ML PEN 135 UNITS SC (17:11)
[2021-07-05 17:31] LABS: Bedside Glucose 230 mg/dL (70-110)
[2021-07-05] MEDS: Atorvastatin Calcium 80 MG Tablet PO (21:23)
[2021-07-05 21:30] LABS: Bedside Glucose 241 mg/dL (70-110)
[2021-07-06] VITALS (11 sets, daily range): BP systolic 109–162; BP diastolic 47–69; PULSE 51–69; RESP 16–22; TEMP 36.3–36.7; O2SAT 94–97
--- NOTE | 2021-07-06 06:05 | CPS ---
Pt has own bipap in use
[2021-07-06 06:32] LABS: Absolute Lymphocyte Count 2.77 X10^3/uL (0.83-4.51); Absolute Neutrophil Count 6.5 X10^3/uL (2.0-7.7); Basophil# 0.06 X10^3/uL; Basophil% 0.6 % (0-1); Eosinophil# 0.13 X10^3/uL; Eosinophils% 1.2 % (0-5); Hematocrit 43.5 % (40-54); Hemoglobin 14.8 g/dL (13.0-16.5); Lymphocyte # 2.77 X10^3/ul (0.83-4.51); Lymphocyte % 26.1 % (19-41); Mean Corpuscular Hgb 29.9 pg (27.0-32.0); Mean Corpuscular Volume 87.9 fL (80-94); Mean Platelet Vol. 10.3 fl (6.2-12.0); Monocyte# 1.14 X10^3/uL; Monocyte% 10.7 % (0-10); NRBC Flagged by Analyzer 0 % (0-5); Neutrophil % 61.1 % (47-70); Platelet Count 254 K/mm3 (150-450); RBC Distribution Width CV 13.2 % (11.6-14.6); RBC Distribution Width SD 42.2 fl (35.1-43.9); Red Blood Count 4.95 M/mm3 (4.6-6.2); White Blood Count 10.6 K/mm3 (4.4-11.0)
[2021-07-06 06:40] LABS: Bedside Glucose 119 mg/dL (70-110)
[2021-07-06 07:01] LABS: Anion Gap 5 (5-15); BUN 24 mg/dL (7-18); Calcium,Total 8.7 mg/dL (8.5-10.1); Chloride 106 mmol/L (98-107); EST Glomerular Filtration Rate 82 mL/min (>60); Est Glom Filt Rate - Afr Amer 99 mL/min (>60); Glucose 105 mg/dL (74-106); Potassium 3.6 mmol/L (3.5-5.1); Sodium Level 140 mmol/L (136-145)
[2021-07-06] MEDS: Potassium Chloride Oral Tablet 20 MEQ PO ×2 (08:24→17:03)
[2021-07-06] MEDS: amLODIPine 5 MG Tablet PO (08:24)
[2021-07-06] MEDS: Multivitamins,Ther W-Minerals Tablet 1 TABLET PO (08:24)
[2021-07-06] MEDS: Flecainide 100 MG Tablet PO ×2 (08:24→21:47)
[2021-07-06] MEDS: Aspirin E.C. 81 MG Tablet PO (08:24)
[2021-07-06] MEDS: Furosemide 100 MG/10 ML Vial 80 MG IV (08:24)
[2021-07-06] MEDS: Enoxaparin 40 MG/0.4 ML Syringe SC (08:24)
[2021-07-06] MEDS: 0.9% Saline Lock 10 ML Syringe IV ×2 (08:25→17:01)
[2021-07-06] MEDS: Insulin U-500 UNITS/ML PEN 200 UNITS SC (08:25)
[2021-07-06] MEDS: Metoprolol Tartrate 25 MG Tablet PO (09:52)
[2021-07-06] MEDS: Losartan Potassium 100 MG Tablet PO (11:33)
[2021-07-06] MEDS: Insulin Lispro 100 UNIT/ML INSULN.PEN SC ×3 (11:33→21:48)
[2021-07-06] MEDS: hydroCHLOROthiazide 12.5mg 12.5 MG PO (11:33)
[2021-07-06 11:40] LABS: Bedside Glucose 171 mg/dL (70-110)
--- NOTE | 2021-07-06 12:38 | PN.HOSP_ITS ---
Documented by User: Sona Dunn NP, WRAPPER DIPPER-C 07/06/21 12:58 Subjective Subjective Patient seen and examined. Reports shortness of breath is improving. Denies chest pain/pressure. Notes minimal improvement in lower extremity and abdominal swelling. Objective Data Objective Data Vital Signs: Vital Signs Temp Pulse Resp BP Pulse Ox 97.5 F L 68 20 H 136/68 H 95 07/06/21 11:30 07/06/21 11:30 07/06/21 11:30 07/06/21 11:30 07/06/21 11:30 Oxygen Flow Rate (L/min) 2 Oxygen Delivery Method Room Air Weight: 356 lb 14.854 oz Body Mass Index (BMI) 56.2 Intake & Output: Intake and Output for Last 24 Hours 07/04/21 07/05/21 07/06/21 23:59 23:59 23:59 Intake Total 1200 / 1340 520 / 520 Balance 1200 / 1340 520 / 520 Lab / Micro Data Result Diagrams: 07/06/21 06:12 07/06/21 06:12 Labs: Laboratory Results - last 24 hr 07/05/21 12:21: POC Glucose 316 H 07/05/21 17:07: POC Glucose 230 H 07/05/21 21:22: POC Glucose 241 H 07/06/21 06:12: WBC 10.6, RBC 4.95, Hgb 14.8, Hct 43.5, MCV 87.9, MCH 29.9, MCHC 34.0, RDW Std Deviation 42.2, RDW Coeff of Shelly 13.2, Plt Count 254, MPV 10.3, Immature Gran % (Auto) 0.300, Neut % (Auto) 61.1, Lymph % (Auto) 26.1, Casey % (Auto) 10.7 H, Eos % (Auto) 1.2, Baso % (Auto) 0.6, Absolute Neuts (auto) 6.5, Absolute Lymphs (auto) 2.77, Nucleated RBC % 0 07/06/21 06:12: Sodium 140, Potassium 3.6, Chloride 106, Carbon Dioxide 29.0, Anion Gap 5, BUN 24 H, Creatinine 1.00, Estim Creat Clear Calc 76.20, Est GFR (MDRD) Af Amer 99, Est GFR (MDRD) Non-Af 82, BUN/Creatinine Ratio 24.0 H, Glucose 105, Calcium 8.7 07/06/21 06:30: POC Glucose 119 H 07/06/21 11:31: POC Glucose 171 H Micro: Microbiology 07/04/21 23:15 Nasal Secretion SARS-CoV-2 Antigen (Rapid) - Final Radiography Diagnostic Testing: Radiology Impression Echocardiogram 07/05/21 02:37 Interpretation Summary The estimated ejection fraction is 65-70 %. No significant difference from prior Echo Ordering Physician: Fox Cleveland Referring Physician: Jus Shields Performed By: Vee Little RDCS Physical Exam Const alert, oriented x3 and no apparent distress Orientation / Consciousness: awake, oriented to person, oriented to place and oriented to time Nutritional Appearance: obese HEENT normocephalic and moist oral mucous membranes Eyes PERRL, EOMs intact bilaterally and conjunctivae normal Neck no lymphadenopathy Resp clear to auscultation bilaterally Auscultation: diminished lung sounds Cardio regular rate, regular rhythm and no murmurs Peripheral Pulses: pulses 2+ throughout GI normal to inspection, nondistended, normoactive bowel sounds, non-tender and non-distended Extremity normal to inspection General Extremity: edema bilateral lower extremity Details: severe Skin no rashes or lesions noted Lesions: no lesions Rashes: no rashes Trauma: no lacerations or abrasions Neuro CN's II-XII intact bilaterally, no focal motor deficits, no sensory deficits n oted and deep tendon reflexes 2+ bilaterally Psych mental status grossly normal and affect normal Assessment & Plan Assessment/Plan (1) CHF (congestive heart failure): PLAN: 1. Acute on chronic heart failure with preserved ejection fraction- IV Lasix. Strict I&O. Daily weight. Echocardiogram demonstrates an EF of 65 to 70%. Patient continues to have significant lower extremity and abdominal swelling. Nephrology consulted. 2. Type 2 diabetes [id number] with sliding scale insulin. Continue home insulin regimen. 3. Hypertension-stable, continue current regimen. 4. Hyperlipidemia-continue statin. 5. Paroxysmal atrial fibrillation-on flecainide. Not on anticoagulation. CHADSVASc score 3. Ideally patient should be on anticoagulation. 6. Super morbid obesity-encouraged diet and lifestyle modifications. Nutrition consult. 7. MARIA A/severe pulmonary hypertension-continue PAP therapy. DVT prophylaxis- Lovenox sc This patient was seen by EVARISTO Schwab under the supervision of Dr. Landa. Time spent examining patient, reviewing data and subsequent management of care: 13 Minutes Documented by User: Dr. Ben Landa MD 07/06/21 15:18 Subjective Subjective Seen and examined Follow-up for acute on chronic heart failure exacerbation. business objects shows sinus bradycardia in 50s to 60s permanent. On 2 L of oxygen. Patient reports improvement in breathing but abdominal and leg swelling remains same. Objective Data Lab / Micro Data Result Diagrams: 07/06/21 06:12 07/06/21 06:12 Physical Exam Narrative General: Alert, Oriented x3, Cooperative, super morbid obesity BMI 55.9 kg/m? HEENT: Atraumatic, PERRLA, EOMI, Normocephalic Oral: No Gingival or Mucosal Lesions/ Ulcerations Neck: Supple, No JVD, Negative Carotid Bruits Lungs: Air entry diminished in bilateral lung bases. No crepitation/rhonchi. Uses BiPAP. Cardiovascular: Sinus bradycardia, Normal S1, Normal S2, No murmurs Abdomen: Bowel Sounds Present, Soft, Non Tender, large abdomen fat with panniculitis. Shifting dullness difficult to palpate possible ascites. : No renal angle tenderness. No suprapubic tenderness. Extremities: Bilateral indurated leg and thigh edema, Capillary Refill Less than 3 Seconds Skin: Venous hypertension changes lower legs. Musculoskeletal: No Tenderness to Palpation of Joints or Extremities Neurological: Cranial nerves II-XII grossly intact, DTR 2+/4 and Symmetrical, Neuro grossly intact Psych/Mental Status: Flat affect Assessment & Plan Assessment/Plan (1) CHF (congestive heart failure): PLAN: This patient was seen in conjunction with Sona WAY. I have independently interviewed and examined the patient and reviewed pertinent history, examination findings, laboratory and plan of management. I have reviewed the note and agree with the documented findings with the few additional points. In brief, patient is admitted for shortness of breath, leg swelling and abdominal swelling, increasing weight consistent with acute on chronic HFpEF/diastolic heart failure. Heart failure core measures including intake and output, fluid restriction less than 1500 mL, daily weight monitoring, kidney and electrolytes monitoring. business objects shows sinus bradycardia. No chest pain. Echo EF 65 to 70%. Patient continues to have lower extremity swelling and abdominal swelling. Experimental Machining Lab Manager consulted to help with diuretic. Venous duplex ordered of bilateral lower extremity to rule out DVT as legs are indurated. Obstructive sleep apnea/severe pulmonary hypertension: Continue BiPAP/CPAP. Patient also has paroxysmal A. fib on flecainide. Heart rate is well controlled Diabetes mellitus type 2: Other comorbidities as mentioned above most including super morbid obesity. Seasonal Warehouse Associate consulted. I have discussed my assessment with Sona WAY and orders have been reviewed. Charges/Coding Visit Charges Inpatient E&M: 82922 Subs Hosp L2
--- NOTE | 2021-07-06 15:14 | VDLE_ITS ---
Reason For Study: Shortness of breath RIGHT LEFT GSV is normal. GSV is normal. CFV is compressible, spontaneous, phasic, CFV is compressible, spontaneous, phasic, competent and demonstrates normal competent, and demonstrates normal augmentation. augmentation. FV is compressible, spontaneous, phasic, FV is compressible, spontaneous, phasic, competent and demonstrates normal competent and demonstrates normal augmentation. augmentation. POP V is compressible, spontaneous, phasic, POP V is compressible, spontaneous, phasic, competent and demonstrates normal competent and demonstrates normal augmentation. augmentation. T/P Trunk is compressible. T/P Trunk is compressible. PTV is compressible. PTV is compressible. RT PerV is compressible. LT PerV is compressible. Procedure This is a venous duplex using B-mode, color flow and spectral Doppler. Exam performed portable in patient room. A preliminary report was called and/or faxed to [facility]. VL/Venous Duplex US - Jassi Extrem Interpretation Summary No evidence for acute deep venous thrombosis bilateral lower extremities with p atent and compressible bilateral great saphenous veins. Ordering Physician: Ben Landa Referring Physician: Jus Shields Performed By: Ivon Vidal RVT
[2021-07-06 16:54] LABS: Protein, Urine (Random) 10.4 mg/dL (<11.9); Protein:Creat Ratio 107 mg/g CRE (0-200)
[2021-07-06 16:58] LABS: Color, Urine Yellow (Yellow); Glucose, Dipstick Normal (Normal); Ketone-Dipstick Negative (Negative); Leukocyte Esterase-Dipstick Negative /ul (Negative); Nitrite-Dipstick Negative (Negative); Occult Blood-Urine Negative /ul (Negative); Protein-Dipstick Negative (Negative); Specific Gravity, Urine 1.015 (1.002-1.030); Urine Bilirubin Dipstick Negative (Negative); Urine Clarity Clear (Clear); Urine Urobilinogen Normal (Normal)
[2021-07-06] MEDS: Insulin U-500 UNITS/ML PEN 135 UNITS SC (17:02)
[2021-07-06] MEDS: Furosemide 40 MG/4 ML Vial IV (17:03)
[2021-07-06 17:11] LABS: Bedside Glucose 179 mg/dL (70-110)
[2021-07-06 18:05] LABS: Albumin, Serum 3.3 g/dL (3.2-5.0)
[2021-07-06] MEDS: Atorvastatin Calcium 80 MG Tablet PO (21:47)
[2021-07-06 22:16] LABS: Bedside Glucose 202 mg/dL (70-110)
[2021-07-07] VITALS (7 sets, daily range): BP systolic 155–165; BP diastolic 60–74; PULSE 53–66; RESP 18; TEMP 36.3; O2SAT 94–98
[2021-07-07 04:36] LABS: Bedside Glucose 129 mg/dL (70-110)
[2021-07-07 07:05] LABS: Albumin, Serum 3.3 g/dL (3.2-5.0)
[2021-07-07 07:05] LABS: Bedside Glucose 125 mg/dL (70-110)
[2021-07-07 07:06] LABS: Anion Gap 6 (5-15); BUN 26 mg/dL (7-18); BUN/Creat Ratio 25.2 RATIO (10-20); Calcium,Total 9.1 mg/dL (8.5-10.1); Chloride 105 mmol/L (98-107); Creatinine, Serum 1.03 mg/dL (0.70-1.30); EST Glomerular Filtration Rate 79 mL/min (>60); Est Glom Filt Rate - Afr Amer 95 mL/min (>60); Estimated Creatinine Clearance 73.98 ml/min; Glucose 124 mg/dL (74-106); Potassium 3.8 mmol/L (3.5-5.1); Sodium Level 139 mmol/L (136-145)
[2021-07-07] MEDS: Furosemide 100 MG/10 ML Vial 80 MG IV (08:35)
[2021-07-07] MEDS: Insulin U-500 UNITS/ML PEN 200 UNITS SC (08:35)
[2021-07-07] MEDS: 0.9% Saline Lock 10 ML Syringe IV (08:35)
[2021-07-07] MEDS: Enoxaparin 40 MG/0.4 ML Syringe SC (08:36)
[2021-07-07] MEDS: Metoprolol Tartrate 25 MG Tablet PO (08:37)
[2021-07-07] MEDS: Aspirin E.C. 81 MG Tablet PO (08:38)
[2021-07-07] MEDS: hydroCHLOROthiazide 12.5mg 12.5 MG PO (08:38)
[2021-07-07] MEDS: Potassium Chloride Oral Tablet 20 MEQ PO (08:38)
[2021-07-07] MEDS: amLODIPine 5 MG Tablet PO (08:38)
[2021-07-07] MEDS: Losartan Potassium 100 MG Tablet PO (08:38)
[2021-07-07] MEDS: Flecainide 100 MG Tablet PO (08:38)
[2021-07-07] MEDS: Multivitamins,Ther W-Minerals Tablet 1 TABLET PO (08:38)
--- NOTE | 2021-07-07 10:45 | CON.PCM.RE_ITS ---
Assessment & Plan Assessment/Plan (1) CHF (congestive heart failure): (2) Lower extremity edema: (3) MARIA A (obstructive sleep apnea): (4) Essential hypertension: (5) Type 2 diabetes mellitus: PLAN: Patient was admitted for decompensated heart failure. We were asked to see patient to help comanage with diuretics. Patient's baseline creatinine is around 1 mg/dL. Echo this admission demonstrated EF 65 to 70%, Moderate eccentric left ventricular hypertrophy, normal right ventricle, normal systolic function. We obtained a UA which was negative for protein or blood, urine/protein creatinine ratio 107 mg/g. We recommend continue with IV Lasix as ordered during hospitalization (80mg IV am, 40mg IV pm) and at time of discharge to continue oral 80 mg Lasix in a.m. and 40 mg in p.m. We added metolazone 5mg daily and stopped hydrochlorothiazide. At time of discharge patient will not be discharged home on telmisartan/hydrochlorothiazide; but likely will be discharged on losartan, reviewed with primary team. Reviewed with patient importance of daily weights, fluid restriction of no more than 1.5 L/day and low-sodium diet. HPI Consult Data Date of Consult: 07/07/21 HPI Narrative HPI Narrative: JAVON ROTH, is a 55 M with past medical history signific ant for MARIA A compliant with CPAP, A. fib, pulmonary hypertension (right heart cath 06/28/2020 showed severe pulmonary hypertension), diabetes mellitus type 2 who was admitted 07/05 for acute on chronic heart failure with preserved ejection fraction/restrictive lung disease/pulmonary hypertension. Echocardiogram on 07/07/2019 showed estimated ejection fraction of 70%. Diastolic function was indeterminate. There was mild to moderate right atrial enlargement. Mild to moderate left atrial enlargement. Right ventricular systolic pressure/pulmonary artery pressure was unable to be estimated. Right heart cath on 06/28/2020 showed severely elevated right heart pressures. We were consulted for assistance with diuretic therapy. Patient's baseline creatinine is around 1 mg/dL. Patient denies missing any of his diuretic doses at home, currently takes Lasix 80 mg in the a.m. and 40 mg in p.m. Patient reports since receiving IV Lasix he has noted improvement in lower extremity edema. Patient reports over the last month he gained around 15 pounds. Weight on admission 166 kg, currently he is at 161 kg. Weight in January 2021 156 kg. States does not weigh himself daily, tries to follow low sodium diet and does not follow a fluid restriction. Patient does report his has a history of CKD stage IV/V and is near starting dialysis. [facility] Medical History (Updated 07/05/21 @ 00:[address] Geeta De La Garza MD) Abnormal stress test Acute combined systolic (congestive) and diastolic (congestive) heart failure Atherosclerotic heart disease of [place] coronary artery without angina pectoris Cellulitis Dyspnea Dyspnea on exertion Essential hypertension Hypertensive emergency Lower extremity edema Mixed hyperlipidemia Obesity hypoventilation syndrome MARIA A (obstructive sleep apnea) Paroxysmal atrial fibrillation Pulmonary hypertension Type 2 diabetes mellitus Venous insufficiency Home Medications metformin 1,000 mg PO BID 02/01/19 [History Last Taken 06/27/20] multivitamin with minerals 1 tablet PO DAILY 02/01/19 [History Last Taken 06/16/20] aspirin 81 mg PO DAILY@0800 #60 tab 02/06/19 [Rx Last Taken 06/16/20] dulaglutide 3 mg/0.5 mL subcutaneous pen injector 3 mg SC JOHNSON 05/10/20 [History Last Taken 06/12/20] ipratropium 0.5 mg-albuterol 3 mg (2.5 mg base)/3 mL nebulization soln 3 ml INHALATION Q6H PRN ml 06/13/20 [History Last Taken Unknown] telmisartan-hydrochlorothiazid 1 tab PO DAILY 06/17/20 [History Last Taken 06/28/20] flecainide 100 mg tablet 100 mg PO BID #180 tab 08/25/20 [Rx Last Taken Unknown] furosemide 40 mg tablet 120 mg PO .COMPLEX 90 Days #270 tablet 08/25/20 [Rx Last Taken Unknown] metoprolol tartrate 25 mg tablet 25 mg PO BID #180 tab 08/25/20 [Rx Last Taken Unknown] amlodipine 5 mg tablet 5 mg PO DAILY #30 tab 09/08/20 [Rx Last Taken Unknown] rosuvastatin 40 mg tablet 40 mg PO QHS #90 tab 02/01/21 [Rx Last Taken Unknown] potassium chloride 20 mEq tablet,extended release(part/cryst) 20 meq PO BID #180 tab 03/15/21 [Rx Last Taken Unknown] Disability Placard #1 ea 05/30/21 [Rx Last Taken Unknown] insulin regular hum U-500 conc 135 unit SC DINNER ml 05/30/21 [History Last Taken Unknown] insulin regular hum U-500 conc 200 unit SC BREAKFAST ml 05/30/21 [History Last Taken Unknown] Allergy/AdvReac Type Severity Reaction Status Date / Time No Known Allergies Allergy Verified 05/30/21 07:28 Family History Father CAD (coronary artery disease) Myocardial infarction Hypertension Diabetes CVA (cerebral vascular accident) Mother Diabetes Hypertension Surgical History History of knee surgery History of right heart catheterization (RHC) (~06/28/20) History of tonsillectomy Social History Smoking Status: Never smoker alcohol intake: never substance use type: does not use caffeine: Yes Type: carbonated beverages Number of servings: 4 ROS ROS Narrative as in HPI and PMH Physical Exam Narrative Const: A&Ox3 HEENT: Head is normocephalic, atraumatic. Oral mucosa moist Cardio: S1-S2, rhythm rate regular Respiratory: Lung sounds clear anteriorly and posteriorly. No wheezes rhonchi rales noted Extremities 2+ pitting edema noted bilateral lower legs, edema noted to arms and hands Lab / Micro Data Result Diagrams: 07/06/21 06:12 07/07/21 06:05 Labs: Laboratory Results - last 24 hr 07/06/21 06:12: Albumin 3.3 07/06/21 11:31: POC Glucose 171 H 07/06/21 16:30: Urine Color Yellow, Urine Clarity Clear, Urine pH 6.0, Ur Specific [employer] 1.015, Urine Protein Negative, Urine Glucose (UA) Normal, Urine Ketones Negative, Urine Occult Blood Negative, Urine Nitrite Negative, Urine Bilirubin Negative, Urine Urobilinogen Normal, Ur Leukocyte Esterase Negative 07/06/21 16:30: U Random Total Protein 10.4, Urine Creatinine 97.10, Protein/Creatinin Ratio 107 07/06/21 16:53: POC Glucose 179 H 07/06/21 21:47: POC Glucose 202 H 07/07/21 04:29: POC Glucose 129 H 07/07/21 06:05: Sodium 139, Potassium 3.8, Chloride 105, Carbon Dioxide 28.0, Anion Gap 6, BUN 26 H, Creatinine 1.03, Estim Creat Clear Calc 73.98, Est GFR (MDRD) Af Amer 95, Est GFR (MDRD) Non-Af 79, BUN/Creatinine Ratio 25.2 H, Glucose 124 H, Calcium 9.1 07/07/21 06:05: Albumin 3.3 07/07/21 07:01: POC Glucose 125 H Radiology Impression Echocardiogram 07/05/21 02:37 Interpretation Summary The estimated ejection fraction is 65-70 %. No significant difference from prior Echo Ordering Physician: Fox Cleveland Referring Physician: Jus Shields Performed By: Vee Little RDCS Venous Doppler Study 07/06/21 15:14 Interpretation Summary No evidence for acute deep venous thrombosis bilateral lower extremities with patent and compressible bilateral great saphenous veins. Ordering Physician: Ben Landa Referring Physician: Jus Shields Performed By: Ivon Vidal RVT
--- NOTE | 2021-07-07 11:11 | PCM.DC ---
Discharge Instructions Diet Discharge Diet: Low fat / Low cholesterol, 8 Cup Fluid Restriction and 2000 mg Sodium Diet Activity Discharge Activity: Return to Normal Activity Dressing / Incision Call your doctor if you observe: Shortness of breath, Dizziness and Chest pain Follow Up Care Test Results: Test results from this visit will be discussed in further detail at your follow-up appointment, if applicable. Discharge Plan Admission Admit Date/Time: 07/05/21 00:35 Primary Reason for Your Visit: Acute on chronic heart failure with preserved ejection fraction Attending Provider: Ben Landa Primary Care Provider: Jus Shields Consulting Providers: Juan Francisco Kent ; Albert Fischer ; Delroy Jimenez ; Diogenes Davila ; Juan Luis Nails ; Brian Lee ; Atif Crenshaw ; Cheyenne Dee Discharge Orders/Prescriptions Prescriptions: New metolazone 5 mg Tablet 5 mg PO DAILY 30 Days Qty: 30 RF: 0 losartan 100 mg tablet 100 mg PO DAILY Qty: 30 RF: 0 Continued ipratropium-albuterol 0.5 mg-3 mg(2.5 mg base)/3 mL solution for nebulization 3 ml INHALATION Q6H PRN (Reason: breathing) RF: 0 flecainide 100 mg tablet 100 mg PO BID Qty: 180 RF: 3 metoprolol tartrate 25 mg tablet 25 mg PO BID Qty: 180 RF: 3 furosemide 40 mg tablet 120 mg PO .COMPLEX 90 Days Qty: 270 RF: 3 amlodipine 5 mg tablet 5 mg PO DAILY Qty: 30 RF: 11 (DME) Disability Placard See Rx Instructions .Route .MEDSUPPLY Qty: 1 RF: 0 multivitamin with minerals 1 EACH tablet 1 tablet PO DAILY RF: 0 metformin 1,000 MG tablet extended release 24hr 1,000 mg PO BID RF: 0 aspirin 81 MG tablet 81 mg PO DAILY@0800 Qty: 60 RF: 0 dulaglutide 3 mg/0.5 mL pen injector 3 mg SC JOHNSON RF: 0 rosuvastatin 40 mg tablet 40 mg PO QHS Qty: 90 RF: 3 potassium chloride 20 mEq tablet,ER particles/crystals 20 meq PO BID Qty: 180 RF: 3 insulin regular hum U-500 conc 500 unit/mL (3 mL) insulin pen 200 unit SC BREAKFAST RF: 0 insulin regular hum U-500 conc 500 unit/mL (3 mL) insulin pen 135 unit SC DINNER RF: 0 Discontinued telmisartan-hydrochlorothiazid 1 EACH tablet 1 tab PO DAILY RF: 0 Referrals / Follow Up: Jus Shields MD [Primary Care Provider] - In 1 Week Delroy Jimenez MD [STAFF PHYSICIAN] - In 1 Week Stephani Baez PA [PHYSICIAN DAMAGE APPRAISER] - 07/10/21 (07/10/2021 as scheduled) Disposition Disposition (needs filled in before D/C Order can be placed): Home, Self Care
--- NOTE | 2021-07-07 11:28 | PCM.DC.SUM ---
Documented by User: Sona Dunn NP, FLEET MAINTENANCE MANAGER-C 07/07/21 11:34 Providers Date of Admission: 07/05/21 Date of Discharge: 07/07/21 Primary Care Physician: Dr. Jus Shields MD Consultations 07/06/21 12:06 Consult: Nephrology Routine Consulting Provider: [facility] Reason for Consult: heart failure EMERGENT Consult: No MD Notified: Yes Date Notified: 07/06/21 Time Notified: 12:06 Method of Notification: Verbal Reason For Visit: ACUTE ON CHRONIC HEART FAILURE Diagnosis Discharge Diagnosis (1) CHF (congestive heart failure): Status: Acute Code(s): I50.9 - Heart failure, unspecified (2) Lower extremity edema: Status: Chronic Code(s): R60.0 - Localized edema (3) MARIA A (obstructive sleep apnea): Status: Chronic Code(s): G47.33 - Obstructive sleep apnea (adult) (pediatric) (4) Essential hypertension: Status: Chronic Code(s): I10 - Essential (primary) hypertension (5) Type 2 diabetes mellitus: Status: Chronic Code(s): E11.9 - Type 2 diabetes mellitus without complications Medications at Discharge Home Medications metformin 1,000 mg PO BID 02/01/19 multivitamin with minerals 1 tablet PO DAILY 02/01/19 aspirin 81 mg PO DAILY@0800 #60 tab 02/06/19 dulaglutide 3 mg/0.5 mL subcutaneous pen injector 3 mg SC JOHNSON 05/10/20 ipratropium 0.5 mg-albuterol 3 mg (2.5 mg base)/3 mL nebulization soln 3 ml INHALATION Q6H PRN ml 06/13/20 flecainide 100 mg tablet 100 mg PO BID #180 tab 08/25/20 furosemide 40 mg tablet 120 mg PO .COMPLEX 90 Days #270 tablet 08/25/20 metoprolol tartrate 25 mg tablet 25 mg PO BID #180 tab 08/25/20 amlodipine 5 mg tablet 5 mg PO DAILY #30 tab 09/08/20 rosuvastatin 40 mg tablet 40 mg PO QHS #90 tab 02/01/21 potassium chloride 20 mEq tablet,extended release(part/cryst) 20 meq PO BID #180 tab 03/15/21 Disability Placard #1 ea 05/30/21 insulin regular hum U-500 conc 135 unit SC DINNER ml 05/30/21 insulin regular hum U-500 conc 200 unit SC BREAKFAST ml 05/30/21 losartan 100 mg PO DAILY #30 tab 07/07/21 metolazone 5 mg PO DAILY 30 Days #30 tab 07/07/21 Hospital Course Operations None Procedures 2-D Echocardiogram Summary of Care Provided Hospital Course: Patient is a 55-year-old male admitted 07/05/21 due to shortness of breath. 1. Acute on chronic heart failure with preserved ejection fraction-IV Lasix during admission. Echocardiogram demonstrates an EF of 65 to 70%. Nephrology consulted to help manage diuretics. Patient will continue home Lasix regimen 80 mg a.m. and 40 mg p.m. at discharge with the addition of metolazone 5 mg daily. Patient was previously on ARB/HCTZ and HCTZ was discontinued at discharge, placed on losartan 100 mg daily. Instructed patient on daily weight, fluid restriction and sodium restriction. He has follow-up with cardiology 07/10/2021. Follow-up with nephrology in 1 week. 2. Type 2 diabetes mellitus- Continue home insulin regimen. 3. Hypertension-stable, continue amlodipine, metoprolol. As noted above, ARB/HCTZ combination pill discontinued and patient was discharged on losartan only. 4. Hyperlipidemia-continue statin. 5. Paroxysmal atrial fibrillation-on flecainide. Not on anticoagulation. CHADSVASc score 3. Per cardiology, patient is not on anticoagulation as he has remained sinus rhythm. He was noted to be in sinus rhythm during his hospitalization. Continue evaluation by cardiology on an outpatient basis. 6. Super morbid obesity-encouraged diet and lifestyle modifications. 7. MARIA A/severe pulmonary hypertension-continue PAP therapy. Physical Exam Const alert, oriented x3 and no apparent distress Orientation / Consciousness: awake, oriented to person, oriented to place and oriented to time Nutritional Appearance: obese HEENT normocephalic and moist oral mucous membranes Eyes PERRL, EOMs intact bilaterally and conjunctivae normal Neck no lymphadenopathy Resp clear to auscultation bilaterally Auscultation: diminished lung sounds Cardio regular rate, regular rhythm and no murmurs Peripheral Pulses: pulses 2+ throughout GI normal to inspection, nondistended, normoactive bowel sounds, non-tender and non-distended Extremity normal to inspection General Extremity: edema bilateral lower extremity Details: severe. Generalized edema. Skin no rashes or lesions noted Lesions: no lesions Rashes: no rashes Trauma: no lacerations or abrasions Neuro CN's II-XII intact bilaterally, no focal motor deficits, no sensory deficits noted and deep tendon reflexes 2+ bilaterally Psych mental status grossly normal and affect normal Patient seen and examined prior to discharge. Physical assessment as noted above. Patient is stable for discharge with follow up recommendations as noted above. This patient was seen by EVARISTO Schwab under the supervision of Dr. Landa. Time spent examining patient, reviewing data and subsequent management of care: 14 Minutes Weight / BMI Weight Weight: 355 lb 2.635 oz Body Mass Index (BMI) 56.2 ABG / Lab / Microbiology Data Result Diagrams: 07/06/21 06:12 07/07/21 06:05 Laboratory: Laboratory Results - last 24 hr 07/06/21 06:12: Albumin 3.3 07/06/21 11:31: POC Glucose 171 H 07/06/21 16:30: Urine Color Yellow, Urine Clarity Clear, Urine pH 6.0, Ur Specific [place] 1.015, Urine Protein Negative, Urine Glucose (UA) Normal, Urine Ketones Negative, Urine Occult Blood Negative, Urine Nitrite Negative, Urine Bilirubin Negative, Urine Urobilinogen Normal, Ur Leukocyte Esterase Negative 07/06/21 16:30: U Random Total Protein 10.4, Urine Creatinine 97.10, Protein/Creatinin Ratio 107 07/06/21 16:53: POC Glucose 179 H 07/06/21 21:47: POC Glucose 202 H 07/07/21 04:29: POC Glucose 129 H 07/07/21 06:05: Sodium 139, Potassium 3.8, Chloride 105, Carbon Dioxide 28.0, Anion Gap 6, BUN 26 H, Creatinine 1.03, Estim Creat Clear Calc 73.98, Est GFR (MDRD) Af Amer 95, Est GFR (MDRD) Non-Af 79, BUN/Creatinine Ratio 25.2 H, Glucose 124 H, Calcium 9.1 07/07/21 06:05: Albumin 3.3 07/07/21 07:01: POC Glucose 125 H Microbiology: Microbiology 07/04/21 23:15 Nasal Secretion SARS-CoV-2 Antigen (Rapid) - Final Radiography Diagnostic Testing: Radiology Impression Venous Doppler Study 07/06/21 15:14 Interpretation Summary No evidence for acute deep venous thrombosis bilateral lower extremities with patent and compressible bilateral great saphenous veins. Ordering Physician: Ben Landa Referring Physician: Jus Shields Performed By: Ivon Vidal RVT D/C Instructions Discharge Diet: Low fat / Low cholesterol, 8 Cup Fluid Restriction and 2000 mg Sodium Diet Call your doctor if you observe: Shortness of breath, Dizziness and Chest pain Meaningful Use Info Meaningful Use Diagnoses (Choose all that apply): CHF CHF SHAE/ARB ordered at discharge?: Yes Documented LVEF (%): 65 Discharge Plan Admission Admit Date/Time: 07/05/21 00:35 Primary Reason for Your Visit: Acute on chronic heart failure with preserved ejection fraction Attending Provider: Ben Landa Primary Care Provider: Jus Shields Consulting Providers: Juan Francisco Kent ; Albert Fischer ; Delroy Jimenez ; Diogenes Davila ; Juan Luis Nails ; Brian Lee ; Atif Crenshaw ; Cheyenne Dee Discharge Orders/Prescriptions Prescriptions: New metolazone 5 mg Tablet 5 mg PO DAILY 30 Days Qty: 30 RF: 0 losartan 100 mg tablet 100 mg PO DAILY Qty: 30 RF: 0 Continued ipratropium-albuterol 0.5 mg-3 mg(2.5 mg base)/3 mL solution for nebulization 3 ml INHALATION Q6H PRN (Reason: breathing) RF: 0 flecainide 100 mg tablet 100 mg PO BID Qty: 180 RF: 3 metoprolol tartrate 25 mg tablet 25 mg PO BID Qty: 180 RF: 3 furosemide 40 mg tablet 120 mg PO .COMPLEX 90 Days Qty: 270 RF: 3 amlodipine 5 mg tablet 5 mg PO DAILY Qty: 30 RF: 11 (DME) Disability Placard See Rx Instructions .Route .MEDSUPPLY Qty: 1 RF: 0 multivitamin with minerals 1 EACH tablet 1 tablet PO DAILY RF: 0 metformin 1,000 MG tablet extended release 24hr 1,000 mg PO BID RF: 0 aspirin 81 MG tablet 81 mg PO DAILY@0800 Qty: 60 RF: 0 dulaglutide 3 mg/0.5 mL pen injector 3 mg SC JOHNSON RF: 0 rosuvastatin 40 mg tablet 40 mg PO QHS Qty: 90 RF: 3 potassium chloride 20 mEq tablet,ER particles/crystals 20 meq PO BID Qty: 180 RF: 3 insulin regular hum U-500 conc 500 unit/mL (3 mL) insulin pen 200 unit SC BREAKFAST RF: 0 insulin regular hum U-500 conc 500 unit/mL (3 mL) insulin pen 135 unit SC DINNER RF: 0 Discontinued telmisartan-hydrochlorothiazid 1 EACH tablet 1 tab PO DAILY RF: 0 Referrals / Follow Up: Jus Shields MD [Primary Care Provider] - In 1 Week Delroy Jimenez MD [STAFF PHYSICIAN] - In 1 Week Stephani Baez PA [PHYSICIAN PIN OR CLIP FASTENER] - 07/10/21 (07/10/2021 as scheduled) Disposition Disposition (needs filled in before D/C Order can be placed): Home, Self Care Documented by User: Dr. Ben Landa MD 07/07/21 14:56 Providers Date of Admission: 07/05/21 Reason For Visit: ACUTE ON CHRONIC HEART FAILURE Medications at Discharge Home Medications metformin 1,000 mg PO BID 02/01/19 multivitamin with minerals 1 tablet PO DAILY 02/01/19 aspirin 81 mg PO DAILY@0800 #60 tab 02/06/19 dulaglutide 3 mg/0.5 mL subcutaneous pen injector 3 mg SC JOHNSON 05/10/20 ipratropium 0.5 mg-albuterol 3 mg (2.5 mg base)/3 mL nebulization soln 3 ml INHALATION Q6H PRN ml 06/13/20 flecainide 100 mg tablet 100 mg PO BID #180 tab 08/25/20 furosemide 40 mg tablet 120 mg PO .COMPLEX 90 Days #270 tablet 08/25/20 metoprolol tartrate 25 mg tablet 25 mg PO BID #180 tab 08/25/20 amlodipine 5 mg tablet 5 mg PO DAILY #30 tab 09/08/20 rosuvastatin 40 mg tablet 40 mg PO QHS #90 tab 02/01/21 potassium chloride 20 mEq tablet,extended release(part/cryst) 20 meq PO BID #180 tab 03/15/21 Disability Placard #1 ea 05/30/21 insulin regular hum U-500 conc 135 unit SC DINNER ml 05/30/21 insulin regular hum U-500 conc 200 unit SC BREAKFAST ml 05/30/21 losartan 100 mg PO DAILY #30 tab 07/07/21 metolazone 5 mg PO DAILY 30 Days #30 tab 07/07/21 Hospital Course Summary of Care Provided Hospital Course: This patient was seen in conjunction with FLEET MAINTENANCE MANAGER, Sona. I have independently interviewed and examined the patient and reviewed pertinent history, examination findings, laboratory and plan of management. I have reviewed the note and agree with the documented findings with the few additional points. In brief, patient is admitted for shortness of breath, leg swelling and abdominal swelling, increasing weight consistent with acute on chronic HFpEF/diastolic heart failure. Heart failure core measures including intake and output, fluid restriction less than 1500 mL, daily weight monitoring, kidney and electrolytes monitoring. environmental monitoring technician shows sinus bradycardia. No chest pain. Echo EF 65 to 70%. Patient continues to have lower extremity swelling and abdominal swelling. Wiring Mechanic consulted to help with diuretic. Venous duplex of bilateral lower extremity negative for acute DVT. Patient is discharged on Lasix with potassium supplement and metolazone. On metoprolol, losartan and amlodipine for blood pressure control. Obstructive sleep apnea/severe pulmonary hypertension: Continue BiPAP/CPAP. Patient also has paroxysmal A. fib on flecainide. Heart rate is well controlled Diabetes mellitus type 2: On dulaglutide and Metformin. Other comorbidities as mentioned above most including super morbid obesity. Insurance Instructor consulted. Discharge medication reconciliation done. Discharge follow-up instructions completed. Discharge process discussed with the patient and all questions were answered to patient's satisfaction. Follow-up with the director of financial planning in 1 week. Total time spent, exact 35 minutes on discharge meds reconciliation, examination, coordination of care with nurses and ancillary staff, review of imaging and blood test and discussion with the patient on follow-up instructions I have discussed my assessment with Sona WAY and orders have been reviewed. Physical Exam Narrative General: Alert, Oriented x3, Cooperative, super morbid obesity BMI 55.9 kg/m? HEENT: Atraumatic, PERRLA, EOMI, Normocephalic Oral: No Gingival or Mucosal Lesions/ Ulcerations Neck: Supple, No JVD, Negative Carotid Bruits Lungs: Air entry diminished in bilateral lung bases. No crepitation/rhonchi. Uses BiPAP. Cardiovascular: Sinus rhythm in 60s, Normal S1, Normal S2, No murmurs Abdomen: Bowel Sounds Present, Soft, Non Tender, large abdomen fat with panniculitis. possible ascites. : No renal angle tenderness. No suprapubic tenderness. Extremities: Bilateral indurated leg edema, Capillary Refill Less than 3 Seconds. Thigh edema has resolved Skin: Venous hypertension changes lower legs. Musculoskeletal: No Tenderness to Palpation of Joints or Extremities Neurological: Cranial nerves II-XII grossly intact, DTR 2+/4 and Symmetrical, Neuro grossly intact Psych/Mental Status: Flat affect ABG / Lab / Microbiology Data Result Diagrams: 07/06/21 06:12 07/07/21 06:05 Discharge Plan Admission Admit Date/Time: 07/05/21 00:35 Primary Reason for Your Visit: Acute on chronic heart failure with preserved ejection fraction Attending Provider: Ben Landa Primary Care Provider: Jus Shields Consulting Providers: Juan Francisco Kent ; Albert Fischer ; Delroy Jimenez ; Diogenes Davila ; Juan Luis Nails ; Brian Lee ; Atif Crenshaw ; Cheyenne Dee Discharge Orders/Prescriptions Prescriptions: New metolazone 5 mg Tablet 5 mg PO DAILY 30 Days Qty: 30 RF: 0 losartan 100 mg tablet 100 mg PO DAILY Qty: 30 RF: 0 Continued ipratropium-albuterol 0.5 mg-3 mg(2.5 mg base)/3 mL solution for nebulization 3 ml INHALATION Q6H PRN (Reason: breathing) RF: 0 flecainide 100 mg tablet 100 mg PO BID Qty: 180 RF: 3 metoprolol tartrate 25 mg tablet 25 mg PO BID Qty: 180 RF: 3 furosemide 40 mg tablet 120 mg PO .COMPLEX 90 Days Qty: 270 RF: 3 amlodipine 5 mg tablet 5 mg PO DAILY Qty: 30 RF: 11 (DME) Disability Placard See Rx Instructions .Route .MEDSUPPLY Qty: 1 RF: 0 multivitamin with minerals 1 EACH tablet 1 tablet PO DAILY RF: 0 metformin 1,000 MG tablet extended release 24hr 1,000 mg PO BID RF: 0 aspirin 81 MG tablet 81 mg PO DAILY@0800 Qty: 60 RF: 0 dulaglutide 3 mg/0.5 mL pen injector 3 mg SC JOHNSON RF: 0 rosuvastatin 40 mg tablet 40 mg PO QHS Qty: 90 RF: 3 potassium chloride 20 mEq tablet,ER particles/crystals 20 meq PO BID Qty: 180 RF: 3 insulin regular hum U-500 conc 500 unit/mL (3 mL) insulin pen 200 unit SC BREAKFAST RF: 0 insulin regular hum U-500 conc 500 unit/mL (3 mL) insulin pen 135 unit SC DINNER RF: 0 Discontinued telmisartan-hydrochlorothiazid 1 EACH tablet 1 tab PO DAILY RF: 0 Referrals / Follow Up: Jus Shields MD [Primary Care Provider] - In 1 Week Delroy Jimenez MD [STAFF PHYSICIAN] - In 1 Week Stephani Baez PA [PHYSICIAN PIN OR CLIP FASTENER] - 07/10/21 (07/10/2021 as scheduled) Disposition Disposition (needs filled in before D/C Order can be placed): Home, Self Care Charges/Coding Visit Charges Inpatient E&M: 16412 Disch Hosp
[2021-07-07] MEDS: Insulin Lispro 100 UNIT/ML INSULN.PEN SC (11:43)
[2021-07-07 11:55] LABS: Bedside Glucose 212 mg/dL (70-110)
--- NOTE | 2021-07-07 12:07 | CASEMGMT ---
Per Miriam BERMUDEZ, pt does not qualify for home oxygen at this time. Pt is independent in room and no therapy ordered. Lazaro BERMUDEZ CM
== END 2021-07-07 12:25 | disposition home or self-care (01) | DRG 291 ==
LOC: ED 07-05 00:37 → PCU 07-05 00:56
PROVIDERS: Internal Medicine Nephrology; Nurse Practitioner Adult Health; Nurse Practitioner Family; Physician Assistant; Admitting Provider Hospitalist; Emergency Provider Emergency Medicine; PCP Family Medicine; Visit Provider Internal Medicine
DX: I11.0 Hypertensive heart disease with heart failure (principal); I50.33 Acute on chronic diastolic (congestive) heart failure; J96.01 Acute respiratory failure with hypoxia; E66.2 Morbid (severe) obesity with alveolar hypoventilation; Z68.43 Body mass index [BMI] 50.0-59.9, adult; I27.20 Pulmonary hypertension, unspecified; E11.65 Type 2 diabetes mellitus with hyperglycemia; Z79.4 Long term (current) use of insulin; I48.0 Paroxysmal atrial fibrillation; E78.2 Mixed hyperlipidemia; I25.10 Atherosclerotic heart disease of native coronary artery without angina pectoris; R09.02 Hypoxemia; Z20.822 Contact with and (suspected) exposure to COVID-19; Z79.82 Long term (current) use of aspirin
CPT/HCPCS: 36415; 71045; 80048; 81002; 82040; 82570; 82962; 83880; 84156; 84484; 85025; 87426; 93005; 93306; 93970; 94002; 94003; 99285; Q9957; A4216; C8929; J1940

== ENCOUNTER 2021-08-01 16:14 | Outpatient (CLI) | payer OTHER, SELFPAY ==
[2021-08-01 17:05] LABS: Anion Gap 10 (5-15); BUN 39 mg/dL (7-18); BUN/Creat Ratio 25.8 RATIO (10-20); Calcium,Total 10.1 mg/dL (8.5-10.1); Chloride 91 mmol/L (98-107); Creatinine, Serum 1.51 mg/dL (0.70-1.30); EST Glomerular Filtration Rate 51 mL/min (>60); Est Glom Filt Rate - Afr Amer 61 mL/min (>60); Glucose 385 mg/dL (74-106); Sodium Level 131 mmol/L (136-145)
== END 2021-08-01 23:59 | disposition home or self-care (01) ==
LOC: LAB 16:15
PROVIDERS: PCP Family Medicine; Referring Provider Physician Assistant Medical; Visit Provider Physician Assistant Medical
DX: I50.41 Acute combined systolic (congestive) and diastolic (congestive) heart failure (principal); I27.20 Pulmonary hypertension, unspecified; I48.0 Paroxysmal atrial fibrillation; E78.2 Mixed hyperlipidemia; I25.10 Atherosclerotic heart disease of native coronary artery without angina pectoris
CPT/HCPCS: 36415; 80048

== ENCOUNTER → 2021-09-14 | Outpatient (CLI) | payer OTHER, SELFPAY ==
[2021-09-14 12:35] LABS: Hemoglobin 15.5 g/dL (13.0-16.5); Mean Corp Hgb Conc 33.7 g/dL (32-36); Mean Corpuscular Hgb 29.3 pg (27.0-32.0); Mean Platelet Vol. 10.2 fl (6.2-12.0); Platelet Count 333 K/mm3 (150-450); RBC Distribution Width CV 13.2 % (11.6-14.6); RBC Distribution Width SD 41.5 fl (35.1-43.9); Red Blood Count 5.29 M/mm3 (4.6-6.2); White Blood Count 12.1 K/mm3 (4.4-11.0)
[2021-09-14 12:49] LABS: Protein, Urine (Random) < 6.0 mg/dL (<11.9)
[2021-09-14 12:51] LABS: Albumin, Serum 3.7 g/dL (3.2-5.0); BUN 38 mg/dL (7-18); BUN/Creat Ratio 27.5 RATIO (10-20); Calcium,Total 9.6 mg/dL (8.5-10.1); Chloride 95 mmol/L (98-107); Creatinine, Serum 1.38 mg/dL (0.70-1.30); EST Glomerular Filtration Rate 56 mL/min (>60); Est Glom Filt Rate - Afr Amer 68 mL/min (>60); Glucose 222 mg/dL (74-106); Phosphorus 4.8 mg/dL (2.5-4.9); Potassium 3.9 mmol/L (3.5-5.1); Sodium Level 134 mmol/L (136-145)
[2021-09-14 13:10] LABS: PTHIN 38.1 pg/mL (18.4-80.1)
== END | disposition home or self-care (01) ==
LOC: POLAB3 10:00
PROVIDERS: PCP Family Medicine; Visit Provider Internal Medicine Nephrology
DX: N18.31 Chronic kidney disease, stage 3a (principal)
CPT/HCPCS: 36415; 80069; 82570; 83970; 84156; 85027

== ENCOUNTER → 2021-09-27 | Outpatient (CLI) | payer OTHER, SELFPAY ==
--- NOTE | 2021-09-27 16:11 | US_ITS ---
STUDY: RENAL ULTRASOUND - COMPLETE REASON FOR EXAM: Male, 56 years old. CKD3 TECHNIQUE: Ultrasound evaluation of the kidneys was performed with real-time and static king-scale imaging. COMPARISON: None. FINDINGS: RIGHT KIDNEY: Normal location of the right kidney, which is normal in size. The right kidney measures 14.16 x 6.77 cm. There is a normal cortex of the right kidney. The renal cortex measures 2.25 cm. There is a right renal cyst measuring 1.3 cm . There are no right renal calculi. There is no right hydronephrosis. DISTAL RIGHT URETER: There is non-visualization of the distal right ureter. There is no demonstrated right ureterovesical junction calculus. There is a visualized right ureteral jet. LEFT KIDNEY: Normal location of the left kidney, which is normal in size. The left kidney measures 14.42 x 7.39 cm. There is a normal cortex of the left kidney. The renal cortex measures 2.64 cm. There is no left renal mass or cyst. There are no left renal calculi. There is no left hydronephrosis. DISTAL LEFT URETER: There is non-visualization of the distal left ureter. There is no demonstrated left ureterovesical junction calculus. There is a visualized left ureteral jet. I.V.C.: The IVC is patent. BLADDER: The distended urinary bladder has a volume of 669 ml. The empty urinary bladder has a volume of ml. There is a normal wall thickness of the distended urinary bladder. There is no demonstrated mass within the urinary bladder. There are no demonstrated bladder calculi. US/Kidney and Bladder IMPRESSION: Normal ultrasound of the kidneys and urinary bladder. Electronically Signed: Dario Roper MD at 5:56 EDT ,
== END | disposition home or self-care (01) ==
LOC: US 16:09
PROVIDERS: PCP Family Medicine; Referring Provider Internal Medicine Nephrology; Visit Provider Internal Medicine Nephrology
DX: N18.31 Chronic kidney disease, stage 3a (principal)
CPT/HCPCS: 76770

== ENCOUNTER → 2021-10-10 | Outpatient (CLI) | payer OTHER, SELFPAY ==
[2021-10-10 16:17] LABS: Albumin, Serum 3.7 g/dL (3.2-5.0); BUN 52 mg/dL (7-18); BUN/Creat Ratio 32.9 RATIO (10-20); Calcium,Total 9.6 mg/dL (8.5-10.1); Chloride 94 mmol/L (98-107); Creatinine, Serum 1.58 mg/dL (0.70-1.30); EST Glomerular Filtration Rate 48 mL/min (>60); Est Glom Filt Rate - Afr Amer 58 mL/min (>60); Glucose 294 mg/dL (74-106); Phosphorus 4.4 mg/dL (2.5-4.9); Potassium 3.2 mmol/L (3.5-5.1); Sodium Level 134 mmol/L (136-145)
== END | disposition home or self-care (01) ==
LOC: LAB 06:59 → POLAB3 15:23
PROVIDERS: PCP Family Medicine; Referring Provider Internal Medicine Nephrology; Visit Provider Internal Medicine Nephrology
DX: N18.31 Chronic kidney disease, stage 3a (principal)
CPT/HCPCS: 36415; 80069

== ENCOUNTER → 2021-10-26 | Outpatient (CLI) | payer OTHER, SELFPAY ==
[2021-10-26 12:20] LABS: Anion Gap 9 (5-15); BUN 18 mg/dL (7-18); BUN/Creat Ratio 14.8 RATIO (10-20); Calcium,Total 8.7 mg/dL (8.5-10.1); Chloride 103 mmol/L (98-107); Creatinine, Serum 1.22 mg/dL (0.70-1.30); EST Glomerular Filtration Rate 65 mL/min (>60); Est Glom Filt Rate - Afr Amer 78 mL/min (>60); Glucose 343 mg/dL (74-106); Potassium 4.1 mmol/L (3.5-5.1); Sodium Level 138 mmol/L (136-145)
== END | disposition home or self-care (01) ==
LOC: POLAB3 11:21
PROVIDERS: PCP Family Medicine; Visit Provider Internal Medicine Nephrology
DX: E87.6 Hypokalemia (principal); N17.9 Acute kidney failure, unspecified
CPT/HCPCS: 36415; 80048

== ENCOUNTER → 2022-01-04 | Outpatient (CLI) | payer OTHER, SELFPAY ==
[2022-01-04 12:35] LABS: Albumin, Serum 3.3 g/dL (3.2-5.0); BUN 24 mg/dL (7-18); BUN/Creat Ratio 17.1 RATIO (10-20); Calcium,Total 8.8 mg/dL (8.5-10.1); Chloride 97 mmol/L (98-107); EST Glomerular Filtration Rate 55 mL/min (>60); Est Glom Filt Rate - Afr Amer 67 mL/min (>60); Glucose 371 mg/dL (74-106); Phosphorus 2.4 mg/dL (2.5-4.9); Potassium 3.2 mmol/L (3.5-5.1); Sodium Level 136 mmol/L (136-145)
== END | disposition home or self-care (01) ==
LOC: POLAB3 11:17
PROVIDERS: PCP Family Medicine; Visit Provider Internal Medicine Nephrology
DX: N17.9 Acute kidney failure, unspecified (principal)
CPT/HCPCS: 36415; 80069

== ENCOUNTER → 2022-04-03 | Outpatient (CLI) | payer OTHER, SELFPAY ==
[2022-04-03 14:08] LABS: Albumin, Serum 3.6 g/dL (3.2-5.0); BUN 22 mg/dL (7-18); BUN/Creat Ratio 18.5 RATIO (10-20); Calcium,Total 9.6 mg/dL (8.5-10.1); Chloride 98 mmol/L (98-107); Creatinine, Serum 1.19 mg/dL (0.70-1.30); EST Glomerular Filtration Rate 67 mL/min (>60); Est Glom Filt Rate - Afr Amer 81 mL/min (>60); Glucose 196 mg/dL (74-106); Potassium 3.5 mmol/L (3.5-5.1); Sodium Level 139 mmol/L (136-145)
== END | disposition home or self-care (01) ==
LOC: POLAB3 10:38
PROVIDERS: PCP Family Medicine; Visit Provider Internal Medicine Nephrology
DX: N18.2 Chronic kidney disease, stage 2 (mild) (principal)
CPT/HCPCS: 36415; 80069

== ENCOUNTER → 2022-05-31 | Outpatient (CLI) | payer OTHER, SELFPAY ==
[2022-05-31 13:51] LABS: Albumin, Serum 3.5 g/dL (3.2-5.0); BUN 26 mg/dL (7-18); BUN/Creat Ratio 20.6 RATIO (10-20); Calcium,Total 9.3 mg/dL (8.5-10.1); Chloride 97 mmol/L (98-107); Creatinine, Serum 1.26 mg/dL (0.70-1.30); EST Glomerular Filtration Rate 62 mL/min (>60); Est Glom Filt Rate - Afr Amer 75 mL/min (>60); Glucose 257 mg/dL (74-106); Phosphorus 3.5 mg/dL (2.5-4.9); Potassium 2.8 mmol/L (3.5-5.1); Sodium Level 138 mmol/L (136-145)
== END | disposition home or self-care (01) ==
LOC: POLAB3 12:01
PROVIDERS: PCP Family Medicine; Visit Provider Internal Medicine Nephrology
DX: N18.2 Chronic kidney disease, stage 2 (mild) (principal)
CPT/HCPCS: 36415; 80069

== ENCOUNTER → 2022-06-29 | Outpatient (CLI) | payer OTHER, SELFPAY ==
[2022-06-29 11:25] LABS: ALB/GLOB Ratio 0.9 RATIO (0.9-2.4); AST(SGOT) 28 U/L (15-37); Alanine Aminotransfer ALT/SGPT 28 U/L (16-61); Albumin, Serum 3.3 g/dL (3.2-5.0); Alkaline Phosphatase 77 U/L (45-117); Anion Gap 10 (5-15); BUN 30 mg/dL (7-18); BUN/Creat Ratio 23.6 RATIO (10-20); Chloride 101 mmol/L (98-107); Creatinine, Serum 1.27 mg/dL (0.70-1.30); EST Glomerular Filtration Rate 62 mL/min (>60); Est Glom Filt Rate - Afr Amer 75 mL/min (>60); Globulin 3.8 g/dL (2.2-4.2); Glucose 189 mg/dL (74-106); Potassium 3.1 mmol/L (3.5-5.1); Protein, Total 7.1 g/dL (6.4-8.2); Sodium Level 139 mmol/L (136-145)
== END | disposition home or self-care (01) ==
LOC: LAB 10:13
PROVIDERS: PCP Family Medicine; Visit Provider Nurse Practitioner Family
DX: E87.6 Hypokalemia (principal)
CPT/HCPCS: 36415; 80053

== ENCOUNTER → 2022-09-01 | Outpatient (CLI) | payer OTHER, SELFPAY ==
[2022-09-01 12:49] LABS: AST(SGOT) 18 U/L (15-37); Alanine Aminotransfer ALT/SGPT 30 U/L (16-61); Albumin, Serum 3.6 g/dL (3.2-5.0); Alkaline Phosphatase 78 U/L (45-117); Anion Gap 7 (5-15); BUN 40 mg/dL (7-18); BUN/Creat Ratio 24.2 RATIO (10-20); Calcium,Total 9.3 mg/dL (8.5-10.1); Chloride 97 mmol/L (98-107); Creatinine, Serum 1.65 mg/dL (0.70-1.30); EST Glomerular Filtration Rate 46 mL/min (>60); Est Glom Filt Rate - Afr Amer 55 mL/min (>60); Globulin 3.7 g/dL (2.2-4.2); Glucose 324 mg/dL (74-106); Potassium 3.7 mmol/L (3.5-5.1); Protein, Total 7.3 g/dL (6.4-8.2); Sodium Level 134 mmol/L (136-145)
== END | disposition home or self-care (01) ==
LOC: LAB 11:31
PROVIDERS: Nurse Practitioner Family; PCP Family Medicine; Referring Provider Internal Medicine Nephrology; Visit Provider Internal Medicine Nephrology
DX: E87.6 Hypokalemia (principal)
CPT/HCPCS: 36415; 80053

== ENCOUNTER 2022-11-27 21:17 | Emergency (ER) | payer OTHER, SELFPAY ==
[2022-11-27 21:19] VITALS: BP 161/70; PULSE 70; RESP 16; TEMP 36.4; O2SAT 94
[2022-11-27 21:37] VITALS: BMI 58.1
--- NOTE | 2022-11-27 22:30 | EDS_ITS ---
HPI History of Present Illness Chief Complaint: Wound Check Informant: patient Narrative Narrative: Patient comes in with darkening of his right small toe. Patient's had an ulcer on the lower lateral aspect of his foot distally at the base of the small toe for over a month. He has had this cleaned about a month ago about 2 weeks ago and then yesterday morning at [address] Lala Pittman in [facility]. Each time he has had good bleeding from the ulcer as they have debrided it. Dressings were placed at 10 AM yesterday. They took them off this evening and noticed that his small toe is dark. He does not think that the dressings were too tight. But he has decreased sensation in his feet due to neuropathy from diabetes. He is not having fevers chills. He has no palpitations or chest pain or lightheadedness. He has had atrial fibrillation in the past but is not chronically in that. He is on baby aspirin but no other blood thinners. 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 Cellulitis CHF (congestive heart failure) Diastolic CHF Dyspnea Dyspnea on exertion Essential hypertension Hypertensive emergency Lower extremity edema Mixed hyperlipidemia Obesity hypoventilation syndrome MARIA A (obstructive sleep apnea) Paroxysmal atrial fibrillation Pulmonary hypertension Type 2 diabetes mellitus Venous insufficiency Home Medications multivitamin with minerals 1 tablet PO DAILY vitamin 02/01/19 [History Last Taken 06/16/20] aspirin 81 mg tablet,delayed release 81 mg PO DAILY@0800 #60 tabs 02/06/19 [Rx Last Taken 06/16/20] ipratropium 0.5 mg-albuterol 3 mg (2.5 mg base)/3 mL nebulization soln 3 ml inhalation Q6H PRN breathing 06/13/20 [History Last Taken Unknown] Disability Placard #1 ea 05/30/21 [Rx Last Taken Unknown] FreeStyle Noe 14 Day Sensor (flash glucose sensor) #2 ea 12/07/21 [Rx Last Taken Unknown] icosapent ethyl 1 gram capsule cap PO 12/07/21 [History Last Taken Unknown] rosuvastatin 40 mg tablet 40 mg PO QHS #90 tabs 12/11/21 [Rx Last Taken Unknown] blood-glucose sensor (FreeStyle Noe 3 Sensor device) #2 ea 05/17/22 [Rx Last Taken Unknown] flecainide 100 mg tablet 100 mg PO BID #180 tabs 08/01/22 [Rx Last Taken Unknown] metoprolol tartrate 25 mg tablet 25 mg PO BID #180 tabs 08/01/22 [Rx Last Taken Unknown] insulin regular hum U-500 conc 500 unit/mL(3 mL) subcut pen (Humulin R U-500 (Conc) Insulin Kwikpen) 140 unit (0.28 mL) subcut TIDWMEAL #78 mL 08/09/22 [Rx Last Taken Unknown] potassium chloride 20 mEq tablet,extended release(part/cryst) 20 meq PO TID 08/29/22 [History Last Taken Unknown] tirzepatide 12.5 mg/0.5 mL subcutaneous pen injector (Mounjaro) 12.5 mg (0.5 mL) subcut QWEEK #2 mL 08/29/22 [Rx Last Taken Unknown] furosemide 40 mg tablet See Rx Instructions .Route .COMPLEX #270 tabs 09/10/22 [Rx Last Taken Unknown] empagliflozin 25 mg tablet (Jardiance) 25 mg PO DAILY #90 tabs 09/12/22 [Rx Last Taken Unknown] amlodipine 10 mg tablet 10 mg PO DAILY #90 tabs 11/19/22 [Rx Last Taken Unknown] losartan 100 mg tablet 100 mg PO DAILY #90 tabs 11/19/22 [Rx Last Taken Unknown] Allergy/AdvReac Type Severity Reaction Status Date / Time No Known Allergies Allergy Verified 11/27/22 21:19 Family History Father CAD (coronary artery disease) Myocardial infarction Hypertension Diabetes CVA (cerebral vascular accident) Mother Diabetes Hypertension Surgical History History of knee surgery History of right heart catheterization (RHC) (~06/28/20) History of tonsillectomy Social History Smoking Status: Never smoker alcohol intake: never substance use type: does not use caffeine: Yes Type: carbonated beverages Number of servings: 4 ROS ROS ED Constitutional Constitutional ED: Denies chills or fever(s) ENT ENT ED: Denies rhinorrhea or sore throat Cardiovascular Cardiovascular: Denies chest pain, palpitations or racing heartbeat Respiratory/Chest Respiratory/Chest: Denies cough Gastrointestinal Gastrointestinal: Denies nausea or vomiting Musculoskeletal Musculoskeletal: Reports arthralgias Integumentary Reports rash and other Details: Ulcer to right foot. Not worsening. Neurologic Neurologic: Denies paresthesias Endocrine Endocrinology: Denies polyuria Hematologic/Lymphatic Hematologic/Lymphatic: Denies easy bleeding, easy bruising or lymphadenopathy Allergic/Immunologic Allergic/Immunologic ED: Denies urticaria EXAM Physical Exam Narrative Exam Narrative: Patient is awake alert no acute distress. HEENT shows no trauma. Mucous membranes moist. Heart is regular. He has a rate about 65 or 70. I listen for quite some time and there is no irregularity to his heart or asymmetry of tones in pulses in his extremity. Lungs are clear bilaterally. Abdomen is obese but otherwise benign. Extremities he has chronic edema of both legs. He states is normal. We took his boot off sock and looked at this right foot. He has an ulcer that is having some healing and granulation tissue. He is got some clear seepage from it which would be typical. His small toe however is dusky. It has slow capillary refill. This does not extend down to the foot or other toes. We did Doppler ultrasound and he has biphasic posterior tibial and dorsalis pedis pulses. There is no indication of acute vascular abnormality. Const Vital Signs: 11/27/22 21:19 Temperature 97.5 F L Temperature Source Temporal Pulse Rate 70 Respiratory Rate 16 Blood Pressure 161/70 H Blood Pressure Mean 100 Pulse Ox 94 MDM MDM MDM Narrative Medical decision making narrative: I attempted to call his [employer] architect but he is out of town and there is no one on- call. However, this patient has what appears to be ischemia of the small toe but he has no sign of atrial fibrillation and he has excellent distal pulses. I explained that this is ischemia of this 1 toe. This may be from some edema from the procedure. But there is nothing that can be acutely done to improve flow. He should keep it warm but do not put any heating packs or pads on this as he has poor sensation and this could cause a burn. If he has increasing drainage redness swelling or fevers he should return. But this area of ischemia will likely self demarcate. If he gets some decreased swelling from the procedure he may have improvement. He should keep the foot neutral or mildly elevated. He is calling tomorrow for repeat visit. Discharge Plan Triage Chief Complaint: Wound Check ED Provider: Jeremy Abarca Dx/Rx/DC Orders Clinical Impression: Ischemic toe, History of diabetes mellitus, type II Instructions: ED Wound Care Prescriptions: No Action ipratropium-albuterol 0.5 mg-3 mg(2.5 mg base)/3 mL solution for nebulization 3 ml INHALATION Q6H PRN (Reason: breathing) (DME) Disability Placard See Rx Instructions .Route .MEDSUPPLY Qty: 1 0RF Rx Instructions: expires 05/30/2026 icosapent ethyl 1 gram capsule PO (DME) FreeStyle Noe 14 Day Sensor Kit See Rx Instructions .Route Qty: 2 5RF Rx Instructions: 1 sensor q 14 days (DME) FreeStyle Noe 3 Sensor Device See Rx Instructions .Route Qty: 2 5RF Rx Instructions: As directed potassium chloride 20 mEq tablet,ER particles/crystals 20 meq PO TID Mounjaro 12.5 mg/0.5 mL pen injector 12.5 mg subcut QWEEK Qty: 2 3RF multivitamin with minerals 1 EACH tablet 1 tablet PO DAILY aspirin 81 MG tablet 81 mg PO DAILY@0800 Qty: 60 0RF rosuvastatin 40 mg tablet 40 mg PO QHS Qty: 90 3RF flecainide 100 mg tablet 100 mg PO BID Qty: 180 3RF metoprolol tartrate 25 mg tablet 25 mg PO BID Qty: 180 3RF Humulin R U-500 (Conc) Kwikpen 500 unit/mL (3 mL) insulin pen 140 unit subcut TIDWMEAL Qty: 78 1RF furosemide 40 mg tablet See Rx Instructions .ROUTE .COMPLEX Qty: 270 3RF Dose Instruction: TAKE 2 TABLETS IN THE MORNING AND 1 TABLET IN THE EVENING FOR FLUID FOR A TOTAL OF 3 TABLETS (120 MG) DAILY Rx Instructions: TAKE 2 TABLETS IN THE MORNING AND 1 TABLET IN THE EVENING FOR FLUID FOR A TOTAL OF 3 TABLETS (120 MG) DAILY Jardiance 25 mg tablet 25 mg PO DAILY Qty: 90 1RF losartan 100 mg tablet 100 mg PO DAILY Qty: 90 3RF amlodipine 10 mg tablet 10 mg PO DAILY Qty: 90 3RF Primary Care Provider: Jus Shields Referrals: Jus Shields MD [Primary Care Provider] - As soon as possible Activity Restrictions/Additional Instructions: Call the office of Dr. Zak Reeves tomorrow to be seen as soon as possible for recheck. Disposition Disposition: Home, Self Care
[2022-11-27 22:41] VITALS: PULSE 79; RESP 15; O2SAT 97
== END 2022-11-27 22:47 | disposition home or self-care (01) ==
PROVIDERS: Emergency Provider Emergency Medicine; PCP Family Medicine; Visit Provider Emergency Medicine
DX: M62.271 Nontraumatic ischemic infarction of muscle, right ankle and foot (principal); E11.621 Type 2 diabetes mellitus with foot ulcer; L97.509 Non-pressure chronic ulcer of other part of unspecified foot with unspecified severity; I11.0 Hypertensive heart disease with heart failure; I50.32 Chronic diastolic (congestive) heart failure; E11.40 Type 2 diabetes mellitus with diabetic neuropathy, unspecified; Z79.4 Long term (current) use of insulin; E78.2 Mixed hyperlipidemia; I25.10 Atherosclerotic heart disease of native coronary artery without angina pectoris; G47.33 Obstructive sleep apnea (adult) (pediatric); Z79.82 Long term (current) use of aspirin; Z79.899 Other long term (current) drug therapy
CPT/HCPCS: 99284

== ENCOUNTER → 2023-01-17 | Outpatient (CLI) | payer OTHER, SELFPAY ==
[2023-01-17 12:54] LABS: AST(SGOT) 22 U/L (15-37); Alanine Aminotransfer ALT/SGPT 23 U/L (16-61); Albumin, Serum 3.6 g/dL (3.2-5.0); Alkaline Phosphatase 80 U/L (45-117); Bilirubin, Direct 0.18 mg/dL (0.00-0.30); Cholesterol 112 mg/dL (200); Globulin 4.1 g/dL (2.2-4.2); High Density Lipoprotein 31 mg/dL; Protein, Total 7.7 g/dL (6.4-8.2); Triglycerides 286 mg/dL; Very Low Density Lipoprotein 57 mg/dL (5-40)
== END | disposition home or self-care (01) ==
LOC: LAB 11:29
PROVIDERS: PCP Family Medicine; Referring Provider Physician Assistant Medical; Visit Provider Physician Assistant Medical
DX: I10 Essential (primary) hypertension (principal)
CPT/HCPCS: 36415; 80061; 80076

== ENCOUNTER → 2023-01-21 | Outpatient (CLI) | payer OTHER, SELFPAY ==
[2023-01-21 08:42] LABS: Hematocrit 46.2 % (40-54); Hemoglobin 14.7 g/dL (13.0-16.5); Mean Corp Hgb Conc 31.8 g/dL (32-36); Mean Corpuscular Volume 84.8 fL (80-94); Mean Platelet Vol. 9.3 fl (6.2-12.0); Platelet Count 317 K/mm3 (150-450); RBC Distribution Width CV 15.2 % (11.6-14.6); RBC Distribution Width SD 45.9 fl (35.1-43.9); Red Blood Count 5.45 M/mm3 (4.6-6.2)
[2023-01-21 08:56] LABS: Albumin, Serum 3.6 g/dL (3.2-5.0); BUN 54 mg/dL (7-18); BUN/Creat Ratio 32.5 RATIO (10-20); Calcium,Total 9.2 mg/dL (8.5-10.1); Chloride 101 mmol/L (98-107); Creatinine, Serum 1.66 mg/dL (0.70-1.30); EST Glomerular Filtration Rate 45 mL/min (>60); Est Glom Filt Rate - Afr Amer 55 mL/min (>60); Glucose 155 mg/dL (74-106); Phosphorus 4.2 mg/dL (2.5-4.9); Potassium 3.2 mmol/L (3.5-5.1); Sodium Level 141 mmol/L (136-145)
== END | disposition home or self-care (01) ==
LOC: LAB 08:19
PROVIDERS: PCP Family Medicine; Referring Provider Internal Medicine Nephrology; Visit Provider Internal Medicine Nephrology
DX: N18.2 Chronic kidney disease, stage 2 (mild) (principal); E87.6 Hypokalemia
CPT/HCPCS: 36415; 80069; 85027

== ENCOUNTER → 2023-02-21 | Outpatient (CLI) | payer OTHER, SELFPAY | END | disposition home or self-care (01) | LOC: PSN 11:46 | PROVIDERS: PCP Family Medicine; Referring Provider Physician Assistant Medical; Visit Provider Physician Assistant Medical | DX: R94.31 Abnormal electrocardiogram [ECG] [EKG] (principal) | CPT/HCPCS: 93225; 93226 ==

== ENCOUNTER 2023-03-06 11:56 | Outpatient (CLI) | payer OTHER, SELFPAY | END 2023-03-06 23:59 | disposition home or self-care (01) | LOC: PSN 11:56 | PROVIDERS: PCP Family Medicine; Referring Provider Physician Assistant Medical; Visit Provider Physician Assistant Medical | DX: I45.10 Unspecified right bundle-branch block (principal); I49.3 Ventricular premature depolarization; I49.1 Atrial premature depolarization | CPT/HCPCS: 93225; 93226 ==

== ENCOUNTER → 2023-03-20 | Outpatient (CLI) | payer OTHER, SELFPAY ==
[2023-03-20 14:07] LABS: Albumin, Serum 3.5 g/dL (3.2-5.0); BUN 35 mg/dL (7-18); BUN/Creat Ratio 25.7 RATIO (10-20); Calcium,Total 9.1 mg/dL (8.5-10.1); Chloride 102 mmol/L (98-107); Creatinine, Serum 1.36 mg/dL (0.70-1.30); EST Glomerular Filtration Rate 57 mL/min (>60); Est Glom Filt Rate - Afr Amer 69 mL/min (>60); Glucose 170 mg/dL (74-106); Phosphorus 3.6 mg/dL (2.5-4.9); Potassium 3.7 mmol/L (3.5-5.1); Sodium Level 140 mmol/L (136-145)
== END | disposition home or self-care (01) ==
LOC: POLAB3 11:42
PROVIDERS: PCP Family Medicine; Visit Provider Internal Medicine Nephrology
DX: N17.9 Acute kidney failure, unspecified (principal)
CPT/HCPCS: 36415; 80069

== ENCOUNTER 2023-04-16 15:34 | Emergency (ER) | payer OTHER, SELFPAY ==
[2023-04-16 15:36] VITALS: BP 147/50; PULSE 67; RESP 14; TEMP 36.3; O2SAT 95
--- NOTE | 2023-04-16 15:53 | EX.ED.DYSGE1 ---
HPI History of Present Illness Chief Complaint: General Illness Informant: patient Onset/Context/Timing Onset: Days (2) Context: Gradual Onset Timing: Continuous Quality: Sore, aching Location: Right lower leg Worsened by: Bending Relieved by: Tylenol, ibuprofen Narrative Narrative: Patient presents with right lower leg pain that has been getting worse over the past couple days. Patient states it is gradually gotten worse. Patient describes it as soreness and aching. Patient states it is worse whenever he tries to bend it. Patient states she has been taking ibuprofen and Tylenol with minimal relief. Patient states she has had a recent amputation of his right fourth and fifth toes. Patient states he was seeing somebody at the wound clinic and was told to come to the emergency department for possible DVT in his right lower leg. 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 Cellulitis CHF (congestive heart failure) Diastolic CHF Dyspnea Dyspnea on exertion Essential hypertension Hypertensive emergency Lower extremity edema Mixed hyperlipidemia Obesity hypoventilation syndrome MARIA A (obstructive sleep apnea) Paroxysmal atrial fibrillation Pulmonary hypertension Type 2 diabetes mellitus Venous insufficiency Home Medications multivitamin with minerals 1 tablet PO DAILY vitamin 02/01/19 [History Last Taken 06/16/20] aspirin 81 mg tablet,delayed release 81 mg PO DAILY@0800 #60 tabs 02/06/19 [Rx Last Taken 06/16/20] ipratropium 0.5 mg-albuterol 3 mg (2.5 mg base)/3 mL nebulization soln 3 ml inhalation Q6H PRN breathing 06/13/20 [History Last Taken Unknown] Disability Placard #1 ea 05/30/21 [Rx Last Taken Unknown] FreeStyle Noe 14 Day Sensor (flash glucose sensor) #2 ea 12/07/21 [Rx Last Taken Unknown] blood-glucose sensor (FreeStyle Noe 3 Sensor device) #2 ea 05/17/22 [Rx Last Taken Unknown] metoprolol tartrate 25 mg tablet 25 mg PO BID #180 tabs 08/01/22 [Rx Last Taken Unknown] furosemide 40 mg tablet See Rx Instructions .Route .COMPLEX #270 tabs 09/10/22 [Rx Last Taken Unknown] losartan 100 mg tablet 100 mg PO DAILY #90 tabs 11/19/22 [Rx Last Taken Unknown] rosuvastatin 40 mg tablet 40 mg PO QHS #90 tabs 12/06/22 [Rx Last Taken Unknown] tirzepatide 15 mg/0.5 mL subcutaneous pen injector (Mounjaro) 15 mg (0.5 mL) subcut QWEEK #2 mL 01/02/23 [Rx Last Taken Unknown] amlodipine 10 mg tablet 5 mg PO DAILY 01/17/23 [History Last Taken Unknown] insulin regular hum U-500 conc 500 unit/mL(3 mL) subcut pen (Humulin R U-500 (Conc) Insulin Kwikpen) 140 unit (0.28 mL) subcut TIDWMEAL #78 mL 01/21/23 [Rx Last Taken Unknown] potassium chloride 20 mEq tablet,extended release(part/cryst) 20 meq PO TID #270 tabs 03/06/23 [Rx Last Taken Unknown] empagliflozin 25 mg tablet (Jardiance) 25 mg PO DAILY #90 tabs 03/20/23 [Rx Last Taken Unknown] Allergy/AdvReac Type Severity Reaction Status Date / Time No Known Allergies Allergy Verified 04/16/23 15:35 Family History Father CAD (coronary artery disease) Myocardial infarction Hypertension Diabetes CVA (cerebral vascular accident) Mother Diabetes Hypertension Surgical History History of knee surgery History of right heart catheterization (RHC) (~06/28/20) History of tonsillectomy Social History Smoking Status: Never smoker alcohol intake: never substance use type: does not use caffeine: Yes Type: carbonated beverages Number of servings: 4 ROS ROS ED Constitutional Constitutional ED: Denies chills or fever(s) Eyes Eyes: Denies blurry vision or change in vision ENT ENT ED: Denies rhinorrhea or sore throat Cardiovascular Cardiovascular: Denies chest pain or palpitations Respiratory/Chest Respiratory/Chest: Denies cough or dyspnea Gastrointestinal Gastrointestinal: Denies nausea or vomiting Genitourinary Genitourinary ED: Denies dysuria or hematuria Musculoskeletal Musculoskeletal: Denies back pain or neck pain Integumentary Denies abscess or rash Neurologic Neurologic: Denies headache(s) or weakness Allergic/Immunologic Allergic/Immunologic ED: Denies mouth swelling or urticaria EXAM Physical Exam Const Vital Signs: 04/16/23 15:36 04/16/23 16:06 Temperature 97.3 F L Temperature Source Temporal Pulse Rate 67 Respiratory Rate 14 Respiratory Pattern Normal Blood Pressure 147/50 H Blood Pressure Mean 82 Pulse Ox 95 Oxygen Delivery Method Room Air Positive well nourished, well developed and obese General Appearance ED: well developed and NAD Nutritional Appearance: obese HEENT Reports moist mucous membranes Neck supple and no JVD Resp normal respiratory effort and clear to auscultation bilaterally Cardio regular rate and regular rhythm GI non-tender and non-distended Palpation: soft Extremity Extremity Narrative: There is tenderness over the right calf and lower leg. There is a dressing in place on the right foot. Capillary refills less than 2 seconds in all digits. Range of motion was limited in flexion of the right ankle and right knee secondary to pain. Strength is 5/5 bilaterally. Sensation was decreased to light touch in all digits. (Patient states this is chronic.) Neuro oriented x3, CN's II-XII intact bilaterally and no sensory deficits noted Sensorium / Orientation: alert Motor Exam: strength 5/5 throughout Psych mental status grossly normal MDM MDM MDM Narrative Medical decision making narrative: Differential diagnosis includes DVT and calf strain. Venous duplex of the right lower leg will be obtained to assess for DVT. Radiography Diagnostic Testing: Clinical Impression(s) from Imaging Studies Venous Doppler Study 04/16/23 16:00 Interpretation Summary Deep veins of the right lower extremity are patent and compressible segmentally. There is no evidence of right lower extremity deep vein thrombosis. The right great saphenous vein appears patent and compressible segmentally. Ordering Physician: Andrea Donaldson Referring Physician: Jus Shields Performed By: Ivon Vidal RVT Venous duplex of the right lower extremity was obtained. There is no evidence of DVT noted. Treatment and Re-Evaluation :: Patient was advised of his findings. Patient was instructed to ice and elevate the right lower leg. Patient states his wound care physician looked at the wound today and did not feel there was any infection. Patient was instructed to follow-up with his primary care physician and wound care physician in 5 to 7 days. Patient understood and was agreeable with the plan. All questions were answered. Discharge Plan Triage Chief Complaint: General Illness ED Provider: Andrea Donaldson Dx/Rx/DC Orders Clinical Impression: Pain in right lower leg, Diabetes Instructions: ED Muscle Strain, Extremity Prescriptions: No Action ipratropium-albuterol 0.5 mg-3 mg(2.5 mg base)/3 mL solution for nebulization 3 ml INHALATION Q6H PRN (Reason: breathing) (DME) Disability Placard See Rx Instructions .Route .MEDSUPPLY Qty: 1 0RF Rx Instructions: expires 05/30/2026 (DME) FreeStyle Noe 14 Day Sensor Kit See Rx Instructions .Route Qty: 2 5RF Rx Instructions: 1 sensor q 14 days (DME) FreeStyle Noe 3 Sensor Device See Rx Instructions .Route Qty: 2 5RF Rx Instructions: As directed Mounjaro 15 mg/0.5 mL pen injector 15 mg subcut QWEEK Qty: 2 5RF amlodipine 10 mg tablet 5 mg PO DAILY multivitamin with minerals 1 EACH tablet 1 tablet PO DAILY aspirin 81 MG tablet 81 mg PO DAILY@0800 Qty: 60 0RF metoprolol tartrate 25 mg tablet 25 mg PO BID Qty: 180 3RF furosemide 40 mg tablet See Rx Instructions .ROUTE .COMPLEX Qty: 270 3RF Dose Instruction: TAKE 2 TABLETS IN THE MORNING AND 1 TABLET IN THE EVENING FOR FLUID FOR A TOTAL OF 3 TABLETS (120 MG) DAILY Rx Instructions: TAKE 2 TABLETS IN THE MORNING AND 1 TABLET IN THE EVENING FOR FLUID FOR A TOTAL OF 3 TABLETS (120 MG) DAILY losartan 100 mg tablet 100 mg PO DAILY Qty: 90 3RF rosuvastatin 40 mg tablet 40 mg PO QHS Qty: 90 3RF Humulin R U-500 (Conc) Kwikpen 500 unit/mL (3 mL) insulin pen 140 unit subcut TIDWMEAL Qty: 78 1RF potassium chloride 20 mEq tablet,ER particles/crystals 20 meq PO TID Qty: 270 3RF Jardiance 25 mg tablet 25 mg PO DAILY Qty: 90 3RF Primary Care Provider: Jus Shields Referrals: Jus Shields MD [Primary Care Provider] - 5-7 Days Disposition Disposition: Home, Self Care
--- NOTE | 2023-04-16 16:00 | VDLE_ITS ---
Reason For Study: Right leg pain RIGHT GSV is normal. CFV is compressible, spontaneous, phasic, competent and demonstrates normal augmentation. FV is compressible, spontaneous, phasic, competent and demonstrates normal augmentation. POP V is compressible, spontaneous, phasic, competent and demonstrates normal augmentation. T/P Trunk is compressible. PTV is compressible. RT PerV is compressible. Procedure This is a venous duplex using B-mode, color flow and spectral Doppler. Exam performed portable in ED. A preliminary report was called and/or faxed to Dr. Donaldson. VL/Venous Duplex US, Unilateral Interpretation Summary Deep veins of the right lower extremity are patent and compressible segmentally . There is no evidence of right lower extremity deep vein thrombosis. The right great sapheno us vein appears patent and compressible segmentally. Ordering Physician: Andrea Donaldson Referring Physician: Jus Shields Performed By: Ivon Vidal RVT
[2023-04-16 16:11] VITALS: BMI 55.3; BMI 58.7
== END 2023-04-16 16:56 | disposition home or self-care (01) ==
LOC: ED 16:49
PROVIDERS: Emergency Provider Emergency Medicine; PCP Family Medicine; Referring Provider Emergency Medicine; Visit Provider Emergency Medicine
DX: M79.661 Pain in right lower leg (principal); Z89.421 Acquired absence of other right toe(s); I11.0 Hypertensive heart disease with heart failure; I50.42 Chronic combined systolic (congestive) and diastolic (congestive) heart failure; I48.0 Paroxysmal atrial fibrillation; E11.9 Type 2 diabetes mellitus without complications; Z79.4 Long term (current) use of insulin; I25.10 Atherosclerotic heart disease of native coronary artery without angina pectoris; G47.33 Obstructive sleep apnea (adult) (pediatric); E78.2 Mixed hyperlipidemia; Z79.82 Long term (current) use of aspirin; Z79.899 Other long term (current) drug therapy
CPT/HCPCS: 93971; 99283

== ENCOUNTER → 2023-05-16 | Outpatient (CLI) | payer OTHER, SELFPAY ==
[2023-05-16 12:13] LABS: AST(SGOT) 27 U/L (15-37); Alanine Aminotransfer ALT/SGPT 29 U/L (16-61); Albumin, Serum 3.4 g/dL (3.2-5.0); Alkaline Phosphatase 70 U/L (45-117); Bilirubin, Direct 0.16 mg/dL (0.00-0.30); Cholesterol 116 mg/dL (200); Globulin 4.2 g/dL (2.2-4.2); High Density Lipoprotein 36 mg/dL; Protein, Total 7.6 g/dL (6.4-8.2); Triglycerides 213 mg/dL; Very Low Density Lipoprotein 43 mg/dL (5-40)
== END | disposition home or self-care (01) ==
LOC: LAB.FUTURE 10:26
PROVIDERS: Physician Assistant Medical; PCP Family Medicine; Visit Provider Internal Medicine Nephrology
DX: N17.9 Acute kidney failure, unspecified (principal); E78.2 Mixed hyperlipidemia
CPT/HCPCS: 36415; 80061; 80076